=== PATIENT | female | born 1950 | race Caucasian/White ===

== ENCOUNTER 2018-10-30 14:43 | Inpatient (IN) | payer MEDICARE, MEDICAID ==
[2018-10-30 15:23] LABS: % BASOPHILS 0.9 % (0.0-2.0); % MONOCYTES 6.8 % (2.0-10.0); % NEUTROPHILS 54.3 % (40.0-80.0); BASOPHILE ABSOLUTE 0.1 Th/cumm (0-0.2); EOSINOPHILE ABSOLUTE 0.2 Th/cmm (0.1-0.4); HEMATOCRIT 37.5 % (41.0-60); HEMOGLOBIN 12.1 gm/dL (12-16); LYMPHOCYTE ABSOLUTE 2.3 Th/cmm (1.5-3.0); MEAN CELL VOLUME 92.6 fl (81-100); MEAN CORPUSCULAR HEMOGLOBIN 29.9 pg (27.0-31.0); MEAN CORPUSCULAR HGB CONC 32.3 pg (28.0-36.0); MEAN PLATELET VOLUME 8.3 fl; MONOCYTE ABSOLUTE 0.5 Th/cmm (0.3-1.0); NEUTROPHILE ABSOLUTE 3.6 Th/cmm (1.8-8.0); PLATELET COUNT 303 Th/cmm (150-400); RED BLOOD COUNT 4.05 Mil/cmm (3.80-5.20); WHITE BLOOD COUNT 6.7 Th/cmm (4.8-10.8)
[2018-10-30 15:41] LABS: ALB/GLOB RATIO 1.3 (1.0-1.8); ALBUMIN 3.9 gm/dL (3.7-5.3); ALKALINE PHOSPHATASE 68 U/L (34-104); ANION GAP 13.8 (7.0-16.0); BILIRUBIN,TOTAL 0.4 mg/dL (0.3-1.0); BUN - UREA NITROGEN 19 mg/dL (7-25); CALCIUM SERUM 9.7 mg/dL (8.6-10.3); CARBON DIOXIDE 22.4 mEq/L (21.0-31.0); CHLORIDE 105 mEq/L (98-107); CREATININE - SERUM 0.9 mg/dL (0.6-1.2); GFR AFRICAN-AMERICAN > 60.0 ml/min (>90); GFR NON AFRICAN-AMERICAN > 60.0 ml/min; GLUCOSE 90 mg/dL (70-105); MAGNESIUM 2.2 mg/dL (1.9-2.7); PHOSPHOROUS 2.9 mg/dL (2.5-5.0); POTASSIUM SERUM 4.2 mEq/L (3.5-5.1); SGOT 14 U/L (13-39); SGPT/ALT 3 U/L (7-52); SODIUM SERUM 137 mEq/L (136-145)
--- NOTE | 2018-10-30 16:02 | ED Physician Chart ---
ED Chief Complaint/HPI - Patient Information Date Seen:: 10/30/18 Time Seen:: 14:53 Chief Complaint:: delusions History of Present Illness:: increase in paranoia. She is locking herself in room and stating that she is missing meds and that someone stole her [place] pills. Allergies:: Allergies Allergy/AdvReac Type Severity Reaction Status Date / Time No Known Allergies Allergy Verified 10/30/18 14:58 Vitals:: Vital Signs - 8 hr 10/30/18 14:53 Temp 98.2 F HR 74 RR 16 BP 92/47 O2 Sat % 97 Historian:: Medical Records Review:: Nurse's Note Reviewed, Transfer documents Reviewed ED Review of Systems - Review of Systems General/Constitutional: No fever, No chills, No weight loss, No weakness, No diaphoresis, No edema, No loss of appetite Skin: No skin lesions, No rash, No bruising Head: No headache, No light-headedness Eyes: No loss of vision, No pain, No diplopia ENT: No earache, No nasal drainage, No sore throat, No tinnitus Neck: No neck pain, No swelling, No thyromegaly, No stiffness, No mass noted Cardio Vascular: No chest pain, No palpitations, No PND, No orthopnea, No edema Pulmonary: No SOB, No cough, No sputum, No wheezing GI: No nausea, No vomiting, No diarrhea, No pain, No melena, No hematochezia, No constipation, No hematemesis G/U: No dysuria, No frequency, No hematuria Musculoskeletal: No bone or joint pain, Back pain, No muscle pain, Other ( chronic back pain) Endocrine: No polyuria, No polydipsia Psychiatric: No prior psych history, No depression, No anxiety, No suicidal ideation Hematopoietic: No bruising, No lymphadenopathy Allergic/Immuno: No urticaria, No angioedema Neurological: No syncope, No focal symptoms, No weakness, No paresthesia, No headache, No seizure, No dizziness, No confusion, No vertigo ED Past Medical History - Past Medical History Obtainable: No Past Medical History: Other (chronic back pain; low thyroid; unknown psychiatric history since facility sent incomplete paper work) ED Physical Exam - Physical Examination General/Constitutional: Awake, Well-developed, well-nourished, Alert, No distress, GCS 15, Non-toxic appearing, Ambulatory Head: Atraumatic Eyes: Lids, conjuctiva normal, PERRL, EOMI Skin: Nl inspection, No rash, No skin lesions, No ecchymosis, Well hydrated, No lymphadenopathy ENMT: External ears, nose nl Neck: Nontender, No nuchal rigidity, No stridor Respiratory: Nl effort/Exclusion, Clear to Auscultation, No Wheeze/Rhonchi/Rales Cardio Vascular: RRR, No murmur, gallop, rubs, NL S1 S2 GI: No tenderness/rebounding/guarding, No organomegaly, No hernia, Normal BS's, Nondistended, No mass/bruits, No Mc[place] tenderness : No CVA tenderness Extremities: No tenderness or effusion, Full ROM, normal strength in all extremities, No edema, Normal digits & nails Neuro/Psych: Alert/oriented, Normal sensory exam, Normal motor strength, Normal gait, No focal deficits Other Neuro/Psych comments:: agitated and anxious Misc: Normal back, No paraspinal tenderness ED Labs/Radiology/EKG Results - Lab Results Results: Laboratory Tests 10/30/18 10/30/18 15:18 15:18 WBC 6.7 RBC 4.05 Hgb 12.1 Hct 37.5 L MCV 92.6 MCH 29.9 MCHC Differential 32.3 RDW 13.0 Plt Count 303 MPV 8.3 Neutrophils % 54.3 Lymphocytes % 35.0 Monocytes % 6.8 Eosinophils % 3.0 Basophils % 0.9 Sodium 137 Potassium 4.2 Chloride 105 Carbon Dioxide 22.4 Anion Gap 13.8 BUN 19 Creatinine 0.9 Est GFR ( Amer) > 60.0 Est GFR (Non-Af Amer) > 60.0 BUN/Creatinine Ratio 21.1 Glucose 90 Calcium 9.7 Phosphorus 2.9 Magnesium 2.2 Total Bilirubin 0.4 AST 14 ALT 3 L Alkaline Phosphatase 68 Total Protein 7.0 Albumin 3.9 Globulin 3.1 Albumin/Globulin Ratio 1.3 ED Assessment - Assessment General Assessment: PATIENT IS CLEARED FROM A MEDICAL STANDPOINT FOR THE [facility]. WE WERE NOT ABLE TO OBTAIN A URINE ON HER TO SEE IF SHE HAS A URINARY TRACT INFECTION. SHE DENIES ALL SYMPTOMS. called nurse Fifi, the charge nurse of [facility] (ext. [phone]) to tell her that the TSH level was a little bit elevated at 5.83 (normal is up to 5.6). Patient is already on levothyroxine. ED Septic Shock - . Is Septic Shock (SBP<90, OR Lactate>4 mmol\L) present?: No - <6hrs of presentation: Vital Signs: Vital Signs - 8 hr 10/30/18 14:53 Temp 98.2 F HR 74 RR 16 BP 92/47 O2 Sat % 97 ED Reassessment (Disposition) - Reassessment Reassessment Condition:: Unchanged - Diagnosis Diagnosis:: Increased agitation Paranoia Delusions Hypothyroidism: called nurse Fifi, the charge nurse of [facility] (ext. [phone]) to tell her that the TSH level was a little bit elevated at 5.83 (normal is up to 5.6). Patient is already on levothyroxine. - Patient Disposition Discharge/Transfer:: Acute Care w/in this hosp Admitted to:: [facility] Condition at Disposition:: Stable, Unchanged
[2018-10-30 16:40] VITALS: BP 0/0
[2018-10-30] MEDS ORDERED: Magnesium Hydroxide (MOM) 30 mL UDC PO PRN (16:40)
[2018-10-30] MEDS ORDERED: Maalox 30 mL Cup PO PRN (16:40)
[2018-10-30] MEDS ORDERED: [UNRECOGNIZED DRUG - OTHER] PO PRN (16:43)
[2018-10-30] MEDS ORDERED: CAFFEINE PO PRN (16:43)
[2018-10-30] MEDS ORDERED: ASPIRIN PO PRN (16:43)
[2018-10-30] MEDS ORDERED: ACETAMINOPHEN PO PRN (16:43)
[2018-10-30] MEDS ORDERED: Haloperidol Lactate 5 mg/mL 1mL Vial ONE (16:49)
[2018-10-30] MEDS ORDERED: Haloperidol Lactate 5 mg/mL 1mL Vial IM STA (16:55)
[2018-10-30 17:00] LABS: CHOLESTEROL 290 mg/dL (<200); HDL -HIGH DENSITY LIPOPROTEIN 73 mg/dL (23-92); TRIGLYCERIDES 83 mg/dL (<150)
[2018-10-31] MEDS ORDERED: CIMETIDINE 200 MG PO SCH (09:00)
[2018-10-31] MEDS ORDERED: Non-Formulary Item 1 EA (Levothyroxine Sodium [Levothyroxine Sodium] 150 MCG) PO SCH (09:00)
[2018-10-31] MEDS: Multivitamin Tab PO SCH (09:38)
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
--- NOTE | 2018-10-31 14:07 | History and Physical ---
History of Present Illness - HPI Chief Complaint: PARANOID HPI: This is a 68 year old female admitted from snf due to paranoia. Vital Signs: Last Vital Signs Temp 98.2 F 10/31/18 05:58 Pulse 61 10/31/18 09:39 Resp 18 10/31/18 10:36 BP 124/64 10/31/18 09:39 Pulse Ox 98 10/31/18 05:58 Past Medical History Other History: chronic back pain; hypothyroid psychosis Social History Smoke: No Alcohol: None Drugs: None Lives: [facility] - Medications Home Medications: Home Medication Medication Instructions Recorded Type Aspirin/Acetaminophen/Caffeine 1 each PO Q4H PRN 10/30/18 History [Excedrin Extra Strength Caplet] Cetirizine HCl [Zyrtec] 10 mg PO DAILY 10/30/18 History Cimetidine [Tagamet Hb] 200 mg PO DAILY 10/30/18 History Hydrocodone/Acetaminophen 1 each PO Q6H PRN 10/30/18 History [Hydrocodone-Acetamin 10-325 mg] Levothyroxine Sodium 150 mcg PO DAILY 10/30/18 History Lisinopril 10 mg PO DAILY 10/30/18 History Temazepam [Restoril] 30 mg PO HS 10/30/18 History Trazodone HCl 100 mg PO HS 10/30/18 History Venlafaxine HCl [Venlafaxine HCl 150 mg PO BID 10/30/18 History ER] buPROPion SR [Wellbutrin Sr] 200 mg PO DAILY 10/30/18 History - Allergies Allergies/Adverse Reactions: Allergies Allergy/AdvReac Type Severity Reaction Status Date / Time No Known Allergies Allergy Verified 10/30/18 14:58 Review of Systems - Review of Systems Constitutional: Report: No Significant Eyes: Report: No Significant ENT: Report: No Significant Respiratory: Report: No Significant Cardiovascular: Report: No Significant Neurological: Report: No Significant Physical Exam - Physical Exam HEENT: Report: Ears Nose Throat within normal limits Neck: Report: Within normal limits Cardiovascular Systems: Report: +s1/s2 noted, Regular, Rate and Rhythm Respiratory: Report: Breath Sounds are within normal limits Abdomen: Report: Non-tender to palpation Back: Report: Inspection of back is within normal limits. Extremities: Report: Non-tender to palpation. Skin: Report: Warm, Dry - Lab Results All Lab Results last 24 hours: Laboratory Results - last 24 hr 10/30/18 10/30/18 10/30/18 15:18 15:18 15:18 WBC 6.7 RBC 4.05 Hgb 12.1 Hct 37.5 L MCV 92.6 MCH 29.9 MCHC Differential 32.3 RDW 13.0 Plt Count 303 MPV 8.3 Neutrophils % 54.3 Lymphocytes % 35.0 Monocytes % 6.8 Eosinophils % 3.0 Basophils % 0.9 Sodium 137 Potassium 4.2 Chloride 105 Carbon Dioxide 22.4 Anion Gap 13.8 BUN 19 Creatinine 0.9 Est GFR ( Amer) > 60.0 Est GFR (Non-Af Amer) > 60.0 BUN/Creatinine Ratio 21.1 Glucose 90 Calcium 9.7 Phosphorus 2.9 Magnesium 2.2 Total Bilirubin 0.4 AST 14 ALT 3 L Alkaline Phosphatase 68 Total Protein 7.0 Albumin 3.9 Globulin 3.1 Albumin/Globulin Ratio 1.3 Triglycerides Cholesterol LDL Cholesterol Direct HDL Cholesterol TSH 5.83 H 10/30/18 15:18 WBC RBC Hgb Hct MCV MCH MCHC Differential RDW Plt Count MPV Neutrophils % Lymphocytes % Monocytes % Eosinophils % Basophils % Sodium Potassium Chloride Carbon Dioxide Anion Gap BUN Creatinine Est GFR ( Amer) Est GFR (Non-Af Amer) BUN/Creatinine Ratio Glucose Calcium Phosphorus Magnesium Total Bilirubin AST ALT Alkaline Phosphatase Total Protein Albumin Globulin Albumin/Globulin Ratio Triglycerides 83 Cholesterol 290 H LDL Cholesterol Direct 199 H HDL Cholesterol 73 TSH - Assessment Assessment: chronic back pain hypothyroidism psychosis - Plan Plan: fall precautions continue snf meds continue current tx
[2018-10-31 17:43] LABS: URINE SOURCE RANDOM
[2018-10-31 17:48] LABS: URINE BILIRUBIN NEGATIVE (NEGATIVE); URINE BLOOD LARGE (NEGATIVE); URINE CLARITY HAZY (CLEAR); URINE COLOR YELLOW; URINE GLUCOSE (UA) NEGATIVE (NEGATIVE); URINE KETONE NEGATIVE (NEGATIVE); URINE LEUKOCYTE ESTERASE NEGATIVE (NEGATIVE); URINE MICROSCOPIC INDICATED? YES; URINE NITRATE NEGATIVE (NEGATIVE); URINE PH 6.5 (4.6 - 8.0); URINE PROTEIN TRACE mg/dL (NEGATIVE); URINE UROBILINOGEN 0.2 E.U./dL (0.2 - 1.0)
[2018-10-31 17:51] LABS: URINE EPITHELIAL CELLS MODERATE /lpf (FEW); URINE RBC 25-50 /hpf (0-5)
[2018-10-31 17:52] LABS: URINE BACTERIA 4+ /hpf (NONE SEEN)
[2018-10-31 17:57] LABS: AMPHETAMINE URINE NEGATIVE (NEGATIVE); BARBITURATES URINE NEGATIVE (NEGATIVE); BENZODIAZEPINES QUAL URINE POSITIVE (NEGATIVE); CANNABINOID THC NEGATIVE (NEGATIVE); COCAINE METABOLITE QUAL URINE NEGATIVE (NEGATIVE); METHADONE URINE NEGATIVE (NEGATIVE); METHAMPHETAMINES QUAL URINE NEGATIVE (NEGATIVE); OPIATES (MORPHINE) QUAL. URINE NEGATIVE (NEGATIVE); PHENCYCLIDINE (PCP) URINE NEGATIVE (NEGATIVE); TRICYCLICS (TCA) QUAL. URINE NEGATIVE (NEGATIVE)
[2018-11-01] MEDS: Multivitamin Tab PO SCH (08:25)
[2018-11-01] MEDS: Hydrocodone/APAP 10 mg/325 mg Tab PO PRN (08:29)
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
--- NOTE | 2018-11-01 16:42 | Internal Medicine Prog Note ---
Internal Medicine Subjective - Subjective Patient seen and examined:: chart reviewed Patient is:: awake, other (paranoid ) Per staff patient has:: no adverse event Internal Medicine Objective - Results Result Diagrams: 10/30/18 15:18 10/30/18 15:18 Recent Labs: Laboratory Last Values WBC 6.7 Th/cmm (4.8-10.8) 10/30/18 15:18 RBC 4.05 Mil/cmm (3.80-5.20) 10/30/18 15:18 Hgb 12.1 gm/dL (12-16) 10/30/18 15:18 Hct 37.5 % (41.0-60) L 10/30/18 15:18 MCV 92.6 fl (81-100) 10/30/18 15:18 MCH 29.9 pg (27.0-31.0) 10/30/18 15:18 MCHC Differential 32.3 pg (28.0-36.0) 10/30/18 15:18 RDW 13.0 % (11.5-20.0) 10/30/18 15:18 Plt Count 303 Th/cmm (150-400) 10/30/18 15:18 MPV 8.3 fl 10/30/18 15:18 Neutrophils % 54.3 % (40.0-80.0) 10/30/18 15:18 Lymphocytes % 35.0 % (20.0-50.0) 10/30/18 15:18 Monocytes % 6.8 % (2.0-10.0) 10/30/18 15:18 Eosinophils % 3.0 % (0.0-5.0) 10/30/18 15:18 Basophils % 0.9 % (0.0-2.0) 10/30/18 15:18 Sodium 137 mEq/L (136-145) 10/30/18 15:18 Potassium 4.2 mEq/L (3.5-5.1) 10/30/18 15:18 Chloride 105 mEq/L (98-107) 10/30/18 15:18 Carbon Dioxide 22.4 mEq/L (21.0-31.0) 10/30/18 15:18 Anion Gap 13.8 (7.0-16.0) 10/30/18 15:18 BUN 19 mg/dL (7-25) 10/30/18 15:18 Creatinine 0.9 mg/dL (0.6-1.2) 10/30/18 15:18 Est GFR ( Amer) > 60.0 ml/min (>90) 10/30/18 15:18 Est GFR (Non-Af Amer) > 60.0 ml/min 10/30/18 15:18 BUN/Creatinine Ratio 21.1 10/30/18 15:18 Glucose 90 mg/dL (70-105) 10/30/18 15:18 Calcium 9.7 mg/dL (8.6-10.3) 10/30/18 15:18 Phosphorus 2.9 mg/dL (2.5-5.0) 10/30/18 15:18 Magnesium 2.2 mg/dL (1.9-2.7) 10/30/18 15:18 Total Bilirubin 0.4 mg/dL (0.3-1.0) 10/30/18 15:18 AST 14 U/L (13-39) 10/30/18 15:18 ALT 3 U/L (7-52) L 10/30/18 15:18 Alkaline Phosphatase 68 U/L (34-104) 10/30/18 15:18 Total Protein 7.0 gm/dL (6.0-8.3) 10/30/18 15:18 Albumin 3.9 gm/dL (3.7-5.3) 10/30/18 15:18 Globulin 3.1 gm/dL 10/30/18 15:18 Albumin/Globulin Ratio 1.3 (1.0-1.8) 10/30/18 15:18 Triglycerides 83 mg/dL (<150) 10/30/18 15:18 Cholesterol 290 mg/dL (<200) H 10/30/18 15:18 LDL Cholesterol Direct 199 mg/dL (75-193) H 10/30/18 15:18 HDL Cholesterol 73 mg/dL (23-92) 10/30/18 15:18 TSH 5.83 uIU/ml (0.34-5.60) H 10/30/18 15:18 Urine Source RANDOM 10/31/18 17:40 Urine Color YELLOW 10/31/18 17:40 Urine Clarity HAZY (CLEAR) 10/31/18 17:40 Urine pH 6.5 (4.6 - 8.0) 10/31/18 17:40 Ur Specific [place] 1.020 (1.005-1.030) 10/31/18 17:40 Urine Protein TRACE mg/dL (NEGATIVE) 10/31/18 17:40 Urine Glucose (UA) NEGATIVE mg/dL (NEGATIVE) 10/31/18 17:40 Urine Ketones NEGATIVE mg/dL (NEGATIVE) 10/31/18 17:40 Urine Blood LARGE (NEGATIVE) H 10/31/18 17:40 Urine Nitrate NEGATIVE (NEGATIVE) 10/31/18 17:40 Urine Bilirubin NEGATIVE (NEGATIVE) 10/31/18 17:40 Urine Urobilinogen 0.2 E.U./dL (0.2 - 1.0) 10/31/18 17:40 Ur Leukocyte Esterase NEGATIVE (NEGATIVE) 10/31/18 17:40 Urine RBC 25-50 /hpf (0-5) H 10/31/18 17:40 Urine WBC 2-5 /hpf (0-5) 10/31/18 17:40 Ur Epithelial Cells MODERATE /lpf (FEW) 10/31/18 17:40 Urine Bacteria 4+ /hpf (NONE SEEN) H 10/31/18 17:40 Urine Opiates Screen NEGATIVE (NEGATIVE) 10/31/18 17:40 Urine Methadone Screen NEGATIVE (NEGATIVE) 10/31/18 17:40 Ur Barbiturates Screen NEGATIVE (NEGATIVE) 10/31/18 17:40 Ur Tricyclics Screen NEGATIVE (NEGATIVE) 10/31/18 17:40 Ur Phencyclidine Scrn NEGATIVE (NEGATIVE) 10/31/18 17:40 Amphetamines Screen NEGATIVE (NEGATIVE) 10/31/18 17:40 U Methamphetamines Scrn NEGATIVE (NEGATIVE) 10/31/18 17:40 U Benzodiazepines Scrn POSITIVE (NEGATIVE) H 10/31/18 17:40 U Cocaine Metab Screen NEGATIVE (NEGATIVE) 10/31/18 17:40 U Cannabinoids Screen NEGATIVE (NEGATIVE) 10/31/18 17:40 - Physical Exam Vitals and I&O: Vital Signs Temp 98.1 F 11/01/18 14:00 Pulse 83 11/01/18 14:00 Resp 20 11/01/18 14:00 BP 134/85 11/01/18 14:00 Pulse Ox 97 11/01/18 14:00 Intake & Output 10/31/18 11/01/18 11/01/18 18:59 06:59 18:59 Intake Total 480 Balance 480 Intake: Oral 480 Other: # Voids 2 2 # Bowel Movements 1 Active Medications: Current Medications Acetaminophen (Tylenol) 650 mg PO Q4HR PRN PRN Reason: Mild Pain / Temp above 100 Stop: 12/29/18 16:39 Acetaminophen/Hydrocodone Bitart ([place] 10 Mg/325 Mg) 1 tab PO Q6H PRN PRN Reason: Moderate pain Stop: 12/29/18 16:42 Last Admin: 11/01/18 08:29 Dose: 1 tab Al Hydrox/Mg Hydrox/Simethicone (Maalox) 30 ml PO Q4HR PRN PRN Reason: GI DISTRESS Stop: 12/29/18 16:39 Bupropion HCl (Wellbutrin Sr) 200 mg PO DAILY [facility]; Protocol Stop: 12/30/18 08:59 Last Admin: 11/01/18 08:26 Dose: 200 mg Famotidine (Pepcid) 20 mg PO DAILY [facility] Stop: 12/30/18 08:59 Last Admin: 11/01/18 08:27 Dose: 20 mg Levothyroxine Sodium 0.1 mg/ (Levothyroxine Sodium 0.05 mg) 0.15 mg PO QDAC [facility] Stop: 12/30/18 07:29 Last Admin: 11/01/18 06:35 Dose: 0.15 mg Lisinopril (Zestril) 10 mg PO DAILY [facility] Stop: 12/30/18 08:59 Last Admin: 11/01/18 08:26 Dose: 10 mg Loratadine (Claritin) 10 mg PO DAILY [facility] Stop: 12/30/18 08:59 Last Admin: 11/01/18 08:26 Dose: 10 mg Lorazepam (Ativan) 0.5 mg PO Q4HR PRN; Protocol PRN Reason: Agitation Stop: 11/29/18 16:39 Last Admin: 11/01/18 12:20 Dose: 0.5 mg Magnesium Hydroxide (Milk Of Magnesia) 30 ml PO HS PRN PRN Reason: Constipation Multivitamins/Vitamin C (Theragran) 1 tab PO DAILY [facility] Stop: 12/30/18 08:59 Last Admin: 11/01/18 08:25 Dose: 1 tab Temazepam (Restoril) 30 mg PO HS [facility] Stop: 12/29/18 20:59 Last Admin: 10/31/18 20:15 Dose: 30 mg Trazodone HCl (Desyrel) 100 mg PO HS [facility] Stop: 12/29/18 20:59 Last Admin: 10/31/18 20:15 Dose: 100 mg Venlafaxine HCl (Effexor) 150 mg PO BID [facility] Stop: 12/29/18 20:59 Last Admin: 11/01/18 08:28 Dose: Not Given Zolpidem Tartrate (Ambien) 5 mg PO HS PRN PRN Reason: Insomnia Stop: 12/29/18 16:39 General: alert HEENT: NC/AT Neck: Supple Lungs: CTAB Cardiovascular: RRR, Normal S1, Normal S2 Abdomen: soft Extremities: clear Neurological: no change Internal Medicine Assmt/Plan - Assessment Assessment: psychosis hypothyrodism back pain - Plan Plan: as per psych
[2018-11-02] MEDS: Hydrocodone/APAP 10 mg/325 mg Tab PO PRN ×2 (11:04→17:05)
[2018-11-02] MEDS: Multivitamin Tab PO SCH (11:04)
--- NOTE | 2018-11-02 21:16 | Internal Medicine Prog Note ---
Internal Medicine Subjective - Subjective Service Date: 11/02/18 Patient seen and examined:: with staff Patient is:: awake, other (paranoid ) Per staff patient has:: no adverse event Internal Medicine Objective - Results Result Diagrams: 10/30/18 15:18 10/30/18 15:18 Recent Labs: Laboratory Last Values WBC 6.7 Th/cmm (4.8-10.8) 10/30/18 15:18 RBC 4.05 Mil/cmm (3.80-5.20) 10/30/18 15:18 Hgb 12.1 gm/dL (12-16) 10/30/18 15:18 Hct 37.5 % (41.0-60) L 10/30/18 15:18 MCV 92.6 fl (81-100) 10/30/18 15:18 MCH 29.9 pg (27.0-31.0) 10/30/18 15:18 MCHC Differential 32.3 pg (28.0-36.0) 10/30/18 15:18 RDW 13.0 % (11.5-20.0) 10/30/18 15:18 Plt Count 303 Th/cmm (150-400) 10/30/18 15:18 MPV 8.3 fl 10/30/18 15:18 Neutrophils % 54.3 % (40.0-80.0) 10/30/18 15:18 Lymphocytes % 35.0 % (20.0-50.0) 10/30/18 15:18 Monocytes % 6.8 % (2.0-10.0) 10/30/18 15:18 Eosinophils % 3.0 % (0.0-5.0) 10/30/18 15:18 Basophils % 0.9 % (0.0-2.0) 10/30/18 15:18 Sodium 137 mEq/L (136-145) 10/30/18 15:18 Potassium 4.2 mEq/L (3.5-5.1) 10/30/18 15:18 Chloride 105 mEq/L (98-107) 10/30/18 15:18 Carbon Dioxide 22.4 mEq/L (21.0-31.0) 10/30/18 15:18 Anion Gap 13.8 (7.0-16.0) 10/30/18 15:18 BUN 19 mg/dL (7-25) 10/30/18 15:18 Creatinine 0.9 mg/dL (0.6-1.2) 10/30/18 15:18 Est GFR ( Amer) > 60.0 ml/min (>90) 10/30/18 15:18 Est GFR (Non-Af Amer) > 60.0 ml/min 10/30/18 15:18 BUN/Creatinine Ratio 21.1 10/30/18 15:18 Glucose 90 mg/dL (70-105) 10/30/18 15:18 Calcium 9.7 mg/dL (8.6-10.3) 10/30/18 15:18 Phosphorus 2.9 mg/dL (2.5-5.0) 10/30/18 15:18 Magnesium 2.2 mg/dL (1.9-2.7) 10/30/18 15:18 Total Bilirubin 0.4 mg/dL (0.3-1.0) 10/30/18 15:18 AST 14 U/L (13-39) 10/30/18 15:18 ALT 3 U/L (7-52) L 10/30/18 15:18 Alkaline Phosphatase 68 U/L (34-104) 10/30/18 15:18 Total Protein 7.0 gm/dL (6.0-8.3) 10/30/18 15:18 Albumin 3.9 gm/dL (3.7-5.3) 10/30/18 15:18 Globulin 3.1 gm/dL 10/30/18 15:18 Albumin/Globulin Ratio 1.3 (1.0-1.8) 10/30/18 15:18 Triglycerides 83 mg/dL (<150) 10/30/18 15:18 Cholesterol 290 mg/dL (<200) H 10/30/18 15:18 LDL Cholesterol Direct 199 mg/dL (75-193) H 10/30/18 15:18 HDL Cholesterol 73 mg/dL (23-92) 10/30/18 15:18 TSH 5.83 uIU/ml (0.34-5.60) H 10/30/18 15:18 Urine Source RANDOM 10/31/18 17:40 Urine Color YELLOW 10/31/18 17:40 Urine Clarity HAZY (CLEAR) 10/31/18 17:40 Urine pH 6.5 (4.6 - 8.0) 10/31/18 17:40 Ur Specific [place] 1.020 (1.005-1.030) 10/31/18 17:40 Urine Protein TRACE mg/dL (NEGATIVE) 10/31/18 17:40 Urine Glucose (UA) NEGATIVE mg/dL (NEGATIVE) 10/31/18 17:40 Urine Ketones NEGATIVE mg/dL (NEGATIVE) 10/31/18 17:40 Urine Blood LARGE (NEGATIVE) H 10/31/18 17:40 Urine Nitrate NEGATIVE (NEGATIVE) 10/31/18 17:40 Urine Bilirubin NEGATIVE (NEGATIVE) 10/31/18 17:40 Urine Urobilinogen 0.2 E.U./dL (0.2 - 1.0) 10/31/18 17:40 Ur Leukocyte Esterase NEGATIVE (NEGATIVE) 10/31/18 17:40 Urine RBC 25-50 /hpf (0-5) H 10/31/18 17:40 Urine WBC 2-5 /hpf (0-5) 10/31/18 17:40 Ur Epithelial Cells MODERATE /lpf (FEW) 10/31/18 17:40 Urine Bacteria 4+ /hpf (NONE SEEN) H 10/31/18 17:40 Urine Opiates Screen NEGATIVE (NEGATIVE) 10/31/18 17:40 Urine Methadone Screen NEGATIVE (NEGATIVE) 10/31/18 17:40 Ur Barbiturates Screen NEGATIVE (NEGATIVE) 10/31/18 17:40 Ur Tricyclics Screen NEGATIVE (NEGATIVE) 10/31/18 17:40 Ur Phencyclidine Scrn NEGATIVE (NEGATIVE) 10/31/18 17:40 Amphetamines Screen NEGATIVE (NEGATIVE) 10/31/18 17:40 U Methamphetamines Scrn NEGATIVE (NEGATIVE) 10/31/18 17:40 U Benzodiazepines Scrn POSITIVE (NEGATIVE) H 10/31/18 17:40 U Cocaine Metab Screen NEGATIVE (NEGATIVE) 10/31/18 17:40 U Cannabinoids Screen NEGATIVE (NEGATIVE) 10/31/18 17:40 - Physical Exam Vitals and I&O: Vital Signs Temp 97.1 F 11/02/18 19:59 Pulse 92 11/02/18 19:59 Resp 20 11/02/18 19:59 BP 162/67 11/02/18 19:59 Pulse Ox 98 11/02/18 19:59 Intake & Output 11/02/18 11/02/18 11/03/18 06:59 18:59 06:59 Intake Total 120 1200 Balance 120 1200 Intake: Oral 120 1200 Other: # Voids 3 # Bowel Movements 0 1 Active Medications: Current Medications Acetaminophen (Tylenol) 650 mg PO Q4HR PRN PRN Reason: Mild Pain / Temp above 100 Stop: 12/29/18 16:39 Acetaminophen/Hydrocodone Bitart ([place] 10 Mg/325 Mg) 1 tab PO Q6H PRN PRN Reason: Moderate pain Stop: 12/29/18 16:42 Last Admin: 11/02/18 17:05 Dose: 1 tab Al Hydrox/Mg Hydrox/Simethicone (Maalox) 30 ml PO Q4HR PRN PRN Reason: GI DISTRESS Stop: 12/29/18 16:39 Bupropion HCl (Wellbutrin Sr) 200 mg PO DAILY [facility]; Protocol Stop: 12/30/18 08:59 Last Admin: 11/02/18 11:00 Dose: 200 mg Ciprofloxacin (Cipro) 500 mg PO BID [facility] Stop: 01/02/19 08:59 Famotidine (Pepcid) 20 mg PO DAILY [facility] Stop: 12/30/18 08:59 Last Admin: 11/02/18 11:00 Dose: 20 mg Levothyroxine Sodium 0.1 mg/ (Levothyroxine Sodium 0.05 mg) 0.15 mg PO QDAC [facility] Stop: 12/30/18 07:29 Last Admin: 11/02/18 06:55 Dose: 0.15 mg Lisinopril (Zestril) 10 mg PO DAILY [facility] Stop: 12/30/18 08:59 Last Admin: 11/02/18 11:01 Dose: 10 mg Loratadine (Claritin) 10 mg PO DAILY [facility] Stop: 12/30/18 08:59 Last Admin: 11/02/18 11:04 Dose: 10 mg Lorazepam (Ativan) 0.5 mg PO Q4HR PRN; Protocol PRN Reason: Agitation Stop: 11/29/18 16:39 Last Admin: 11/01/18 12:20 Dose: 0.5 mg Magnesium Hydroxide (Milk Of Magnesia) 30 ml PO HS PRN PRN Reason: Constipation Multivitamins/Vitamin C (Theragran) 1 tab PO DAILY CORKY Stop: 12/30/18 08:59 Last Admin: 11/02/18 11:04 Dose: Not Given Temazepam (Restoril) 30 mg PO HS CORKY Stop: 12/29/18 20:59 Last Admin: 11/02/18 20:31 Dose: 30 mg Trazodone HCl (Desyrel) 100 mg PO HS CORKY Stop: 12/29/18 20:59 Last Admin: 11/02/18 20:32 Dose: 100 mg Venlafaxine HCl (Effexor) 150 mg PO BID CORKY Stop: 12/29/18 20:59 Last Admin: 11/02/18 17:02 Dose: 150 mg Zolpidem Tartrate (Ambien) 5 mg PO HS PRN PRN Reason: Insomnia Stop: 12/29/18 16:39 General: alert HEENT: NC/AT Neck: Supple Lungs: CTAB Cardiovascular: RRR, Normal S1, Normal S2 Abdomen: soft Extremities: clear Neurological: no change Internal Medicine Assmt/Plan - Assessment Assessment: 1.UTI 2.HTN. 3.HYPOTHYROIDISM. 4.PSYCHOSIS. - Plan Plan: CIPRO 500 MG PO BID.
--- NOTE | 2018-11-02 23:07 | Progress Notes ---
DATE: 11/02/2018 SUBJECTIVE: Case was discussed with staff of the patient, reviewed records. The patient apparently was upset today as they have arranged ____ to go to [facility] and she had a boyfriend that come and visit her every day or every other day and if she goes there he won't be able to come see her except for maybe once a week and she is very upset because of that, so I discussed with staff the need for them to find a place closer to that where he worked and that is how she would prefer to be, so this way he would come and visit her, which is really understandable. She is sleeping better, eating better. No side effects of the medication, no sedation, and no nausea. We will continue to work with the patient in group therapy, milieu therapy, and adjust the medications as needed. JOB# [id number]
[2018-11-03] MEDS: Hydrocodone/APAP 10 mg/325 mg Tab PO PRN ×3 (06:35→19:40)
[2018-11-03] MEDS: Multivitamin Tab PO SCH (08:34)
--- NOTE | 2018-11-03 15:12 | Internal Medicine Prog Note ---
Internal Medicine Subjective - Subjective Patient seen and examined:: chart reviewed Patient is:: awake, other (paranoid , in no distress ) Per staff patient has:: no adverse event Internal Medicine Objective - Results Result Diagrams: 10/30/18 15:18 10/30/18 15:18 Recent Labs: Laboratory Last Values WBC 6.7 Th/cmm (4.8-10.8) 10/30/18 15:18 RBC 4.05 Mil/cmm (3.80-5.20) 10/30/18 15:18 Hgb 12.1 gm/dL (12-16) 10/30/18 15:18 Hct 37.5 % (41.0-60) L 10/30/18 15:18 MCV 92.6 fl (81-100) 10/30/18 15:18 MCH 29.9 pg (27.0-31.0) 10/30/18 15:18 MCHC Differential 32.3 pg (28.0-36.0) 10/30/18 15:18 RDW 13.0 % (11.5-20.0) 10/30/18 15:18 Plt Count 303 Th/cmm (150-400) 10/30/18 15:18 MPV 8.3 fl 10/30/18 15:18 Neutrophils % 54.3 % (40.0-80.0) 10/30/18 15:18 Lymphocytes % 35.0 % (20.0-50.0) 10/30/18 15:18 Monocytes % 6.8 % (2.0-10.0) 10/30/18 15:18 Eosinophils % 3.0 % (0.0-5.0) 10/30/18 15:18 Basophils % 0.9 % (0.0-2.0) 10/30/18 15:18 Sodium 137 mEq/L (136-145) 10/30/18 15:18 Potassium 4.2 mEq/L (3.5-5.1) 10/30/18 15:18 Chloride 105 mEq/L (98-107) 10/30/18 15:18 Carbon Dioxide 22.4 mEq/L (21.0-31.0) 10/30/18 15:18 Anion Gap 13.8 (7.0-16.0) 10/30/18 15:18 BUN 19 mg/dL (7-25) 10/30/18 15:18 Creatinine 0.9 mg/dL (0.6-1.2) 10/30/18 15:18 Est GFR ( Amer) > 60.0 ml/min (>90) 10/30/18 15:18 Est GFR (Non-Af Amer) > 60.0 ml/min 10/30/18 15:18 BUN/Creatinine Ratio 21.1 10/30/18 15:18 Glucose 90 mg/dL (70-105) 10/30/18 15:18 Calcium 9.7 mg/dL (8.6-10.3) 10/30/18 15:18 Phosphorus 2.9 mg/dL (2.5-5.0) 10/30/18 15:18 Magnesium 2.2 mg/dL (1.9-2.7) 10/30/18 15:18 Total Bilirubin 0.4 mg/dL (0.3-1.0) 10/30/18 15:18 AST 14 U/L (13-39) 10/30/18 15:18 ALT 3 U/L (7-52) L 10/30/18 15:18 Alkaline Phosphatase 68 U/L (34-104) 10/30/18 15:18 Total Protein 7.0 gm/dL (6.0-8.3) 10/30/18 15:18 Albumin 3.9 gm/dL (3.7-5.3) 10/30/18 15:18 Globulin 3.1 gm/dL 10/30/18 15:18 Albumin/Globulin Ratio 1.3 (1.0-1.8) 10/30/18 15:18 Triglycerides 83 mg/dL (<150) 10/30/18 15:18 Cholesterol 290 mg/dL (<200) H 10/30/18 15:18 LDL Cholesterol Direct 199 mg/dL (75-193) H 10/30/18 15:18 HDL Cholesterol 73 mg/dL (23-92) 10/30/18 15:18 TSH 5.83 uIU/ml (0.34-5.60) H 10/30/18 15:18 Urine Source RANDOM 10/31/18 17:40 Urine Color YELLOW 10/31/18 17:40 Urine Clarity HAZY (CLEAR) 10/31/18 17:40 Urine pH 6.5 (4.6 - 8.0) 10/31/18 17:40 Ur Specific [employer] [place] 1.020 (1.005-1.030) 10/31/18 17:40 Urine Protein TRACE mg/dL (NEGATIVE) 10/31/18 17:40 Urine Glucose (UA) NEGATIVE mg/dL (NEGATIVE) 10/31/18 17:40 Urine Ketones NEGATIVE mg/dL (NEGATIVE) 10/31/18 17:40 Urine Blood LARGE (NEGATIVE) H 10/31/18 17:40 Urine Nitrate NEGATIVE (NEGATIVE) 10/31/18 17:40 Urine Bilirubin NEGATIVE (NEGATIVE) 10/31/18 17:40 Urine Urobilinogen 0.2 E.U./dL (0.2 - 1.0) 10/31/18 17:40 Ur Leukocyte Esterase NEGATIVE (NEGATIVE) 10/31/18 17:40 Urine RBC 25-50 /hpf (0-5) H 10/31/18 17:40 Urine WBC 2-5 /hpf (0-5) 10/31/18 17:40 Ur Epithelial Cells MODERATE /lpf (FEW) 10/31/18 17:40 Urine Bacteria 4+ /hpf (NONE SEEN) H 10/31/18 17:40 Urine Opiates Screen NEGATIVE (NEGATIVE) 10/31/18 17:40 Urine Methadone Screen NEGATIVE (NEGATIVE) 10/31/18 17:40 Ur Barbiturates Screen NEGATIVE (NEGATIVE) 10/31/18 17:40 Ur Tricyclics Screen NEGATIVE (NEGATIVE) 10/31/18 17:40 Ur Phencyclidine Scrn NEGATIVE (NEGATIVE) 10/31/18 17:40 Amphetamines Screen NEGATIVE (NEGATIVE) 10/31/18 17:40 U Methamphetamines Scrn NEGATIVE (NEGATIVE) 10/31/18 17:40 U Benzodiazepines Scrn POSITIVE (NEGATIVE) H 10/31/18 17:40 U Cocaine Metab Screen NEGATIVE (NEGATIVE) 10/31/18 17:40 U Cannabinoids Screen NEGATIVE (NEGATIVE) 10/31/18 17:40 - Physical Exam Vitals and I&O: Vital Signs Temp 97.8 F 11/03/18 14:00 Pulse 78 11/03/18 14:00 Resp 18 11/03/18 14:00 BP 156/85 11/03/18 14:00 Pulse Ox 97 11/03/18 14:00 Intake & Output 11/02/18 11/03/18 11/03/18 18:59 06:59 18:59 Intake Total 1200 Balance 1200 Intake: Oral 1200 Other: # Bowel Movements 1 Active Medications: Current Medications Acetaminophen (Tylenol) 650 mg PO Q4HR PRN PRN Reason: Mild Pain / Temp above 100 Stop: 12/29/18 16:39 Acetaminophen/Hydrocodone Bitart ([place] 10 Mg/325 Mg) 1 tab PO Q6H PRN PRN Reason: Moderate pain Stop: 12/29/18 16:42 Last Admin: 11/03/18 13:05 Dose: 1 tab Al Hydrox/Mg Hydrox/Simethicone (Maalox) 30 ml PO Q4HR PRN PRN Reason: GI DISTRESS Stop: 12/29/18 16:39 Bupropion HCl (Wellbutrin Sr) 200 mg PO DAILY [facility]; Protocol Stop: 12/30/18 08:59 Last Admin: 11/03/18 08:37 Dose: 200 mg Ciprofloxacin (Cipro) 500 mg PO BID [facility] Stop: 01/02/19 08:59 Last Admin: 11/03/18 08:35 Dose: 500 mg Famotidine (Pepcid) 20 mg PO DAILY [facility] Stop: 12/30/18 08:59 Last Admin: 11/03/18 08:35 Dose: 20 mg Levothyroxine Sodium 0.1 mg/ (Levothyroxine Sodium 0.05 mg) 0.15 mg PO QDAC [facility] Stop: 12/30/18 07:29 Last Admin: 11/03/18 06:34 Dose: 0.15 mg Lisinopril (Zestril) 10 mg PO DAILY [facility] Stop: 12/30/18 08:59 Last Admin: 11/03/18 08:35 Dose: 10 mg Loratadine (Claritin) 10 mg PO DAILY [facility] Stop: 12/30/18 08:59 Last Admin: 11/03/18 08:35 Dose: 10 mg Lorazepam (Ativan) 0.5 mg PO Q4HR PRN; Protocol PRN Reason: Agitation Stop: 11/29/18 16:39 Last Admin: 11/01/18 12:20 Dose: 0.5 mg Magnesium Hydroxide (Milk Of Magnesia) 30 ml PO HS PRN PRN Reason: Constipation Multivitamins/Vitamin C (Theragran) 1 tab PO DAILY [facility] Stop: 12/30/18 08:59 Last Admin: 11/03/18 08:34 Dose: 1 tab Temazepam (Restoril) 30 mg PO HS [facility] Stop: 12/29/18 20:59 Last Admin: 11/02/18 20:31 Dose: 30 mg Trazodone HCl (Desyrel) 100 mg PO HS [facility] Stop: 12/29/18 20:59 Last Admin: 11/02/18 20:32 Dose: 100 mg Venlafaxine HCl (Effexor) 150 mg PO BID [facility] Stop: 12/29/18 20:59 Last Admin: 11/03/18 08:37 Dose: 150 mg Zolpidem Tartrate (Ambien) 5 mg PO HS PRN PRN Reason: Insomnia Stop: 12/29/18 16:39 Last Admin: 11/03/18 01:40 Dose: 5 mg General: alert HEENT: NC/AT Neck: Supple Lungs: CTAB Cardiovascular: RRR, Normal S1, Normal S2 Abdomen: soft Extremities: clear Neurological: no change Internal Medicine Assmt/Plan - Assessment Assessment: psychosis hypothyrodism back pain - Plan Plan: as per psych
--- NOTE | 2018-11-03 16:34 | Progress Notes ---
DATE: 11/03/2018 Case was discussed with staff of the patient, reviewed records. We are working on placement for this patient as family cannot go to the place where she was, as: 1. They do want a ____. 2. She was paranoid and felt they were stealing her belonging. The patient seems to be calmer. She wants to go to a place where her boyfriend can come and see her. She is sleeping well, eating well. Working on discharge plan. We will continue the patient in group therapy, milieu therapy, adjust medication as needed. JOB# [id number]
--- NOTE | 2018-11-03 20:49 | Internal Medicine Prog Note ---
Internal Medicine Subjective - Subjective Service Date: 11/03/18 Patient seen and examined:: without staff Patient is:: awake, other (paranoid , in no distress ) Per staff patient has:: no adverse event Internal Medicine Objective - Results Result Diagrams: 10/30/18 15:18 10/30/18 15:18 Recent Labs: Laboratory Last Values WBC 6.7 Th/cmm (4.8-10.8) 10/30/18 15:18 RBC 4.05 Mil/cmm (3.80-5.20) 10/30/18 15:18 Hgb 12.1 gm/dL (12-16) 10/30/18 15:18 Hct 37.5 % (41.0-60) L 10/30/18 15:18 MCV 92.6 fl (81-100) 10/30/18 15:18 MCH 29.9 pg (27.0-31.0) 10/30/18 15:18 MCHC Differential 32.3 pg (28.0-36.0) 10/30/18 15:18 RDW 13.0 % (11.5-20.0) 10/30/18 15:18 Plt Count 303 Th/cmm (150-400) 10/30/18 15:18 MPV 8.3 fl 10/30/18 15:18 Neutrophils % 54.3 % (40.0-80.0) 10/30/18 15:18 Lymphocytes % 35.0 % (20.0-50.0) 10/30/18 15:18 Monocytes % 6.8 % (2.0-10.0) 10/30/18 15:18 Eosinophils % 3.0 % (0.0-5.0) 10/30/18 15:18 Basophils % 0.9 % (0.0-2.0) 10/30/18 15:18 Sodium 137 mEq/L (136-145) 10/30/18 15:18 Potassium 4.2 mEq/L (3.5-5.1) 10/30/18 15:18 Chloride 105 mEq/L (98-107) 10/30/18 15:18 Carbon Dioxide 22.4 mEq/L (21.0-31.0) 10/30/18 15:18 Anion Gap 13.8 (7.0-16.0) 10/30/18 15:18 BUN 19 mg/dL (7-25) 10/30/18 15:18 Creatinine 0.9 mg/dL (0.6-1.2) 10/30/18 15:18 Est GFR ( Amer) > 60.0 ml/min (>90) 10/30/18 15:18 Est GFR (Non-Af Amer) > 60.0 ml/min 10/30/18 15:18 BUN/Creatinine Ratio 21.1 10/30/18 15:18 Glucose 90 mg/dL (70-105) 10/30/18 15:18 Calcium 9.7 mg/dL (8.6-10.3) 10/30/18 15:18 Phosphorus 2.9 mg/dL (2.5-5.0) 10/30/18 15:18 Magnesium 2.2 mg/dL (1.9-2.7) 10/30/18 15:18 Total Bilirubin 0.4 mg/dL (0.3-1.0) 10/30/18 15:18 AST 14 U/L (13-39) 10/30/18 15:18 ALT 3 U/L (7-52) L 10/30/18 15:18 Alkaline Phosphatase 68 U/L (34-104) 10/30/18 15:18 Total Protein 7.0 gm/dL (6.0-8.3) 10/30/18 15:18 Albumin 3.9 gm/dL (3.7-5.3) 10/30/18 15:18 Globulin 3.1 gm/dL 10/30/18 15:18 Albumin/Globulin Ratio 1.3 (1.0-1.8) 10/30/18 15:18 Triglycerides 83 mg/dL (<150) 10/30/18 15:18 Cholesterol 290 mg/dL (<200) H 10/30/18 15:18 LDL Cholesterol Direct 199 mg/dL (75-193) H 10/30/18 15:18 HDL Cholesterol 73 mg/dL (23-92) 10/30/18 15:18 TSH 5.83 uIU/ml (0.34-5.60) H 10/30/18 15:18 Urine Source RANDOM 10/31/18 17:40 Urine Color YELLOW 10/31/18 17:40 Urine Clarity HAZY (CLEAR) 10/31/18 17:40 Urine pH 6.5 (4.6 - 8.0) 10/31/18 17:40 Ur Specific [place] 1.020 (1.005-1.030) 10/31/18 17:40 Urine Protein TRACE mg/dL (NEGATIVE) 10/31/18 17:40 Urine Glucose (UA) NEGATIVE mg/dL (NEGATIVE) 10/31/18 17:40 Urine Ketones NEGATIVE mg/dL (NEGATIVE) 10/31/18 17:40 Urine Blood LARGE (NEGATIVE) H 10/31/18 17:40 Urine Nitrate NEGATIVE (NEGATIVE) 10/31/18 17:40 Urine Bilirubin NEGATIVE (NEGATIVE) 10/31/18 17:40 Urine Urobilinogen 0.2 E.U./dL (0.2 - 1.0) 10/31/18 17:40 Ur Leukocyte Esterase NEGATIVE (NEGATIVE) 10/31/18 17:40 Urine RBC 25-50 /hpf (0-5) H 10/31/18 17:40 Urine WBC 2-5 /hpf (0-5) 10/31/18 17:40 Ur Epithelial Cells MODERATE /lpf (FEW) 10/31/18 17:40 Urine Bacteria 4+ /hpf (NONE SEEN) H 10/31/18 17:40 Urine Opiates Screen NEGATIVE (NEGATIVE) 10/31/18 17:40 Urine Methadone Screen NEGATIVE (NEGATIVE) 10/31/18 17:40 Ur Barbiturates Screen NEGATIVE (NEGATIVE) 10/31/18 17:40 Ur Tricyclics Screen NEGATIVE (NEGATIVE) 10/31/18 17:40 Ur Phencyclidine Scrn NEGATIVE (NEGATIVE) 10/31/18 17:40 Amphetamines Screen NEGATIVE (NEGATIVE) 10/31/18 17:40 U Methamphetamines Scrn NEGATIVE (NEGATIVE) 10/31/18 17:40 U Benzodiazepines Scrn POSITIVE (NEGATIVE) H 10/31/18 17:40 U Cocaine Metab Screen NEGATIVE (NEGATIVE) 10/31/18 17:40 U Cannabinoids Screen NEGATIVE (NEGATIVE) 10/31/18 17:40 - Physical Exam Vitals and I&O: Vital Signs Temp 98.4 F 11/03/18 19:28 Pulse 16 11/03/18 19:28 Resp 16 11/03/18 19:55 BP 130/85 11/03/18 19:28 Pulse Ox 96 11/03/18 19:28 Intake & Output 11/03/18 11/03/18 11/04/18 06:59 18:59 06:59 Intake Total 1200 Balance 1200 Intake: Oral 1200 Other: # Voids 3 # Bowel Movements 1 Active Medications: Current Medications Acetaminophen (Tylenol) 650 mg PO Q4HR PRN PRN Reason: Mild Pain / Temp above 100 Stop: 12/29/18 16:39 Acetaminophen/Hydrocodone Bitart ([place] 10 Mg/325 Mg) 1 tab PO Q6H PRN PRN Reason: Moderate pain Stop: 12/29/18 16:42 Last Admin: 11/03/18 19:40 Dose: 1 tab Al Hydrox/Mg Hydrox/Simethicone (Maalox) 30 ml PO Q4HR PRN PRN Reason: GI DISTRESS Stop: 12/29/18 16:39 Bupropion HCl (Wellbutrin Sr) 200 mg PO DAILY [facility]; Protocol Stop: 12/30/18 08:59 Last Admin: 11/03/18 08:37 Dose: 200 mg Ciprofloxacin (Cipro) 500 mg PO BID [facility] Stop: 01/02/19 08:59 Last Admin: 11/03/18 16:32 Dose: 500 mg Famotidine (Pepcid) 20 mg PO DAILY [facility] Stop: 12/30/18 08:59 Last Admin: 11/03/18 08:35 Dose: 20 mg Levothyroxine Sodium 0.1 mg/ (Levothyroxine Sodium 0.05 mg) 0.15 mg PO QDAC [facility] Stop: 12/30/18 07:29 Last Admin: 11/03/18 06:34 Dose: 0.15 mg Lisinopril (Zestril) 10 mg PO DAILY [facility] Stop: 12/30/18 08:59 Last Admin: 11/03/18 08:35 Dose: 10 mg Loratadine (Claritin) 10 mg PO DAILY [facility] Stop: 12/30/18 08:59 Last Admin: 11/03/18 08:35 Dose: 10 mg Lorazepam (Ativan) 0.5 mg PO Q4HR PRN; Protocol PRN Reason: Agitation Stop: 11/29/18 16:39 Last Admin: 11/03/18 20:26 Dose: 0.5 mg Magnesium Hydroxide (Milk Of Magnesia) 30 ml PO HS PRN PRN Reason: Constipation Multivitamins/Vitamin C (Theragran) 1 tab PO DAILY [facility] Stop: 12/30/18 08:59 Last Admin: 11/03/18 08:34 Dose: 1 tab Temazepam (Restoril) 30 mg PO HS [facility] Stop: 12/29/18 20:59 Last Admin: 11/03/18 20:25 Dose: 30 mg Trazodone HCl (Desyrel) 100 mg PO HS [facility] Stop: 12/29/18 20:59 Last Admin: 11/03/18 20:25 Dose: 100 mg Venlafaxine HCl (Effexor) 150 mg PO BID [facility] Stop: 12/29/18 20:59 Last Admin: 11/03/18 16:32 Dose: 150 mg Zolpidem Tartrate (Ambien) 5 mg PO HS PRN PRN Reason: Insomnia Stop: 12/29/18 16:39 Last Admin: 11/03/18 01:40 Dose: 5 mg General: alert HEENT: NC/AT Neck: Supple Lungs: CTAB Cardiovascular: RRR, Normal S1, Normal S2 Abdomen: soft Extremities: clear Neurological: no change Internal Medicine Assmt/Plan - Assessment Assessment: 1.UTI 2.HTN. 3.HYPOTHYROIDISM. 4.PSYCHOSIS. - Plan Plan: CONTINUE ON CURRENT MEDICATION AND DIET.
[2018-11-04] MEDS: Hydrocodone/APAP 10 mg/325 mg Tab PO PRN ×3 (07:08→19:39)
[2018-11-04] MEDS: Multivitamin Tab PO SCH (08:47)
--- NOTE | 2018-11-04 13:32 | General Progress Note ---
Objective - Results Result Diagrams: 10/30/18 15:18 10/30/18 15:18 Recent Labs: Laboratory Last Values WBC 6.7 Th/cmm (4.8-10.8) 10/30/18 15:18 RBC 4.05 Mil/cmm (3.80-5.20) 10/30/18 15:18 Hgb 12.1 gm/dL (12-16) 10/30/18 15:18 Hct 37.5 % (41.0-60) L 10/30/18 15:18 MCV 92.6 fl (81-100) 10/30/18 15:18 MCH 29.9 pg (27.0-31.0) 10/30/18 15:18 MCHC Differential 32.3 pg (28.0-36.0) 10/30/18 15:18 RDW 13.0 % (11.5-20.0) 10/30/18 15:18 Plt Count 303 Th/cmm (150-400) 10/30/18 15:18 MPV 8.3 fl 10/30/18 15:18 Neutrophils % 54.3 % (40.0-80.0) 10/30/18 15:18 Lymphocytes % 35.0 % (20.0-50.0) 10/30/18 15:18 Monocytes % 6.8 % (2.0-10.0) 10/30/18 15:18 Eosinophils % 3.0 % (0.0-5.0) 10/30/18 15:18 Basophils % 0.9 % (0.0-2.0) 10/30/18 15:18 Sodium 137 mEq/L (136-145) 10/30/18 15:18 Potassium 4.2 mEq/L (3.5-5.1) 10/30/18 15:18 Chloride 105 mEq/L (98-107) 10/30/18 15:18 Carbon Dioxide 22.4 mEq/L (21.0-31.0) 10/30/18 15:18 Anion Gap 13.8 (7.0-16.0) 10/30/18 15:18 BUN 19 mg/dL (7-25) 10/30/18 15:18 Creatinine 0.9 mg/dL (0.6-1.2) 10/30/18 15:18 Est GFR ( Amer) > 60.0 ml/min (>90) 10/30/18 15:18 Est GFR (Non-Af Amer) > 60.0 ml/min 10/30/18 15:18 BUN/Creatinine Ratio 21.1 10/30/18 15:18 Glucose 90 mg/dL (70-105) 10/30/18 15:18 Calcium 9.7 mg/dL (8.6-10.3) 10/30/18 15:18 Phosphorus 2.9 mg/dL (2.5-5.0) 10/30/18 15:18 Magnesium 2.2 mg/dL (1.9-2.7) 10/30/18 15:18 Total Bilirubin 0.4 mg/dL (0.3-1.0) 10/30/18 15:18 AST 14 U/L (13-39) 10/30/18 15:18 ALT 3 U/L (7-52) L 10/30/18 15:18 Alkaline Phosphatase 68 U/L (34-104) 10/30/18 15:18 Total Protein 7.0 gm/dL (6.0-8.3) 10/30/18 15:18 Albumin 3.9 gm/dL (3.7-5.3) 10/30/18 15:18 Globulin 3.1 gm/dL 10/30/18 15:18 Albumin/Globulin Ratio 1.3 (1.0-1.8) 10/30/18 15:18 Triglycerides 83 mg/dL (<150) 10/30/18 15:18 Cholesterol 290 mg/dL (<200) H 10/30/18 15:18 LDL Cholesterol Direct 199 mg/dL (75-193) H 10/30/18 15:18 HDL Cholesterol 73 mg/dL (23-92) 10/30/18 15:18 TSH 5.83 uIU/ml (0.34-5.60) H 10/30/18 15:18 Urine Source RANDOM 10/31/18 17:40 Urine Color YELLOW 10/31/18 17:40 Urine Clarity HAZY (CLEAR) 10/31/18 17:40 Urine pH 6.5 (4.6 - 8.0) 10/31/18 17:40 Ur Specific [place] 1.020 (1.005-1.030) 10/31/18 17:40 Urine Protein TRACE mg/dL (NEGATIVE) 10/31/18 17:40 Urine Glucose (UA) NEGATIVE mg/dL (NEGATIVE) 10/31/18 17:40 Urine Ketones NEGATIVE mg/dL (NEGATIVE) 10/31/18 17:40 Urine Blood LARGE (NEGATIVE) H 10/31/18 17:40 Urine Nitrate NEGATIVE (NEGATIVE) 10/31/18 17:40 Urine Bilirubin NEGATIVE (NEGATIVE) 10/31/18 17:40 Urine Urobilinogen 0.2 E.U./dL (0.2 - 1.0) 10/31/18 17:40 Ur Leukocyte Esterase NEGATIVE (NEGATIVE) 10/31/18 17:40 Urine RBC 25-50 /hpf (0-5) H 10/31/18 17:40 Urine WBC 2-5 /hpf (0-5) 10/31/18 17:40 Ur Epithelial Cells MODERATE /lpf (FEW) 10/31/18 17:40 Urine Bacteria 4+ /hpf (NONE SEEN) H 10/31/18 17:40 Urine Opiates Screen NEGATIVE (NEGATIVE) 10/31/18 17:40 Urine Methadone Screen NEGATIVE (NEGATIVE) 10/31/18 17:40 Ur Barbiturates Screen NEGATIVE (NEGATIVE) 10/31/18 17:40 Ur Tricyclics Screen NEGATIVE (NEGATIVE) 10/31/18 17:40 Ur Phencyclidine Scrn NEGATIVE (NEGATIVE) 10/31/18 17:40 Amphetamines Screen NEGATIVE (NEGATIVE) 10/31/18 17:40 U Methamphetamines Scrn NEGATIVE (NEGATIVE) 10/31/18 17:40 U Benzodiazepines Scrn POSITIVE (NEGATIVE) H 10/31/18 17:40 U Cocaine Metab Screen NEGATIVE (NEGATIVE) 10/31/18 17:40 U Cannabinoids Screen NEGATIVE (NEGATIVE) 10/31/18 17:40 - Physical Exam Vitals and I&O: Vital Signs Temp 97.6 F 11/04/18 06:14 Pulse 76 11/04/18 08:48 Resp 20 11/04/18 06:14 BP 132/82 11/04/18 08:48 Pulse Ox 96 11/04/18 06:14 Intake & Output 11/03/18 11/04/18 11/04/18 18:59 06:59 18:59 Intake Total 1200 Balance 1200 Intake: Oral 1200 Other: # Voids 3 # Bowel Movements 1 Active Medications: Current Medications Acetaminophen (Tylenol) 650 mg PO Q4HR PRN PRN Reason: Mild Pain / Temp above 100 Stop: 12/29/18 16:39 Acetaminophen/Hydrocodone Bitart ([place] 10 Mg/325 Mg) 1 tab PO Q6H PRN PRN Reason: Moderate pain Stop: 12/29/18 16:42 Last Admin: 11/04/18 13:06 Dose: 1 tab Al Hydrox/Mg Hydrox/Simethicone (Maalox) 30 ml PO Q4HR PRN PRN Reason: GI DISTRESS Stop: 12/29/18 16:39 Bupropion HCl (Wellbutrin Sr) 200 mg PO DAILY [facility]; Protocol Stop: 12/30/18 08:59 Last Admin: 11/04/18 08:47 Dose: 200 mg Ciprofloxacin (Cipro) 500 mg PO BID [facility] Stop: 01/02/19 08:59 Last Admin: 11/04/18 08:47 Dose: 500 mg Famotidine (Pepcid) 20 mg PO DAILY [facility] Stop: 12/30/18 08:59 Last Admin: 11/04/18 08:47 Dose: 20 mg Levothyroxine Sodium 0.1 mg/ (Levothyroxine Sodium 0.05 mg) 0.15 mg PO QDAC [facility] Stop: 12/30/18 07:29 Last Admin: 11/04/18 07:02 Dose: 0.15 mg Lisinopril (Zestril) 10 mg PO DAILY [facility] Stop: 12/30/18 08:59 Last Admin: 11/04/18 08:48 Dose: 10 mg Loratadine (Claritin) 10 mg PO DAILY [facility] Stop: 12/30/18 08:59 Last Admin: 11/04/18 08:47 Dose: 10 mg Lorazepam (Ativan) 0.5 mg PO Q4HR PRN; Protocol PRN Reason: Agitation Stop: 11/29/18 16:39 Last Admin: 11/03/18 20:26 Dose: 0.5 mg Magnesium Hydroxide (Milk Of Magnesia) 30 ml PO HS PRN PRN Reason: Constipation Multivitamins/Vitamin C (Theragran) 1 tab PO DAILY [facility] Stop: 12/30/18 08:59 Last Admin: 11/04/18 08:47 Dose: 1 tab Temazepam (Restoril) 30 mg PO HS [facility] Stop: 12/29/18 20:59 Last Admin: 11/03/18 20:25 Dose: 30 mg Trazodone HCl (Desyrel) 100 mg PO HS [facility] Stop: 12/29/18 20:59 Last Admin: 11/03/18 20:25 Dose: 100 mg Venlafaxine HCl (Effexor) 150 mg PO BID [facility] Stop: 12/29/18 20:59 Last Admin: 11/04/18 08:47 Dose: 150 mg Zolpidem Tartrate (Ambien) 5 mg PO HS PRN PRN Reason: Insomnia Stop: 12/29/18 16:39 Last Admin: 11/04/18 01:50 Dose: 5 mg Assessment/Plan - Assessment Assessment: psychosis hypothyrodism back pain - Plan Plan: as per psych Nutritional Asmnt/Malnutr-PDOC - Dietary Evaluation Malnutrition Findings (Please click <Entered> for more info): Nutritional Asmnt/Malnutrition Start: 11/04/18 11: 41 Text: Status: Complete Freq: Protocol: Document 11/04/18 11:41 JEN (Rec: 11/04/18 11:46 [email or web address] KELSEY) Nutritional Asmnt/Malnutrition Patient General Information Nutritional Screening Moderate Risk Diagnosis Psychosis Pertinent Medical Hx/Surgical Hx Paranoia Subjective Information Pt asks for a lot of snakcs in between meals. Current Diet Order/ Nutrition Support [facility] [employer] Pertinent Medications Maalox, Pepcid, Levothyroxine, MOM, Multivitamin / Vit C, Pertinent Labs (10/30) ALT 3, Cholest 290, LDL 199, TSH 5.83 Nutritional Hx/Data Height 1.6 m Height (Calculated Centimeters) 160.0 Current Weight (lbs) 68.039 kg Weight (Calculated Kilograms) 68.0 Weight (Calculated Grams) 07303.9 [place] Body Weight 115 % [place] Body Weight 130 Body Mass Index (BMI) 26.5 Weight Status Overweight GI Symptoms GI Symptoms None Last BM 1x (11/04) Difficult in: None Food Allergies No Cultural/Ethnic/Hindu Belief None Noted Skin Integrity/Comment: Sam Score 22 Current %PO Fair (50-74%) Estimated Nutritional Goals BEE in Kcals: Adj wt of IBW Calories/Kcals/Kg 25-30 Kcals Calculated 7413-0747 Protein: Adj wt of IBW Protein g/k.8-1 Protein Calculated 46-57 Fluid: ml [id number] Nutritional Problem 2. Problem Problem Pt has inadequate oral intake Etiology due to confusion aeb Signs/Symptoms: Nurse informed me that she is not consistently finishing all her meals. 1. Problem Problem Pt has excessive fat intake Etiology due to current diet order Signs/Symptoms: Labs show Hypercholesterolemia (11/04) Cholest 290, LDL 199 Malnutrition Alert Food and Nutrition Intake (Moderate) <75% est energy req 7days Is there a minimum of two criteria No selected? Query Text:Check all the applicable criteria. A minimum of two criteria are recommended for diagnosis of either severe or non-severe malnutrition. Malnutrition Related to Morbid Obesity Malnutrition related to morbid obesity No Intervention/Recommendation Comments Recommend Changing diet order to Cardiac Diet. Provide snacks as needed Expected Outcomes/Goals Expected Outcomes/Goals - Increase PO intake to ~100% - Lipid Panel return to [facility] - F/U in 7 days as LR
--- NOTE | 2018-11-04 17:50 | Internal Medicine Prog Note ---
Internal Medicine Subjective - Subjective Service Date: 11/04/18 Patient seen and examined:: without staff Patient is:: awake, other (paranoid , in no distress ) Per staff patient has:: no adverse event Internal Medicine Objective - Results Result Diagrams: 10/30/18 15:18 10/30/18 15:18 Recent Labs: Laboratory Last Values WBC 6.7 Th/cmm (4.8-10.8) 10/30/18 15:18 RBC 4.05 Mil/cmm (3.80-5.20) 10/30/18 15:18 Hgb 12.1 gm/dL (12-16) 10/30/18 15:18 Hct 37.5 % (41.0-60) L 10/30/18 15:18 MCV 92.6 fl (81-100) 10/30/18 15:18 MCH 29.9 pg (27.0-31.0) 10/30/18 15:18 MCHC Differential 32.3 pg (28.0-36.0) 10/30/18 15:18 RDW 13.0 % (11.5-20.0) 10/30/18 15:18 Plt Count 303 Th/cmm (150-400) 10/30/18 15:18 MPV 8.3 fl 10/30/18 15:18 Neutrophils % 54.3 % (40.0-80.0) 10/30/18 15:18 Lymphocytes % 35.0 % (20.0-50.0) 10/30/18 15:18 Monocytes % 6.8 % (2.0-10.0) 10/30/18 15:18 Eosinophils % 3.0 % (0.0-5.0) 10/30/18 15:18 Basophils % 0.9 % (0.0-2.0) 10/30/18 15:18 Sodium 137 mEq/L (136-145) 10/30/18 15:18 Potassium 4.2 mEq/L (3.5-5.1) 10/30/18 15:18 Chloride 105 mEq/L (98-107) 10/30/18 15:18 Carbon Dioxide 22.4 mEq/L (21.0-31.0) 10/30/18 15:18 Anion Gap 13.8 (7.0-16.0) 10/30/18 15:18 BUN 19 mg/dL (7-25) 10/30/18 15:18 Creatinine 0.9 mg/dL (0.6-1.2) 10/30/18 15:18 Est GFR ( Amer) > 60.0 ml/min (>90) 10/30/18 15:18 Est GFR (Non-Af Amer) > 60.0 ml/min 10/30/18 15:18 BUN/Creatinine Ratio 21.1 10/30/18 15:18 Glucose 90 mg/dL (70-105) 10/30/18 15:18 Calcium 9.7 mg/dL (8.6-10.3) 10/30/18 15:18 Phosphorus 2.9 mg/dL (2.5-5.0) 10/30/18 15:18 Magnesium 2.2 mg/dL (1.9-2.7) 10/30/18 15:18 Total Bilirubin 0.4 mg/dL (0.3-1.0) 10/30/18 15:18 AST 14 U/L (13-39) 10/30/18 15:18 ALT 3 U/L (7-52) L 10/30/18 15:18 Alkaline Phosphatase 68 U/L (34-104) 10/30/18 15:18 Total Protein 7.0 gm/dL (6.0-8.3) 10/30/18 15:18 Albumin 3.9 gm/dL (3.7-5.3) 10/30/18 15:18 Globulin 3.1 gm/dL 10/30/18 15:18 Albumin/Globulin Ratio 1.3 (1.0-1.8) 10/30/18 15:18 Triglycerides 83 mg/dL (<150) 10/30/18 15:18 Cholesterol 290 mg/dL (<200) H 10/30/18 15:18 LDL Cholesterol Direct 199 mg/dL (75-193) H 10/30/18 15:18 HDL Cholesterol 73 mg/dL (23-92) 10/30/18 15:18 TSH 5.83 uIU/ml (0.34-5.60) H 10/30/18 15:18 Urine Source RANDOM 10/31/18 17:40 Urine Color YELLOW 10/31/18 17:40 Urine Clarity HAZY (CLEAR) 10/31/18 17:40 Urine pH 6.5 (4.6 - 8.0) 10/31/18 17:40 Ur Specific [place] 1.020 (1.005-1.030) 10/31/18 17:40 Urine Protein TRACE mg/dL (NEGATIVE) 10/31/18 17:40 Urine Glucose (UA) NEGATIVE mg/dL (NEGATIVE) 10/31/18 17:40 Urine Ketones NEGATIVE mg/dL (NEGATIVE) 10/31/18 17:40 Urine Blood LARGE (NEGATIVE) H 10/31/18 17:40 Urine Nitrate NEGATIVE (NEGATIVE) 10/31/18 17:40 Urine Bilirubin NEGATIVE (NEGATIVE) 10/31/18 17:40 Urine Urobilinogen 0.2 E.U./dL (0.2 - 1.0) 10/31/18 17:40 Ur Leukocyte Esterase NEGATIVE (NEGATIVE) 10/31/18 17:40 Urine RBC 25-50 /hpf (0-5) H 10/31/18 17:40 Urine WBC 2-5 /hpf (0-5) 10/31/18 17:40 Ur Epithelial Cells MODERATE /lpf (FEW) 10/31/18 17:40 Urine Bacteria 4+ /hpf (NONE SEEN) H 10/31/18 17:40 Urine Opiates Screen NEGATIVE (NEGATIVE) 10/31/18 17:40 Urine Methadone Screen NEGATIVE (NEGATIVE) 10/31/18 17:40 Ur Barbiturates Screen NEGATIVE (NEGATIVE) 10/31/18 17:40 Ur Tricyclics Screen NEGATIVE (NEGATIVE) 10/31/18 17:40 Ur Phencyclidine Scrn NEGATIVE (NEGATIVE) 10/31/18 17:40 Amphetamines Screen NEGATIVE (NEGATIVE) 10/31/18 17:40 U Methamphetamines Scrn NEGATIVE (NEGATIVE) 10/31/18 17:40 U Benzodiazepines Scrn POSITIVE (NEGATIVE) H 10/31/18 17:40 U Cocaine Metab Screen NEGATIVE (NEGATIVE) 10/31/18 17:40 U Cannabinoids Screen NEGATIVE (NEGATIVE) 10/31/18 17:40 - Physical Exam Vitals and I&O: Vital Signs Temp 97.8 F 11/04/18 14:00 Pulse 70 11/04/18 14:00 Resp 20 11/04/18 14:00 BP 141/78 11/04/18 14:00 Pulse Ox 98 11/04/18 14:00 Intake & Output 11/03/18 11/04/18 11/04/18 18:59 06:59 18:59 Intake Total 1200 Balance 1200 Intake: Oral 1200 Other: # Voids 3 # Bowel Movements 1 Active Medications: Current Medications Acetaminophen (Tylenol) 650 mg PO Q4HR PRN PRN Reason: Mild Pain / Temp above 100 Stop: 12/29/18 16:39 Acetaminophen/Hydrocodone Bitart ([place] 10 Mg/325 Mg) 1 tab PO Q6H PRN PRN Reason: Moderate pain Stop: 12/29/18 16:42 Last Admin: 11/04/18 13:06 Dose: 1 tab Al Hydrox/Mg Hydrox/Simethicone (Maalox) 30 ml PO Q4HR PRN PRN Reason: GI DISTRESS Stop: 12/29/18 16:39 Bupropion HCl (Wellbutrin Sr) 200 mg PO DAILY [facility]; Protocol Stop: 12/30/18 08:59 Last Admin: 11/04/18 08:47 Dose: 200 mg Ciprofloxacin (Cipro) 500 mg PO BID [facility] Stop: 01/02/19 08:59 Last Admin: 11/04/18 16:27 Dose: 500 mg Famotidine (Pepcid) 20 mg PO DAILY [facility] Stop: 12/30/18 08:59 Last Admin: 11/04/18 08:47 Dose: 20 mg Levothyroxine Sodium 0.1 mg/ (Levothyroxine Sodium 0.05 mg) 0.15 mg PO QDAC [facility] Stop: 12/30/18 07:29 Last Admin: 11/04/18 07:02 Dose: 0.15 mg Lisinopril (Zestril) 10 mg PO DAILY [facility] Stop: 12/30/18 08:59 Last Admin: 11/04/18 08:48 Dose: 10 mg Loratadine (Claritin) 10 mg PO DAILY [facility] Stop: 12/30/18 08:59 Last Admin: 11/04/18 08:47 Dose: 10 mg Lorazepam (Ativan) 0.5 mg PO Q4HR PRN; Protocol PRN Reason: Agitation Stop: 11/29/18 16:39 Last Admin: 11/03/18 20:26 Dose: 0.5 mg Magnesium Hydroxide (Milk Of Magnesia) 30 ml PO HS PRN PRN Reason: Constipation Multivitamins/Vitamin C (Theragran) 1 tab PO DAILY [facility] Stop: 12/30/18 08:59 Last Admin: 11/04/18 08:47 Dose: 1 tab Temazepam (Restoril) 30 mg PO HS [facility] Stop: 12/29/18 20:59 Last Admin: 11/03/18 20:25 Dose: 30 mg Trazodone HCl (Desyrel) 100 mg PO HS [facility] Stop: 12/29/18 20:59 Last Admin: 11/03/18 20:25 Dose: 100 mg Venlafaxine HCl (Effexor) 150 mg PO BID [facility] Stop: 12/29/18 20:59 Last Admin: 11/04/18 16:26 Dose: 150 mg Zolpidem Tartrate (Ambien) 5 mg PO HS PRN PRN Reason: Insomnia Stop: 12/29/18 16:39 Last Admin: 11/04/18 01:50 Dose: 5 mg General: alert HEENT: NC/AT Neck: Supple Lungs: CTAB Cardiovascular: RRR, Normal S1, Normal S2 Abdomen: soft Extremities: clear Neurological: no change Internal Medicine Assmt/Plan - Assessment Assessment: 1.UTI 2.HTN. 3.HYPOTHYROIDISM. 4.PSYCHOSIS. - Plan Plan: CONTINUE ON CURRENT MEDICATION AND DIET. Nutritional Asmnt/Malnutr-PDOC - Dietary Evaluation Malnutrition Findings (Please click <Entered> for more info): Nutritional Asmnt/Malnutrition Start: 11/04/18 11: 41 Text: Status: Complete Freq: Protocol: Document 11/04/18 11:41 JEN (Rec: 11/04/18 11:46 JEN KELSEY) Nutritional Asmnt/Malnutrition Patient General Information Nutritional Screening Moderate Risk Diagnosis Psychosis Pertinent Medical Hx/Surgical Hx Paranoia Subjective Information Pt asks for a lot of snakcs in between meals. Current Diet Order/ Nutrition Support [facility] [place] Pertinent Medications Maalox, Pepcid, Levothyroxine, MOM, Multivitamin / Vit C, Pertinent Labs (10/30) ALT 3, Cholest 290, LDL 199, TSH 5.83 Nutritional Hx/Data Height 1.6 m Height (Calculated Centimeters) 160.0 Current Weight (lbs) 68.039 kg Weight (Calculated Kilograms) 68.0 Weight (Calculated Grams) 28768.9 [place] Body Weight 115 % [place] Body Weight 130 Body Mass Index (BMI) 26.5 Weight Status Overweight GI Symptoms GI Symptoms None Last BM 1x (11/04) Difficult in: None Food Allergies No Cultural/Ethnic/Orthodoxy Belief None Noted Skin Integrity/Comment: Sam Score 22 Current %PO Fair (50-74%) Estimated Nutritional Goals BEE in Kcals: Adj wt of IBW Calories/Kcals/Kg 25-30 Kcals Calculated 0712-5444 Protein: Adj wt of IBW Protein g/k.8-1 Protein Calculated 46-57 Fluid: ml 7109-0762 Nutritional Problem 2. Problem Problem Pt has inadequate oral intake Etiology due to confusion aeb Signs/Symptoms: Nurse informed me that she is not consistently finishing all her meals. 1. Problem Problem Pt has excessive fat intake Etiology due to current diet order Signs/Symptoms: Labs show Hypercholesterolemia (11/04) Cholest 290, LDL 199 Malnutrition Alert Food and Nutrition Intake (Moderate) <75% est energy req 7days Is there a minimum of two criteria No selected? Query Text:Check all the applicable criteria. A minimum of two criteria are recommended for diagnosis of either severe or non-severe malnutrition. Malnutrition Related to Morbid Obesity Malnutrition related to morbid obesity No Intervention/Recommendation Comments Recommend Changing diet order to Cardiac Diet. Provide snacks as needed Expected Outcomes/Goals Expected Outcomes/Goals - Increase PO intake to ~100% - Lipid Panel return to WNL - F/U in 7 days as LR
--- NOTE | 2018-11-05 01:00 | Progress Notes ---
DATE: 11/04/2018 Case was discussed with staff of the patient, reviewed records. She is a bit more animated. The patient continues to have poor insight. The patient is sleeping better, eating better. She said she talked to Dr. Kelly and she would like to go to a place where he goes because she is his patient. However, she wants to be placed close to [place]. The patient continues, however, to be unpredictable, impulsive and no side effects with the medication, no sedation, no nausea, no extrapyramidal symptoms. We will continue to work with the patient in group therapy, milieu therapy and adjust the medication as needed. JOB# [id number]
[2018-11-05] MEDS: Hydrocodone/APAP 10 mg/325 mg Tab PO PRN ×3 (05:18→17:00)
[2018-11-05] MEDS: Multivitamin Tab PO SCH (08:50)
--- NOTE | 2018-11-05 19:54 | General Progress Note ---
Objective - Results Result Diagrams: 10/30/18 15:18 10/30/18 15:18 Recent Labs: Laboratory Last Values WBC 6.7 Th/cmm (4.8-10.8) 10/30/18 15:18 RBC 4.05 Mil/cmm (3.80-5.20) 10/30/18 15:18 Hgb 12.1 gm/dL (12-16) 10/30/18 15:18 Hct 37.5 % (41.0-60) L 10/30/18 15:18 MCV 92.6 fl (81-100) 10/30/18 15:18 MCH 29.9 pg (27.0-31.0) 10/30/18 15:18 MCHC Differential 32.3 pg (28.0-36.0) 10/30/18 15:18 RDW 13.0 % (11.5-20.0) 10/30/18 15:18 Plt Count 303 Th/cmm (150-400) 10/30/18 15:18 MPV 8.3 fl 10/30/18 15:18 Neutrophils % 54.3 % (40.0-80.0) 10/30/18 15:18 Lymphocytes % 35.0 % (20.0-50.0) 10/30/18 15:18 Monocytes % 6.8 % (2.0-10.0) 10/30/18 15:18 Eosinophils % 3.0 % (0.0-5.0) 10/30/18 15:18 Basophils % 0.9 % (0.0-2.0) 10/30/18 15:18 Sodium 137 mEq/L (136-145) 10/30/18 15:18 Potassium 4.2 mEq/L (3.5-5.1) 10/30/18 15:18 Chloride 105 mEq/L (98-107) 10/30/18 15:18 Carbon Dioxide 22.4 mEq/L (21.0-31.0) 10/30/18 15:18 Anion Gap 13.8 (7.0-16.0) 10/30/18 15:18 BUN 19 mg/dL (7-25) 10/30/18 15:18 Creatinine 0.9 mg/dL (0.6-1.2) 10/30/18 15:18 Est GFR ( Amer) > 60.0 ml/min (>90) 10/30/18 15:18 Est GFR (Non-Af Amer) > 60.0 ml/min 10/30/18 15:18 BUN/Creatinine Ratio 21.1 10/30/18 15:18 Glucose 90 mg/dL (70-105) 10/30/18 15:18 Calcium 9.7 mg/dL (8.6-10.3) 10/30/18 15:18 Phosphorus 2.9 mg/dL (2.5-5.0) 10/30/18 15:18 Magnesium 2.2 mg/dL (1.9-2.7) 10/30/18 15:18 Total Bilirubin 0.4 mg/dL (0.3-1.0) 10/30/18 15:18 AST 14 U/L (13-39) 10/30/18 15:18 ALT 3 U/L (7-52) L 10/30/18 15:18 Alkaline Phosphatase 68 U/L (34-104) 10/30/18 15:18 Total Protein 7.0 gm/dL (6.0-8.3) 10/30/18 15:18 Albumin 3.9 gm/dL (3.7-5.3) 10/30/18 15:18 Globulin 3.1 gm/dL 10/30/18 15:18 Albumin/Globulin Ratio 1.3 (1.0-1.8) 10/30/18 15:18 Triglycerides 83 mg/dL (<150) 10/30/18 15:18 Cholesterol 290 mg/dL (<200) H 10/30/18 15:18 LDL Cholesterol Direct 199 mg/dL (75-193) H 10/30/18 15:18 HDL Cholesterol 73 mg/dL (23-92) 10/30/18 15:18 TSH 5.83 uIU/ml (0.34-5.60) H 10/30/18 15:18 Urine Source RANDOM 10/31/18 17:40 Urine Color YELLOW 10/31/18 17:40 Urine Clarity HAZY (CLEAR) 10/31/18 17:40 Urine pH 6.5 (4.6 - 8.0) 10/31/18 17:40 Ur Specific [place] 1.020 (1.005-1.030) 10/31/18 17:40 Urine Protein TRACE mg/dL (NEGATIVE) 10/31/18 17:40 Urine Glucose (UA) NEGATIVE mg/dL (NEGATIVE) 10/31/18 17:40 Urine Ketones NEGATIVE mg/dL (NEGATIVE) 10/31/18 17:40 Urine Blood LARGE (NEGATIVE) H 10/31/18 17:40 Urine Nitrate NEGATIVE (NEGATIVE) 10/31/18 17:40 Urine Bilirubin NEGATIVE (NEGATIVE) 10/31/18 17:40 Urine Urobilinogen 0.2 E.U./dL (0.2 - 1.0) 10/31/18 17:40 Ur Leukocyte Esterase NEGATIVE (NEGATIVE) 10/31/18 17:40 Urine RBC 25-50 /hpf (0-5) H 10/31/18 17:40 Urine WBC 2-5 /hpf (0-5) 10/31/18 17:40 Ur Epithelial Cells MODERATE /lpf (FEW) 10/31/18 17:40 Urine Bacteria 4+ /hpf (NONE SEEN) H 10/31/18 17:40 Urine Opiates Screen NEGATIVE (NEGATIVE) 10/31/18 17:40 Urine Methadone Screen NEGATIVE (NEGATIVE) 10/31/18 17:40 Ur Barbiturates Screen NEGATIVE (NEGATIVE) 10/31/18 17:40 Ur Tricyclics Screen NEGATIVE (NEGATIVE) 10/31/18 17:40 Ur Phencyclidine Scrn NEGATIVE (NEGATIVE) 10/31/18 17:40 Amphetamines Screen NEGATIVE (NEGATIVE) 10/31/18 17:40 U Methamphetamines Scrn NEGATIVE (NEGATIVE) 10/31/18 17:40 U Benzodiazepines Scrn POSITIVE (NEGATIVE) H 10/31/18 17:40 U Cocaine Metab Screen NEGATIVE (NEGATIVE) 10/31/18 17:40 U Cannabinoids Screen NEGATIVE (NEGATIVE) 10/31/18 17:40 - Physical Exam Vitals and I&O: Vital Signs Temp 97.9 F 11/05/18 19:50 Pulse 73 11/05/18 19:50 Resp 19 11/05/18 19:50 BP 128/79 11/05/18 19:50 Pulse Ox 96 11/05/18 19:50 Active Medications: Current Medications Acetaminophen (Tylenol) 650 mg PO Q4HR PRN PRN Reason: Mild Pain / Temp above 100 Stop: 12/29/18 16:39 Acetaminophen/Hydrocodone Bitart ([place] 10 Mg/325 Mg) 1 tab PO Q6H PRN PRN Reason: Moderate pain Stop: 12/29/18 16:42 Last Admin: 11/05/18 17:00 Dose: 1 tab Al Hydrox/Mg Hydrox/Simethicone (Maalox) 30 ml PO Q4HR PRN PRN Reason: GI DISTRESS Stop: 12/29/18 16:39 Bupropion HCl (Wellbutrin Sr) 200 mg PO DAILY [facility]; Protocol Stop: 12/30/18 08:59 Last Admin: 11/05/18 08:50 Dose: 200 mg Ciprofloxacin (Cipro) 500 mg PO BID [facility] Stop: 01/02/19 08:59 Last Admin: 11/05/18 17:00 Dose: 500 mg Famotidine (Pepcid) 20 mg PO DAILY [facility] Stop: 12/30/18 08:59 Last Admin: 11/05/18 08:50 Dose: 20 mg Levothyroxine Sodium 0.1 mg/ (Levothyroxine Sodium 0.05 mg) 0.15 mg PO QDAC [facility] Stop: 12/30/18 07:29 Last Admin: 11/05/18 06:33 Dose: 0.15 mg Lisinopril (Zestril) 10 mg PO DAILY [facility] Stop: 12/30/18 08:59 Last Admin: 11/05/18 08:51 Dose: Not Given Loratadine (Claritin) 10 mg PO DAILY [facility] Stop: 12/30/18 08:59 Last Admin: 11/05/18 08:50 Dose: 10 mg Lorazepam (Ativan) 0.5 mg PO Q4HR PRN; Protocol PRN Reason: Agitation Stop: 11/29/18 16:39 Last Admin: 11/05/18 13:39 Dose: 0.5 mg Magnesium Hydroxide (Milk Of Magnesia) 30 ml PO HS PRN PRN Reason: Constipation Multivitamins/Vitamin C (Theragran) 1 tab PO DAILY [facility] Stop: 12/30/18 08:59 Last Admin: 11/05/18 08:50 Dose: 1 tab Temazepam (Restoril) 30 mg PO HS [facility] Stop: 12/29/18 20:59 Last Admin: 11/04/18 21:02 Dose: 30 mg Trazodone HCl (Desyrel) 100 mg PO HS [facility] Stop: 12/29/18 20:59 Last Admin: 11/04/18 21:02 Dose: 100 mg Venlafaxine HCl (Effexor) 150 mg PO BID [facility] Stop: 12/29/18 20:59 Last Admin: 11/05/18 17:00 Dose: 150 mg Zolpidem Tartrate (Ambien) 5 mg PO HS PRN PRN Reason: Insomnia Stop: 12/29/18 16:39 Last Admin: 11/04/18 01:50 Dose: 5 mg Assessment/Plan - Assessment Assessment: psychosis hypothyrodism back pain - Plan Plan: as per psych Nutritional Asmnt/Malnutr-PDOC - Dietary Evaluation Malnutrition Findings (Please click <Entered> for more info): Nutritional Asmnt/Malnutrition Start: 11/04/18 11: 41 Text: Status: Complete Freq: Protocol: Document 11/04/18 11:41 RHAQUE (Rec: 11/04/18 11:46 RHAQUE LOW) Nutritional Asmnt/Malnutrition Patient General Information Nutritional Screening Moderate Risk Diagnosis Psychosis Pertinent Medical Hx/Surgical Hx Paranoia Subjective Information Pt asks for a lot of snakcs in between meals. Current Diet Order/ Nutrition Support [facility] [place] Pertinent Medications Maalox, Pepcid, Levothyroxine, MOM, Multivitamin / Vit C, Pertinent Labs (10/30) ALT 3, Cholest 290, LDL 199, TSH 5.83 Nutritional Hx/Data Height 1.6 m Height (Calculated Centimeters) 160.0 Current Weight (lbs) 68.039 kg Weight (Calculated Kilograms) 68.0 Weight (Calculated Grams) 06931.9 [place] Body Weight 115 % [place] Body Weight 130 Body Mass Index (BMI) 26.5 Weight Status Overweight GI Symptoms GI Symptoms None Last BM 1x (11/04) Difficult in: None Food Allergies No Cultural/Ethnic/Gnosticism Belief None Noted Skin Integrity/Comment: Sam Score 22 Current %PO Fair (50-74%) Estimated Nutritional Goals BEE in Kcals: Adj wt of IBW Calories/Kcals/Kg 25-30 Kcals Calculated 2488-8641 Protein: Adj wt of IBW Protein g/k.8-1 Protein Calculated 46-57 Fluid: ml 8273-1166 Nutritional Problem 2. Problem Problem Pt has inadequate oral intake Etiology due to confusion aeb Signs/Symptoms: Nurse informed me that she is not consistently finishing all her meals. 1. Problem Problem Pt has excessive fat intake Etiology due to current diet order Signs/Symptoms: Labs show Hypercholesterolemia (11/04) Cholest 290, LDL 199 Malnutrition Alert Food and Nutrition Intake (Moderate) <75% est energy req 7days Is there a minimum of two criteria No selected? Query Text:Check all the applicable criteria. A minimum of two criteria are recommended for diagnosis of either severe or non-severe malnutrition. Malnutrition Related to Morbid Obesity Malnutrition related to morbid obesity No Intervention/Recommendation Comments Recommend Changing diet order to Cardiac Diet. Provide snacks as needed Expected Outcomes/Goals Expected Outcomes/Goals - Increase PO intake to ~100% - Lipid Panel return to WNL - F/U in 7 days as LR
--- NOTE | 2018-11-05 21:05 | Progress Notes ---
DATE: 11/05/2018 Case was discussed with staff of the patient, reviewed records. The patient seems to be doing better. She is still concerned about where she is going to go. She wants to be in a place where she is close to her boyfriend, so she can see him every day or every other day like she was doing and this is the only support she had though today she said her son is in town, she would like to see him. I told her that she can ask him to come visit. She said he went to [facility], so it seems like he has his own priorities. She is sleeping better, eating better. She is still paranoid towards the people at the place where she was living. Working on discharge plan. I will continue to work with the patient in group therapy, milieu therapy, and adjust medications as needed. JOB# [id number]
--- NOTE | 2018-11-05 22:48 | Internal Medicine Prog Note ---
Internal Medicine Subjective - Subjective Service Date: 11/05/18 Patient seen and examined:: without staff Patient is:: awake, other (paranoid , in no distress ) Per staff patient has:: no adverse event Internal Medicine Objective - Results Result Diagrams: 10/30/18 15:18 10/30/18 15:18 Recent Labs: Laboratory Last Values WBC 6.7 Th/cmm (4.8-10.8) 10/30/18 15:18 RBC 4.05 Mil/cmm (3.80-5.20) 10/30/18 15:18 Hgb 12.1 gm/dL (12-16) 10/30/18 15:18 Hct 37.5 % (41.0-60) L 10/30/18 15:18 MCV 92.6 fl (81-100) 10/30/18 15:18 MCH 29.9 pg (27.0-31.0) 10/30/18 15:18 MCHC Differential 32.3 pg (28.0-36.0) 10/30/18 15:18 RDW 13.0 % (11.5-20.0) 10/30/18 15:18 Plt Count 303 Th/cmm (150-400) 10/30/18 15:18 MPV 8.3 fl 10/30/18 15:18 Neutrophils % 54.3 % (40.0-80.0) 10/30/18 15:18 Lymphocytes % 35.0 % (20.0-50.0) 10/30/18 15:18 Monocytes % 6.8 % (2.0-10.0) 10/30/18 15:18 Eosinophils % 3.0 % (0.0-5.0) 10/30/18 15:18 Basophils % 0.9 % (0.0-2.0) 10/30/18 15:18 Sodium 137 mEq/L (136-145) 10/30/18 15:18 Potassium 4.2 mEq/L (3.5-5.1) 10/30/18 15:18 Chloride 105 mEq/L (98-107) 10/30/18 15:18 Carbon Dioxide 22.4 mEq/L (21.0-31.0) 10/30/18 15:18 Anion Gap 13.8 (7.0-16.0) 10/30/18 15:18 BUN 19 mg/dL (7-25) 10/30/18 15:18 Creatinine 0.9 mg/dL (0.6-1.2) 10/30/18 15:18 Est GFR ( Amer) > 60.0 ml/min (>90) 10/30/18 15:18 Est GFR (Non-Af Amer) > 60.0 ml/min 10/30/18 15:18 BUN/Creatinine Ratio 21.1 10/30/18 15:18 Glucose 90 mg/dL (70-105) 10/30/18 15:18 Calcium 9.7 mg/dL (8.6-10.3) 10/30/18 15:18 Phosphorus 2.9 mg/dL (2.5-5.0) 10/30/18 15:18 Magnesium 2.2 mg/dL (1.9-2.7) 10/30/18 15:18 Total Bilirubin 0.4 mg/dL (0.3-1.0) 10/30/18 15:18 AST 14 U/L (13-39) 10/30/18 15:18 ALT 3 U/L (7-52) L 10/30/18 15:18 Alkaline Phosphatase 68 U/L (34-104) 10/30/18 15:18 Total Protein 7.0 gm/dL (6.0-8.3) 10/30/18 15:18 Albumin 3.9 gm/dL (3.7-5.3) 10/30/18 15:18 Globulin 3.1 gm/dL 10/30/18 15:18 Albumin/Globulin Ratio 1.3 (1.0-1.8) 10/30/18 15:18 Triglycerides 83 mg/dL (<150) 10/30/18 15:18 Cholesterol 290 mg/dL (<200) H 10/30/18 15:18 LDL Cholesterol Direct 199 mg/dL (75-193) H 10/30/18 15:18 HDL Cholesterol 73 mg/dL (23-92) 10/30/18 15:18 TSH 5.83 uIU/ml (0.34-5.60) H 10/30/18 15:18 Urine Source RANDOM 10/31/18 17:40 Urine Color YELLOW 10/31/18 17:40 Urine Clarity HAZY (CLEAR) 10/31/18 17:40 Urine pH 6.5 (4.6 - 8.0) 10/31/18 17:40 Ur Specific [place] 1.020 (1.005-1.030) 10/31/18 17:40 Urine Protein TRACE mg/dL (NEGATIVE) 10/31/18 17:40 Urine Glucose (UA) NEGATIVE mg/dL (NEGATIVE) 10/31/18 17:40 Urine Ketones NEGATIVE mg/dL (NEGATIVE) 10/31/18 17:40 Urine Blood LARGE (NEGATIVE) H 10/31/18 17:40 Urine Nitrate NEGATIVE (NEGATIVE) 10/31/18 17:40 Urine Bilirubin NEGATIVE (NEGATIVE) 10/31/18 17:40 Urine Urobilinogen 0.2 E.U./dL (0.2 - 1.0) 10/31/18 17:40 Ur Leukocyte Esterase NEGATIVE (NEGATIVE) 10/31/18 17:40 Urine RBC 25-50 /hpf (0-5) H 10/31/18 17:40 Urine WBC 2-5 /hpf (0-5) 10/31/18 17:40 Ur Epithelial Cells MODERATE /lpf (FEW) 10/31/18 17:40 Urine Bacteria 4+ /hpf (NONE SEEN) H 10/31/18 17:40 Urine Opiates Screen NEGATIVE (NEGATIVE) 10/31/18 17:40 Urine Methadone Screen NEGATIVE (NEGATIVE) 10/31/18 17:40 Ur Barbiturates Screen NEGATIVE (NEGATIVE) 10/31/18 17:40 Ur Tricyclics Screen NEGATIVE (NEGATIVE) 10/31/18 17:40 Ur Phencyclidine Scrn NEGATIVE (NEGATIVE) 10/31/18 17:40 Amphetamines Screen NEGATIVE (NEGATIVE) 10/31/18 17:40 U Methamphetamines Scrn NEGATIVE (NEGATIVE) 10/31/18 17:40 U Benzodiazepines Scrn POSITIVE (NEGATIVE) H 10/31/18 17:40 U Cocaine Metab Screen NEGATIVE (NEGATIVE) 10/31/18 17:40 U Cannabinoids Screen NEGATIVE (NEGATIVE) 10/31/18 17:40 - Physical Exam Vitals and I&O: Vital Signs Temp 97.9 F 11/05/18 19:50 Pulse 73 11/05/18 19:50 Resp 19 11/05/18 19:50 BP 128/79 11/05/18 19:50 Pulse Ox 96 11/05/18 19:50 Active Medications: Current Medications Acetaminophen (Tylenol) 650 mg PO Q4HR PRN PRN Reason: Mild Pain / Temp above 100 Stop: 12/29/18 16:39 Acetaminophen/Hydrocodone Bitart ([place] 10 Mg/325 Mg) 1 tab PO Q6H PRN PRN Reason: Moderate pain Stop: 12/29/18 16:42 Last Admin: 11/05/18 17:00 Dose: 1 tab Al Hydrox/Mg Hydrox/Simethicone (Maalox) 30 ml PO Q4HR PRN PRN Reason: GI DISTRESS Stop: 12/29/18 16:39 Bupropion HCl (Wellbutrin Sr) 200 mg PO DAILY [facility]; Protocol Stop: 12/30/18 08:59 Last Admin: 11/05/18 08:50 Dose: 200 mg Ciprofloxacin (Cipro) 500 mg PO BID [facility] Stop: 01/02/19 08:59 Last Admin: 11/05/18 17:00 Dose: 500 mg Famotidine (Pepcid) 20 mg PO DAILY [facility] Stop: 12/30/18 08:59 Last Admin: 11/05/18 08:50 Dose: 20 mg Levothyroxine Sodium 0.1 mg/ (Levothyroxine Sodium 0.05 mg) 0.15 mg PO QDAC [facility] Stop: 12/30/18 07:29 Last Admin: 11/05/18 06:33 Dose: 0.15 mg Lisinopril (Zestril) 10 mg PO DAILY [facility] Stop: 12/30/18 08:59 Last Admin: 11/05/18 08:51 Dose: Not Given Loratadine (Claritin) 10 mg PO DAILY [facility] Stop: 12/30/18 08:59 Last Admin: 11/05/18 08:50 Dose: 10 mg Lorazepam (Ativan) 0.5 mg PO Q4HR PRN; Protocol PRN Reason: Agitation Stop: 11/29/18 16:39 Last Admin: 11/05/18 13:39 Dose: 0.5 mg Magnesium Hydroxide (Milk Of Magnesia) 30 ml PO HS PRN PRN Reason: Constipation Multivitamins/Vitamin C (Theragran) 1 tab PO DAILY [facility] Stop: 12/30/18 08:59 Last Admin: 11/05/18 08:50 Dose: 1 tab Temazepam (Restoril) 30 mg PO HS [facility] Stop: 12/29/18 20:59 Last Admin: 11/05/18 20:18 Dose: 30 mg Trazodone HCl (Desyrel) 100 mg PO HS [facility] Stop: 12/29/18 20:59 Last Admin: 11/05/18 20:19 Dose: 100 mg Venlafaxine HCl (Effexor) 150 mg PO BID [facility] Stop: 12/29/18 20:59 Last Admin: 11/05/18 17:00 Dose: 150 mg Zolpidem Tartrate (Ambien) 5 mg PO HS PRN PRN Reason: Insomnia Stop: 12/29/18 16:39 Last Admin: 11/04/18 01:50 Dose: 5 mg General: alert HEENT: NC/AT Neck: Supple Lungs: CTAB Cardiovascular: RRR, Normal S1, Normal S2 Abdomen: soft Extremities: clear Neurological: no change Internal Medicine Assmt/Plan - Assessment Assessment: 1.UTI 2.HTN. 3.HYPOTHYROIDISM. 4.PSYCHOSIS. - Plan Plan: CONTINUE ON CURRENT MEDICATION AND DIET. Nutritional Asmnt/Malnutr-PDOC - Dietary Evaluation Malnutrition Findings (Please click <Entered> for more info): Nutritional Asmnt/Malnutrition Start: 11/04/18 11: 41 Text: Status: Complete Freq: Protocol: Document 11/04/18 11:41 JEN (Rec: 11/04/18 11:46 JEN KELSEY) Nutritional Asmnt/Malnutrition Patient General Information Nutritional Screening Moderate Risk Diagnosis Psychosis Pertinent Medical Hx/Surgical Hx Paranoia Subjective Information Pt asks for a lot of snakcs in between meals. Current Diet Order/ Nutrition Support [facility] [place] Pertinent Medications Maalox, Pepcid, Levothyroxine, MOM, Multivitamin / Vit C, Pertinent Labs (10/30) ALT 3, Cholest 290, LDL 199, TSH 5.83 Nutritional Hx/Data Height 1.6 m Height (Calculated Centimeters) 160.0 Current Weight (lbs) 68.039 kg Weight (Calculated Kilograms) 68.0 Weight (Calculated Grams) 83370.9 [place] Body Weight 115 % [place] Body Weight 130 Body Mass Index (BMI) 26.5 Weight Status Overweight GI Symptoms GI Symptoms None Last BM 1x (11/04) Difficult in: None Food Allergies No Cultural/Ethnic/L[employer] Belief None Noted Skin Integrity/Comment: Sam Score 22 Current %PO Fair (50-74%) Estimated Nutritional Goals BEE in Kcals: Adj wt of IBW Calories/Kcals/Kg 25-30 Kcals Calculated 1751-4286 Protein: Adj wt of IBW Protein g/k.8-1 Protein Calculated 46-57 Fluid: ml 2929-6035 Nutritional Problem 2. Problem Problem Pt has inadequate oral intake Etiology due to confusion aeb Signs/Symptoms: Nurse informed me that she is not consistently finishing all her meals. 1. Problem Problem Pt has excessive fat intake Etiology due to current diet order Signs/Symptoms: Labs show Hypercholesterolemia (11/04) Cholest 290, LDL 199 Malnutrition Alert Food and Nutrition Intake (Moderate) <75% est energy req 7days Is there a minimum of two criteria No selected? Query Text:Check all the applicable criteria. A minimum of two criteria are recommended for diagnosis of either severe or non-severe malnutrition. Malnutrition Related to Morbid Obesity Malnutrition related to morbid obesity No Intervention/Recommendation Comments Recommend Changing diet order to Cardiac Diet. Provide snacks as needed Expected Outcomes/Goals Expected Outcomes/Goals - Increase PO intake to ~100% - Lipid Panel return to WNL - F/U in 7 days as LR
[2018-11-06] MEDS: Hydrocodone/APAP 10 mg/325 mg Tab PO PRN ×3 (05:54→18:23)
[2018-11-06] MEDS: Multivitamin Tab PO SCH (08:55)
--- NOTE | 2018-11-06 16:43 | Internal Medicine Prog Note ---
Internal Medicine Subjective - Subjective Patient seen and examined:: chart reviewed Patient is:: awake, other (awake alert, paranoid) Per staff patient has:: no adverse event Internal Medicine Objective - Results Result Diagrams: 10/30/18 15:18 10/30/18 15:18 Recent Labs: Laboratory Last Values WBC 6.7 Th/cmm (4.8-10.8) 10/30/18 15:18 RBC 4.05 Mil/cmm (3.80-5.20) 10/30/18 15:18 Hgb 12.1 gm/dL (12-16) 10/30/18 15:18 Hct 37.5 % (41.0-60) L 10/30/18 15:18 MCV 92.6 fl (81-100) 10/30/18 15:18 MCH 29.9 pg (27.0-31.0) 10/30/18 15:18 MCHC Differential 32.3 pg (28.0-36.0) 10/30/18 15:18 RDW 13.0 % (11.5-20.0) 10/30/18 15:18 Plt Count 303 Th/cmm (150-400) 10/30/18 15:18 MPV 8.3 fl 10/30/18 15:18 Neutrophils % 54.3 % (40.0-80.0) 10/30/18 15:18 Lymphocytes % 35.0 % (20.0-50.0) 10/30/18 15:18 Monocytes % 6.8 % (2.0-10.0) 10/30/18 15:18 Eosinophils % 3.0 % (0.0-5.0) 10/30/18 15:18 Basophils % 0.9 % (0.0-2.0) 10/30/18 15:18 Sodium 137 mEq/L (136-145) 10/30/18 15:18 Potassium 4.2 mEq/L (3.5-5.1) 10/30/18 15:18 Chloride 105 mEq/L (98-107) 10/30/18 15:18 Carbon Dioxide 22.4 mEq/L (21.0-31.0) 10/30/18 15:18 Anion Gap 13.8 (7.0-16.0) 10/30/18 15:18 BUN 19 mg/dL (7-25) 10/30/18 15:18 Creatinine 0.9 mg/dL (0.6-1.2) 10/30/18 15:18 Est GFR ( Amer) > 60.0 ml/min (>90) 10/30/18 15:18 Est GFR (Non-Af Amer) > 60.0 ml/min 10/30/18 15:18 BUN/Creatinine Ratio 21.1 10/30/18 15:18 Glucose 90 mg/dL (70-105) 10/30/18 15:18 Calcium 9.7 mg/dL (8.6-10.3) 10/30/18 15:18 Phosphorus 2.9 mg/dL (2.5-5.0) 10/30/18 15:18 Magnesium 2.2 mg/dL (1.9-2.7) 10/30/18 15:18 Total Bilirubin 0.4 mg/dL (0.3-1.0) 10/30/18 15:18 AST 14 U/L (13-39) 10/30/18 15:18 ALT 3 U/L (7-52) L 10/30/18 15:18 Alkaline Phosphatase 68 U/L (34-104) 10/30/18 15:18 Total Protein 7.0 gm/dL (6.0-8.3) 10/30/18 15:18 Albumin 3.9 gm/dL (3.7-5.3) 10/30/18 15:18 Globulin 3.1 gm/dL 10/30/18 15:18 Albumin/Globulin Ratio 1.3 (1.0-1.8) 10/30/18 15:18 Triglycerides 83 mg/dL (<150) 10/30/18 15:18 Cholesterol 290 mg/dL (<200) H 10/30/18 15:18 LDL Cholesterol Direct 199 mg/dL (75-193) H 10/30/18 15:18 HDL Cholesterol 73 mg/dL (23-92) 10/30/18 15:18 TSH 5.83 uIU/ml (0.34-5.60) H 10/30/18 15:18 Urine Source RANDOM 10/31/18 17:40 Urine Color YELLOW 10/31/18 17:40 Urine Clarity HAZY (CLEAR) 10/31/18 17:40 Urine pH 6.5 (4.6 - 8.0) 10/31/18 17:40 Ur Specific [place] 1.020 (1.005-1.030) 10/31/18 17:40 Urine Protein TRACE mg/dL (NEGATIVE) 10/31/18 17:40 Urine Glucose (UA) NEGATIVE mg/dL (NEGATIVE) 10/31/18 17:40 Urine Ketones NEGATIVE mg/dL (NEGATIVE) 10/31/18 17:40 Urine Blood LARGE (NEGATIVE) H 10/31/18 17:40 Urine Nitrate NEGATIVE (NEGATIVE) 10/31/18 17:40 Urine Bilirubin NEGATIVE (NEGATIVE) 10/31/18 17:40 Urine Urobilinogen 0.2 E.U./dL (0.2 - 1.0) 10/31/18 17:40 Ur Leukocyte Esterase NEGATIVE (NEGATIVE) 10/31/18 17:40 Urine RBC 25-50 /hpf (0-5) H 10/31/18 17:40 Urine WBC 2-5 /hpf (0-5) 10/31/18 17:40 Ur Epithelial Cells MODERATE /lpf (FEW) 10/31/18 17:40 Urine Bacteria 4+ /hpf (NONE SEEN) H 10/31/18 17:40 Urine Opiates Screen NEGATIVE (NEGATIVE) 10/31/18 17:40 Urine Methadone Screen NEGATIVE (NEGATIVE) 10/31/18 17:40 Ur Barbiturates Screen NEGATIVE (NEGATIVE) 10/31/18 17:40 Ur Tricyclics Screen NEGATIVE (NEGATIVE) 10/31/18 17:40 Ur Phencyclidine Scrn NEGATIVE (NEGATIVE) 10/31/18 17:40 Amphetamines Screen NEGATIVE (NEGATIVE) 10/31/18 17:40 U Methamphetamines Scrn NEGATIVE (NEGATIVE) 10/31/18 17:40 U Benzodiazepines Scrn POSITIVE (NEGATIVE) H 10/31/18 17:40 U Cocaine Metab Screen NEGATIVE (NEGATIVE) 10/31/18 17:40 U Cannabinoids Screen NEGATIVE (NEGATIVE) 10/31/18 17:40 - Physical Exam Vitals and I&O: Vital Signs Temp 98.7 F 11/06/18 14:00 Pulse 75 11/06/18 14:00 Resp 18 11/06/18 14:00 BP 126/72 11/06/18 14:00 Pulse Ox 95 11/06/18 14:00 Intake & Output 11/05/18 11/06/18 11/06/18 18:59 06:59 18:59 Intake Total 240 Balance 240 Intake: Oral 240 Other: # Voids 2 # Bowel Movements 1 Active Medications: Current Medications Acetaminophen (Tylenol) 650 mg PO Q4HR PRN PRN Reason: Mild Pain / Temp above 100 Stop: 12/29/18 16:39 Acetaminophen/Hydrocodone Bitart ([place] 10 Mg/325 Mg) 1 tab PO Q6H PRN PRN Reason: Moderate pain Stop: 12/29/18 16:42 Last Admin: 11/06/18 11:41 Dose: 1 tab Al Hydrox/Mg Hydrox/Simethicone (Maalox) 30 ml PO Q4HR PRN PRN Reason: GI DISTRESS Stop: 12/29/18 16:39 Alprazolam (Xanax) 0.5 mg PO Q4HR PRN; Protocol PRN Reason: anxiety Stop: 01/05/19 06:02 Last Admin: 11/06/18 08:55 Dose: 0.5 mg Bupropion HCl (Wellbutrin Sr) 200 mg PO DAILY [facility]; Protocol Stop: 12/30/18 08:59 Last Admin: 11/06/18 08:54 Dose: 200 mg Ciprofloxacin (Cipro) 500 mg PO BID [facility] Stop: 01/02/19 08:59 Last Admin: 11/06/18 16:29 Dose: 500 mg Famotidine (Pepcid) 20 mg PO DAILY [facility] Stop: 12/30/18 08:59 Last Admin: 11/06/18 08:54 Dose: 20 mg Levothyroxine Sodium 0.1 mg/ (Levothyroxine Sodium 0.05 mg) 0.15 mg PO QDAC [facility] Stop: 12/30/18 07:29 Last Admin: 11/06/18 06:36 Dose: 0.15 mg Lisinopril (Zestril) 10 mg PO DAILY [facility] Stop: 12/30/18 08:59 Last Admin: 11/06/18 08:54 Dose: 10 mg Loratadine (Claritin) 10 mg PO DAILY [facility] Stop: 12/30/18 08:59 Last Admin: 11/06/18 08:55 Dose: 10 mg Magnesium Hydroxide (Milk Of Magnesia) 30 ml PO HS PRN PRN Reason: Constipation Multivitamins/Vitamin C (Theragran) 1 tab PO DAILY [facility] Stop: 12/30/18 08:59 Last Admin: 11/06/18 08:55 Dose: 1 tab Temazepam (Restoril) 30 mg PO HS [facility] Stop: 12/29/18 20:59 Last Admin: 11/05/18 20:18 Dose: 30 mg Trazodone HCl (Desyrel) 100 mg PO HS [facility] Stop: 12/29/18 20:59 Last Admin: 11/05/18 20:19 Dose: 100 mg Venlafaxine HCl (Effexor) 150 mg PO BID [facility] Stop: 12/29/18 20:59 Last Admin: 11/06/18 16:29 Dose: 150 mg Zolpidem Tartrate (Ambien) 5 mg PO HS PRN PRN Reason: Insomnia Stop: 12/29/18 16:39 Last Admin: 11/06/18 00:42 Dose: 5 mg General: alert HEENT: NC/AT Neck: Supple Lungs: CTAB Cardiovascular: RRR, Normal S1, Normal S2 Abdomen: soft Extremities: clear Neurological: no change Internal Medicine Assmt/Plan - Assessment Assessment: psychosis hypothyrodism back pain - Plan Plan: as per psych Nutritional Asmnt/Malnutr-PDOC - Dietary Evaluation Malnutrition Findings (Please click <Entered> for more info): Nutritional Asmnt/Malnutrition Start: 11/04/18 11: 41 Text: Status: Complete Freq: Protocol: Document 11/04/18 11:41 RHAQUE (Rec: 11/04/18 11:46 RHAQUE LOW) Nutritional Asmnt/Malnutrition Patient General Information Nutritional Screening Moderate Risk Diagnosis Psychosis Pertinent Medical Hx/Surgical Hx Paranoia Subjective Information Pt asks for a lot of snakcs in between meals. Current Diet Order/ Nutrition Support [facility] [place] Pertinent Medications Maalox, Pepcid, Levothyroxine, MOM, Multivitamin / Vit C, Pertinent Labs (10/30) ALT 3, Cholest 290, LDL 199, TSH 5.83 Nutritional Hx/Data Height 1.6 m Height (Calculated Centimeters) 160.0 Current Weight (lbs) 68.039 kg Weight (Calculated Kilograms) 68.0 Weight (Calculated Grams) 59760.9 [place] Body Weight 115 % [place] Body Weight 130 Body Mass Index (BMI) 26.5 Weight Status Overweight GI Symptoms GI Symptoms None Last BM 1x (11/04) Difficult in: None Food Allergies No Cultural/Ethnic/Nondenominational Belief None Noted Skin Integrity/Comment: Sam Score 22 Current %PO Fair (50-74%) Estimated Nutritional Goals BEE in Kcals: Adj wt of IBW Calories/Kcals/Kg 25-30 Kcals Calculated 4853-6288 Protein: Adj wt of IBW Protein g/k.8-1 Protein Calculated 46-57 Fluid: ml [id number] Nutritional Problem 2. Problem Problem Pt has inadequate oral intake Etiology due to confusion aeb Signs/Symptoms: Nurse informed me that she is not consistently finishing all her meals. 1. Problem Problem Pt has excessive fat intake Etiology due to current diet order Signs/Symptoms: Labs show Hypercholesterolemia (11/04) Cholest 290, LDL 199 Malnutrition Alert Food and Nutrition Intake (Moderate) <75% est energy req 7days Is there a minimum of two criteria No selected? Query Text:Check all the applicable criteria. A minimum of two criteria are recommended for diagnosis of either severe or non-severe malnutrition. Malnutrition Related to Morbid Obesity Malnutrition related to morbid obesity No Intervention/Recommendation Comments Recommend Changing diet order to Cardiac Diet. Provide snacks as needed Expected Outcomes/Goals Expected Outcomes/Goals - Increase PO intake to ~100% - Lipid Panel return to WNL - F/U in 7 days as LR
--- NOTE | 2018-11-06 18:22 | Internal Medicine Prog Note ---
Internal Medicine Subjective - Subjective Service Date: 11/06/18 Patient seen and examined:: with staff Patient is:: awake, other (awake alert, paranoid) Per staff patient has:: no adverse event Internal Medicine Objective - Results Result Diagrams: 10/30/18 15:18 10/30/18 15:18 Recent Labs: Laboratory Last Values WBC 6.7 Th/cmm (4.8-10.8) 10/30/18 15:18 RBC 4.05 Mil/cmm (3.80-5.20) 10/30/18 15:18 Hgb 12.1 gm/dL (12-16) 10/30/18 15:18 Hct 37.5 % (41.0-60) L 10/30/18 15:18 MCV 92.6 fl (81-100) 10/30/18 15:18 MCH 29.9 pg (27.0-31.0) 10/30/18 15:18 MCHC Differential 32.3 pg (28.0-36.0) 10/30/18 15:18 RDW 13.0 % (11.5-20.0) 10/30/18 15:18 Plt Count 303 Th/cmm (150-400) 10/30/18 15:18 MPV 8.3 fl 10/30/18 15:18 Neutrophils % 54.3 % (40.0-80.0) 10/30/18 15:18 Lymphocytes % 35.0 % (20.0-50.0) 10/30/18 15:18 Monocytes % 6.8 % (2.0-10.0) 10/30/18 15:18 Eosinophils % 3.0 % (0.0-5.0) 10/30/18 15:18 Basophils % 0.9 % (0.0-2.0) 10/30/18 15:18 Sodium 137 mEq/L (136-145) 10/30/18 15:18 Potassium 4.2 mEq/L (3.5-5.1) 10/30/18 15:18 Chloride 105 mEq/L (98-107) 10/30/18 15:18 Carbon Dioxide 22.4 mEq/L (21.0-31.0) 10/30/18 15:18 Anion Gap 13.8 (7.0-16.0) 10/30/18 15:18 BUN 19 mg/dL (7-25) 10/30/18 15:18 Creatinine 0.9 mg/dL (0.6-1.2) 10/30/18 15:18 Est GFR ( Amer) > 60.0 ml/min (>90) 10/30/18 15:18 Est GFR (Non-Af Amer) > 60.0 ml/min 10/30/18 15:18 BUN/Creatinine Ratio 21.1 10/30/18 15:18 Glucose 90 mg/dL (70-105) 10/30/18 15:18 Calcium 9.7 mg/dL (8.6-10.3) 10/30/18 15:18 Phosphorus 2.9 mg/dL (2.5-5.0) 10/30/18 15:18 Magnesium 2.2 mg/dL (1.9-2.7) 10/30/18 15:18 Total Bilirubin 0.4 mg/dL (0.3-1.0) 10/30/18 15:18 AST 14 U/L (13-39) 10/30/18 15:18 ALT 3 U/L (7-52) L 10/30/18 15:18 Alkaline Phosphatase 68 U/L (34-104) 10/30/18 15:18 Total Protein 7.0 gm/dL (6.0-8.3) 10/30/18 15:18 Albumin 3.9 gm/dL (3.7-5.3) 10/30/18 15:18 Globulin 3.1 gm/dL 10/30/18 15:18 Albumin/Globulin Ratio 1.3 (1.0-1.8) 10/30/18 15:18 Triglycerides 83 mg/dL (<150) 10/30/18 15:18 Cholesterol 290 mg/dL (<200) H 10/30/18 15:18 LDL Cholesterol Direct 199 mg/dL (75-193) H 10/30/18 15:18 HDL Cholesterol 73 mg/dL (23-92) 10/30/18 15:18 TSH 5.83 uIU/ml (0.34-5.60) H 10/30/18 15:18 Urine Source RANDOM 10/31/18 17:40 Urine Color YELLOW 10/31/18 17:40 Urine Clarity HAZY (CLEAR) 10/31/18 17:40 Urine pH 6.5 (4.6 - 8.0) 10/31/18 17:40 Ur Specific [place] 1.020 (1.005-1.030) 10/31/18 17:40 Urine Protein TRACE mg/dL (NEGATIVE) 10/31/18 17:40 Urine Glucose (UA) NEGATIVE mg/dL (NEGATIVE) 10/31/18 17:40 Urine Ketones NEGATIVE mg/dL (NEGATIVE) 10/31/18 17:40 Urine Blood LARGE (NEGATIVE) H 10/31/18 17:40 Urine Nitrate NEGATIVE (NEGATIVE) 10/31/18 17:40 Urine Bilirubin NEGATIVE (NEGATIVE) 10/31/18 17:40 Urine Urobilinogen 0.2 E.U./dL (0.2 - 1.0) 10/31/18 17:40 Ur Leukocyte Esterase NEGATIVE (NEGATIVE) 10/31/18 17:40 Urine RBC 25-50 /hpf (0-5) H 10/31/18 17:40 Urine WBC 2-5 /hpf (0-5) 10/31/18 17:40 Ur Epithelial Cells MODERATE /lpf (FEW) 10/31/18 17:40 Urine Bacteria 4+ /hpf (NONE SEEN) H 10/31/18 17:40 Urine Opiates Screen NEGATIVE (NEGATIVE) 10/31/18 17:40 Urine Methadone Screen NEGATIVE (NEGATIVE) 10/31/18 17:40 Ur Barbiturates Screen NEGATIVE (NEGATIVE) 10/31/18 17:40 Ur Tricyclics Screen NEGATIVE (NEGATIVE) 10/31/18 17:40 Ur Phencyclidine Scrn NEGATIVE (NEGATIVE) 10/31/18 17:40 Amphetamines Screen NEGATIVE (NEGATIVE) 10/31/18 17:40 U Methamphetamines Scrn NEGATIVE (NEGATIVE) 10/31/18 17:40 U Benzodiazepines Scrn POSITIVE (NEGATIVE) H 10/31/18 17:40 U Cocaine Metab Screen NEGATIVE (NEGATIVE) 10/31/18 17:40 U Cannabinoids Screen NEGATIVE (NEGATIVE) 10/31/18 17:40 - Physical Exam Vitals and I&O: Vital Signs Temp 98.7 F 11/06/18 14:00 Pulse 75 11/06/18 14:00 Resp 18 11/06/18 14:00 BP 126/72 11/06/18 14:00 Pulse Ox 95 11/06/18 14:00 Intake & Output 11/05/18 11/06/18 11/06/18 18:59 06:59 18:59 Intake Total 240 Balance 240 Intake: Oral 240 Other: # Voids 2 # Bowel Movements 1 Active Medications: Current Medications Acetaminophen (Tylenol) 650 mg PO Q4HR PRN PRN Reason: Mild Pain / Temp above 100 Stop: 12/29/18 16:39 Acetaminophen/Hydrocodone Bitart ([place] 10 Mg/325 Mg) 1 tab PO Q6H PRN PRN Reason: Moderate pain Stop: 12/29/18 16:42 Last Admin: 11/06/18 11:41 Dose: 1 tab Al Hydrox/Mg Hydrox/Simethicone (Maalox) 30 ml PO Q4HR PRN PRN Reason: GI DISTRESS Stop: 12/29/18 16:39 Alprazolam (Xanax) 0.5 mg PO Q4HR PRN; Protocol PRN Reason: anxiety Stop: 01/05/19 06:02 Last Admin: 11/06/18 08:55 Dose: 0.5 mg Bupropion HCl (Wellbutrin Sr) 200 mg PO DAILY [facility]; Protocol Stop: 12/30/18 08:59 Last Admin: 11/06/18 08:54 Dose: 200 mg Ciprofloxacin (Cipro) 500 mg PO BID [facility] Stop: 01/02/19 08:59 Last Admin: 11/06/18 16:29 Dose: 500 mg Famotidine (Pepcid) 20 mg PO DAILY [facility] Stop: 12/30/18 08:59 Last Admin: 11/06/18 08:54 Dose: 20 mg Levothyroxine Sodium 0.1 mg/ (Levothyroxine Sodium 0.05 mg) 0.15 mg PO QDAC [facility] Stop: 12/30/18 07:29 Last Admin: 11/06/18 06:36 Dose: 0.15 mg Lisinopril (Zestril) 10 mg PO DAILY [facility] Stop: 12/30/18 08:59 Last Admin: 11/06/18 08:54 Dose: 10 mg Loratadine (Claritin) 10 mg PO DAILY [facility] Stop: 12/30/18 08:59 Last Admin: 11/06/18 08:55 Dose: 10 mg Magnesium Hydroxide (Milk Of Magnesia) 30 ml PO HS PRN PRN Reason: Constipation Multivitamins/Vitamin C (Theragran) 1 tab PO DAILY [facility] Stop: 12/30/18 08:59 Last Admin: 11/06/18 08:55 Dose: 1 tab Temazepam (Restoril) 30 mg PO HS [facility] Stop: 12/29/18 20:59 Last Admin: 11/05/18 20:18 Dose: 30 mg Trazodone HCl (Desyrel) 100 mg PO HS [facility] Stop: 12/29/18 20:59 Last Admin: 11/05/18 20:19 Dose: 100 mg Venlafaxine HCl (Effexor) 150 mg PO BID [facility] Stop: 12/29/18 20:59 Last Admin: 11/06/18 16:29 Dose: 150 mg Zolpidem Tartrate (Ambien) 5 mg PO HS PRN PRN Reason: Insomnia Stop: 12/29/18 16:39 Last Admin: 11/06/18 00:42 Dose: 5 mg General: alert HEENT: NC/AT Neck: Supple Lungs: CTAB Cardiovascular: RRR, Normal S1, Normal S2 Abdomen: soft Extremities: clear Neurological: no change Internal Medicine Assmt/Plan - Assessment Assessment: 1.UTI 2.HTN. 3.HYPOTHYROIDISM. 4.PSYCHOSIS. - Plan Plan: CONTINUE ON CURRENT MEDICATION AND DIET. Nutritional Asmnt/Malnutr-PDOC - Dietary Evaluation Malnutrition Findings (Please click <Entered> for more info): Nutritional Asmnt/Malnutrition Start: 11/04/18 11: 41 Text: Status: Complete Freq: Protocol: Document 11/04/18 11:41 JEN (Rec: 11/04/18 11:46 JEN KELSEY) Nutritional Asmnt/Malnutrition Patient General Information Nutritional Screening Moderate Risk Diagnosis Psychosis Pertinent Medical Hx/Surgical Hx Paranoia Subjective Information Pt asks for a lot of snakcs in between meals. Current Diet Order/ Nutrition Support [facility] [place] Pertinent Medications Maalox, Pepcid, Levothyroxine, MOM, Multivitamin / Vit C, Pertinent Labs (10/30) ALT 3, Cholest 290, LDL 199, TSH 5.83 Nutritional Hx/Data Height 1.6 m Height (Calculated Centimeters) 160.0 Current Weight (lbs) 68.039 kg Weight (Calculated Kilograms) 68.0 Weight (Calculated Grams) 21323.9 [place] Body Weight 115 % [place] Body Weight 130 Body Mass Index (BMI) 26.5 Weight Status Overweight GI Symptoms GI Symptoms None Last BM 1x (11/04) Difficult in: None Food Allergies No Cultural/Ethnic/Faith Belief None Noted Skin Integrity/Comment: Sma Score 22 Current %PO Fair (50-74%) Estimated Nutritional Goals BEE in Kcals: Adj wt of IBW Calories/Kcals/Kg 25-30 Kcals Calculated 7164-2829 Protein: Adj wt of IBW Protein g/k.8-1 Protein Calculated 46-57 Fluid: ml 8005-3168 Nutritional Problem 2. Problem Problem Pt has inadequate oral intake Etiology due to confusion aeb Signs/Symptoms: Nurse informed me that she is not consistently finishing all her meals. 1. Problem Problem Pt has excessive fat intake Etiology due to current diet order Signs/Symptoms: Labs show Hypercholesterolemia (11/04) Cholest 290, LDL 199 Malnutrition Alert Food and Nutrition Intake (Moderate) <75% est energy req 7days Is there a minimum of two criteria No selected? Query Text:Check all the applicable criteria. A minimum of two criteria are recommended for diagnosis of either severe or non-severe malnutrition. Malnutrition Related to Morbid Obesity Malnutrition related to morbid obesity No Intervention/Recommendation Comments Recommend Changing diet order to Cardiac Diet. Provide snacks as needed Expected Outcomes/Goals Expected Outcomes/Goals - Increase PO intake to ~100% - Lipid Panel return to WNL - F/U in 7 days as LR
[2018-11-07] MEDS: Hydrocodone/APAP 10 mg/325 mg Tab PO PRN ×2 (04:13→09:54)
[2018-11-07] MEDS: Multivitamin Tab PO SCH (08:19)
--- NOTE | 2018-11-07 12:53 | Internal Medicine Prog Note ---
Internal Medicine Subjective - Subjective Service Date: 11/07/18 Patient seen and examined:: with staff Patient is:: awake, other (awake alert, paranoid) Per staff patient has:: no adverse event Internal Medicine Objective - Results Result Diagrams: 10/30/18 15:18 10/30/18 15:18 Recent Labs: Laboratory Last Values WBC 6.7 Th/cmm (4.8-10.8) 10/30/18 15:18 RBC 4.05 Mil/cmm (3.80-5.20) 10/30/18 15:18 Hgb 12.1 gm/dL (12-16) 10/30/18 15:18 Hct 37.5 % (41.0-60) L 10/30/18 15:18 MCV 92.6 fl (81-100) 10/30/18 15:18 MCH 29.9 pg (27.0-31.0) 10/30/18 15:18 MCHC Differential 32.3 pg (28.0-36.0) 10/30/18 15:18 RDW 13.0 % (11.5-20.0) 10/30/18 15:18 Plt Count 303 Th/cmm (150-400) 10/30/18 15:18 MPV 8.3 fl 10/30/18 15:18 Neutrophils % 54.3 % (40.0-80.0) 10/30/18 15:18 Lymphocytes % 35.0 % (20.0-50.0) 10/30/18 15:18 Monocytes % 6.8 % (2.0-10.0) 10/30/18 15:18 Eosinophils % 3.0 % (0.0-5.0) 10/30/18 15:18 Basophils % 0.9 % (0.0-2.0) 10/30/18 15:18 Sodium 137 mEq/L (136-145) 10/30/18 15:18 Potassium 4.2 mEq/L (3.5-5.1) 10/30/18 15:18 Chloride 105 mEq/L (98-107) 10/30/18 15:18 Carbon Dioxide 22.4 mEq/L (21.0-31.0) 10/30/18 15:18 Anion Gap 13.8 (7.0-16.0) 10/30/18 15:18 BUN 19 mg/dL (7-25) 10/30/18 15:18 Creatinine 0.9 mg/dL (0.6-1.2) 10/30/18 15:18 Est GFR ( Amer) > 60.0 ml/min (>90) 10/30/18 15:18 Est GFR (Non-Af Amer) > 60.0 ml/min 10/30/18 15:18 BUN/Creatinine Ratio 21.1 10/30/18 15:18 Glucose 90 mg/dL (70-105) 10/30/18 15:18 Calcium 9.7 mg/dL (8.6-10.3) 10/30/18 15:18 Phosphorus 2.9 mg/dL (2.5-5.0) 10/30/18 15:18 Magnesium 2.2 mg/dL (1.9-2.7) 10/30/18 15:18 Total Bilirubin 0.4 mg/dL (0.3-1.0) 10/30/18 15:18 AST 14 U/L (13-39) 10/30/18 15:18 ALT 3 U/L (7-52) L 10/30/18 15:18 Alkaline Phosphatase 68 U/L (34-104) 10/30/18 15:18 Total Protein 7.0 gm/dL (6.0-8.3) 10/30/18 15:18 Albumin 3.9 gm/dL (3.7-5.3) 10/30/18 15:18 Globulin 3.1 gm/dL 10/30/18 15:18 Albumin/Globulin Ratio 1.3 (1.0-1.8) 10/30/18 15:18 Triglycerides 83 mg/dL (<150) 10/30/18 15:18 Cholesterol 290 mg/dL (<200) H 10/30/18 15:18 LDL Cholesterol Direct 199 mg/dL (75-193) H 10/30/18 15:18 HDL Cholesterol 73 mg/dL (23-92) 10/30/18 15:18 TSH 5.83 uIU/ml (0.34-5.60) H 10/30/18 15:18 Urine Source RANDOM 10/31/18 17:40 Urine Color YELLOW 10/31/18 17:40 Urine Clarity HAZY (CLEAR) 10/31/18 17:40 Urine pH 6.5 (4.6 - 8.0) 10/31/18 17:40 Ur Specific [place] 1.020 (1.005-1.030) 10/31/18 17:40 Urine Protein TRACE mg/dL (NEGATIVE) 10/31/18 17:40 Urine Glucose (UA) NEGATIVE mg/dL (NEGATIVE) 10/31/18 17:40 Urine Ketones NEGATIVE mg/dL (NEGATIVE) 10/31/18 17:40 Urine Blood LARGE (NEGATIVE) H 10/31/18 17:40 Urine Nitrate NEGATIVE (NEGATIVE) 10/31/18 17:40 Urine Bilirubin NEGATIVE (NEGATIVE) 10/31/18 17:40 Urine Urobilinogen 0.2 E.U./dL (0.2 - 1.0) 10/31/18 17:40 Ur Leukocyte Esterase NEGATIVE (NEGATIVE) 10/31/18 17:40 Urine RBC 25-50 /hpf (0-5) H 10/31/18 17:40 Urine WBC 2-5 /hpf (0-5) 10/31/18 17:40 Ur Epithelial Cells MODERATE /lpf (FEW) 10/31/18 17:40 Urine Bacteria 4+ /hpf (NONE SEEN) H 10/31/18 17:40 Urine Opiates Screen NEGATIVE (NEGATIVE) 10/31/18 17:40 Urine Methadone Screen NEGATIVE (NEGATIVE) 10/31/18 17:40 Ur Barbiturates Screen NEGATIVE (NEGATIVE) 10/31/18 17:40 Ur Tricyclics Screen NEGATIVE (NEGATIVE) 10/31/18 17:40 Ur Phencyclidine Scrn NEGATIVE (NEGATIVE) 10/31/18 17:40 Amphetamines Screen NEGATIVE (NEGATIVE) 10/31/18 17:40 U Methamphetamines Scrn NEGATIVE (NEGATIVE) 10/31/18 17:40 U Benzodiazepines Scrn POSITIVE (NEGATIVE) H 10/31/18 17:40 U Cocaine Metab Screen NEGATIVE (NEGATIVE) 10/31/18 17:40 U Cannabinoids Screen NEGATIVE (NEGATIVE) 10/31/18 17:40 - Physical Exam Vitals and I&O: Vital Signs Temp 97.2 F 11/07/18 05:44 Pulse 60 11/07/18 05:44 Resp 20 11/07/18 05:44 BP 124/62 11/07/18 05:44 Pulse Ox 99 11/07/18 05:44 Intake & Output 11/06/18 11/07/18 11/07/18 18:59 06:59 18:59 Intake Total 360 Balance 360 Intake: Oral 360 Other: # Voids 1 # Bowel Movements 1 0 Active Medications: Current Medications Acetaminophen (Tylenol) 650 mg PO Q4HR PRN PRN Reason: Mild Pain / Temp above 100 Stop: 12/29/18 16:39 Acetaminophen/Hydrocodone Bitart ([place] 10 Mg/325 Mg) 1 tab PO Q6H PRN PRN Reason: Moderate pain Stop: 12/29/18 16:42 Last Admin: 11/07/18 09:54 Dose: 1 tab Al Hydrox/Mg Hydrox/Simethicone (Maalox) 30 ml PO Q4HR PRN PRN Reason: GI DISTRESS Stop: 12/29/18 16:39 Alprazolam (Xanax) 0.5 mg PO Q4HR PRN; Protocol PRN Reason: anxiety Stop: 01/05/19 06:02 Last Admin: 11/06/18 08:55 Dose: 0.5 mg Bupropion HCl (Wellbutrin Sr) 200 mg PO DAILY [facility]; Protocol Stop: 12/30/18 08:59 Last Admin: 11/07/18 08:18 Dose: 200 mg Ciprofloxacin (Cipro) 500 mg PO BID [facility] Stop: 01/02/19 08:59 Last Admin: 11/07/18 08:19 Dose: 500 mg Famotidine (Pepcid) 20 mg PO DAILY [facility] Stop: 12/30/18 08:59 Last Admin: 11/07/18 08:18 Dose: 20 mg Levothyroxine Sodium 0.1 mg/ (Levothyroxine Sodium 0.05 mg) 0.15 mg PO QDAC [facility] Stop: 12/30/18 07:29 Last Admin: 11/07/18 06:33 Dose: 0.15 mg Lisinopril (Zestril) 10 mg PO DAILY [facility] Stop: 12/30/18 08:59 Last Admin: 11/07/18 08:20 Dose: Not Given Loratadine (Claritin) 10 mg PO DAILY [facility] Stop: 12/30/18 08:59 Last Admin: 11/07/18 08:20 Dose: 10 mg Magnesium Hydroxide (Milk Of Magnesia) 30 ml PO HS PRN PRN Reason: Constipation Multivitamins/Vitamin C (Theragran) 1 tab PO DAILY [facility] Stop: 12/30/18 08:59 Last Admin: 11/07/18 08:19 Dose: 1 tab Temazepam (Restoril) 30 mg PO HS [facility] Stop: 12/29/18 20:59 Last Admin: 11/06/18 21:15 Dose: 30 mg Trazodone HCl (Desyrel) 100 mg PO HS [facility] Stop: 12/29/18 20:59 Last Admin: 11/06/18 21:15 Dose: 100 mg Venlafaxine HCl (Effexor) 150 mg PO BID [facility] Stop: 12/29/18 20:59 Last Admin: 11/07/18 08:18 Dose: 150 mg Zolpidem Tartrate (Ambien) 5 mg PO HS PRN PRN Reason: Insomnia Stop: 12/29/18 16:39 Last Admin: 11/06/18 00:42 Dose: 5 mg General: alert HEENT: NC/AT Neck: Supple Lungs: CTAB Cardiovascular: RRR, Normal S1, Normal S2 Abdomen: soft Extremities: clear Neurological: no change Internal Medicine Assmt/Plan - Assessment Assessment: 1.UTI 2.HTN. 3.HYPOTHYROIDISM. 4.PSYCHOSIS. - Plan Plan: CONTINUE ON CURRENT MEDICATION AND DIET. Nutritional Asmnt/Malnutr-PDOC - Dietary Evaluation Malnutrition Findings (Please click <Entered> for more info): Nutritional Asmnt/Malnutrition Start: 11/04/18 11: 41 Text: Status: Complete Freq: Protocol: Document 11/04/18 11:41 JEN (Rec: 11/04/18 11:46 JEN KELSEY) Nutritional Asmnt/Malnutrition Patient General Information Nutritional Screening Moderate Risk Diagnosis Psychosis Pertinent Medical Hx/Surgical Hx Paranoia Subjective Information Pt asks for a lot of snakcs in between meals. Current Diet Order/ Nutrition Support [facility] [place] Pertinent Medications Maalox, Pepcid, Levothyroxine, MOM, Multivitamin / Vit C, Pertinent Labs (10/30) ALT 3, Cholest 290, LDL 199, TSH 5.83 Nutritional Hx/Data Height 1.6 m Height (Calculated Centimeters) 160.0 Current Weight (lbs) 68.039 kg Weight (Calculated Kilograms) 68.0 Weight (Calculated Grams) 75959.9 [place] Body Weight 115 % [place] Body Weight 130 Body Mass Index (BMI) 26.5 Weight Status Overweight GI Symptoms GI Symptoms None Last BM 1x (11/04) Difficult in: None Food Allergies No Cultural/Ethnic/Taoist Belief None Noted Skin Integrity/Comment: Sam Score 22 Current %PO Fair (50-74%) Estimated Nutritional Goals BEE in Kcals: Adj wt of IBW Calories/Kcals/Kg 25-30 Kcals Calculated 4234-0821 Protein: Adj wt of IBW Protein g/k.8-1 Protein Calculated 46-57 Fluid: ml 8902-7100 Nutritional Problem 2. Problem Problem Pt has inadequate oral intake Etiology due to confusion aeb Signs/Symptoms: Nurse informed me that she is not consistently finishing all her meals. 1. Problem Problem Pt has excessive fat intake Etiology due to current diet order Signs/Symptoms: Labs show Hypercholesterolemia (11/04) Cholest 290, LDL 199 Malnutrition Alert Food and Nutrition Intake (Moderate) <75% est energy req 7days Is there a minimum of two criteria No selected? Query Text:Check all the applicable criteria. A minimum of two criteria are recommended for diagnosis of either severe or non-severe malnutrition. Malnutrition Related to Morbid Obesity Malnutrition related to morbid obesity No Intervention/Recommendation Comments Recommend Changing diet order to Cardiac Diet. Provide snacks as needed Expected Outcomes/Goals Expected Outcomes/Goals - Increase PO intake to ~100% - Lipid Panel return to WNL - F/U in 7 days as LR
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
--- NOTE | 2018-11-07 18:19 | Progress Notes ---
DATE: SUBJECTIVE: Chart reviewed and the patient interviewed. Also discussed the patient's condition with the staff and reviewed the records and labs. The patient is still anxious, but she is having ____. The patient is still hyperverbal and gets episodes of irritability and agitation and delusional. On the other hand, the patient seems to be clear and today she is asking if she can take Xanax instead of Ativan. I explained to her about the difference between the two, but she states that she wants Xanax ____ because of her past experience was good with the Xanax. At the same time, there seems some confusion about discharge plans and ____ as well as also some confusion in regard to primary care physician. ASSESSMENT: The patient is still anxious ____. TREATMENT PLAN: Continue to monitor her ____ and her condition closely. Also, we will change Ativan to Xanax and we will monitor the dose. At the same time, I work with outpatient case manager in regard to discharge plans and placement issue. JOB# [id number]
== END 2018-11-07 13:00 | DRG 885 ==
LOC: ER 14:43 → GERO2 16:17 → UNDOADMIN 16:17 → GERO2 16:31
PROVIDERS: ADMIT Psychiatry & Neurology Psychiatry; ATTEND Psychiatry & Neurology Psychiatry
DX: F33.3 Major depressive disorder, recurrent, severe with psychotic symptoms (principal); N39.0 Urinary tract infection, site not specified; M54.9 Dorsalgia, unspecified; E03.9 Hypothyroidism, unspecified; G89.29 Other chronic pain; I10 Essential (primary) hypertension; F41.9 Anxiety disorder, unspecified; Z79.82 Long term (current) use of aspirin
CPT/HCPCS: 36415-UA; 80053-TC; 80061-TC; 80307; 81001-TC; 83036-90; 83735-TC; 84100-TC; 84443-TC; 85025-TC; 87086-90; J1200; J1630; J2060; Z7610

== ENCOUNTER 2019-01-16 00:08 | Inpatient (IN) | payer MEDICAID, MEDICARE ==
[2019-01-16] MEDS ORDERED: Magnesium Hydroxide (MOM) 30 mL UDC PO PRN (00:15)
[2019-01-16 00:58] VITALS: BP 141/70
[2019-01-16] MEDS: Multivitamin Tab PO SCH (08:49)
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
[2019-01-16] MEDS ORDERED: Haloperidol Lactate 5 mg/mL 1mL Vial IM PRN (15:27)
[2019-01-16] MEDS ORDERED: Haloperidol Lactate 5 mg/mL 1mL Vial ONE (15:30)
--- NOTE | 2019-01-16 22:07 | History & Physical ---
ADMIT DATE: 01/16/2019 HISTORY OF PRESENT ILLNESS: The patient is a 68-year-old female with long history of hypertension, hypothyroidism, and depression; [facility] under Dr. Monroy's service for evaluation and treatment. The patient denies any chest pain, shortness of breath, nausea, vomiting, fever, or chills. PAST MEDICAL HISTORY: Significant for hypertension, hypothyroidism, degenerative joint disease, and depression. PAST SURGICAL HISTORY: No recent surgery. ALLERGIES: None. SOCIAL HISTORY: Ex-smoker, no alcohol or drugs. FAMILY HISTORY: Noncontributory. REVIEW OF SYSTEMS: RENAL SYSTEM: No history of chronic renal disorder. CARDIOVASCULAR SYSTEM: She has history of hypertension. ENDOCRINE SYSTEM: She has history of hypothyroidism. GASTROINTESTINAL SYSTEM: No upper or lower gastrointestinal bleed. NEUROLOGICAL SYSTEM: Seizure disorder. MUSCULOSKELETAL SYSTEM: She has degenerative joint disease. RESPIRATORY SYSTEM: No asthma. GENITOURINARY: No dysuria or hematuria. PHYSICAL EXAMINATION: GENERAL: She is awake, alert, oriented. VITAL SIGNS: Temperature is 98.2, heart rate 90, and blood pressure 155/78. HEENT: Normocephalic. Pupils reactive to light and accommodation. Sclerae clear. NECK: Supple. Negative for lymphadenopathy, JVD, or bruit. CHEST: Entry of air bilaterally normal. No rhonchi or wheezing. HEART: S1, S2 normal. No murmur or gallop rhythm. ABDOMEN: Soft, bowel sounds positive. EXTREMITIES: No edema. NEUROLOGIC: She is awake, alert, oriented. No focal motor or sensory deficit. Cranial nerves II through XII are intact. ASSESSMENT: 1. Hypertension. 2. Hypothyroidism. 3. Degenerative joint disease. 4. Major depression. PLAN: The patient in the hospital under Dr. Monroy's service. Medical problems addressed during hospitalization, depression. Medical problem to be addressed at discharge; hypothyroidism, hypertension, and degenerative joint disease. The patient is cleared for activity. The patient is a full code. Thank you, Dr. Monroy, for asking me to see your patient. JOB# [id number]
--- NOTE | 2019-01-17 00:53 | Psychiatric Evaluation ---
DATE OF SERVICE: 01/16/2019 JUSTIFICATION FOR HOSPITALIZATION: "Too much stress, too much crying." The patient noted to be in the Emergency Room very hopeless, despairing, history of psych admissions. HISTORY OF PRESENT ILLNESS: A 68-year-old female with history of hospitalizations in the past, slept for about 5 hours. The patient apparently has been living in a hotel, very depressed, hopeless, despairing, "Dr. Kelly is my only friend." The patient was hysterically crying, shouting. The patient was making random statements such as "you are the devil, you are all liars," concerns about her ability to care for her basic needs. The patient notes that she was kicked out of her previous place of residence, became homeless, stayed in a hotel, ended up in a psych hospital, Dr. Kelly has transferred to a fdc facility. She was discharged from there, ended up in a hotel in [place]. The patient noted that she started to get more depressed, isolative, tearful on exam. PAST PSYCHIATRIC HISTORY: Hospitalizations in the past. FAMILY HISTORY: Noncontributory. SOCIAL HISTORY: Born in [place]. She states that she is not . Father and mother . Technically homeless now. The patient states that she has a son who lives in [place]. She is somewhat estranged from her sisters. No drugs, no alcohol. The patient attests to smoking history. MEDICATIONS: Noted. MENTAL STATUS EXAMINATION: Stated age, fair eye contact, crying on exam, fair orientation, mood "not good." Affect constricted. Thought processes were tangential but redirectable. No overt SI or HI. No overt psychotic symptoms, but it seems that she may have a history of paranoias. Insight and judgment diminished. PROVISIONAL DIAGNOSES: Mood, unspecified. Medical: Please see full H and P. ESTIMATED LENGTH OF STAY: 7-10 days. ASSESSMENT: The patient requiring hospitalization, noted to be despairing, hopeless, isolative, unable to be cared for at a lower level of care. PLAN: We will restart Effexor. The patient notes that historically this has worked well for her in the past. The patient may need an antipsychotic medication. TREATMENT PLAN: Includes group as well as milieu therapy. CONDITIONS FOR DISCHARGE: Improved mood, improved affect, better control of her mood symptoms. [facility]# [id number]
[2019-01-17] MEDS: Venlafaxine HCl ER 37.5 mg Tab PO SCH (08:39)
[2019-01-17] MEDS: Multivitamin Tab PO SCH (08:40)
--- NOTE | 2019-01-17 21:54 | Progress Notes ---
DATE: 01/17/2019 SUBJECTIVE: Case was discussed with staff of the patient, reviewed records. The patient continues to be depressed and anxious. She continues however to be unable to recall why she has not been compliant with her medication, unable to provide for safety. Apparently, she has been homeless, unable to make safe plan for self-care. She wants a placement and we are working to get her to a placement. She had to be medicated yesterday with Haldol, Benadryl, and Ativan. She was restarted on the venlafaxine 37.5 mg daily with no side effects, no sedation, no nausea, and no extrapyramidal symptoms. I will be decreasing her Restoril to 15 mg because it is addictive and I gave her an alternative for sleep. I also initiated trazodone to help her with sleep. We will continue to work with the patient in group therapy, milieu therapy, and adjust the medications as needed. JOB# [id number]
--- NOTE | 2019-01-17 23:13 | Internal Medicine Prog Note ---
Internal Medicine Subjective - Subjective Service Date: 01/17/19 Patient seen and examined:: with staff Patient is:: awake, verbal, in bed, confused Per staff patient has:: no adverse event Internal Medicine Objective - Physical Exam Vitals and I&O: Vital Signs Temp 99.2 F 01/17/19 20:32 Pulse 110 01/17/19 20:32 Resp 20 01/17/19 20:32 BP 137/96 01/17/19 20:32 Pulse Ox 96 01/17/19 20:32 Intake & Output 01/17/19 01/17/19 01/18/19 06:59 18:59 06:59 Intake Total 240 1200 240 Balance 240 1200 240 Intake: Oral 240 1200 240 Other: # Voids 2 # Bowel Movements 0 1 Active Medications: Current Medications Acetaminophen (Tylenol) 650 mg PO Q4HR PRN PRN Reason: Mild Pain 1-3/ Temp above 100 Stop: 03/17/19 00:14 Last Admin: 01/16/19 08:49 Dose: 650 mg Lorazepam (Ativan) 0.5 mg PO Q4HR PRN; Protocol PRN Reason: Anxiety Stop: 02/15/19 00:14 Last Admin: 01/17/19 17:36 Dose: 0.5 mg Multivitamins/Vitamin C (Theragran) 1 tab PO DAILY CORKY Stop: 03/17/19 08:59 Last Admin: 01/17/19 08:40 Dose: 1 tab Temazepam (Restoril) 15 mg PO HS PRN; Protocol PRN Reason: Insomnia Stop: 03/17/19 21:51 Last Admin: 01/17/19 20:39 Dose: 15 mg Trazodone HCl (Desyrel) 100 mg PO HS CORKY; Protocol Stop: 03/18/19 20:59 Last Admin: 01/17/19 20:39 Dose: 100 mg Venlafaxine HCl (Effexor Xr) 37.5 mg PO DAILY CORKY; Protocol Stop: 03/18/19 08:59 Last Admin: 01/17/19 08:39 Dose: 37.5 mg General: alert HEENT: NC/AT, PERRLA, EOMI, anicteric sclerae, throat clear Neck: Supple, No JVD, No thyromegaly, +2 carotid pulse wo bruit, No LAD Lungs: CTAB Cardiovascular: RRR, Normal S1, Normal S2, without murmur Abdomen: soft, non-tender, non-distended Neurological: no change Internal Medicine Assmt/Plan - Assessment Assessment: 1.HTN. 2.HYPOTHYROIDISM. 3.DJD. 4.COPD. 5.PSYCHOSIS. - Plan Plan: CONTINUE ON CURRENT MEDICATION AND DIET.
[2019-01-18] MEDS: Multivitamin Tab PO SCH (10:07)
[2019-01-18] MEDS: Venlafaxine HCl ER 37.5 mg Tab PO SCH (10:07)
--- NOTE | 2019-01-18 15:50 | Progress Notes ---
DATE: 01/18/2019 Case was discussed with staff of the patient, reviewed records. The patient is homeless. Continues to be irritable, continues to have poor insight with episodes of yelling and screaming. Continues to be depressed. She continues to be unable to state a safe plan for self-care. She has been compliant with the medication with no side effects. I did initiate her on the Effexor. I will be increasing the dose to 75 mg daily. No side effects of the medication, no sedation, no nausea. I will continue to work with the patient in group therapy, milieu therapy, and adjust the medication as needed. JOB# [id number]
--- NOTE | 2019-01-18 16:50 | Internal Medicine Prog Note ---
Internal Medicine Subjective - Subjective Service Date: 01/18/19 Patient seen and examined:: without staff (SHE FEELS WELL) Patient is:: awake, verbal, in bed, confused Per staff patient has:: no adverse event Internal Medicine Objective - Physical Exam Vitals and I&O: Vital Signs Temp 99.2 F 01/17/19 20:32 Pulse 110 01/17/19 20:32 Resp 18 01/18/19 08:00 BP 137/96 01/17/19 20:32 Pulse Ox 96 01/17/19 20:32 Intake & Output 01/17/19 01/18/19 01/18/19 18:59 06:59 18:59 Intake Total 1200 240 Balance 1200 240 Intake: Oral 1200 240 Other: # Bowel Movements 1 Active Medications: Current Medications Acetaminophen (Tylenol) 650 mg PO Q4HR PRN PRN Reason: Mild Pain 1-3/ Temp above 100 Stop: 03/17/19 00:14 Last Admin: 01/16/19 08:49 Dose: 650 mg Lorazepam (Ativan) 0.5 mg PO Q4HR PRN; Protocol PRN Reason: Anxiety Stop: 02/15/19 00:14 Last Admin: 01/18/19 03:46 Dose: 0.5 mg Multivitamins/Vitamin C (Theragran) 1 tab PO DAILY CORKY Stop: 03/17/19 08:59 Last Admin: 01/18/19 10:07 Dose: 1 tab Temazepam (Restoril) 15 mg PO HS PRN; Protocol PRN Reason: Insomnia Stop: 03/17/19 21:51 Last Admin: 01/17/19 20:39 Dose: 15 mg Trazodone HCl (Desyrel) 100 mg PO HS CORKY; Protocol Stop: 03/18/19 20:59 Last Admin: 01/17/19 20:39 Dose: 100 mg Venlafaxine HCl (Effexor Xr) 75 mg PO DAILY CORKY; Protocol Stop: 03/20/19 08:59 General: alert HEENT: NC/AT, PERRLA, EOMI, anicteric sclerae, throat clear Neck: Supple, No JVD, No thyromegaly, +2 carotid pulse wo bruit, No LAD Lungs: CTAB Cardiovascular: RRR, Normal S1, Normal S2, without murmur Abdomen: soft, non-tender, non-distended Neurological: no change Internal Medicine Assmt/Plan - Assessment Assessment: 1.HTN. 2.HYPOTHYROIDISM. 3.DJD. 4.COPD. 5.PSYCHOSIS. - Plan Plan: CONTINUE ON CURRENT MEDICATION AND DIET.
[2019-01-19] MEDS: Multivitamin Tab PO SCH (08:26)
[2019-01-19] MEDS ORDERED: Venlafaxine HCl ER 37.5 mg Tab PO SCH (09:00)
[2019-01-19] MEDS: Levothyroxine 0.1 Mg Tab PO SCH (16:55)
--- NOTE | 2019-01-19 20:07 | Internal Medicine Prog Note ---
Internal Medicine Subjective - Subjective Service Date: 01/19/19 Patient seen and examined:: with staff Patient is:: awake, verbal, in bed, confused Per staff patient has:: no adverse event Internal Medicine Objective - Physical Exam Vitals and I&O: Vital Signs Temp 97.5 F 01/19/19 14:00 Pulse 75 01/19/19 16:55 Resp 20 01/19/19 14:00 BP 101/80 01/19/19 16:55 Pulse Ox 95 01/19/19 14:00 Intake & Output 01/19/19 01/19/19 01/20/19 06:59 18:59 06:59 Intake Total 480 960 Balance 480 960 Intake: Oral 480 960 Other: # Voids 2 4 # Bowel Movements 1 Active Medications: Current Medications Acetaminophen (Tylenol) 650 mg PO Q4HR PRN PRN Reason: Mild Pain 1-3/ Temp above 100 Stop: 03/17/19 00:14 Last Admin: 01/18/19 18:25 Dose: 650 mg Amlodipine Besylate (Norvasc) 10 mg PO DAILY CORKY Stop: 03/20/19 12:29 Last Admin: 01/19/19 16:55 Dose: 10 mg Levothyroxine Sodium (Synthroid) 0.1 mg PO QDAC CORKY Stop: 03/20/19 16:29 Last Admin: 01/19/19 16:55 Dose: 0.1 mg Lorazepam (Ativan) 0.5 mg PO Q4HR PRN; Protocol PRN Reason: Anxiety Stop: 02/15/19 00:14 Last Admin: 01/19/19 00:55 Dose: 0.5 mg Multivitamins/Vitamin C (Theragran) 1 tab PO DAILY CORKY Stop: 03/17/19 08:59 Last Admin: 01/19/19 08:26 Dose: 1 tab Temazepam (Restoril) 15 mg PO HS PRN; Protocol PRN Reason: Insomnia Stop: 03/17/19 21:51 Last Admin: 01/18/19 20:38 Dose: 15 mg Trazodone HCl (Desyrel) 100 mg PO HS CORKY; Protocol Stop: 03/18/19 20:59 Last Admin: 01/18/19 20:38 Dose: 100 mg Venlafaxine HCl (Effexor Xr) 150 mg PO DAILY CORKY; Protocol Stop: 03/21/19 08:59 General: alert HEENT: NC/AT, PERRLA, EOMI, anicteric sclerae, throat clear Neck: Supple, No JVD, No thyromegaly, +2 carotid pulse wo bruit, No LAD Lungs: CTAB Cardiovascular: RRR, Normal S1, Normal S2, without murmur Abdomen: soft, non-tender, non-distended Neurological: no change Internal Medicine Assmt/Plan - Assessment Assessment: 1.HTN. 2.HYPOTHYROIDISM. 3.DJD. 4.COPD. 5.PSYCHOSIS. - Plan Plan: CONTINUE ON CURRENT MEDICATION AND DIET. Nutritional Asmnt/Malnutr-PDOC - Dietary Evaluation Malnutrition Findings (Please click <Entered> for more info): Nutritional Asmnt/Malnutrition Start: 01/19/19 14: 30 Text: Status: Complete Freq: Protocol: Document 01/19/19 14:30 LCHENG (Rec: 01/19/19 14:36 LCHENG [email or web address]) Nutritional Asmnt/Malnutrition Patient General Information Nutritional Screening Moderate Risk Diagnosis psychosis Pertinent Medical Hx/Surgical Hx HTN, hypothyroidism, DJD, depression Subjective Information Pt seen eating in dining room, alert and pleasant. Pt showed understanding she is 2g Na diet. Food preference provided . PO intake 100% of meals. Current Diet Order/ Nutrition Support 2g Na Pertinent Medications synthroid, theragran Pertinent Labs no labs Nutritional Hx/Data Height 1.6 m Height (Calculated Centimeters) 160.0 Current Weight (lbs) 68.039 kg Weight (Calculated Kilograms) 68.0 Weight (Calculated Grams) 49025.9 [place] Body Weight 115 Body Mass Index (BMI) 26.5 Weight Status Overweight GI Symptoms GI Symptoms None Last BM 01/18 Difficult in: None Skin Integrity/Comment: intact Estimated Nutritional Goals BEE in Kcals: Using Current wt Calories/Kcals/Kg 23-27 Kcals Calculated 4194-7274 Protein: Using Current wt Protein g/k.8-1 Protein Calculated 54-68 Fluid: ml 1564-1836ml (1ml/kcal) Nutritional Problem No current Nutrition Prob Problem N/A Malnutrition Alert Is there a minimum of two criteria No selected? Query Text:Check all the applicable criteria. A minimum of two criteria are recommended for diagnosis of either severe or non-severe malnutrition. Malnutrition Related to Morbid Obesity Malnutrition related to morbid obesity No Intervention/Recommendation Comments 1. Continue with 2g Na diet as ordered. 2. Monitor PO intake, wt, labs and skin integrity 3. F/U as low risk in 7 days Expected Outcomes/Goals Expected Outcomes/Goals 1. PO intake to meet at least 75% of nutritional needs. 2. Wt stability, skin to remain intact, labs to approach WNL.
--- NOTE | 2019-01-20 00:39 | Progress Notes ---
DATE: 01/19/2019 Case was discussed with staff of the patient and reviewed records. The patient continues to be overwhelmed with multiple complaints. She reports she wants to be on her blood pressure ____ medication. I asked the staff to make sure that the medical doctor put her on those medications. Before, she used to be on Effexor 300 mg, I will be increasing her dose to 150 mg, as when she came, she was only started on 37.5, I have been increasing the dose daily. No current lab is available. She is still looking disheveled, disorganized, internally preoccupied. She does not have any place to go yet. She is homeless. We are working on placement for her. No side effects with the medication, no sedation, no nausea. We will continue to work with the patient in group therapy, milieu therapy, and adjust medications as needed. JOB# [id number]
[2019-01-20] MEDS: Levothyroxine 0.1 Mg Tab PO SCH (06:38)
[2019-01-20] MEDS: Multivitamin Tab PO SCH (08:46)
--- NOTE | 2019-01-20 19:54 | General Progress Note ---
Subjective - Review of Systems Service Date: 01/20/19 Subjective: resting comfortably no distress Objective - Physical Exam Vitals and I&O: Vital Signs Temp 97.6 F 01/20/19 14:00 Pulse 111 01/20/19 14:00 Resp 20 01/20/19 14:00 BP 109/65 01/20/19 14:00 Pulse Ox 99 01/20/19 14:00 Intake & Output 01/20/19 01/20/19 01/21/19 06:59 18:59 06:59 Intake Total 240 840 Balance 240 840 Intake: Oral 240 720 Other 120 Other: # Voids 2 4 # Bowel Movements 0 1 Active Medications: Current Medications Acetaminophen (Tylenol) 650 mg PO Q4HR PRN PRN Reason: Mild Pain 1-3/ Temp above 100 Stop: 03/17/19 00:14 Last Admin: 01/18/19 18:25 Dose: 650 mg Albuterol/Ipratropium (Duoneb Neb) 3 ml HHN Q4HRT PRN; Protocol PRN Reason: Shortness of Breath Stop: 03/21/19 18:38 Amlodipine Besylate (Norvasc) 10 mg PO DAILY CORKY Stop: 03/20/19 12:29 Last Admin: 01/20/19 08:46 Dose: 10 mg Levothyroxine Sodium (Synthroid) 0.1 mg PO QDAC CORKY Stop: 03/20/19 16:29 Last Admin: 01/20/19 06:38 Dose: 0.1 mg Lorazepam (Ativan) 0.5 mg PO Q4HR PRN; Protocol PRN Reason: Anxiety Stop: 02/15/19 00:14 Last Admin: 01/20/19 13:15 Dose: 0.5 mg Multivitamins/Vitamin C (Theragran) 1 tab PO DAILY CORKY Stop: 03/17/19 08:59 Last Admin: 01/20/19 08:46 Dose: 1 tab Temazepam (Restoril) 15 mg PO HS PRN; Protocol PRN Reason: Insomnia Stop: 03/17/19 21:51 Last Admin: 01/19/19 23:21 Dose: 15 mg Trazodone HCl (Desyrel) 100 mg PO HS CORKY; Protocol Stop: 03/18/19 20:59 Last Admin: 01/19/19 21:41 Dose: 100 mg Venlafaxine HCl (Effexor Xr) 150 mg PO DAILY CORKY; Protocol Stop: 03/21/19 08:59 Last Admin: 01/20/19 08:45 Dose: 150 mg General: No acute distress HEENT: Atraumatic Neck: Supple, JVD Cardiovascular: Regular rate, Normal S1, Normal S2 Lungs: Clear to auscultation Abdomen: Bowel sounds, Soft Assessment/Plan - Assessment Assessment: 1.HTN. 2.HYPOTHYROIDISM. 3.DJD. 4.COPD. 5.PSYCHOSIS. - Plan Plan: continue current treatment Nutritional Asmnt/Malnutr-PDOC - Dietary Evaluation Malnutrition Findings (Please click <Entered> for more info): Nutritional Asmnt/Malnutrition Start: 01/19/19 14: 30 Text: Status: Complete Freq: Protocol: Document 01/19/19 14:30 LCHENG (Rec: 01/19/19 14:36 LCHENG [email or web address]) Nutritional Asmnt/Malnutrition Patient General Information Nutritional Screening Moderate Risk Diagnosis psychosis Pertinent Medical Hx/Surgical Hx HTN, hypothyroidism, DJD, depression Subjective Information Pt seen eating in dining room, alert and pleasant. Pt showed understanding she is 2g Na diet. Food preference provided . PO intake 100% of meals. Current Diet Order/ Nutrition Support 2g Na Pertinent Medications synthroid, theragran Pertinent Labs no labs Nutritional Hx/Data Height 1.6 m Height (Calculated Centimeters) 160.0 Current Weight (lbs) 68.039 kg Weight (Calculated Kilograms) 68.0 Weight (Calculated Grams) 51850.9 [place] Body Weight 115 Body Mass Index (BMI) 26.5 Weight Status Overweight GI Symptoms GI Symptoms None Last BM 01/18 Difficult in: None Skin Integrity/Comment: intact Estimated Nutritional Goals BEE in Kcals: Using Current wt Calories/Kcals/Kg 23-27 Kcals Calculated 2756-0549 Protein: Using Current wt Protein g/k.8-1 Protein Calculated 54-68 Fluid: ml 1564-1836ml (1ml/kcal) Nutritional Problem No current Nutrition Prob Problem N/A Malnutrition Alert Is there a minimum of two criteria No selected? Query Text:Check all the applicable criteria. A minimum of two criteria are recommended for diagnosis of either severe or non-severe malnutrition. Malnutrition Related to Morbid Obesity Malnutrition related to morbid obesity No Intervention/Recommendation Comments 1. Continue with 2g Na diet as ordered. 2. Monitor PO intake, wt, labs and skin integrity 3. F/U as low risk in 7 days Expected Outcomes/Goals Expected Outcomes/Goals 1. PO intake to meet at least 75% of nutritional needs. 2. Wt stability, skin to remain intact, labs to approach WNL.
--- NOTE | 2019-01-21 00:19 | Progress Notes ---
DATE: SUBJECTIVE: The patient was seen and evaluated. The patient's chart reviewed. Covering for Dr. Monroy. IDENTIFYING DATA: This is a 68-year-old female brought in here after the patient was found to be crying, shouting, anxious, depressed, and unable to recall why not taking her medications and noncompliant with medications. CURRENT MEDICATIONS: She is taking amlodipine, levothyroxine, multivitamins, Restoril, Effexor 150 mg, and trazodone. Today on [id number] evaluation, the patient denies side effect of medications. She does admit that she was noncompliant with medications and feeling depressed and overwhelmed, and disengaged. MENTAL STATUS EXAMINATION: Continues to be hopeless, depressed, anxious, overwhelmed. ASSESSMENT AND PLAN: Due to the patient's severe depression, anxiety, overwhelming, had been noncompliant with medications; she continues to be unpredictable, unable to formulate safe plan outside the structured environment. We will continue with primary psychiatrist's treatment plan and goals. JOB# [id number]
[2019-01-21] MEDS: Levothyroxine 0.1 Mg Tab PO SCH (06:45)
[2019-01-21] MEDS: Multivitamin Tab PO SCH (09:02)
--- NOTE | 2019-01-21 17:08 | General Progress Note ---
Subjective - Review of Systems Service Date: 01/21/19 Subjective: resting comfortably no distress Objective - Physical Exam Vitals and I&O: Vital Signs Temp 98.2 F 01/21/19 14:55 Pulse 97 01/21/19 14:55 Resp 20 01/21/19 14:55 BP 150/72 01/21/19 14:55 Pulse Ox 96 01/21/19 14:55 Intake & Output 01/20/19 01/21/19 01/21/19 18:59 06:59 18:59 Intake Total 840 480 Balance 840 480 Intake: Oral 720 480 Other 120 Other: # Voids 4 1 # Bowel Movements 1 Active Medications: Current Medications Acetaminophen (Tylenol) 650 mg PO Q4HR PRN PRN Reason: Mild Pain 1-3/ Temp above 100 Stop: 03/17/19 00:14 Last Admin: 01/18/19 18:25 Dose: 650 mg Albuterol/Ipratropium (Duoneb Neb) 3 ml HHN Q4HRT PRN; Protocol PRN Reason: Shortness of Breath Stop: 03/21/19 18:38 Amlodipine Besylate (Norvasc) 10 mg PO DAILY CORKY Stop: 03/20/19 12:29 Last Admin: 01/21/19 09:00 Dose: 10 mg Levothyroxine Sodium (Synthroid) 0.1 mg PO QDAC CORKY Stop: 03/20/19 16:29 Last Admin: 01/21/19 06:45 Dose: 0.1 mg Lorazepam (Ativan) 0.5 mg PO Q4HR PRN; Protocol PRN Reason: Anxiety Stop: 02/15/19 00:14 Last Admin: 01/20/19 13:15 Dose: 0.5 mg Multivitamins/Vitamin C (Theragran) 1 tab PO DAILY CORKY Stop: 03/17/19 08:59 Last Admin: 01/21/19 09:02 Dose: 1 tab Temazepam (Restoril) 15 mg PO HS PRN; Protocol PRN Reason: Insomnia Stop: 03/17/19 21:51 Last Admin: 01/20/19 23:49 Dose: 15 mg Trazodone HCl (Desyrel) 100 mg PO HS CORKY; Protocol Stop: 03/18/19 20:59 Last Admin: 01/20/19 20:48 Dose: 100 mg Venlafaxine HCl (Effexor Xr) 150 mg PO DAILY CORKY; Protocol Stop: 03/21/19 08:59 Last Admin: 01/21/19 09:00 Dose: 150 mg General: No acute distress HEENT: Atraumatic Neck: Supple, JVD Cardiovascular: Regular rate, Normal S1, Normal S2 Lungs: Clear to auscultation Abdomen: Bowel sounds, Soft Assessment/Plan - Assessment Assessment: 1.HTN. 2.HYPOTHYROIDISM. 3.DJD. 4.COPD. 5.PSYCHOSIS. - Plan Plan: continue current treatment Nutritional Asmnt/Malnutr-PDOC - Dietary Evaluation Malnutrition Findings (Please click <Entered> for more info): Nutritional Asmnt/Malnutrition Start: 01/19/19 14: 30 Text: Status: Complete Freq: Protocol: Document 01/19/19 14:30 JESSICAG (Rec: 01/19/19 14:36 [email or web address]) Nutritional Asmnt/Malnutrition Patient General Information Nutritional Screening Moderate Risk Diagnosis psychosis Pertinent Medical Hx/Surgical Hx HTN, hypothyroidism, DJD, depression Subjective Information Pt seen eating in dining room, alert and pleasant. Pt showed understanding she is 2g Na diet. Food preference provided . PO intake 100% of meals. Current Diet Order/ Nutrition Support 2g Na Pertinent Medications synthroid, theragran Pertinent Labs no labs Nutritional Hx/Data Height 1.6 m Height (Calculated Centimeters) 160.0 Current Weight (lbs) 68.039 kg Weight (Calculated Kilograms) 68.0 Weight (Calculated Grams) 82056.9 [place] Body Weight 115 Body Mass Index (BMI) 26.5 Weight Status Overweight GI Symptoms GI Symptoms None Last BM 01/18 Difficult in: None Skin Integrity/Comment: intact Estimated Nutritional Goals BEE in Kcals: Using Current wt Calories/Kcals/Kg 23-27 Kcals Calculated 8690-9763 Protein: Using Current wt Protein g/k.8-1 Protein Calculated 54-68 Fluid: ml 1564-1836ml (1ml/kcal) Nutritional Problem No current Nutrition Prob Problem N/A Malnutrition Alert Is there a minimum of two criteria No selected? Query Text:Check all the applicable criteria. A minimum of two criteria are recommended for diagnosis of either severe or non-severe malnutrition. Malnutrition Related to Morbid Obesity Malnutrition related to morbid obesity No Intervention/Recommendation Comments 1. Continue with 2g Na diet as ordered. 2. Monitor PO intake, wt, labs and skin integrity 3. F/U as low risk in 7 days Expected Outcomes/Goals Expected Outcomes/Goals 1. PO intake to meet at least 75% of nutritional needs. 2. Wt stability, skin to remain intact, labs to approach WNL.
[2019-01-21] MEDS: Albuterol/Ipratropium Neb 3 ML AERS HHN PRN (21:33)
--- NOTE | 2019-01-22 03:55 | Progress Notes ---
DATE: 01/21/2019 PSYCHIATRIC FOLLOWUP NOTE SUBJECTIVE: The patient was seen and evaluated. The patient's chart reviewed. Covering for Dr. Monroy. Today on [id number] evaluation, the patient continues to be very depressed, severe depression, anxiety, . MENTAL STATUS EXAMINATION: Helpless, depressed, anxiety, ambivalence about her safety. ASSESSMENT AND PLAN: History of severe depression with symptoms of melancholic and helpless feelings continue to impair the patient. We will continue with primary psychiatrist's treatment plan and goals to target the patient's ongoing severe depression. Effexor was recently increased to 150 mg a day. [facility]# [id number]
[2019-01-22] MEDS: Albuterol/Ipratropium Neb 3 ML AERS HHN PRN ×2 (05:32→12:56)
[2019-01-22] MEDS: Levothyroxine 0.1 Mg Tab PO SCH (06:37)
[2019-01-22] MEDS: Multivitamin Tab PO SCH (08:52)
--- NOTE | 2019-01-22 20:52 | Internal Medicine Prog Note ---
Internal Medicine Subjective - Subjective Service Date: 01/22/19 Patient seen and examined:: with staff (SHE FEELS WELL) Patient is:: awake, verbal, in bed, confused Per staff patient has:: no adverse event Internal Medicine Objective - Physical Exam Vitals and I&O: Vital Signs Temp 97.4 F 01/22/19 20:11 Pulse 99 01/22/19 20:19 Resp 18 01/22/19 20:19 BP 158/78 01/22/19 20:11 Pulse Ox 95 01/22/19 20:19 Intake & Output 01/22/19 01/22/19 01/23/19 06:59 18:59 06:59 Intake Total 720 1800 240 Balance 720 1800 240 Intake: Oral 720 1800 240 Other: # Voids 2 5 2 # Bowel Movements 0 0 Active Medications: Current Medications Acetaminophen (Tylenol) 650 mg PO Q4HR PRN PRN Reason: Mild Pain 1-3/ Temp above 100 Stop: 03/17/19 00:14 Last Admin: 01/18/19 18:25 Dose: 650 mg Albuterol/Ipratropium (Duoneb Neb) 3 ml HHN Q4HRT PRN; Protocol PRN Reason: Shortness of Breath Stop: 03/21/19 18:38 Last Admin: 01/22/19 12:56 Dose: 3 ml Amlodipine Besylate (Norvasc) 10 mg PO DAILY CORKY Stop: 03/20/19 12:29 Last Admin: 01/22/19 08:52 Dose: 10 mg Levothyroxine Sodium (Synthroid) 0.1 mg PO QDAC CORKY Stop: 03/20/19 16:29 Last Admin: 01/22/19 06:37 Dose: 0.1 mg Lorazepam (Ativan) 0.5 mg PO Q4HR PRN; Protocol PRN Reason: Anxiety Stop: 02/15/19 00:14 Last Admin: 01/22/19 14:36 Dose: 0.5 mg Multivitamins/Vitamin C (Theragran) 1 tab PO DAILY CORKY Stop: 03/17/19 08:59 Last Admin: 01/22/19 08:52 Dose: 1 tab Temazepam (Restoril) 15 mg PO HS PRN; Protocol PRN Reason: Insomnia Stop: 03/23/19 20:39 Trazodone HCl (Desyrel) 100 mg PO HS CORKY; Protocol Stop: 03/18/19 20:59 Last Admin: 01/22/19 20:29 Dose: 100 mg Venlafaxine HCl (Effexor Xr) 225 mg PO DAILY CORKY; Protocol Stop: 03/24/19 08:59 General: alert HEENT: NC/AT, PERRLA, EOMI, anicteric sclerae, throat clear Neck: Supple, No JVD, No thyromegaly, +2 carotid pulse wo bruit, No LAD Lungs: CTAB Cardiovascular: RRR, Normal S1, Normal S2, without murmur Abdomen: soft, non-tender, non-distended Neurological: no change Internal Medicine Assmt/Plan - Assessment Assessment: 1.HTN. 2.HYPOTHYROIDISM. 3.DJD. 4.COPD. 5.PSYCHOSIS. - Plan Plan: CONTINUE ON CURRENT MEDICATION AND DIET. Nutritional Asmnt/Malnutr-PDOC - Dietary Evaluation Malnutrition Findings (Please click <Entered> for more info): Nutritional Asmnt/Malnutrition Start: 01/19/19 14: 30 Text: Status: Complete Freq: Protocol: Document 01/19/19 14:30 LCHENG (Rec: 01/19/19 14:36 LCHENG [email or web address]) Nutritional Asmnt/Malnutrition Patient General Information Nutritional Screening Moderate Risk Diagnosis psychosis Pertinent Medical Hx/Surgical Hx HTN, hypothyroidism, DJD, depression Subjective Information Pt seen eating in dining room, alert and pleasant. Pt showed understanding she is 2g Na diet. Food preference provided . PO intake 100% of meals. Current Diet Order/ Nutrition Support 2g Na Pertinent Medications synthroid, theragran Pertinent Labs no labs Nutritional Hx/Data Height 1.6 m Height (Calculated Centimeters) 160.0 Current Weight (lbs) 68.039 kg Weight (Calculated Kilograms) 68.0 Weight (Calculated Grams) 93958.9 [place] Body Weight 115 Body Mass Index (BMI) 26.5 Weight Status Overweight GI Symptoms GI Symptoms None Last BM 01/18 Difficult in: None Skin Integrity/Comment: intact Estimated Nutritional Goals BEE in Kcals: Using Current wt Calories/Kcals/Kg 23-27 Kcals Calculated 5195-5528 Protein: Using Current wt Protein g/k.8-1 Protein Calculated 54-68 Fluid: ml 1564-1836ml (1ml/kcal) Nutritional Problem No current Nutrition Prob Problem N/A Malnutrition Alert Is there a minimum of two criteria No selected? Query Text:Check all the applicable criteria. A minimum of two criteria are recommended for diagnosis of either severe or non-severe malnutrition. Malnutrition Related to Morbid Obesity Malnutrition related to morbid obesity No Intervention/Recommendation Comments 1. Continue with 2g Na diet as ordered. 2. Monitor PO intake, wt, labs and skin integrity 3. F/U as low risk in 7 days Expected Outcomes/Goals Expected Outcomes/Goals 1. PO intake to meet at least 75% of nutritional needs. 2. Wt stability, skin to remain intact, labs to approach WNL.
--- NOTE | 2019-01-23 00:47 | Progress Notes ---
DATE: 01/22/2019 Case is discussed with staff of the patient and reviewed records. The patient continues to have poor insight. She continues to look disheveled. She continues to be depressed and anxious. We are trying to find her a placement. She wants to be in an open unit. She continues to be hopeless and helpless. I will be increasing her Effexor further to 225 mg daily as she was taking 300 mg in the past. No side effects with the medication, no sedation, no nausea, no extrapyramidal symptoms. Also, I will be decreasing her Restoril to half a tablet, we will be taking her off the Restoril, and so far, no side effects with the medication, no sedation, no nausea. We will continue to work with the patient in group therapy, milieu therapy, and adjust the medication as needed. JOB# [id number]
[2019-01-23] MEDS: Levothyroxine 0.1 Mg Tab PO SCH (06:31)
[2019-01-23] MEDS: Multivitamin Tab PO SCH (08:38)
--- NOTE | 2019-01-23 17:17 | Progress Notes ---
DATE: 01/23/2019 Case was discussed with staff of the patient, reviewed records. The patient continues to be demanding at times. Continues to have poor insight, unpredictable, impulsive, needing redirection. She tolerates increase in Zyprexa with no side effects, no sedation or nausea. Working on discharge plan. We will continue to work with the patient in group therapy, milieu therapy, adjust medication as needed. JOB# [id number]
[2019-01-23] MEDS: Albuterol/Ipratropium Neb 3 ML AERS HHN PRN (18:48)
--- NOTE | 2019-01-23 20:55 | Internal Medicine Prog Note ---
Internal Medicine Subjective - Subjective Service Date: 01/23/19 Patient seen and examined:: with staff (SHE FEELS WELL) Patient is:: awake, verbal, in bed, confused Per staff patient has:: no adverse event Internal Medicine Objective - Physical Exam Vitals and I&O: Vital Signs Temp 98.8 F 01/23/19 20:21 Pulse 94 01/23/19 20:21 Resp 20 01/23/19 20:21 BP 141/69 01/23/19 20:21 Pulse Ox 98 01/23/19 20:21 Intake & Output 01/23/19 01/23/19 01/24/19 06:59 18:59 06:59 Intake Total 420 1600 240 Balance 420 1600 240 Intake: Oral 420 1600 240 Other: # Voids 2 4 2 # Bowel Movements 0 1 1 Active Medications: Current Medications Acetaminophen (Tylenol) 650 mg PO Q4HR PRN PRN Reason: Mild Pain 1-3/ Temp above 100 Stop: 03/17/19 00:14 Last Admin: 01/18/19 18:25 Dose: 650 mg Albuterol/Ipratropium (Duoneb Neb) 3 ml HHN Q4HRT PRN; Protocol PRN Reason: Shortness of Breath Stop: 03/21/19 18:38 Last Admin: 01/23/19 18:48 Dose: 3 ml Amlodipine Besylate (Norvasc) 10 mg PO DAILY CORKY Stop: 03/20/19 12:29 Last Admin: 01/23/19 08:38 Dose: 10 mg Levothyroxine Sodium (Synthroid) 0.1 mg PO QDAC CORKY Stop: 03/20/19 16:29 Last Admin: 01/23/19 06:31 Dose: 0.1 mg Lorazepam (Ativan) 0.5 mg PO Q4HR PRN; Protocol PRN Reason: Anxiety Stop: 02/15/19 00:14 Last Admin: 01/23/19 18:38 Dose: 0.5 mg Multivitamins/Vitamin C (Theragran) 1 tab PO DAILY CORKY Stop: 03/17/19 08:59 Last Admin: 01/23/19 08:38 Dose: 1 tab Trazodone HCl (Desyrel) 100 mg PO HS CORKY; Protocol Stop: 03/18/19 20:59 Last Admin: 01/23/19 20:54 Dose: 100 mg Venlafaxine HCl (Effexor Xr) 225 mg PO DAILY CORKY; Protocol Stop: 03/24/19 08:59 Last Admin: 01/23/19 08:37 Dose: 225 mg General: alert HEENT: NC/AT, PERRLA, EOMI, anicteric sclerae, throat clear Neck: Supple, No JVD, No thyromegaly, +2 carotid pulse wo bruit, No LAD Lungs: CTAB Cardiovascular: RRR, Normal S1, Normal S2, without murmur Abdomen: soft, non-tender, non-distended Neurological: no change Internal Medicine Assmt/Plan - Assessment Assessment: 1.HTN. 2.HYPOTHYROIDISM. 3.DJD. 4.COPD. 5.PSYCHOSIS. - Plan Plan: CONTINUE ON CURRENT MEDICATION AND DIET. Nutritional Asmnt/Malnutr-PDOC - Dietary Evaluation Malnutrition Findings (Please click <Entered> for more info): Nutritional Asmnt/Malnutrition Start: 01/19/19 14: 30 Text: Status: Complete Freq: Protocol: Document 01/19/19 14:30 LCDAVONG (Rec: 01/19/19 14:36 LCHENG [email or web address]) Nutritional Asmnt/Malnutrition Patient General Information Nutritional Screening Moderate Risk Diagnosis psychosis Pertinent Medical Hx/Surgical Hx HTN, hypothyroidism, DJD, depression Subjective Information Pt seen eating in dining room, alert and pleasant. Pt showed understanding she is 2g Na diet. Food preference provided . PO intake 100% of meals. Current Diet Order/ Nutrition Support 2g Na Pertinent Medications synthroid, theragran Pertinent Labs no labs Nutritional Hx/Data Height 1.6 m Height (Calculated Centimeters) 160.0 Current Weight (lbs) 68.039 kg Weight (Calculated Kilograms) 68.0 Weight (Calculated Grams) 52964.9 [place] Body Weight 115 Body Mass Index (BMI) 26.5 Weight Status Overweight GI Symptoms GI Symptoms None Last BM 01/18 Difficult in: None Skin Integrity/Comment: intact Estimated Nutritional Goals BEE in Kcals: Using Current wt Calories/Kcals/Kg 23-27 Kcals Calculated 2067-2585 Protein: Using Current wt Protein g/k.8-1 Protein Calculated 54-68 Fluid: ml 1564-1836ml (1ml/kcal) Nutritional Problem No current Nutrition Prob Problem N/A Malnutrition Alert Is there a minimum of two criteria No selected? Query Text:Check all the applicable criteria. A minimum of two criteria are recommended for diagnosis of either severe or non-severe malnutrition. Malnutrition Related to Morbid Obesity Malnutrition related to morbid obesity No Intervention/Recommendation Comments 1. Continue with 2g Na diet as ordered. 2. Monitor PO intake, wt, labs and skin integrity 3. F/U as low risk in 7 days Expected Outcomes/Goals Expected Outcomes/Goals 1. PO intake to meet at least 75% of nutritional needs. 2. Wt stability, skin to remain intact, labs to approach WNL.
[2019-01-24] MEDS: Levothyroxine 0.1 Mg Tab PO SCH (06:29)
[2019-01-24] MEDS: Multivitamin Tab PO SCH (08:43)
[2019-01-24] MEDS: Albuterol/Ipratropium Neb 3 ML AERS HHN PRN (14:54)
--- NOTE | 2019-01-25 00:08 | Internal Medicine Prog Note ---
Internal Medicine Subjective - Subjective Service Date: 01/24/19 Patient seen and examined:: without staff Patient is:: awake, verbal, in bed, confused Per staff patient has:: no adverse event Internal Medicine Objective - Physical Exam Vitals and I&O: Vital Signs Temp 97.4 F 01/24/19 20:00 Pulse 93 01/24/19 20:00 Resp 20 01/24/19 20:00 BP 150/78 01/24/19 20:00 Pulse Ox 96 01/24/19 20:00 Intake & Output 01/24/19 01/24/19 01/25/19 06:59 18:59 06:59 Intake Total 240 1550 Balance 240 1550 Intake: Oral 240 1550 Other: # Voids 1 3 # Bowel Movements 1 0 Stool Characteristics Formed Active Medications: Current Medications Acetaminophen (Tylenol) 650 mg PO Q4HR PRN PRN Reason: Mild Pain 1-3/ Temp above 100 Stop: 03/17/19 00:14 Last Admin: 01/18/19 18:25 Dose: 650 mg Albuterol/Ipratropium (Duoneb Neb) 3 ml HHN Q4HRT PRN; Protocol PRN Reason: Shortness of Breath Stop: 03/21/19 18:38 Last Admin: 01/24/19 14:54 Dose: 3 ml Amlodipine Besylate (Norvasc) 10 mg PO DAILY CORKY Stop: 03/20/19 12:29 Last Admin: 01/24/19 08:43 Dose: 10 mg Levothyroxine Sodium (Synthroid) 0.1 mg PO QDAC CORKY Stop: 03/20/19 16:29 Last Admin: 01/24/19 06:29 Dose: 0.1 mg Lorazepam (Ativan) 0.5 mg PO Q4HR PRN; Protocol PRN Reason: Anxiety Stop: 02/15/19 00:14 Last Admin: 01/24/19 18:51 Dose: 0.5 mg Multivitamins/Vitamin C (Theragran) 1 tab PO DAILY CORKY Stop: 03/17/19 08:59 Last Admin: 01/24/19 08:43 Dose: 1 tab Trazodone HCl (Desyrel) 100 mg PO HS CORKY; Protocol Stop: 03/18/19 20:59 Last Admin: 01/24/19 21:23 Dose: 100 mg Venlafaxine HCl (Effexor Xr) 150 mg PO BID CORKY; Protocol Stop: 03/25/19 16:59 Last Admin: 01/24/19 17:31 Dose: 150 mg Zolpidem Tartrate (Ambien) 5 mg PO HS PRN PRN Reason: Insomnia Stop: 03/25/19 18:20 General: alert HEENT: NC/AT, PERRLA, EOMI, anicteric sclerae, throat clear Neck: Supple, No JVD, No thyromegaly, +2 carotid pulse wo bruit, No LAD Lungs: CTAB Cardiovascular: RRR, Normal S1, Normal S2, without murmur Abdomen: soft, non-tender, non-distended Neurological: no change Internal Medicine Assmt/Plan - Assessment Assessment: 1.HTN. 2.HYPOTHYROIDISM. 3.DJD. 4.COPD. 5.PSYCHOSIS. - Plan Plan: CONTINUE ON CURRENT MEDICATION AND DIET. Nutritional Asmnt/Malnutr-PDOC - Dietary Evaluation Malnutrition Findings (Please click <Entered> for more info): Nutritional Asmnt/Malnutrition Start: 01/19/19 14: 30 Text: Status: Complete Freq: Protocol: Document 01/19/19 14:30 LCHENG (Rec: 01/19/19 14:36 LCHENG [email or web address]) Nutritional Asmnt/Malnutrition Patient General Information Nutritional Screening Moderate Risk Diagnosis psychosis Pertinent Medical Hx/Surgical Hx HTN, hypothyroidism, DJD, depression Subjective Information Pt seen eating in dining room, alert and pleasant. Pt showed understanding she is 2g Na diet. Food preference provided . PO intake 100% of meals. Current Diet Order/ Nutrition Support 2g Na Pertinent Medications synthroid, theragran Pertinent Labs no labs Nutritional Hx/Data Height 1.6 m Height (Calculated Centimeters) 160.0 Current Weight (lbs) 68.039 kg Weight (Calculated Kilograms) 68.0 Weight (Calculated Grams) 98428.9 [place] Body Weight 115 Body Mass Index (BMI) 26.5 Weight Status Overweight GI Symptoms GI Symptoms None Last BM 01/18 Difficult in: None Skin Integrity/Comment: intact Estimated Nutritional Goals BEE in Kcals: Using Current wt Calories/Kcals/Kg 23-27 Kcals Calculated 6020-9473 Protein: Using Current wt Protein g/k.8-1 Protein Calculated 54-68 Fluid: ml 1564-1836ml (1ml/kcal) Nutritional Problem No current Nutrition Prob Problem N/A Malnutrition Alert Is there a minimum of two criteria No selected? Query Text:Check all the applicable criteria. A minimum of two criteria are recommended for diagnosis of either severe or non-severe malnutrition. Malnutrition Related to Morbid Obesity Malnutrition related to morbid obesity No Intervention/Recommendation Comments 1. Continue with 2g Na diet as ordered. 2. Monitor PO intake, wt, labs and skin integrity 3. F/U as low risk in 7 days Expected Outcomes/Goals Expected Outcomes/Goals 1. PO intake to meet at least 75% of nutritional needs. 2. Wt stability, skin to remain intact, labs to approach WNL.
--- NOTE | 2019-01-25 01:38 | Progress Notes ---
DATE: SUBJECTIVE: Case was discussed with staff of the patient, reviewed records. The patient continues to be intrusive, continues to have multiple complaints, demanding. She is sleeping well, eating well. She is to be on Effexor 300 mg daily with no side effects, no sedation, no nausea. I will be increasing the dose to 150 mg twice a day with the Effexor to put her back where she was. Aslo, she was interviewed by nursing facility. Waiting to hear from them. Working on discharge plan and will continue outpatient group therapy, milieu therapy, adjust medication as needed. JOB# [id number]
[2019-01-25] MEDS: Levothyroxine 0.1 Mg Tab PO SCH (06:39)
[2019-01-25] MEDS: Albuterol/Ipratropium Neb 3 ML AERS HHN PRN ×2 (06:43→14:00)
[2019-01-25] MEDS: Multivitamin Tab PO SCH (09:11)
--- NOTE | 2019-01-25 13:21 | Progress Notes ---
DATE: 01/25/2019 Case was discussed with staff of the patient and reviewed records. The patient continues to be somewhat labile, continues to be unpredictable. Continues to have poor insight, demanding at times. She likes to take the Effexor at 6 in the morning just because of Gordon the nurse in charge, states that it happened. I did increase her Effexor to 150 mg twice a day with no side effects, no sedation, no nausea and I did take her off the Restoril because of addictive potential no side effects with the medication, no sedation, no nausea. We will keep working on placement. We will continue the patient group therapy, milieu therapy, and adjust medications as needed. JOB# [id number] [email or web address]
--- NOTE | 2019-01-25 18:44 | Internal Medicine Prog Note ---
Internal Medicine Subjective - Subjective Service Date: 01/25/19 Patient seen and examined:: without staff (SHE FEELS WELL) Patient is:: awake, verbal, in bed, confused Per staff patient has:: no adverse event Internal Medicine Objective - Physical Exam Vitals and I&O: Vital Signs Temp 98.3 F 01/25/19 14:00 Pulse 88 01/25/19 14:00 Resp 18 01/25/19 14:00 BP 145/83 01/25/19 14:00 Pulse Ox 98 01/25/19 14:00 Intake & Output 01/24/19 01/25/19 01/25/19 18:59 06:59 18:59 Intake Total 5209 066 5478 Balance 4563 696 2983 Intake: Oral 2934 220 5387 Other: # Voids 3 3 4 # Bowel Movements 0 1 Active Medications: Current Medications Acetaminophen (Tylenol) 650 mg PO Q4HR PRN PRN Reason: Mild Pain 1-3/ Temp above 100 Stop: 03/17/19 00:14 Last Admin: 01/25/19 18:27 Dose: 650 mg Albuterol/Ipratropium (Duoneb Neb) 3 ml HHN Q4HRT PRN; Protocol PRN Reason: Shortness of Breath Stop: 03/21/19 18:38 Last Admin: 01/25/19 14:00 Dose: 3 ml Amlodipine Besylate (Norvasc) 10 mg PO DAILY CORKY Stop: 03/20/19 12:29 Last Admin: 01/25/19 09:11 Dose: 10 mg Levothyroxine Sodium (Synthroid) 0.1 mg PO QDAC CORKY Stop: 03/20/19 16:29 Last Admin: 01/25/19 06:39 Dose: 0.1 mg Lorazepam (Ativan) 0.5 mg PO Q4HR PRN; Protocol PRN Reason: Anxiety Stop: 02/15/19 00:14 Last Admin: 01/25/19 18:33 Dose: 0.5 mg Multivitamins/Vitamin C (Theragran) 1 tab PO DAILY CORKY Stop: 03/17/19 08:59 Last Admin: 01/25/19 09:11 Dose: 1 tab Trazodone HCl (Desyrel) 100 mg PO HS CORKY; Protocol Stop: 03/18/19 20:59 Last Admin: 01/24/19 21:23 Dose: 100 mg Venlafaxine HCl (Effexor Xr) 150 mg PO BID CORKY; Protocol Stop: 03/25/19 16:59 Last Admin: 01/25/19 16:52 Dose: Not Given Zolpidem Tartrate (Ambien) 5 mg PO HS PRN PRN Reason: Insomnia Stop: 03/25/19 18:20 General: alert HEENT: NC/AT, PERRLA, EOMI, anicteric sclerae, throat clear Neck: Supple, No JVD, No thyromegaly, +2 carotid pulse wo bruit, No LAD Lungs: CTAB Cardiovascular: RRR, Normal S1, Normal S2, without murmur Abdomen: soft, non-tender, non-distended Neurological: no change Internal Medicine Assmt/Plan - Assessment Assessment: 1.HTN. 2.HYPOTHYROIDISM. 3.DJD. 4.COPD. 5.PSYCHOSIS. - Plan Plan: CONTINUE ON CURRENT MEDICATION AND DIET. Nutritional Asmnt/Malnutr-PDOC - Dietary Evaluation Malnutrition Findings (Please click <Entered> for more info): Nutritional Asmnt/Malnutrition Start: 01/19/19 14: 30 Text: Status: Complete Freq: Protocol: Document 01/19/19 14:30 LCHENG (Rec: 01/19/19 14:36 LCHENG [email or web address]) Nutritional Asmnt/Malnutrition Patient General Information Nutritional Screening Moderate Risk Diagnosis psychosis Pertinent Medical Hx/Surgical Hx HTN, hypothyroidism, DJD, depression Subjective Information Pt seen eating in dining room, alert and pleasant. Pt showed understanding she is 2g Na diet. Food preference provided . PO intake 100% of meals. Current Diet Order/ Nutrition Support 2g Na Pertinent Medications synthroid, theragran Pertinent Labs no labs Nutritional Hx/Data Height 1.6 m Height (Calculated Centimeters) 160.0 Current Weight (lbs) 68.039 kg Weight (Calculated Kilograms) 68.0 Weight (Calculated Grams) 93363.9 [place] Body Weight 115 Body Mass Index (BMI) 26.5 Weight Status Overweight GI Symptoms GI Symptoms None Last BM 01/18 Difficult in: None Skin Integrity/Comment: intact Estimated Nutritional Goals BEE in Kcals: Using Current wt Calories/Kcals/Kg 23-27 Kcals Calculated 5789-2348 Protein: Using Current wt Protein g/k.8-1 Protein Calculated 54-68 Fluid: ml 1564-1836ml (1ml/kcal) Nutritional Problem No current Nutrition Prob Problem N/A Malnutrition Alert Is there a minimum of two criteria No selected? Query Text:Check all the applicable criteria. A minimum of two criteria are recommended for diagnosis of either severe or non-severe malnutrition. Malnutrition Related to Morbid Obesity Malnutrition related to morbid obesity No Intervention/Recommendation Comments 1. Continue with 2g Na diet as ordered. 2. Monitor PO intake, wt, labs and skin integrity 3. F/U as low risk in 7 days Expected Outcomes/Goals Expected Outcomes/Goals 1. PO intake to meet at least 75% of nutritional needs. 2. Wt stability, skin to remain intact, labs to approach WNL.
[2019-01-26] MEDS: Levothyroxine 0.1 Mg Tab PO SCH (06:35)
[2019-01-26] MEDS: Multivitamin Tab PO SCH (09:16)
--- NOTE | 2019-01-26 15:35 | Progress Notes ---
DATE: 01/26/2019 Case was discussed with staff of the patient, reviewed records. The patient was acting hysterical. Today, she continues to be unpredictable, impulsive, needing redirection. Continues to have poor insight. She wants to take the Effexor in the morning; however, she is reluctant. She gives different information. She says she has been taking it for 20 years, but she is not sure what the best way to take it, but she mentioned that when she took it at bedtime, she would not sleep well, so I will be changing it to all in the morning. No side effects with the medication, no sedation or nausea. Working on discharge plan. Apparently, Dr. Kelly advised her to go to [facility]; however, it is a closed unit and she wants to go to the open unit. We will keep the patient in group therapy, milieu therapy, adjust medication as needed. JOB# [id number]
--- NOTE | 2019-01-26 20:43 | Internal Medicine Prog Note ---
Internal Medicine Subjective - Subjective Service Date: 01/26/19 Patient seen and examined:: with staff (SHE IS STILL AGITATED) Patient is:: awake, verbal, in bed, confused Per staff patient has:: no adverse event Internal Medicine Objective - Physical Exam Vitals and I&O: Vital Signs Temp 98.2 F 01/26/19 20:32 Pulse 98 01/26/19 20:32 Resp 18 01/26/19 20:32 BP 118/83 01/26/19 20:32 Pulse Ox 96 01/26/19 20:32 Intake & Output 01/26/19 01/26/19 01/27/19 06:59 18:59 06:59 Intake Total 240 1200 240 Balance 240 1200 240 Intake: Oral 240 1200 240 Other: # Voids 1 4 2 # Bowel Movements 1 Active Medications: Current Medications Acetaminophen (Tylenol) 650 mg PO Q4HR PRN PRN Reason: Mild Pain 1-3/ Temp above 100 Stop: 03/17/19 00:14 Last Admin: 01/25/19 18:27 Dose: 650 mg Albuterol/Ipratropium (Duoneb Neb) 3 ml HHN Q4HRT PRN; Protocol PRN Reason: Shortness of Breath Stop: 03/21/19 18:38 Last Admin: 01/25/19 14:00 Dose: 3 ml Amlodipine Besylate (Norvasc) 10 mg PO DAILY [facility] Stop: 03/20/19 12:29 Last Admin: 01/26/19 09:16 Dose: 10 mg Levothyroxine Sodium (Synthroid) 0.1 mg PO QDAC [facility] Stop: 03/20/19 16:29 Last Admin: 01/26/19 06:35 Dose: 0.1 mg Lorazepam (Ativan) 0.5 mg PO Q4HR PRN; Protocol PRN Reason: Anxiety Stop: 02/15/19 00:14 Last Admin: 01/26/19 11:10 Dose: 0.5 mg Multivitamins/Vitamin C (Theragran) 1 tab PO DAILY [facility] Stop: 03/17/19 08:59 Last Admin: 01/26/19 09:16 Dose: 1 tab Trazodone HCl (Desyrel) 100 mg PO HS [facility]; Protocol Stop: 03/18/19 20:59 Last Admin: 01/26/19 20:35 Dose: 100 mg Venlafaxine HCl (Effexor Xr) 300 mg PO QAM [facility]; Protocol Stop: 03/28/19 05:59 Zolpidem Tartrate (Ambien) 5 mg PO HS PRN PRN Reason: Insomnia Stop: 03/25/19 18:20 Last Admin: 01/25/19 21:05 Dose: 5 mg General: alert HEENT: NC/AT, PERRLA, EOMI, anicteric sclerae, throat clear Neck: Supple, No JVD, No thyromegaly, +2 carotid pulse wo bruit, No LAD Lungs: CTAB Cardiovascular: RRR, Normal S1, Normal S2, without murmur Abdomen: soft, non-tender, non-distended Neurological: no change Internal Medicine Assmt/Plan - Assessment Assessment: 1.HTN. 2.HYPOTHYROIDISM. 3.DJD. 4.COPD. 5.PSYCHOSIS. - Plan Plan: CONTINUE ON CURRENT MEDICATION AND DIET. Nutritional Asmnt/Malnutr-PDOC - Dietary Evaluation Malnutrition Findings (Please click <Entered> for more info): Nutritional Asmnt/Malnutrition Start: 01/19/19 14: 30 Text: Status: Complete Freq: Protocol: Document 01/19/19 14:30 LCHENG (Rec: 01/19/19 14:36 LCHENG [email or web address]) Nutritional Asmnt/Malnutrition Patient General Information Nutritional Screening Moderate Risk Diagnosis psychosis Pertinent Medical Hx/Surgical Hx HTN, hypothyroidism, DJD, depression Subjective Information Pt seen eating in dining room, alert and pleasant. Pt showed understanding she is 2g Na diet. Food preference provided . PO intake 100% of meals. Current Diet Order/ Nutrition Support 2g Na Pertinent Medications synthroid, theragran Pertinent Labs no labs Nutritional Hx/Data Height 1.6 m Height (Calculated Centimeters) 160.0 Current Weight (lbs) 68.039 kg Weight (Calculated Kilograms) 68.0 Weight (Calculated Grams) 41298.9 [place] Body Weight 115 Body Mass Index (BMI) 26.5 Weight Status Overweight GI Symptoms GI Symptoms None Last BM 01/18 Difficult in: None Skin Integrity/Comment: intact Estimated Nutritional Goals BEE in Kcals: Using Current wt Calories/Kcals/Kg 23-27 Kcals Calculated 7718-5785 Protein: Using Current wt Protein g/k.8-1 Protein Calculated 54-68 Fluid: ml 1564-1836ml (1ml/kcal) Nutritional Problem No current Nutrition Prob Problem N/A Malnutrition Alert Is there a minimum of two criteria No selected? Query Text:Check all the applicable criteria. A minimum of two criteria are recommended for diagnosis of either severe or non-severe malnutrition. Malnutrition Related to Morbid Obesity Malnutrition related to morbid obesity No Intervention/Recommendation Comments 1. Continue with 2g Na diet as ordered. 2. Monitor PO intake, wt, labs and skin integrity 3. F/U as low risk in 7 days Expected Outcomes/Goals Expected Outcomes/Goals 1. PO intake to meet at least 75% of nutritional needs. 2. Wt stability, skin to remain intact, labs to approach WNL.
[2019-01-27] MEDS: Levothyroxine 0.1 Mg Tab PO SCH (06:33)
[2019-01-27] MEDS: Multivitamin Tab PO SCH (09:03)
--- NOTE | 2019-01-27 16:58 | Internal Medicine Prog Note ---
Internal Medicine Subjective - Subjective Service Date: 02/03/19 Patient seen and examined:: without staff (SHE HAS JOINTS PAIN) Patient is:: awake, verbal, in bed, confused Per staff patient has:: no adverse event Internal Medicine Objective - Physical Exam Vitals and I&O: Vital Signs Temp 97.9 F 01/27/19 14:00 Pulse 88 01/27/19 14:00 Resp 18 01/27/19 14:00 BP 127/64 01/27/19 14:00 Pulse Ox 96 01/27/19 14:00 Intake & Output 01/26/19 01/27/19 01/27/19 18:59 06:59 18:59 Intake Total 1200 240 Balance 1200 240 Intake: Oral 1200 240 Other: # Voids 4 2 # Bowel Movements 1 Active Medications: Current Medications Acetaminophen (Tylenol) 650 mg PO Q4HR PRN PRN Reason: Mild Pain 1-3/ Temp above 100 Stop: 03/17/19 00:14 Last Admin: 01/27/19 09:03 Dose: 650 mg Albuterol/Ipratropium (Duoneb Neb) 3 ml HHN Q4HRT PRN; Protocol PRN Reason: Shortness of Breath Stop: 03/21/19 18:38 Last Admin: 01/25/19 14:00 Dose: 3 ml Amlodipine Besylate (Norvasc) 10 mg PO DAILY [facility] Stop: 03/20/19 12:29 Last Admin: 01/27/19 09:03 Dose: 10 mg Ibuprofen (Motrin) 800 mg PO Q8HR PRN PRN Reason: Pain (Severe) Stop: 03/28/19 14:27 Levothyroxine Sodium (Synthroid) 0.1 mg PO QDAC [facility] Stop: 03/20/19 16:29 Last Admin: 01/27/19 06:33 Dose: 0.1 mg Lorazepam (Ativan) 0.5 mg PO Q4HR PRN; Protocol PRN Reason: Anxiety Stop: 02/15/19 00:14 Last Admin: 01/27/19 14:07 Dose: 0.5 mg Multivitamins/Vitamin C (Theragran) 1 tab PO DAILY [facility] Stop: 03/17/19 08:59 Last Admin: 01/27/19 09:03 Dose: 1 tab Trazodone HCl (Desyrel) 100 mg PO HS CORKY; Protocol Stop: 03/18/19 20:59 Last Admin: 01/26/19 20:35 Dose: 100 mg Venlafaxine HCl (Effexor Xr) 300 mg PO DAILY@0600 [facility]; Protocol Stop: 03/28/19 05:59 Zolpidem Tartrate (Ambien) 5 mg PO HS PRN PRN Reason: Insomnia Stop: 03/25/19 18:20 Last Admin: 01/26/19 22:32 Dose: 5 mg General: alert HEENT: NC/AT, PERRLA, EOMI, anicteric sclerae, throat clear Neck: Supple, No JVD, No thyromegaly, +2 carotid pulse wo bruit, No LAD Lungs: CTAB Cardiovascular: RRR, Normal S1, Normal S2, without murmur Abdomen: soft, non-tender, non-distended Neurological: no change Internal Medicine Assmt/Plan - Assessment Assessment: 1.HTN. 2.HYPOTHYROIDISM. 3.DJD. 4.COPD. 5.PSYCHOSIS. - Plan Plan: CONTINUE ON CURRENT MEDICATION AND DIET. Nutritional Asmnt/Malnutr-PDOC - Dietary Evaluation Malnutrition Findings (Please click <Entered> for more info): Nutritional Asmnt/Malnutrition Start: 01/19/19 14: 30 Text: Status: Complete Freq: Protocol: Document 01/19/19 14:30 LCHENG (Rec: 01/19/19 14:36 LCHENG [email or web address]) Nutritional Asmnt/Malnutrition Patient General Information Nutritional Screening Moderate Risk Diagnosis psychosis Pertinent Medical Hx/Surgical Hx HTN, hypothyroidism, DJD, depression Subjective Information Pt seen eating in dining room, alert and pleasant. Pt showed understanding she is 2g Na diet. Food preference provided . PO intake 100% of meals. Current Diet Order/ Nutrition Support 2g Na Pertinent Medications synthroid, theragran Pertinent Labs no labs Nutritional Hx/Data Height 1.6 m Height (Calculated Centimeters) 160.0 Current Weight (lbs) 68.039 kg Weight (Calculated Kilograms) 68.0 Weight (Calculated Grams) 60824.9 [place] Body Weight 115 Body Mass Index (BMI) 26.5 Weight Status Overweight GI Symptoms GI Symptoms None Last BM 01/18 Difficult in: None Skin Integrity/Comment: intact Estimated Nutritional Goals BEE in Kcals: Using Current wt Calories/Kcals/Kg 23-27 Kcals Calculated 8711-3546 Protein: Using Current wt Protein g/k.8-1 Protein Calculated 54-68 Fluid: ml 1564-1836ml (1ml/kcal) Nutritional Problem No current Nutrition Prob Problem N/A Malnutrition Alert Is there a minimum of two criteria No selected? Query Text:Check all the applicable criteria. A minimum of two criteria are recommended for diagnosis of either severe or non-severe malnutrition. Malnutrition Related to Morbid Obesity Malnutrition related to morbid obesity No Intervention/Recommendation Comments 1. Continue with 2g Na diet as ordered. 2. Monitor PO intake, wt, labs and skin integrity 3. F/U as low risk in 7 days Expected Outcomes/Goals Expected Outcomes/Goals 1. PO intake to meet at least 75% of nutritional needs. 2. Wt stability, skin to remain intact, labs to approach WNL.
--- NOTE | 2019-01-28 05:03 | Progress Notes ---
DATE: 01/27/2019 SUBJECTIVE: Case was discussed with staff of the patient. The patient has multiple somatic complaints. She said Dr. Kelly gave her [place], they have been trying to reach him. The patient is very demanding, easily agitated, has multiple somatic complaints and multiple demands. Continues to be unable to make safe plan for self-care. Unpredictable and impulsive. We are working on placement for this patient and she is very hard sometimes to handle because of her mood swings, irritability, demands, and I advised the staff to call Dr. Kelly to see if he really give her [place] and then how much he wants to give her if any. We will continue the patient in group therapy, milieu therapy and adjust the medications as needed. JOB# [id number]
[2019-01-28] MEDS: Levothyroxine 0.1 Mg Tab PO SCH (06:31)
[2019-01-28] MEDS: Multivitamin Tab PO SCH (08:43)
--- NOTE | 2019-01-28 18:53 | Internal Medicine Prog Note ---
Internal Medicine Subjective - Subjective Service Date: 01/28/19 Patient seen and examined:: without staff (SHE HAS PAIN BOTH KNEES) Patient is:: awake, verbal, in bed, confused Per staff patient has:: no adverse event Internal Medicine Objective - Physical Exam Vitals and I&O: Vital Signs Temp 98.6 F 01/28/19 16:24 Pulse 86 01/28/19 16:24 Resp 20 01/28/19 16:24 BP 148/82 01/28/19 16:24 Pulse Ox 98 01/28/19 16:24 Intake & Output 01/27/19 01/28/19 01/28/19 18:59 06:59 18:59 Intake Total 7992 400 1049 Balance 1258 258 6696 Intake: Oral 1298 836 5183 Other: # Voids 3 3 3 # Bowel Movements 0 1 Active Medications: Current Medications Acetaminophen (Tylenol) 650 mg PO Q4HR PRN PRN Reason: Mild Pain 1-3/ Temp above 100 Stop: 03/17/19 00:14 Last Admin: 01/27/19 18:28 Dose: 650 mg Albuterol/Ipratropium (Duoneb Neb) 3 ml HHN Q4HRT PRN; Protocol PRN Reason: Shortness of Breath Stop: 03/21/19 18:38 Last Admin: 01/25/19 14:00 Dose: 3 ml Amlodipine Besylate (Norvasc) 10 mg PO DAILY [facility] Stop: 03/20/19 12:29 Last Admin: 01/28/19 08:42 Dose: 10 mg Bupropion HCl (Wellbutrin Xl) 150 mg PO DAILY [facility]; Protocol Stop: 03/30/19 08:59 Ibuprofen (Motrin) 800 mg PO Q8HR PRN PRN Reason: Pain (Severe) Stop: 03/28/19 14:27 Last Admin: 01/28/19 16:45 Dose: 800 mg Levothyroxine Sodium (Synthroid) 0.1 mg PO QDAC [facility] Stop: 03/20/19 16:29 Last Admin: 01/28/19 06:31 Dose: 0.1 mg Lorazepam (Ativan) 0.5 mg PO Q4HR PRN; Protocol PRN Reason: Anxiety Stop: 02/15/19 00:14 Last Admin: 01/27/19 14:07 Dose: 0.5 mg Multivitamins/Vitamin C (Theragran) 1 tab PO DAILY [facility] Stop: 03/17/19 08:59 Last Admin: 01/28/19 08:43 Dose: 1 tab Trazodone HCl (Desyrel) 100 mg PO HS [facility]; Protocol Stop: 03/18/19 20:59 Last Admin: 01/27/19 21:14 Dose: 100 mg Venlafaxine HCl (Effexor Xr) 300 mg PO DAILY@0600 [facility]; Protocol Stop: 03/28/19 05:59 Last Admin: 01/28/19 05:54 Dose: 300 mg Zolpidem Tartrate (Ambien) 5 mg PO HS PRN PRN Reason: Insomnia Stop: 03/25/19 18:20 Last Admin: 01/27/19 21:59 Dose: 5 mg General: alert HEENT: NC/AT, PERRLA, EOMI, anicteric sclerae, throat clear Neck: Supple, No JVD, No thyromegaly, +2 carotid pulse wo bruit, No LAD Lungs: CTAB Cardiovascular: RRR, Normal S1, Normal S2, without murmur Abdomen: soft, non-tender, non-distended Neurological: no change Internal Medicine Assmt/Plan - Assessment Assessment: 1.HTN. 2.HYPOTHYROIDISM. 3.DJD. 4.COPD. 5.PSYCHOSIS. - Plan Plan: CONTINUE ON CURRENT MEDICATION AND DIET.TRAMADOL 50 MG PO EVERY 6 H PRN. Nutritional Asmnt/Malnutr-PDOC - Dietary Evaluation Malnutrition Findings (Please click <Entered> for more info): Nutritional Asmnt/Malnutrition Start: 01/19/19 14: 30 Text: Status: Complete Freq: Protocol: Document 01/19/19 14:30 LCHENG (Rec: 01/19/19 14:36 LCHENG [email or web address]) Nutritional Asmnt/Malnutrition Patient General Information Nutritional Screening Moderate Risk Diagnosis psychosis Pertinent Medical Hx/Surgical Hx HTN, hypothyroidism, DJD, depression Subjective Information Pt seen eating in dining room, alert and pleasant. Pt showed understanding she is 2g Na diet. Food preference provided . PO intake 100% of meals. Current Diet Order/ Nutrition Support 2g Na Pertinent Medications synthroid, theragran Pertinent Labs no labs Nutritional Hx/Data Height 1.6 m Height (Calculated Centimeters) 160.0 Current Weight (lbs) 68.039 kg Weight (Calculated Kilograms) 68.0 Weight (Calculated Grams) 18352.9 [place] Body Weight 115 Body Mass Index (BMI) 26.5 Weight Status Overweight GI Symptoms GI Symptoms None Last BM 01/18 Difficult in: None Skin Integrity/Comment: intact Estimated Nutritional Goals BEE in Kcals: Using Current wt Calories/Kcals/Kg 23-27 Kcals Calculated 5026-4311 Protein: Using Current wt Protein g/k.8-1 Protein Calculated 54-68 Fluid: ml 1564-1836ml (1ml/kcal) Nutritional Problem No current Nutrition Prob Problem N/A Malnutrition Alert Is there a minimum of two criteria No selected? Query Text:Check all the applicable criteria. A minimum of two criteria are recommended for diagnosis of either severe or non-severe malnutrition. Malnutrition Related to Morbid Obesity Malnutrition related to morbid obesity No Intervention/Recommendation Comments 1. Continue with 2g Na diet as ordered. 2. Monitor PO intake, wt, labs and skin integrity 3. F/U as low risk in 7 days Expected Outcomes/Goals Expected Outcomes/Goals 1. PO intake to meet at least 75% of nutritional needs. 2. Wt stability, skin to remain intact, labs to approach WNL.
--- NOTE | 2019-01-29 02:53 | Progress Notes ---
DATE: 01/28/2019 SUBJECTIVE: Case was discussed with staff of the patient and reviewed records. The patient continues to be demanding. Today, she wants to be on the Wellbutrin. She denies any history of seizure disorder. She also reports she has to have the Ambien and trazodone to sleep. She continues to have poor insight, continues to be unpredictable and impulsive, needing redirection. PLAN: Working on placement for this patient. I will be adding Wellbutrin to her medication and discussed side effects, she already has been on it before, so I will initiate 150 mg daily and we will continue to work with the patient in group therapy, milieu therapy, adjust medication as needed. JOB# [id number]
[2019-01-29] MEDS: Levothyroxine 0.1 Mg Tab PO SCH (06:33)
[2019-01-29] MEDS: Multivitamin Tab PO SCH (08:48)
[2019-01-29] MEDS ORDERED: buPROPion XL 150 mg T 24 H PO SCH (09:00)
--- NOTE | 2019-01-29 23:45 | Internal Medicine Prog Note ---
Internal Medicine Subjective - Subjective Service Date: 01/29/19 Patient seen and examined:: without staff Patient is:: awake, verbal, in bed, confused Per staff patient has:: no adverse event Internal Medicine Objective - Physical Exam Vitals and I&O: Vital Signs Temp 97.2 F 01/29/19 19:56 Pulse 84 01/29/19 19:56 Resp 20 01/29/19 19:56 BP 145/79 01/29/19 19:56 Pulse Ox 94 01/29/19 19:56 Intake & Output 01/29/19 01/29/19 01/30/19 06:59 18:59 06:59 Intake Total 240 1000 240 Balance 240 1000 240 Intake: Oral 240 1000 240 Other: # Voids 1 4 # Bowel Movements 1 Active Medications: Current Medications Acetaminophen (Tylenol) 650 mg PO Q4HR PRN PRN Reason: Mild Pain 1-3/ Temp above 100 Stop: 03/17/19 00:14 Last Admin: 01/27/19 18:28 Dose: 650 mg Albuterol/Ipratropium (Duoneb Neb) 3 ml HHN Q4HRT PRN; Protocol PRN Reason: Shortness of Breath Stop: 03/21/19 18:38 Last Admin: 01/25/19 14:00 Dose: 3 ml Amlodipine Besylate (Norvasc) 10 mg PO DAILY [facility] Stop: 03/20/19 12:29 Last Admin: 01/29/19 08:47 Dose: 10 mg Bupropion HCl (Wellbutrin Xl) 150 mg PO DAILY [facility]; Protocol Stop: 03/30/19 08:59 Last Admin: 01/29/19 08:46 Dose: 150 mg Ibuprofen (Motrin) 800 mg PO Q8HR PRN PRN Reason: Pain (Severe) Stop: 03/28/19 14:27 Last Admin: 01/28/19 16:45 Dose: 800 mg Levothyroxine Sodium (Synthroid) 0.1 mg PO QDAC [facility] Stop: 03/20/19 16:29 Last Admin: 01/29/19 06:33 Dose: 0.1 mg Lorazepam (Ativan) 0.5 mg PO Q4HR PRN; Protocol PRN Reason: Anxiety Stop: 02/15/19 00:14 Last Admin: 01/29/19 13:40 Dose: 0.5 mg Multivitamins/Vitamin C (Theragran) 1 tab PO DAILY [facility] Stop: 03/17/19 08:59 Last Admin: 01/29/19 08:48 Dose: 1 tab Tramadol HCl (Ultram) 50 mg PO Q6HR PRN PRN Reason: Pain (Moderate) Stop: 03/29/19 18:52 Last Admin: 01/29/19 21:10 Dose: 50 mg Trazodone HCl (Desyrel) 100 mg PO HS [facility]; Protocol Stop: 03/18/19 20:59 Last Admin: 01/29/19 21:30 Dose: 100 mg Venlafaxine HCl (Effexor Xr) 300 mg PO DAILY@0600 [facility]; Protocol Stop: 03/28/19 05:59 Last Admin: 01/29/19 05:46 Dose: 300 mg Zolpidem Tartrate (Ambien) 5 mg PO HS PRN PRN Reason: Insomnia Stop: 03/25/19 18:20 Last Admin: 01/29/19 20:47 Dose: 5 mg General: alert HEENT: NC/AT, PERRLA, EOMI, anicteric sclerae, throat clear Neck: Supple, No JVD, No thyromegaly, +2 carotid pulse wo bruit, No LAD Lungs: CTAB Cardiovascular: RRR, Normal S1, Normal S2, without murmur Abdomen: soft, non-tender, non-distended Neurological: no change Internal Medicine Assmt/Plan - Assessment Assessment: 1.HTN. 2.HYPOTHYROIDISM. 3.DJD. 4.COPD. 5.PSYCHOSIS. - Plan Plan: CONTINUE ON CURRENT MEDICATION AND DIET Nutritional Asmnt/Malnutr-PDOC - Dietary Evaluation Malnutrition Findings (Please click <Entered> for more info): Nutritional Asmnt/Malnutrition Start: 01/19/19 14: 30 Text: Status: Complete Freq: Protocol: Document 01/19/19 14:30 MAURICIO (Rec: 01/19/19 14:36 MAURICIO [email or web address]) Nutritional Asmnt/Malnutrition Patient General Information Nutritional Screening Moderate Risk Diagnosis psychosis Pertinent Medical Hx/Surgical Hx HTN, hypothyroidism, DJD, depression Subjective Information Pt seen eating in dining room, alert and pleasant. Pt showed understanding she is 2g Na diet. Food preference provided . PO intake 100% of meals. Current Diet Order/ Nutrition Support 2g Na Pertinent Medications synthroid, theragran Pertinent Labs no labs Nutritional Hx/Data Height 1.6 m Height (Calculated Centimeters) 160.0 Current Weight (lbs) 68.039 kg Weight (Calculated Kilograms) 68.0 Weight (Calculated Grams) 08493.9 [place] Body Weight 115 Body Mass Index (BMI) 26.5 Weight Status Overweight GI Symptoms GI Symptoms None Last BM 01/18 Difficult in: None Skin Integrity/Comment: intact Estimated Nutritional Goals BEE in Kcals: Using Current wt Calories/Kcals/Kg 23-27 Kcals Calculated 4504-1348 Protein: Using Current wt Protein g/k.8-1 Protein Calculated 54-68 Fluid: ml 1564-1836ml (1ml/kcal) Nutritional Problem No current Nutrition Prob Problem N/A Malnutrition Alert Is there a minimum of two criteria No selected? Query Text:Check all the applicable criteria. A minimum of two criteria are recommended for diagnosis of either severe or non-severe malnutrition. Malnutrition Related to Morbid Obesity Malnutrition related to morbid obesity No Intervention/Recommendation Comments 1. Continue with 2g Na diet as ordered. 2. Monitor PO intake, wt, labs and skin integrity 3. F/U as low risk in 7 days Expected Outcomes/Goals Expected Outcomes/Goals 1. PO intake to meet at least 75% of nutritional needs. 2. Wt stability, skin to remain intact, labs to approach WNL.
--- NOTE | 2019-01-30 00:11 | Progress Notes ---
DATE: 01/29/2019 SUBJECTIVE: Case was discussed with staff of the patient, reviewed records. The patient apparently is doing better. She wants to go to [facility] as Dr. Kelly wants her to go there as is close to him, does not want her to go to [facility], who accepted her.as it is closed unit The patient is sleeping better, eating better. She tolerated the Wellbutrin with no side effects, no sedation, and no nausea. She is calmer today. We will continue to work with the patient in group therapy, milieu therapy, and adjust the medications as needed. JOB# [id number] CAMILA
[2019-01-30] MEDS: Levothyroxine 0.1 Mg Tab PO SCH (06:36)
== END 2019-01-30 17:45 | DRG 885 ==
LOC: GERO 00:08
PROVIDERS: ADMIT Psychiatry & Neurology Psychiatry; ATTEND Psychiatry & Neurology Psychiatry
DX: F33.3 Major depressive disorder, recurrent, severe with psychotic symptoms (principal); F39 Unspecified mood [affective] disorder; I10 Essential (primary) hypertension; E03.9 Hypothyroidism, unspecified; M19.90 Unspecified osteoarthritis, unspecified site; Z87.891 Personal history of nicotine dependence; J44.9 Chronic obstructive pulmonary disease, unspecified; Z59.0 Homelessness
CPT/HCPCS: 83036-90; 94640; 94760; G0410; J1200; J1630; Z7610

== ENCOUNTER 2020-04-21 16:36 | Inpatient (IN) | payer MEDICARE, MEDICAID ==
[2020-04-23 02:16] VITALS: BP 136/76
[2020-04-23] MEDS ORDERED: Maalox 30 mL Cup PO PRN (02:17)
[2020-04-23] MEDS ORDERED: Magnesium Hydroxide (MOM) 30 mL UDC PO PRN (02:17)
[2020-04-23] MEDS: Multivitamin Tab PO SCH (10:01)
[2020-04-23] MEDS: Levothyroxine 0.1 Mg Tab PO SCH (10:01)
--- NOTE | 2020-04-23 15:03 | Psychiatric Evaluation ---
DATE OF SERVICE: 04/23/2020 HISTORY OF PRESENT ILLNESS: A 69-year-old female with diagnosis of depression and also anxiety, coming in from a retirement, placed on a 5150 hold. She was aggressive, throwing water at staff, posturing at staff, yelling at staff, very suspicious of staff. Staff were actually afraid of her, fearful that she would strike out at them given how aggressive she was becoming. On exam, the patient is well oriented to name, place, situation, month and year. She has a general idea why she is here, but is not recollecting all the events that led to her admission and unclear as to why they were somewhat concerned from the staff's perspective. Fair sleep and appetite. The patient does admit to anxiety, stating that she takes Effexor and Remeron and Wellbutrin, also Ativan. PAST PSYCHIATRIC HISTORY: One to two previous psych admissions in the past. No suicide attempts, noting that she has been diagnosed with depression and anxiety in the past. FAMILY HISTORY: Unclear. SOCIAL HISTORY: Born in [place]. Not currently . She states she has 1 adult son who lives in [place]. The patient is stating that she had previously been residing at a rental room in [place]. Currently, now at a retirement facility. MEDICATIONS: Noted. MEDICAL HISTORY: Noted. MENTAL STATUS EXAMINATION: Stated age, fair eye contact. Speech within normal limits. Somewhat unkempt. Mood "okay." Orientation as noted. No overt SI or HI. No overt psychotic symptoms, but mood unstable, very poor impulse control. Poor judgment and concerns that she may strike out at staff. DIAGNOSES: Mood, unspecified; anxiety, unspecified; major depression versus bipolar, also anxiety, unspecified. ESTIMATED LENGTH OF STAY: 7-10 days. ASSESSMENT: The patient requiring hospitalization. She was unruly at the retirement facility, aggressive, throwing water at staff, posturing at staff. Treatment plan includes group as well as milieu therapy. Plan will be to adjust and titrate medications. Restart Effexor. Start a small dose of Seroquel. CONDITIONS FOR DISCHARGE: Improved mood, improved affect, better control of any mood symptoms, aggressive behaviors. JOB# [id number]
[2020-04-23] MEDS: Enoxaparin 40 mg/0.4 mL 0.4mL Syr SUBQ SCH (20:57)
--- NOTE | 2020-04-23 21:13 | History & Physical ---
ADMIT DATE: HISTORY OF PRESENT ILLNESS: The patient is a 69-year-old female with long history of hypothyroidism, hypertension, depression, admitted to [facility] under Dr. Olivarez's service for her treatment. Apparently, the patient has been agitated for the last few days. No fever, no chills, no nausea, no vomiting. PAST MEDICAL HISTORY: Significant for hypertension, hypothyroidism and depression. PAST SURGICAL HISTORY: No recent surgery. ALLERGIES: PORK. SOCIAL HISTORY: She is an ex-smoker, no alcohol or drug. FAMILY HISTORY: Noncontributory. REVIEW OF SYSTEMS: IMMUNOLOGIC SYSTEM: No history of chronic renal disorder. CARDIOVASCULAR SYSTEM: No coronary artery disease. ENDOCRINE SYSTEM: She has history of hypothyroidism. GASTROINTESTINAL SYSTEM: No upper or lower gastrointestinal bleed. NEUROLOGICAL SYSTEM: No seizure disorder. SKELETOMUSCULAR SYSTEM: She has degenerative joint disease. HEMATOLOGICAL SYSTEM: No bleeding tendencies. RESPIRATORY SYSTEM: No asthma. GENITOURINARY: No dysuria or hematuria. PHYSICAL EXAMINATION: GENERAL: She is awake, alert. VITAL SIGNS: Temperature 97.6, heart rate 72, blood pressure 162/95. HEENT: Normocephalic. Pupils reactive to light and accommodation. Sclerae clear. NECK: Supple. Negative for lymphadenopathy, JVD or bruit. CHEST: Bilaterally normal. No rhonchi or wheezing. HEART: S1, S2 normal. No murmurs, rubs or gallop rhythm. ABDOMEN: Soft, bowel sounds positive. EXTREMITIES: No edema. BACK: Normal vertebra. BREASTS, PELVIC AND RECTAL: No complaint done by primary physician. SKIN: Intact. NEUROLOGIC: She is awake, alert, oriented. Cranial nerve #1: The patient is able to smell alcohol ____. Cranial nerve #2: The patient is able to read printed page. Cranial nerve #3: The patient able to move eyeball upward and outward. Cranial nerve #4: The patient able to move eyeball inward and downward. Cranial nerve #5: The patient able to clench teeth, has normal sensation to forehead. Cranial nerve #6: The patient able to move eyeball lateral on both sides. Cranial nerve #7: The patient is able to move eyebrow upwards on both sides. Cranial nerve #8: The patient able to hear finger rubs on both sides. Cranial nerve #9: The patient has a normal gag reflex. Cranial nerve #10: The patient able to move soft palate upward on each side. Cranial nerve #11: The patient able to shrink shoulder on both sides. Cranial nerve #12: The patient able to stick tongue straight. Motor and sensory: Gait normal. Romberg test is normal. Muscle tone normal. Deep tendon reflexes normal. Plantar normal. Ciprky-[id number] normal. Susv-ta-[id number] normal. Sensory normal. ASSESSMENT: 1. Hypertension. 2. Hypothyroidism. 3. Degenerative joint disease. 4. Depression. 5. Psychosis. PLAN: The patient in the hospital under Dr. Olivarez's service. Medical problems addressed during hospitalization of depression, psychosis. Medical problem addressed at discharge are hypothyroidism and hypertension. The patient is medically stable for activity. The patient was started on Norvasc 10 mg daily and lisinopril 10 mg twice a day. The patient is a full code. Thank you, Dr. Olivarez for asking me to see your patient. JOB# [id number]
[2020-04-24] MEDS: Levothyroxine 0.1 Mg Tab PO SCH (06:39)
[2020-04-24] MEDS: Multivitamin Tab PO SCH (08:17)
[2020-04-24] MEDS ORDERED: Venlafaxine HCl ER 37.5 mg Tab PO SCH (09:00)
--- NOTE | 2020-04-24 11:18 | Progress Notes ---
DATE: 04/24/2020 SUBJECTIVE: A 69-year-old female with history of depression and anxiety, aggressive behaviors at the [facility] facility, possible diagnosis of bipolar. The patient remains unstable, loud, stating that she is not on the right doses of medications; however, on venlafaxine. She states that she is actually on a much higher dose. She also wants to be on Wellbutrin. I am concerned about 2 antidepressants. I will be increasing her Seroquel to 50 mg. The patient noted to be on edge, restless, upset, did not sleep well last night, not happy with her room. She was aggressive at the [facility], throwing water at staff, posturing at staff, fully oriented, able to verbalize her needs, remains impulsive, unpredictable, anxious. Medications were reviewed. Labs were reviewed. Vitals were reviewed. Extensive time spent with the patient and also chart was reviewed at length. Discussion with staff. Blood pressure 142/81, pulse of 86. The patient is under the care of Dr. Kelly. She has been generally calmer, while in the hospital, but concerns that she may lash out at staff, easily triggered. ASSESSMENT: A 69-year-old female with ongoing symptoms, safety concerns, concerns she may strike out at others. Multiple medical illness, complicated treatment, urinary tract infection, chronic obstructive pulmonary disease, osteoarthritis, muscle wasting and atrophy, hypothyroidism, dehydration. PLAN: I will be increasing her Effexor to 150, increase Seroquel to 50 mg. We will continue to monitor closely, ongoing symptoms, safety concern. JOB# [id number]
[2020-04-24] MEDS: Enoxaparin 40 mg/0.4 mL 0.4mL Syr SUBQ SCH (20:35)
--- NOTE | 2020-04-24 20:50 | Internal Medicine Prog Note ---
Internal Medicine Subjective - Subjective Service Date: 04/24/20 Patient seen and examined:: without staff (SHE FEELS WELL) Patient is:: awake, verbal, in bed, talking Per staff patient has:: no adverse event Internal Medicine Objective - Physical Exam Vitals and I&O: Vital Signs Temp 97.6 F 04/24/20 14:00 Pulse 97 04/24/20 16:57 Resp 20 04/24/20 14:00 BP 133/76 04/24/20 16:57 Pulse Ox 97 04/24/20 14:00 Intake & Output 04/24/20 04/24/20 04/25/20 06:59 18:59 06:59 Intake Total 120 1000 Balance 120 1000 Intake: Oral 120 1000 Other: # Voids 1 4 # Bowel Movements 0 1 Active Medications: Current Medications Acetaminophen (Tylenol) 650 mg PO Q4H PRN PRN Reason: Pain (Mild 1-3) Stop: 06/22/20 02:16 Last Admin: 04/24/20 15:45 Dose: 650 mg Al Hydrox/Mg Hydrox/Simethicone (Maalox) 30 ml PO Q4HR PRN PRN Reason: GI DISTRESS Stop: 06/22/20 02:16 Amlodipine Besylate (Norvasc) 10 mg PO DAILY [facility] Stop: 06/23/20 08:59 Last Admin: 04/24/20 08:16 Dose: 10 mg Calcium Carbonate (Tums) 1,000 mg PO Q6HR PRN PRN Reason: indigestion Stop: 06/22/20 07:27 Last Admin: 04/24/20 08:15 Dose: 1,000 mg Docusate Sodium (Colace) 100 mg PO BID [facility] Stop: 06/22/20 08:59 Last Admin: 04/24/20 16:57 Dose: 100 mg Enoxaparin Sodium (Lovenox) 40 mg SUBQ HS [facility] Stop: 06/22/20 20:59 Last Admin: 04/24/20 20:35 Dose: 40 mg Levothyroxine Sodium (Synthroid) 0.1 mg PO QDAC [facility] Stop: 06/22/20 07:29 Last Admin: 04/24/20 06:39 Dose: 0.1 mg Lisinopril (Zestril) 10 mg PO BID [facility] Stop: 06/23/20 08:59 Last Admin: 04/24/20 16:57 Dose: 10 mg Lorazepam (Ativan) 1 mg PO Q4HR PRN; Protocol PRN Reason: Anxiety/Agitaion Stop: 05/23/20 02:16 Last Admin: 04/24/20 12:56 Dose: 1 mg Magnesium Hydroxide (Milk Of Magnesia) 30 ml PO HS PRN PRN Reason: Constipation Multivitamins/Vitamin C (Theragran) 1 tab PO DAILY [facility] Stop: 06/22/20 08:59 Last Admin: 04/24/20 08:17 Dose: 1 tab Mupirocin (Bactroban Oint) 1 appl NS BID [facility] Stop: 04/28/20 17:01 Last Admin: 04/24/20 16:57 Dose: 1 appl Nitrofurantoin Macrocrystals (Macrobid) 100 mg PO BID [facility]; Protocol Stop: 05/03/20 08:59 Last Admin: 04/24/20 16:57 Dose: 100 mg Quetiapine Fumarate (Seroquel) 50 mg PO HS [facility]; Protocol Stop: 06/23/20 20:59 Last Admin: 04/24/20 20:36 Dose: 50 mg Venlafaxine HCl (Effexor Xr) 150 mg PO DAILY [facility]; Protocol Stop: 06/24/20 08:59 Zolpidem Tartrate (Ambien) 10 mg PO HS PRN PRN Reason: Insomnia Stop: 06/22/20 07:22 General: alert HEENT: NC/AT, PERRLA, EOMI, anicteric sclerae, throat clear Neck: Supple, No JVD, No thyromegaly, +2 carotid pulse wo bruit, No LAD Lungs: CTAB Cardiovascular: RRR, Normal S1, Normal S2, without murmur Abdomen: soft, non-tender, non-distended Extremities: clear Neurological: no change, alert Internal Medicine Assmt/Plan - Assessment Assessment: 1.HTN. 2.HYPOTHYROIDISM. 3.DJD. 4.DEPRESSION - Plan Plan: CONTINUE ON CURRENT MEDICATION AND DIET Nutritional Asmnt/Malnutr-PDOC - Dietary Evaluation Malnutrition Findings (Please click <Entered> for more info): Nutritional Asmnt/Malnutrition Start: 04/24/20 14: 11 Text: Status: Complete Freq: Protocol: Document 04/24/20 14:11 KELSEY (Rec: 04/24/20 14:15 KELSEY [id number]) Nutritional Asmnt/Malnutrition Patient General Information Nutritional Screening Low Risk Diagnosis Psychosis Pertinent Medical Hx/Surgical Hx HTN, Hypothyroidism, Depression Subjective Information Pt is a 56-year-old female admitted on 04/22 d/t agitation . Pt is eating an estimated 100% of meals Per Meal/ Nutrition Activity Record. Dietary is currently providing an estimated 1965 kcals and 108 gm Pro, to meet 100+% kcal and 100+% Pro needs. Spoke with pt. in room today and gathered food preferences; she requested coffee with meals and stated she cannot eat salads due to not having dentures. Anthropometrics HT: 53 WT: 150 LB (68.18 kg) BMI: 26.57 (Overweight) GI/ Skin Integrity GI: WNL, Soft, Round BM: 04/23 x1 I/O: 1440/Not Noted Skin: WNL, Dryness Sam: 19 Diet Order: Cardiac Estimated Energy Needs: ( Geriatric, CBW) 1505-6316 kcals (25-30 kcals/ kg) 70-80g Pro (1.0-1.2 g/kg) 4184-0135 ml (25-30 ml/kg) Current Diet Order/ Nutrition Support Cardiac Patient / S.O Can Pertinent Medications Maalox (PRN), Norvasc, Tums, Colace, Lovenox, Synthroid, MOM (PRN), Theragran Pertinent Labs No pertinent labs at this time . Nutritional Hx/Data Height 1.6 m Height (Calculated Centimeters) 160.0 Current Weight (lbs) 68.039 kg Weight (Calculated Kilograms) 68.0 Weight (Calculated Grams) 98531.9 [place] Body Weight 115 LB (52.27 kg) % [place] Body Weight 130 Body Mass Index (BMI) 26.5 Weight Status Overweight GI Symptoms GI Symptoms None Last BM 04/23 x1 Difficult in: Chewing Cultural/Ethnic/Bahai Belief No pork Skin Integrity/Comment: WNL, Dryness Sam: 19 Current %PO Good (75-100%) Estimated Nutritional Goals BEE in Kcals: Using Current wt Calories/Kcals/Kg 25-30 Kcals Calculated 5983-2931 Protein: Using Current wt Protein g/k.0-1.2 Protein Calculated 70-80 Fluid: ml 0719-1178 ml (25-30 ml/kg) Nutritional Problem 1. Problem Problem No nutrition diagnosis at this time. Etiology N/A Signs/Symptoms: N/A Malnutrition Related to Morbid Obesity Malnutrition related to morbid obesity No Intervention/Recommendation Comments Continue Cardiac diet as tolerated. Expected Outcomes/Goals Expected Outcomes/Goals 1. PO intake to continue to meet >75% of estimated nutritional needs. 2. Monitor PO intake, wt, nutrition related labs, and skin integrity. 3. F/U as low risk in 7-10 days, 05/01-05/04.
[2020-04-25] MEDS: Levothyroxine 0.1 Mg Tab PO SCH (06:32)
[2020-04-25] MEDS: Multivitamin Tab PO SCH (09:03)
[2020-04-25 14:39] LABS: CHOLESTEROL 457 mg/dL (<200); LDL CHOLESTEROL 297 mg/dL (0-129); TRIGLYCERIDES 192 mg/dL (30-150)
--- NOTE | 2020-04-25 17:01 | Internal Medicine Prog Note ---
Internal Medicine Subjective - Subjective Service Date: 04/25/20 Patient seen and examined:: without staff (SHE HAS DIARRHEA,NO ABDOMINAL PAIN) Patient is:: awake, verbal, in bed, talking Per staff patient has:: no adverse event Internal Medicine Objective - Results Recent Labs: Laboratory Last Values Triglycerides 192 mg/dL (30-150) H 04/25/20 11:20 Cholesterol 457 mg/dL (<200) H 04/25/20 11:20 LDL Cholesterol 297 mg/dL (0-129) H 04/25/20 11:20 HDL Cholesterol 67 mg/dL (>55) 04/25/20 11:20 - Physical Exam Vitals and I&O: Vital Signs Temp 98.1 F 04/25/20 15:16 Pulse 80 04/25/20 16:54 Resp 20 04/25/20 15:16 BP 141/78 04/25/20 16:54 Pulse Ox 94 04/25/20 15:16 Intake & Output 04/24/20 04/25/20 04/25/20 18:59 06:59 18:59 Intake Total 1000 120 Balance 1000 120 Intake: Oral 1000 120 Other: # Voids 4 2 # Bowel Movements 1 0 Active Medications: Current Medications Acetaminophen (Tylenol) 650 mg PO Q4H PRN PRN Reason: Pain (Mild 1-3) Stop: 06/22/20 02:16 Last Admin: 04/25/20 09:16 Dose: 650 mg Al Hydrox/Mg Hydrox/Simethicone (Maalox) 30 ml PO Q4HR PRN PRN Reason: GI DISTRESS Stop: 06/22/20 02:16 Amlodipine Besylate (Norvasc) 10 mg PO DAILY [facility] Stop: 06/23/20 08:59 Last Admin: 04/25/20 09:02 Dose: 10 mg Calcium Carbonate (Tums) 1,000 mg PO Q6HR PRN PRN Reason: indigestion Stop: 06/22/20 07:27 Last Admin: 04/25/20 15:00 Dose: 1,000 mg Docusate Sodium (Colace) 100 mg PO BID [facility] Stop: 06/22/20 08:59 Last Admin: 04/25/20 16:54 Dose: 100 mg Enoxaparin Sodium (Lovenox) 40 mg SUBQ HS [facility] Stop: 06/22/20 20:59 Last Admin: 04/24/20 20:35 Dose: 40 mg Levothyroxine Sodium (Synthroid) 0.1 mg PO QDAC [facility] Stop: 06/22/20 07:29 Last Admin: 04/25/20 06:32 Dose: 0.1 mg Lisinopril (Zestril) 10 mg PO BID [facility] Stop: 06/23/20 08:59 Last Admin: 04/25/20 16:54 Dose: 10 mg Loperamide HCl (Imodium) 4 mg PO Q6HR PRN PRN Reason: Diarrhea Stop: 06/24/20 11:46 Lorazepam (Ativan) 1 mg PO Q4HR PRN; Protocol PRN Reason: Anxiety/Agitaion Stop: 05/23/20 02:16 Last Admin: 04/25/20 12:41 Dose: 1 mg Magnesium Hydroxide (Milk Of Magnesia) 30 ml PO HS PRN PRN Reason: Constipation Multivitamins/Vitamin C (Theragran) 1 tab PO DAILY [facility] Stop: 06/22/20 08:59 Last Admin: 04/25/20 09:03 Dose: 1 tab Mupirocin (Bactroban Oint) 1 appl NS BID [facility] Stop: 04/28/20 17:01 Last Admin: 04/25/20 16:53 Dose: 1 appl Nitrofurantoin Macrocrystals (Macrobid) 100 mg PO BID [facility]; Protocol Stop: 05/03/20 08:59 Last Admin: 04/25/20 16:53 Dose: 100 mg Quetiapine Fumarate (Seroquel) 100 mg PO HS [facility]; Protocol Stop: 06/24/20 20:59 Venlafaxine HCl (Effexor Xr) 150 mg PO DAILY [facility]; Protocol Stop: 06/24/20 08:59 Last Admin: 04/25/20 09:03 Dose: 150 mg Zolpidem Tartrate (Ambien) 10 mg PO HS PRN PRN Reason: Insomnia Stop: 06/22/20 07:22 Last Admin: 04/24/20 21:15 Dose: 10 mg General: alert HEENT: NC/AT, PERRLA, EOMI, anicteric sclerae, throat clear Neck: Supple, No JVD, No thyromegaly, +2 carotid pulse wo bruit, No LAD Lungs: CTAB Cardiovascular: RRR, Normal S1, Normal S2, without murmur Abdomen: soft, non-tender, non-distended Extremities: clear Neurological: no change, alert Internal Medicine Assmt/Plan - Assessment Assessment: 1.HTN. 2.HYPOTHYROIDISM. 3.DJD. 4.DEPRESSION 5.DIARRHEA - Plan Plan: CONTINUE ON CURRENT MEDICATION AND DIET.LOMOTIL ONE TAB PO EVERY 6 H PRN Nutritional Asmnt/Malnutr-PDOC - Dietary Evaluation Malnutrition Findings (Please click <Entered> for more info): Nutritional Asmnt/Malnutrition Start: 04/24/20 14: 11 Text: Status: Complete Freq: Protocol: Document 04/24/20 14:11 KELSEY (Rec: 04/24/20 14:15 KELSEY [id number]) Nutritional Asmnt/Malnutrition Patient General Information Nutritional Screening Low Risk Diagnosis Psychosis Pertinent Medical Hx/Surgical Hx HTN, Hypothyroidism, Depression Subjective Information Pt is a 56-year-old female admitted on 04/22 d/t agitation . Pt is eating an estimated 100% of meals Per Meal/ Nutrition Activity Record. Dietary is currently providing an estimated 1965 kcals and 108 gm Pro, to meet 100+% kcal and 100+% Pro needs. Spoke with pt. in room today and gathered food preferences; she requested coffee with meals and stated she cannot eat salads due to not having dentures. Anthropometrics HT: 53 WT: 150 LB (68.18 kg) BMI: 26.57 (Overweight) GI/ Skin Integrity GI: WNL, Soft, Round BM: 7/ x1 I/O: 1440/Not Noted Skin: WNL, Dryness Sam: 19 Diet Order: Cardiac Estimated Energy Needs: ( Geriatric, CBW) 8872-5929 kcals (25-30 kcals/ kg) 70-80g Pro (1.0-1.2 g/kg) 0123-6291 ml (25-30 ml/kg) Current Diet Order/ Nutrition Support Cardiac Patient / S.O Can Pertinent Medications Maalox (PRN), Norvasc, Tums, Colace, Lovenox, Synthroid, MOM (PRN), Theragran Pertinent Labs No pertinent labs at this time . Nutritional Hx/Data Height 1.6 m Height (Calculated Centimeters) 160.0 Current Weight (lbs) 68.039 kg Weight (Calculated Kilograms) 68.0 Weight (Calculated Grams) 55962.9 [place] Body Weight 115 LB (52.27 kg) % [place] Body Weight 130 Body Mass Index (BMI) 26.5 Weight Status Overweight GI Symptoms GI Symptoms None Last BM 04/23 x1 Difficult in: Chewing Cultural/Ethnic/Mandaeism Belief No pork Skin Integrity/Comment: WNL, Dryness Sam: 19 Current %PO Good (75-100%) Estimated Nutritional Goals BEE in Kcals: Using Current wt Calories/Kcals/Kg 25-30 Kcals Calculated 4564-1112 Protein: Using Current wt Protein g/k.0-1.2 Protein Calculated 70-80 Fluid: ml 6406-2684 ml (25-30 ml/kg) Nutritional Problem 1. Problem Problem No nutrition diagnosis at this time. Etiology N/A Signs/Symptoms: N/A Malnutrition Related to Morbid Obesity Malnutrition related to morbid obesity No Intervention/Recommendation Comments Continue Cardiac diet as tolerated. Expected Outcomes/Goals Expected Outcomes/Goals 1. PO intake to continue to meet >75% of estimated nutritional needs. 2. Monitor PO intake, wt, nutrition related labs, and skin integrity. 3. F/U as low risk in 7-10 days, 05/01-05/04.
[2020-04-25] MEDS: Enoxaparin 40 mg/0.4 mL 0.4mL Syr SUBQ SCH (20:32)
--- NOTE | 2020-04-25 23:24 | Progress Notes ---
DATE: 04/25/[address] Olivarez. SUBJECTIVE: This is a 69-year-old female who was readmitted on 04/22/2020 because of depression and anxiety, came from [facility]. The patient was aggressive, throwing water at staff, pushing staff, yelling at staff, suspicious and fearful that staff will afraid of her. Feeling that she was strike out at them given her aggressive behaviors. She was sent to be hospitalized. The patient has no recollection of the events that led to admission. The patient has multiple prior admissions to this facility twice. No prior suicide attempt. DIAGNOSES: Depression and anxiety in the past. ASSESSMENT AND PLAN: The patient continues to be concerned about the safety of her behavior because of striking out. She just came 2 days ago. The patient continues to be restless, edgy, irritable, not sleeping well, not happy with being here and aggressive at the residential facility, pushing staff. The patient was started back on medication and she is currently on Seroquel 50 mg at bedtime, venlafaxine 150 mg daily. I will be increasing her Seroquel to 100 mg at bedtime. No side effects with the medication, no sedation, no nausea, no extrapyramidal symptoms. The patient is unable to contract for safety, so I will be extending the hold and will continue outpatient group therapy, milieu therapy, adjust medication as needed. JOB# [id number]
[2020-04-26] MEDS: Levothyroxine 0.1 Mg Tab PO SCH (06:49)
[2020-04-26] MEDS: Multivitamin Tab PO SCH (08:39)
--- NOTE | 2020-04-26 16:06 | Progress Notes ---
DATE: 04/26/[address] Lb Olivarez. SUBJECTIVE: The patient was interviewed. Case was discussed with staff. Chart and records were reviewed. Per the staff, the patient has had less behavioral outbursts. The patient appears to be restless and anxious on interview today. She reports "I need Xanax." The patient currently appears to be irritable, anxious, uncooperative, asking for significant changes to her medications, although she does not appear to be having severe anxiety as she is resting comfortably in bed. She appears to be irritable, demanding, restless and anxious, not willing to engage in discussion about her behaviors from her previous facility that led to hospitalization. No side effects noted to the medication. MENTAL STATUS EXAMINATION: The patient is an elderly female in bed, uncooperative with the interview restless and anxious. Speech is loud. Mood and affect appear to be labile. Thought process appears to be loose at this time. Unable to assess for suicidal or homicidal thoughts due to her poor cooperation. Unable to assess for hallucinations; however, the patient does appear to be suspicious of this provider and the environment. Alert and oriented to person and place. Insight, judgment and impulse control appear to be very poor at this time. ASSESSMENT AND PLAN: The patient requires ongoing acute psychiatric hospitalization given the severity of her mood swings. Will also continue medications as prescribed. No side effects have been noted. We will also encourage the patient to verbalize her needs and participate in groups and also to attend to her hygiene. [facility]# [id number]
--- NOTE | 2020-04-26 16:23 | General Progress Note ---
Subjective - Review of Systems Service Date: 04/26/20 Subjective: resting comfortably no distress Objective - Results Recent Labs: Laboratory Last Values Triglycerides 192 mg/dL (30-150) H 04/25/20 11:20 Cholesterol 457 mg/dL (<200) H 04/25/20 11:20 LDL Cholesterol 297 mg/dL (0-129) H 04/25/20 11:20 HDL Cholesterol 67 mg/dL (>55) 04/25/20 11:20 - Physical Exam Vitals and I&O: Vital Signs Temp 97.5 F 04/26/20 16:11 Pulse 80 04/26/20 16:11 Resp 20 04/26/20 16:11 BP 131/78 04/26/20 16:11 Pulse Ox 96 04/26/20 16:11 Intake & Output 04/25/20 04/26/20 04/26/20 18:59 06:59 18:59 Intake Total 240 Balance 240 Intake: Oral 240 Other: # Voids 2 Active Medications: Current Medications Acetaminophen (Tylenol) 650 mg PO Q4H PRN PRN Reason: Pain (Mild 1-3) Stop: 06/22/20 02:16 Last Admin: 04/26/20 10:15 Dose: 650 mg Al Hydrox/Mg Hydrox/Simethicone (Maalox) 30 ml PO Q4HR PRN PRN Reason: GI DISTRESS Stop: 06/22/20 02:16 Amlodipine Besylate (Norvasc) 10 mg PO DAILY [facility] Stop: 06/23/20 08:59 Last Admin: 04/26/20 08:40 Dose: 10 mg Calcium Carbonate (Tums) 1,000 mg PO Q6HR PRN PRN Reason: indigestion Stop: 06/22/20 07:27 Last Admin: 04/26/20 08:38 Dose: 1,000 mg Docusate Sodium (Colace) 100 mg PO BID [facility] Stop: 06/22/20 08:59 Last Admin: 04/26/20 08:39 Dose: 100 mg Enoxaparin Sodium (Lovenox) 40 mg SUBQ HS [facility] Stop: 06/22/20 20:59 Last Admin: 04/25/20 20:32 Dose: 40 mg Levothyroxine Sodium (Synthroid) 0.1 mg PO QDAC [facility] Stop: 06/22/20 07:29 Last Admin: 04/26/20 06:49 Dose: 0.1 mg Lisinopril (Zestril) 10 mg PO BID [facility] Stop: 06/23/20 08:59 Last Admin: 04/26/20 08:39 Dose: 10 mg Loperamide HCl (Imodium) 4 mg PO Q6HR PRN PRN Reason: Diarrhea Stop: 06/24/20 11:46 Lorazepam (Ativan) 1 mg PO Q4HR PRN; Protocol PRN Reason: Anxiety/Agitaion Stop: 05/23/20 02:16 Last Admin: 04/26/20 12:52 Dose: 1 mg Magnesium Hydroxide (Milk Of Magnesia) 30 ml PO HS PRN PRN Reason: Constipation Multivitamins/Vitamin C (Theragran) 1 tab PO DAILY [facility] Stop: 06/22/20 08:59 Last Admin: 04/26/20 08:39 Dose: 1 tab Mupirocin (Bactroban Oint) 1 appl NS BID [facility] Stop: 04/28/20 17:01 Last Admin: 04/26/20 09:35 Dose: 1 appl Nitrofurantoin Macrocrystals (Macrobid) 100 mg PO BID [facility]; Protocol Stop: 05/03/20 08:59 Last Admin: 04/26/20 08:39 Dose: 100 mg Quetiapine Fumarate (Seroquel) 100 mg PO HS [facility]; Protocol Stop: 06/24/20 20:59 Last Admin: 04/25/20 20:32 Dose: 100 mg Venlafaxine HCl (Effexor Xr) 150 mg PO DAILY [facility]; Protocol Stop: 06/24/20 08:59 Last Admin: 04/26/20 08:38 Dose: 150 mg Zolpidem Tartrate (Ambien) 10 mg PO HS PRN PRN Reason: Insomnia Stop: 06/22/20 07:22 Last Admin: 04/25/20 21:09 Dose: 10 mg General: No acute distress HEENT: PERRLA Neck: Supple, JVD Cardiovascular: Regular rate, Normal S1, Normal S2 Lungs: Clear to auscultation Abdomen: Bowel sounds, Soft Assessment/Plan - Assessment Assessment: 1.HTN. 2.HYPOTHYROIDISM. 3.DJD. 4.DEPRESSION 5.DIARRHEA - Plan Plan: continue current treatment Nutritional Asmnt/Malnutr-PDOC - Dietary Evaluation Malnutrition Findings (Please click <Entered> for more info): Nutritional Asmnt/Malnutrition Start: 04/24/20 14: 11 Text: Status: Complete Freq: Protocol: Document 04/24/20 14:11 KELSEY (Rec: 04/24/20 14:15 KELSEY [id number]) Nutritional Asmnt/Malnutrition Patient General Information Nutritional Screening Low Risk Diagnosis Psychosis Pertinent Medical Hx/Surgical Hx HTN, Hypothyroidism, Depression Subjective Information Pt is a 56-year-old female admitted on 04/22 d/t agitation . Pt is eating an estimated 100% of meals Per Meal/ Nutrition Activity Record. Dietary is currently providing an estimated 1965 kcals and 108 gm Pro, to meet 100+% kcal and 100+% Pro needs. Spoke with pt. in room today and gathered food preferences; she requested coffee with meals and stated she cannot eat salads due to not having dentures. Anthropometrics HT: 53 WT: 150 LB (68.18 kg) BMI: 26.57 (Overweight) GI/ Skin Integrity GI: WNL, Soft, Round BM: 04/23 x1 I/O: 1440/Not Noted Skin: WNL, Dryness Sam: 19 Diet Order: Cardiac Estimated Energy Needs: ( Geriatric, CBW) 5036-8348 kcals (25-30 kcals/ kg) 70-80g Pro (1.0-1.2 g/kg) 0231-8616 ml (25-30 ml/kg) Current Diet Order/ Nutrition Support Cardiac Patient / S.O Can Pertinent Medications Maalox (PRN), Norvasc, Tums, Colace, Lovenox, Synthroid, MOM (PRN), Theragran Pertinent Labs No pertinent labs at this time . Nutritional Hx/Data Height 1.6 m Height (Calculated Centimeters) 160.0 Current Weight (lbs) 68.039 kg Weight (Calculated Kilograms) 68.0 Weight (Calculated Grams) 32685.9 [place] Body Weight 115 LB (52.27 kg) % [place] Body Weight 130 Body Mass Index (BMI) 26.5 Weight Status Overweight GI Symptoms GI Symptoms None Last BM 04/23 x1 Difficult in: Chewing Cultural/Ethnic/Roman Catholic Belief No pork Skin Integrity/Comment: WNL, Dryness Sam: 19 Current %PO Good (75-100%) Estimated Nutritional Goals BEE in Kcals: Using Current wt Calories/Kcals/Kg 25-30 Kcals Calculated 3669-8273 Protein: Using Current wt Protein g/k.0-1.2 Protein Calculated 70-80 Fluid: ml 4728-1586 ml (25-30 ml/kg) Nutritional Problem 1. Problem Problem No nutrition diagnosis at this time. Etiology N/A Signs/Symptoms: N/A Malnutrition Related to Morbid Obesity Malnutrition related to morbid obesity No Intervention/Recommendation Comments Continue Cardiac diet as tolerated. Expected Outcomes/Goals Expected Outcomes/Goals 1. PO intake to continue to meet >75% of estimated nutritional needs. 2. Monitor PO intake, wt, nutrition related labs, and skin integrity. 3. F/U as low risk in 7-10 days, 05/01-05/04.
[2020-04-26] MEDS: Enoxaparin 40 mg/0.4 mL 0.4mL Syr SUBQ SCH (20:34)
[2020-04-27] MEDS: Levothyroxine 0.1 Mg Tab PO SCH (07:22)
[2020-04-27] MEDS: Multivitamin Tab PO SCH (09:03)
--- NOTE | 2020-04-27 12:26 | Progress Notes ---
DATE: 04/27/[address] Lb Olivarez. SUBJECTIVE: The patient was interviewed. Case was discussed with staff. Chart and records were reviewed. Per the staff, the patient continues to have severe mood swings. She gets anxious, she gets agitated. She has been calling the staff "you are stupid." The patient has been asking for Xanax repeatedly. She also gets very irritable and agitated and only calms down after she gets significant amount of medications including Ativan. She otherwise continues to have mood swings and she is poorly cooperative with the interview. MENTAL STATUS EXAMINATION: The patient is an elderly female in bed, uncooperative, restless, anxious, irritable, labile affect, unable to assess for any suicidal or homicidal thoughts due to poor cooperation, but she does have verbal aggression towards the staff, the patient is denying any hallucinations, but she does appear to be suspicious of her environment. She is alert and oriented to person and place. Insight, judgment and impulse control appear to be quite poor at this time. ASSESSMENT AND PLAN: The patient at this time continues to require acute psychiatric hospitalization given the severity of her mood swings. We will continue medications as prescribed; however, we will increase the patient's Seroquel. She is tolerating it well with no side effects. We will also encourage the patient to verbalize her needs and participate in group and milieu therapy and attend to her hygiene. JOB# [id number]
--- NOTE | 2020-04-27 16:46 | General Progress Note ---
Subjective - Review of Systems Service Date: 04/27/20 Subjective: resting comfortably no distress Objective - Results Recent Labs: Laboratory Last Values Triglycerides 192 mg/dL (30-150) H 04/25/20 11:20 Cholesterol 457 mg/dL (<200) H 04/25/20 11:20 LDL Cholesterol 297 mg/dL (0-129) H 04/25/20 11:20 HDL Cholesterol 67 mg/dL (>55) 04/25/20 11:20 - Physical Exam Vitals and I&O: Vital Signs Temp 97.7 F 04/27/20 14:00 Pulse 77 04/27/20 16:44 Resp 20 04/27/20 14:00 BP 135/76 04/27/20 16:44 Pulse Ox 96 04/27/20 14:00 Intake & Output 04/26/20 04/27/20 04/27/20 18:59 06:59 18:59 Intake Total 1200 420 Balance 1200 420 Intake: Oral 1200 420 Other: # Voids 4 1 # Bowel Movements 1 0 Active Medications: Current Medications Acetaminophen (Tylenol) 650 mg PO Q4H PRN PRN Reason: Pain (Mild 1-3) Stop: 06/22/20 02:16 Last Admin: 04/26/20 22:27 Dose: 650 mg Al Hydrox/Mg Hydrox/Simethicone (Maalox) 30 ml PO Q4HR PRN PRN Reason: GI DISTRESS Stop: 06/22/20 02:16 Amlodipine Besylate (Norvasc) 10 mg PO DAILY [facility] Stop: 06/23/20 08:59 Last Admin: 04/27/20 09:04 Dose: 10 mg Calcium Carbonate (Tums) 1,000 mg PO Q6HR PRN PRN Reason: indigestion Stop: 06/22/20 07:27 Last Admin: 04/27/20 09:03 Dose: 1,000 mg Docusate Sodium (Colace) 100 mg PO BID [facility] Stop: 06/22/20 08:59 Last Admin: 04/27/20 16:43 Dose: 100 mg Enoxaparin Sodium (Lovenox) 40 mg SUBQ HS [facility] Stop: 06/22/20 20:59 Last Admin: 04/26/20 20:34 Dose: 40 mg Levothyroxine Sodium (Synthroid) 0.1 mg PO QDAC [facility] Stop: 06/22/20 07:29 Last Admin: 04/27/20 07:22 Dose: 0.1 mg Lisinopril (Zestril) 10 mg PO BID [facility] Stop: 06/23/20 08:59 Last Admin: 04/27/20 16:44 Dose: 10 mg Loperamide HCl (Imodium) 4 mg PO Q6HR PRN PRN Reason: Diarrhea Stop: 06/24/20 11:46 Lorazepam (Ativan) 1 mg PO Q4HR PRN; Protocol PRN Reason: Anxiety/Agitaion Stop: 05/23/20 02:16 Last Admin: 04/27/20 15:02 Dose: 1 mg Magnesium Hydroxide (Milk Of Magnesia) 30 ml PO HS PRN PRN Reason: Constipation Multivitamins/Vitamin C (Theragran) 1 tab PO DAILY [facility] Stop: 06/22/20 08:59 Last Admin: 04/27/20 09:03 Dose: 1 tab Mupirocin (Bactroban Oint) 1 appl NS BID [facility] Stop: 04/28/20 17:01 Last Admin: 04/27/20 16:45 Dose: 1 appl Nitrofurantoin Macrocrystals (Macrobid) 100 mg PO BID [facility]; Protocol Stop: 05/03/20 08:59 Last Admin: 04/27/20 16:43 Dose: 100 mg Quetiapine Fumarate 100 mg/ (Quetiapine Fumarate 25 mg) 125 mg PO HS [facility] Stop: 06/26/20 20:59 Venlafaxine HCl (Effexor Xr) 150 mg PO DAILY [facility]; Protocol Stop: 06/24/20 08:59 Last Admin: 04/27/20 09:03 Dose: 150 mg Zolpidem Tartrate (Ambien) 10 mg PO HS PRN PRN Reason: Insomnia Stop: 06/22/20 07:22 Last Admin: 04/26/20 20:35 Dose: 10 mg General: No acute distress HEENT: PERRLA Neck: Supple, JVD Cardiovascular: Regular rate, Normal S1, Normal S2 Lungs: Clear to auscultation Abdomen: Bowel sounds, Soft Assessment/Plan - Assessment Assessment: 1.HTN. 2.HYPOTHYROIDISM. 3.DJD. 4.DEPRESSION 5.DIARRHEA - Plan Plan: continue current treatment Nutritional Asmnt/Malnutr-PDOC - Dietary Evaluation Malnutrition Findings (Please click <Entered> for more info): Nutritional Asmnt/Malnutrition Start: 04/24/20 14: 11 Text: Status: Complete Freq: Protocol: Document 04/24/20 14:11 KELSEY (Rec: 04/24/20 14:15 KELSEY [email or web address] [id number]) Nutritional Asmnt/Malnutrition Patient General Information Nutritional Screening Low Risk Diagnosis Psychosis Pertinent Medical Hx/Surgical Hx HTN, Hypothyroidism, Depression Subjective Information Pt is a 56-year-old female admitted on 04/22 d/t agitation . Pt is eating an estimated 100% of meals Per Meal/ Nutrition Activity Record. Dietary is currently providing an estimated 1965 kcals and 108 gm Pro, to meet 100+% kcal and 100+% Pro needs. Spoke with pt. in room today and gathered food preferences; she requested coffee with meals and stated she cannot eat salads due to not having dentures. Anthropometrics HT: 53 WT: 150 LB (68.18 kg) BMI: 26.57 (Overweight) GI/ Skin Integrity GI: WNL, Soft, Round BM: 04/23 x1 I/O: 1440/Not Noted Skin: WNL, Dryness Sam: 19 Diet Order: Cardiac Estimated Energy Needs: ( Geriatric, CBW) 9852-1341 kcals (25-30 kcals/ kg) 70-80g Pro (1.0-1.2 g/kg) 0135-6936 ml (25-30 ml/kg) Current Diet Order/ Nutrition Support Cardiac Patient / S.O Can Pertinent Medications Maalox (PRN), Norvasc, Tums, Colace, Lovenox, Synthroid, MOM (PRN), Theragran Pertinent Labs No pertinent labs at this time . Nutritional Hx/Data Height 1.6 m Height (Calculated Centimeters) 160.0 Current Weight (lbs) 68.039 kg Weight (Calculated Kilograms) 68.0 Weight (Calculated Grams) 62999.9 [place] Body Weight 115 LB (52.27 kg) % [place] Body Weight 130 Body Mass Index (BMI) 26.5 Weight Status Overweight GI Symptoms GI Symptoms None Last BM 04/23 x1 Difficult in: Chewing Cultural/Ethnic/Sabianist Belief No pork Skin Integrity/Comment: WNL, Dryness Sam: 19 Current %PO Good (75-100%) Estimated Nutritional Goals BEE in Kcals: Using Current wt Calories/Kcals/Kg 25-30 Kcals Calculated 9187-7217 Protein: Using Current wt Protein g/k.0-1.2 Protein Calculated 70-80 Fluid: ml 9477-0198 ml (25-30 ml/kg) Nutritional Problem 1. Problem Problem No nutrition diagnosis at this time. Etiology N/A Signs/Symptoms: N/A Malnutrition Related to Morbid Obesity Malnutrition related to morbid obesity No Intervention/Recommendation Comments Continue Cardiac diet as tolerated. Expected Outcomes/Goals Expected Outcomes/Goals 1. PO intake to continue to meet >75% of estimated nutritional needs. 2. Monitor PO intake, wt, nutrition related labs, and skin integrity. 3. F/U as low risk in 7-10 days, 05/01-05/04.
[2020-04-27] MEDS: Enoxaparin 40 mg/0.4 mL 0.4mL Syr SUBQ SCH (20:28)
[2020-04-28] MEDS: Levothyroxine 0.1 Mg Tab PO SCH (06:30)
[2020-04-28] MEDS: Multivitamin Tab PO SCH (08:39)
--- NOTE | 2020-04-28 17:58 | Internal Medicine Prog Note ---
Internal Medicine Subjective - Subjective Service Date: 04/28/20 Patient seen and examined:: without staff (SHE FEELS BETTER) Patient is:: awake, verbal, in bed, talking Per staff patient has:: no adverse event Internal Medicine Objective - Results Recent Labs: Laboratory Last Values Triglycerides 192 mg/dL (30-150) H 04/25/20 11:20 Cholesterol 457 mg/dL (<200) H 04/25/20 11:20 LDL Cholesterol 297 mg/dL (0-129) H 04/25/20 11:20 HDL Cholesterol 67 mg/dL (>55) 04/25/20 11:20 - Physical Exam Vitals and I&O: Vital Signs Temp 97.8 F 04/28/20 05:24 Pulse 76 04/28/20 16:33 Resp 18 04/28/20 08:00 BP 120/69 04/28/20 16:33 Pulse Ox 97 04/28/20 05:24 Intake & Output 04/27/20 04/28/20 04/28/20 18:59 06:59 18:59 Intake Total 1200 480 Balance 1200 480 Intake: Oral 1200 480 Other: # Voids 4 2 # Bowel Movements 1 0 Active Medications: Current Medications Acetaminophen (Tylenol) 650 mg PO Q4H PRN PRN Reason: Pain (Mild 1-3) Stop: 06/22/20 02:16 Last Admin: 04/26/20 22:27 Dose: 650 mg Al Hydrox/Mg Hydrox/Simethicone (Maalox) 30 ml PO Q4HR PRN PRN Reason: GI DISTRESS Stop: 06/22/20 02:16 Amlodipine Besylate (Norvasc) 10 mg PO DAILY [facility] Stop: 06/23/20 08:59 Last Admin: 04/28/20 08:39 Dose: 10 mg Bupropion HCl (Wellbutrin Xl) 150 mg PO DAILY [facility]; Protocol Stop: 06/28/20 08:59 Calcium Carbonate (Tums) 1,000 mg PO Q6HR PRN PRN Reason: indigestion Stop: 06/22/20 07:27 Last Admin: 04/28/20 08:38 Dose: 1,000 mg Docusate Sodium (Colace) 100 mg PO BID [facility] Stop: 06/22/20 08:59 Last Admin: 04/28/20 16:33 Dose: 100 mg Enoxaparin Sodium (Lovenox) 40 mg SUBQ HS [facility] Stop: 06/22/20 20:59 Last Admin: 04/27/20 20:28 Dose: 40 mg Levothyroxine Sodium (Synthroid) 0.1 mg PO QDAC [facility] Stop: 06/22/20 07:29 Last Admin: 04/28/20 06:30 Dose: 0.1 mg Lisinopril (Zestril) 10 mg PO BID [facility] Stop: 06/23/20 08:59 Last Admin: 04/28/20 16:33 Dose: 10 mg Loperamide HCl (Imodium) 4 mg PO Q6HR PRN PRN Reason: Diarrhea Stop: 06/24/20 11:46 Lorazepam (Ativan) 1 mg PO Q4HR PRN; Protocol PRN Reason: Anxiety/Agitaion Stop: 05/23/20 02:16 Last Admin: 04/28/20 08:39 Dose: 1 mg Magnesium Hydroxide (Milk Of Magnesia) 30 ml PO HS PRN PRN Reason: Constipation Multivitamins/Vitamin C (Theragran) 1 tab PO DAILY [facility] Stop: 06/22/20 08:59 Last Admin: 04/28/20 08:39 Dose: 1 tab Nitrofurantoin Macrocrystals (Macrobid) 100 mg PO BID [facility]; Protocol Stop: 05/03/20 08:59 Last Admin: 04/28/20 16:33 Dose: 100 mg Quetiapine Fumarate 100 mg/ (Quetiapine Fumarate 25 mg) 125 mg PO HS [facility] Stop: 06/26/20 20:59 Last Admin: 04/27/20 20:28 Dose: 125 mg Venlafaxine HCl (Effexor Xr) 150 mg PO DAILY [facility]; Protocol Stop: 06/24/20 08:59 Last Admin: 04/28/20 08:39 Dose: 150 mg Zolpidem Tartrate (Ambien) 10 mg PO HS PRN PRN Reason: Insomnia Stop: 06/22/20 07:22 Last Admin: 04/27/20 21:17 Dose: 10 mg General: alert HEENT: NC/AT, PERRLA, EOMI, anicteric sclerae, throat clear Neck: Supple, No JVD, No thyromegaly, +2 carotid pulse wo bruit, No LAD Lungs: CTAB Cardiovascular: RRR, Normal S1, Normal S2, without murmur Abdomen: soft, non-tender, non-distended Extremities: clear Neurological: no change, alert Internal Medicine Assmt/Plan - Assessment Assessment: 1.HTN. 2.HYPOTHYROIDISM. 3.DJD. 4.DEPRESSION 5.DIARRHEA - Plan Plan: CONTINUE ON CURRENT MEDICATION AND DIET.LOMOTIL ONE TAB PO EVERY 6 H PRN Nutritional Asmnt/Malnutr-PDOC - Dietary Evaluation Malnutrition Findings (Please click <Entered> for more info): Nutritional Asmnt/Malnutrition Start: 04/24/20 14: 11 Text: Status: Complete Freq: Protocol: Document 04/24/20 14:11 KELSEY (Rec: 04/24/20 14:15 KELSEY [email or web address] [id number]) Nutritional Asmnt/Malnutrition Patient General Information Nutritional Screening Low Risk Diagnosis Psychosis Pertinent Medical Hx/Surgical Hx HTN, Hypothyroidism, Depression Subjective Information Pt is a 56-year-old female admitted on 04/22 d/t agitation . Pt is eating an estimated 100% of meals Per Meal/ Nutrition Activity Record. Dietary is currently providing an estimated 1965 kcals and 108 gm Pro, to meet 100+% kcal and 100+% Pro needs. Spoke with pt. in room today and gathered food preferences; she requested coffee with meals and stated she cannot eat salads due to not having dentures. Anthropometrics HT: 53 WT: 150 LB (68.18 kg) BMI: 26.57 (Overweight) GI/ Skin Integrity GI: WNL, Soft, Round BM: 7/1 x1 I/O: 1440/Not Noted Skin: WNL, Dryness Sam: 19 Diet Order: Cardiac Estimated Energy Needs: ( Geriatric, CBW) 2600-9936 kcals (25-30 kcals/ kg) 70-80g Pro (1.0-1.2 g/kg) 6163-8109 ml (25-30 ml/kg) Current Diet Order/ Nutrition Support Cardiac Patient / S.O Can Pertinent Medications Maalox (PRN), Norvasc, Tums, Colace, Lovenox, Synthroid, MOM (PRN), Theragran Pertinent Labs No pertinent labs at this time . Nutritional Hx/Data Height 1.6 m Height (Calculated Centimeters) 160.0 Current Weight (lbs) 68.039 kg Weight (Calculated Kilograms) 68.0 Weight (Calculated Grams) 89112.9 [place] Body Weight 115 LB (52.27 kg) % [place] Body Weight 130 Body Mass Index (BMI) 26.5 Weight Status Overweight GI Symptoms GI Symptoms None Last BM 04/23 x1 Difficult in: Chewing Cultural/Ethnic/Catholic Belief No pork Skin Integrity/Comment: WNL, Dryness Sam: 19 Current %PO Good (75-100%) Estimated Nutritional Goals BEE in Kcals: Using Current wt Calories/Kcals/Kg 25-30 Kcals Calculated 3370-1450 Protein: Using Current wt Protein g/k.0-1.2 Protein Calculated 70-80 Fluid: ml 2014-4501 ml (25-30 ml/kg) Nutritional Problem 1. Problem Problem No nutrition diagnosis at this time. Etiology N/A Signs/Symptoms: N/A Malnutrition Related to Morbid Obesity Malnutrition related to morbid obesity No Intervention/Recommendation Comments Continue Cardiac diet as tolerated. Expected Outcomes/Goals Expected Outcomes/Goals 1. PO intake to continue to meet >75% of estimated nutritional needs. 2. Monitor PO intake, wt, nutrition related labs, and skin integrity. 3. F/U as low risk in 7-10 days, 05/01-05/04.
[2020-04-28] MEDS: Enoxaparin 40 mg/0.4 mL 0.4mL Syr SUBQ SCH (20:54)
--- NOTE | 2020-04-29 03:24 | Progress Notes ---
DATE: 04/28/2020 Case was discussed with staff of the patient, reviewed records. The patient continues to be leyva, irritable, anxious, agitated, calling names to the staff. Continues states she wanted Xanax, continues to be internally preoccupied, unpredictable, impulsive, needing redirection, preoccupied with Xanax versus Ativan. She also reported that she like to be on Wellbutrin. She was supposed to be on it. No side effects with the medication, no sedation, no nausea, no extrapyramidal symptoms. Dr. Alberto increased Seroquel yesterday to 125 mg at bedtime. I will be adding Wellbutrin to her medication 150 mg daily because of her depression. We will continue outpatient. Discussed side effects. She has taken it before. No history of eating disorder or seizure disorder and discussed side effects. We will continue outpatient group therapy, milieu therapy, and adjust the medication as needed. JOB# [id number]
[2020-04-29] MEDS: Levothyroxine 0.1 Mg Tab PO SCH (06:37)
[2020-04-29] MEDS: buPROPion XL 150 mg T 24 H PO SCH (08:09)
[2020-04-29] MEDS: Multivitamin Tab PO SCH (08:09)
--- NOTE | 2020-04-29 13:42 | Internal Medicine Prog Note ---
Internal Medicine Subjective - Subjective Service Date: 04/29/20 Patient seen and examined:: without staff (SHE FEELS WELL) Patient is:: awake, verbal, in bed, talking Per staff patient has:: no adverse event Internal Medicine Objective - Results Recent Labs: Laboratory Last Values Triglycerides 192 mg/dL (30-150) H 04/25/20 11:20 Cholesterol 457 mg/dL (<200) H 04/25/20 11:20 LDL Cholesterol 297 mg/dL (0-129) H 04/25/20 11:20 HDL Cholesterol 67 mg/dL (>55) 04/25/20 11:20 - Physical Exam Vitals and I&O: Vital Signs Temp 97.7 F 04/29/20 06:43 Pulse 82 04/29/20 08:09 Resp 18 04/29/20 07:33 BP 133/82 04/29/20 08:09 Pulse Ox 97 04/29/20 06:43 Intake & Output 04/28/20 04/29/20 04/29/20 18:59 06:59 18:59 Intake Total 1250 120 850 Balance 1250 120 850 Intake: Oral 1250 120 850 Other: # Voids 4 3 1 # Bowel Movements 1 0 Active Medications: Current Medications Acetaminophen (Tylenol) 650 mg PO Q4H PRN PRN Reason: Pain (Mild 1-3) Stop: 06/22/20 02:16 Last Admin: 04/29/20 09:06 Dose: 650 mg Al Hydrox/Mg Hydrox/Simethicone (Maalox) 30 ml PO Q4HR PRN PRN Reason: GI DISTRESS Stop: 06/22/20 02:16 Amlodipine Besylate (Norvasc) 10 mg PO DAILY [facility] Stop: 06/23/20 08:59 Last Admin: 04/29/20 08:09 Dose: 10 mg Bupropion HCl (Wellbutrin Xl) 150 mg PO DAILY [facility]; Protocol Stop: 06/28/20 08:59 Last Admin: 04/29/20 08:09 Dose: 150 mg Calcium Carbonate (Tums) 1,000 mg PO Q6HR PRN PRN Reason: indigestion Stop: 06/22/20 07:27 Last Admin: 04/29/20 09:06 Dose: 1,000 mg Docusate Sodium (Colace) 100 mg PO BID [facility] Stop: 06/22/20 08:59 Last Admin: 04/29/20 08:09 Dose: 100 mg Enoxaparin Sodium (Lovenox) 40 mg SUBQ HS [facility] Stop: 06/22/20 20:59 Last Admin: 04/28/20 20:54 Dose: 40 mg Levothyroxine Sodium (Synthroid) 0.1 mg PO QDAC [facility] Stop: 06/22/20 07:29 Last Admin: 04/29/20 06:37 Dose: 0.1 mg Lisinopril (Zestril) 10 mg PO BID [facility] Stop: 06/23/20 08:59 Last Admin: 04/29/20 08:09 Dose: 10 mg Loperamide HCl (Imodium) 4 mg PO Q6HR PRN PRN Reason: Diarrhea Stop: 06/24/20 11:46 Lorazepam (Ativan) 1 mg PO Q4HR PRN; Protocol PRN Reason: Anxiety/Agitaion Stop: 05/23/20 02:16 Last Admin: 04/29/20 08:09 Dose: 1 mg Magnesium Hydroxide (Milk Of Magnesia) 30 ml PO HS PRN PRN Reason: Constipation Multivitamins/Vitamin C (Theragran) 1 tab PO DAILY [facility] Stop: 06/22/20 08:59 Last Admin: 04/29/20 08:09 Dose: 1 tab Nitrofurantoin Macrocrystals (Macrobid) 100 mg PO BID [facility]; Protocol Stop: 05/03/20 08:59 Last Admin: 04/29/20 08:09 Dose: 100 mg Quetiapine Fumarate 100 mg/ (Quetiapine Fumarate 25 mg) 125 mg PO HS [facility] Stop: 06/26/20 20:59 Last Admin: 04/28/20 20:54 Dose: 125 mg Venlafaxine HCl (Effexor Xr) 150 mg PO DAILY [facility]; Protocol Stop: 06/24/20 08:59 Last Admin: 04/29/20 08:09 Dose: 150 mg Zolpidem Tartrate (Ambien) 10 mg PO HS PRN PRN Reason: Insomnia Stop: 06/22/20 07:22 Last Admin: 04/28/20 21:55 Dose: 10 mg General: alert HEENT: NC/AT, PERRLA, EOMI, anicteric sclerae, throat clear Neck: Supple, No JVD, No thyromegaly, +2 carotid pulse wo bruit, No LAD Lungs: CTAB Cardiovascular: RRR, Normal S1, Normal S2, without murmur Abdomen: soft, non-tender, non-distended Extremities: clear Neurological: no change, alert Internal Medicine Assmt/Plan - Assessment Assessment: 1.HTN. 2.HYPOTHYROIDISM. 3.DJD. 4.DEPRESSION 5.DIARRHEA - Plan Plan: CONTINUE ON CURRENT MEDICATION AND DIET. Nutritional Asmnt/Malnutr-PDOC - Dietary Evaluation Malnutrition Findings (Please click <Entered> for more info): Nutritional Asmnt/Malnutrition Start: 04/24/20 14: 11 Text: Status: Complete Freq: Protocol: Document 04/24/20 14:11 KELSEY (Rec: 04/24/20 14:15 KELSEY [id number]) Nutritional Asmnt/Malnutrition Patient General Information Nutritional Screening Low Risk Diagnosis Psychosis Pertinent Medical Hx/Surgical Hx HTN, Hypothyroidism, Depression Subjective Information Pt is a 56-year-old female admitted on 04/22 d/t agitation . Pt is eating an estimated 100% of meals Per Meal/ Nutrition Activity Record. Dietary is currently providing an estimated 1965 kcals and 108 gm Pro, to meet 100+% kcal and 100+% Pro needs. Spoke with pt. in room today and gathered food preferences; she requested coffee with meals and stated she cannot eat salads due to not having dentures. Anthropometrics HT: 53 WT: 150 LB (68.18 kg) BMI: 26.57 (Overweight) GI/ Skin Integrity GI: WNL, Soft, Round BM: 7/1 x1 I/O: 1440/Not Noted Skin: WNL, Dryness Sam: 19 Diet Order: Cardiac Estimated Energy Needs: ( Geriatric, CBW) 1447-1005 kcals (25-30 kcals/ kg) 70-80g Pro (1.0-1.2 g/kg) 3683-1620 ml (25-30 ml/kg) Current Diet Order/ Nutrition Support Cardiac Patient / S.O Can Pertinent Medications Maalox (PRN), Norvasc, Tums, Colace, Lovenox, Synthroid, MOM (PRN), Theragran Pertinent Labs No pertinent labs at this time . Nutritional Hx/Data Height 1.6 m Height (Calculated Centimeters) 160.0 Current Weight (lbs) 68.039 kg Weight (Calculated Kilograms) 68.0 Weight (Calculated Grams) 65933.9 [place] Body Weight 115 LB (52.27 kg) % [place] Body Weight 130 Body Mass Index (BMI) 26.5 Weight Status Overweight GI Symptoms GI Symptoms None Last BM 04/23 x1 Difficult in: Chewing Cultural/Ethnic/Zoroastrianism Belief No pork Skin Integrity/Comment: WNL, Dryness Sam: 19 Current %PO Good (75-100%) Estimated Nutritional Goals BEE in Kcals: Using Current wt Calories/Kcals/Kg 25-30 Kcals Calculated 2477-4928 Protein: Using Current wt Protein g/k.0-1.2 Protein Calculated 70-80 Fluid: ml 5606-6489 ml (25-30 ml/kg) Nutritional Problem 1. Problem Problem No nutrition diagnosis at this time. Etiology N/A Signs/Symptoms: N/A Malnutrition Related to Morbid Obesity Malnutrition related to morbid obesity No Intervention/Recommendation Comments Continue Cardiac diet as tolerated. Expected Outcomes/Goals Expected Outcomes/Goals 1. PO intake to continue to meet >75% of estimated nutritional needs. 2. Monitor PO intake, wt, nutrition related labs, and skin integrity. 3. F/U as low risk in 7-10 days, 05/01-05/04.
--- NOTE | 2020-04-29 15:48 | Progress Notes ---
DATE: 04/29/2020 SUBJECTIVE: This is a 69-year-old female, currently in the hospital. Still noted to be anxious, upset, name calling the staff, noted to be fairly impulsive, unpredictable, withdrawn and isolative. She is pretty calm when I see her, but staff noting she has a tendency to be unruly at times. Feels the medications are helping and would like Xanax or Ativan noting this has helped better in the past, taking her Seroquel, this seems to be helping to calm her down. Medications reviewed. Labs were reviewed. Vitals were reviewed. ASSESSMENT: A 69-year-old female who remains unruly, impulsive, somewhat irritable at times. PLAN: We will switch the Ativan to Xanax. Continue to increase dosing of Seroquel. JOB# [id number]
[2020-04-29] MEDS: Enoxaparin 40 mg/0.4 mL 0.4mL Syr SUBQ SCH (20:36)
[2020-04-30] MEDS: Levothyroxine 0.1 Mg Tab PO SCH (06:53)
[2020-04-30] MEDS: Multivitamin Tab PO SCH (08:36)
[2020-04-30] MEDS: buPROPion XL 150 mg T 24 H PO SCH (08:36)
[2020-04-30 09:56] LABS: A1C 5.7
--- NOTE | 2020-04-30 12:04 | Progress Notes ---
DATE: 04/30/2020 SUBJECTIVE: A 69-year-old female, currently in the hospital, noted to be still anxious, somewhat on edge, calm right now. No overt agitation or escalation of behaviors, slept about 8 hours, is well oriented, quiet, withdrawn, still depressed, sometimes demanding, labile, noted to be impulsive and unpredictable, happy with her medications. I have been making dose adjustments while she has been here. She is on Wellbutrin and Effexor and a higher dose of Seroquel 150 mg. We also transitioned her over to Xanax. Will continue inpatient monitoring. The patient remains still impulsive, unpredictable, ongoing safety concerns. Medications were reviewed. Labs reviewed. Vitals were reviewed. ASSESSMENT: A 69-year-old female with ongoing anxiety. Concerns for mostly the safety of others. Will continue dosing of Xanax p.r.n. Given recent increase of Seroquel, will continue at current dosing. JOB# [id number]
--- NOTE | 2020-04-30 13:00 | Internal Medicine Prog Note ---
Internal Medicine Subjective - Subjective Service Date: 04/30/20 Patient seen and examined:: with staff (SHE FEELS WELL) Patient is:: awake, verbal, in bed, talking Per staff patient has:: no adverse event Internal Medicine Objective - Results Recent Labs: Laboratory Last Values Triglycerides 192 mg/dL (30-150) H 04/25/20 11:20 Cholesterol 457 mg/dL (<200) H 04/25/20 11:20 LDL Cholesterol 297 mg/dL (0-129) H 04/25/20 11:20 HDL Cholesterol 67 mg/dL (>55) 04/25/20 11:20 - Physical Exam Vitals and I&O: Vital Signs Temp 97.8 F 04/29/20 20:00 Pulse 95 04/30/20 08:44 Resp 20 04/30/20 08:00 BP 125/80 04/30/20 08:44 Pulse Ox 97 04/29/20 20:00 Intake & Output 04/29/20 04/30/20 04/30/20 18:59 06:59 18:59 Intake Total 1350 120 Output Total 4 Balance 1346 120 Intake: Oral 1350 120 Output: Urine 4 Other: # Voids 1 3 # Bowel Movements 1 Active Medications: Current Medications Acetaminophen (Tylenol) 650 mg PO Q4H PRN PRN Reason: Pain (Mild 1-3) Stop: 06/22/20 02:16 Last Admin: 04/30/20 08:35 Dose: 650 mg Al Hydrox/Mg Hydrox/Simethicone (Maalox) 30 ml PO Q4HR PRN PRN Reason: GI DISTRESS Stop: 06/22/20 02:16 Alprazolam (Xanax) 0.5 mg PO Q6HR PRN; Protocol PRN Reason: Anxiety Stop: 06/28/20 15:03 Last Admin: 04/30/20 08:34 Dose: 0.5 mg Amlodipine Besylate (Norvasc) 10 mg PO DAILY [facility] Stop: 06/23/20 08:59 Last Admin: 04/30/20 08:44 Dose: 10 mg Bupropion HCl (Wellbutrin Xl) 150 mg PO DAILY [facility]; Protocol Stop: 06/28/20 08:59 Last Admin: 04/30/20 08:36 Dose: 150 mg Calcium Carbonate (Tums) 1,000 mg PO Q6HR PRN PRN Reason: indigestion Stop: 06/22/20 07:27 Last Admin: 04/30/20 08:35 Dose: 1,000 mg Docusate Sodium (Colace) 100 mg PO BID [facility] Stop: 06/22/20 08:59 Last Admin: 04/30/20 08:37 Dose: 100 mg Enoxaparin Sodium (Lovenox) 40 mg SUBQ HS [facility] Stop: 06/22/20 20:59 Last Admin: 04/29/20 20:36 Dose: 40 mg Levothyroxine Sodium (Synthroid) 0.1 mg PO QDAC [facility] Stop: 06/22/20 07:29 Last Admin: 04/30/20 06:53 Dose: 0.1 mg Lisinopril (Zestril) 10 mg PO BID [facility] Stop: 06/23/20 08:59 Last Admin: 04/30/20 08:43 Dose: 10 mg Loperamide HCl (Imodium) 4 mg PO Q6HR PRN PRN Reason: Diarrhea Stop: 06/24/20 11:46 Magnesium Hydroxide (Milk Of Magnesia) 30 ml PO HS PRN PRN Reason: Constipation Multivitamins/Vitamin C (Theragran) 1 tab PO DAILY [facility] Stop: 06/22/20 08:59 Last Admin: 04/30/20 08:36 Dose: 1 tab Nitrofurantoin Macrocrystals (Macrobid) 100 mg PO BID [facility]; Protocol Stop: 05/03/20 08:59 Last Admin: 04/30/20 08:36 Dose: 100 mg Quetiapine Fumarate 100 mg/ (Quetiapine Fumarate 50 mg) 150 mg PO HS [facility] Stop: 06/28/20 20:59 Last Admin: 04/29/20 20:36 Dose: 150 mg Venlafaxine HCl (Effexor Xr) 150 mg PO DAILY [facility]; Protocol Stop: 06/24/20 08:59 Last Admin: 04/30/20 08:37 Dose: 150 mg Zolpidem Tartrate (Ambien) 10 mg PO HS PRN PRN Reason: Insomnia Stop: 06/22/20 07:22 Last Admin: 04/29/20 20:50 Dose: 10 mg General: alert HEENT: NC/AT, PERRLA, EOMI, anicteric sclerae, throat clear Neck: Supple, No JVD, No thyromegaly, +2 carotid pulse wo bruit, No LAD Lungs: CTAB Cardiovascular: RRR, Normal S1, Normal S2, without murmur Abdomen: soft, non-tender, non-distended Extremities: clear Neurological: no change, alert Internal Medicine Assmt/Plan - Assessment Assessment: 1.HTN. 2.HYPOTHYROIDISM. 3.DJD. 4.DEPRESSION 5.DIARRHEA - Plan Plan: CONTINUE ON CURRENT MEDICATION AND DIET. Nutritional Asmnt/Malnutr-PDOC - Dietary Evaluation Malnutrition Findings (Please click <Entered> for more info): Nutritional Asmnt/Malnutrition Start: 04/24/20 14: 11 Text: Status: Complete Freq: Protocol: Document 04/24/20 14:11 KELSEY (Rec: 04/24/20 14:15 KELSEY [email or web address] [id number]) Nutritional Asmnt/Malnutrition Patient General Information Nutritional Screening Low Risk Diagnosis Psychosis Pertinent Medical Hx/Surgical Hx HTN, Hypothyroidism, Depression Subjective Information Pt is a 56-year-old female admitted on 04/22 d/t agitation . Pt is eating an estimated 100% of meals Per Meal/ Nutrition Activity Record. Dietary is currently providing an estimated 1965 kcals and 108 gm Pro, to meet 100+% kcal and 100+% Pro needs. Spoke with pt. in room today and gathered food preferences; she requested coffee with meals and stated she cannot eat salads due to not having dentures. Anthropometrics HT: 53 WT: 150 LB (68.18 kg) BMI: 26.57 (Overweight) GI/ Skin Integrity GI: WNL, Soft, Round BM: 7/1 x1 I/O: 1440/Not Noted Skin: WNL, Dryness Sam: 19 Diet Order: Cardiac Estimated Energy Needs: ( Geriatric, CBW) 6108-1055 kcals (25-30 kcals/ kg) 70-80g Pro (1.0-1.2 g/kg) 6079-3639 ml (25-30 ml/kg) Current Diet Order/ Nutrition Support Cardiac Patient / S.O Can Pertinent Medications Maalox (PRN), Norvasc, Tums, Colace, Lovenox, Synthroid, MOM (PRN), Theragran Pertinent Labs No pertinent labs at this time . Nutritional Hx/Data Height 1.6 m Height (Calculated Centimeters) 160.0 Current Weight (lbs) 68.039 kg Weight (Calculated Kilograms) 68.0 Weight (Calculated Grams) 94737.9 [place] Body Weight 115 LB (52.27 kg) % [place] Body Weight 130 Body Mass Index (BMI) 26.5 Weight Status Overweight GI Symptoms GI Symptoms None Last BM 04/23 x1 Difficult in: Chewing Cultural/Ethnic/Uatsdin Belief No pork Skin Integrity/Comment: WNL, Dryness Sam: 19 Current %PO Good (75-100%) Estimated Nutritional Goals BEE in Kcals: Using Current wt Calories/Kcals/Kg 25-30 Kcals Calculated 4074-8625 Protein: Using Current wt Protein g/k.0-1.2 Protein Calculated 70-80 Fluid: ml 9776-7671 ml (25-30 ml/kg) Nutritional Problem 1. Problem Problem No nutrition diagnosis at this time. Etiology N/A Signs/Symptoms: N/A Malnutrition Related to Morbid Obesity Malnutrition related to morbid obesity No Intervention/Recommendation Comments Continue Cardiac diet as tolerated. Expected Outcomes/Goals Expected Outcomes/Goals 1. PO intake to continue to meet >75% of estimated nutritional needs. 2. Monitor PO intake, wt, nutrition related labs, and skin integrity. 3. F/U as low risk in 7-10 days, 05/01-05/04.
[2020-04-30] MEDS: Enoxaparin 40 mg/0.4 mL 0.4mL Syr SUBQ SCH (20:21)
[2020-05-01] MEDS: Levothyroxine 0.1 Mg Tab PO SCH (06:41)
[2020-05-01] MEDS: buPROPion XL 150 mg T 24 H PO SCH (08:07)
[2020-05-01] MEDS: Multivitamin Tab PO SCH (08:07)
--- NOTE | 2020-05-01 16:29 | Progress Notes ---
DATE: 05/01/2020 SUBJECTIVE: A 69-year-old female, seems to be calmer, more cooperative, more engaged, still wanting me to increase her dosing of Effexor noting ongoing depression and anxiety. She would like to go to [facility]. No overt aggressive behaviors. She has been generally calmer per staff, sleeping well, eating well, mostly withdrawn, isolative, demanding, but staff noting that she has been more redirectable. ASSESSMENT: A 69-year-old female, calm, more cooperative. PLAN: We will increase dosing of Effexor. The patient amenable to COVID testing. We will place an order. We will continue to monitor closely. Medications were reviewed. Labs reviewed. Vitals were noted. JOB# [id number]
--- NOTE | 2020-05-01 19:28 | Internal Medicine Prog Note ---
Internal Medicine Subjective - Subjective Service Date: 05/01/20 Patient seen and examined:: without staff (SHE FEELS BETTER) Patient is:: awake, verbal, in bed, talking Per staff patient has:: no adverse event Internal Medicine Objective - Results Recent Labs: Laboratory Last Values Triglycerides 192 mg/dL (30-150) H 04/25/20 11:20 Cholesterol 457 mg/dL (<200) H 04/25/20 11:20 LDL Cholesterol 297 mg/dL (0-129) H 04/25/20 11:20 HDL Cholesterol 67 mg/dL (>55) 04/25/20 11:20 - Physical Exam Vitals and I&O: Vital Signs Temp 97.9 F 05/01/20 14:00 Pulse 73 05/01/20 16:20 Resp 20 05/01/20 14:00 BP 140/78 05/01/20 16:20 Pulse Ox 94 05/01/20 14:00 Intake & Output 05/01/20 05/01/20 05/02/20 06:59 18:59 06:59 Intake Total 240 1200 Balance 240 1200 Intake: Oral 240 1200 Other: # Voids 2 4 # Bowel Movements 0 1 Active Medications: Current Medications Acetaminophen (Tylenol) 650 mg PO Q4H PRN PRN Reason: Pain (Mild 1-3) Stop: 06/22/20 02:16 Last Admin: 04/30/20 12:40 Dose: 650 mg Al Hydrox/Mg Hydrox/Simethicone (Maalox) 30 ml PO Q4HR PRN PRN Reason: GI DISTRESS Stop: 06/22/20 02:16 Alprazolam (Xanax) 0.5 mg PO Q6HR PRN; Protocol PRN Reason: Anxiety Stop: 06/28/20 15:03 Last Admin: 05/01/20 18:37 Dose: 0.5 mg Amlodipine Besylate (Norvasc) 10 mg PO DAILY [facility] Stop: 06/23/20 08:59 Last Admin: 05/01/20 08:07 Dose: 10 mg Bupropion HCl (Wellbutrin Xl) 150 mg PO DAILY [facility]; Protocol Stop: 06/28/20 08:59 Last Admin: 05/01/20 08:07 Dose: 150 mg Calcium Carbonate (Tums) 1,000 mg PO Q6HR PRN PRN Reason: indigestion Stop: 06/22/20 07:27 Last Admin: 05/01/20 16:58 Dose: 1,000 mg Docusate Sodium (Colace) 100 mg PO BID [facility] Stop: 06/22/20 08:59 Last Admin: 05/01/20 16:20 Dose: 100 mg Enoxaparin Sodium (Lovenox) 40 mg SUBQ HS [facility] Stop: 06/22/20 20:59 Last Admin: 04/30/20 20:21 Dose: 40 mg Levothyroxine Sodium (Synthroid) 0.1 mg PO QDAC [facility] Stop: 06/22/20 07:29 Last Admin: 05/01/20 06:41 Dose: 0.1 mg Lisinopril (Zestril) 10 mg PO BID [facility] Stop: 06/23/20 08:59 Last Admin: 05/01/20 16:20 Dose: 10 mg Loperamide HCl (Imodium) 4 mg PO Q6HR PRN PRN Reason: Diarrhea Stop: 06/24/20 11:46 Magnesium Hydroxide (Milk Of Magnesia) 30 ml PO HS PRN PRN Reason: Constipation Multivitamins/Vitamin C (Theragran) 1 tab PO DAILY [facility] Stop: 06/22/20 08:59 Last Admin: 05/01/20 08:07 Dose: 1 tab Quetiapine Fumarate 100 mg/ (Quetiapine Fumarate 50 mg) 150 mg PO HS [facility] Stop: 06/28/20 20:59 Last Admin: 04/30/20 20:21 Dose: 150 mg Venlafaxine HCl (Effexor Xr) 225 mg PO DAILY [facility]; Protocol Stop: 07/01/20 08:59 Zolpidem Tartrate (Ambien) 10 mg PO HS PRN PRN Reason: Insomnia Stop: 06/22/20 07:22 Last Admin: 04/30/20 21:12 Dose: 10 mg General: alert HEENT: NC/AT, PERRLA, EOMI, anicteric sclerae, throat clear Neck: Supple, No JVD, No thyromegaly, +2 carotid pulse wo bruit, No LAD Lungs: CTAB Cardiovascular: RRR, Normal S1, Normal S2, without murmur Abdomen: soft, non-tender, non-distended Extremities: clear Neurological: no change, alert Internal Medicine Assmt/Plan - Assessment Assessment: 1.HTN. 2.HYPOTHYROIDISM. 3.DJD. 4.DEPRESSION 5.DIARRHEA - Plan Plan: CONTINUE ON CURRENT MEDICATION AND DIET. Nutritional Asmnt/Malnutr-PDOC - Dietary Evaluation Malnutrition Findings (Please click <Entered> for more info): Nutritional Asmnt/Malnutrition Start: 04/24/20 14: 11 Text: Status: Complete Freq: Protocol: Document 04/24/20 14:11 KELSEY (Rec: 04/24/20 14:15 KELSEY [id number]) Nutritional Asmnt/Malnutrition Patient General Information Nutritional Screening Low Risk Diagnosis Psychosis Pertinent Medical Hx/Surgical Hx HTN, Hypothyroidism, Depression Subjective Information Pt is a 56-year-old female admitted on 04/22 d/t agitation . Pt is eating an estimated 100% of meals Per Meal/ Nutrition Activity Record. Dietary is currently providing an estimated 1965 kcals and 108 gm Pro, to meet 100+% kcal and 100+% Pro needs. Spoke with pt. in room today and gathered food preferences; she requested coffee with meals and stated she cannot eat salads due to not having dentures. Anthropometrics HT: 53 WT: 150 LB (68.18 kg) BMI: 26.57 (Overweight) GI/ Skin Integrity GI: WNL, Soft, Round BM: 04/23 x1 I/O: 1440/Not Noted Skin: WNL, Dryness Sam: 19 Diet Order: Cardiac Estimated Energy Needs: ( Geriatric, CBW) 3972-9835 kcals (25-30 kcals/ kg) 70-80g Pro (1.0-1.2 g/kg) 9853-6446 ml (25-30 ml/kg) Current Diet Order/ Nutrition Support Cardiac Patient / S.O Can Pertinent Medications Maalox (PRN), Norvasc, Tums, Colace, Lovenox, Synthroid, MOM (PRN), Theragran Pertinent Labs No pertinent labs at this time . Nutritional Hx/Data Height 1.6 m Height (Calculated Centimeters) 160.0 Current Weight (lbs) 68.039 kg Weight (Calculated Kilograms) 68.0 Weight (Calculated Grams) 29346.9 [place] Body Weight 115 LB (52.27 kg) % [place] Body Weight 130 Body Mass Index (BMI) 26.5 Weight Status Overweight GI Symptoms GI Symptoms None Last BM 04/23 x1 Difficult in: Chewing Cultural/Ethnic/Jainism Belief No pork Skin Integrity/Comment: WNL, Dryness Sam: 19 Current %PO Good (75-100%) Estimated Nutritional Goals BEE in Kcals: Using Current wt Calories/Kcals/Kg 25-30 Kcals Calculated 6325-5776 Protein: Using Current wt Protein g/k.0-1.2 Protein Calculated 70-80 Fluid: ml 8000-8782 ml (25-30 ml/kg) Nutritional Problem 1. Problem Problem No nutrition diagnosis at this time. Etiology N/A Signs/Symptoms: N/A Malnutrition Related to Morbid Obesity Malnutrition related to morbid obesity No Intervention/Recommendation Comments Continue Cardiac diet as tolerated. Expected Outcomes/Goals Expected Outcomes/Goals 1. PO intake to continue to meet >75% of estimated nutritional needs. 2. Monitor PO intake, wt, nutrition related labs, and skin integrity. 3. F/U as low risk in 7-10 days, 05/01-05/04.
[2020-05-01] MEDS: Enoxaparin 40 mg/0.4 mL 0.4mL Syr SUBQ SCH (20:04)
[2020-05-02] MEDS: Levothyroxine 0.1 Mg Tab PO SCH (06:37)
[2020-05-02] MEDS: buPROPion XL 150 mg T 24 H PO SCH (08:17)
[2020-05-02] MEDS: Multivitamin Tab PO SCH (08:17)
--- NOTE | 2020-05-02 20:25 | Internal Medicine Prog Note ---
Internal Medicine Subjective - Subjective Service Date: 05/02/20 Patient seen and examined:: without staff (SHE IS DOING WELL) Patient is:: awake, verbal, in bed, talking Per staff patient has:: no adverse event Internal Medicine Objective - Results Recent Labs: Laboratory Last Values Triglycerides 192 mg/dL (30-150) H 04/25/20 11:20 Cholesterol 457 mg/dL (<200) H 04/25/20 11:20 LDL Cholesterol 297 mg/dL (0-129) H 04/25/20 11:20 HDL Cholesterol 67 mg/dL (>55) 04/25/20 11:20 - Physical Exam Vitals and I&O: Vital Signs Temp 97.9 F 05/02/20 14:00 Pulse 68 05/02/20 16:45 Resp 19 05/02/20 14:00 BP 124/67 05/02/20 16:45 Pulse Ox 95 05/02/20 14:00 Intake & Output 05/02/20 05/02/20 05/03/20 06:59 18:59 06:59 Intake Total 240 1000 Balance 240 1000 Intake: Oral 240 1000 Other: # Voids 2 4 # Bowel Movements 0 1 Active Medications: Current Medications Acetaminophen (Tylenol) 650 mg PO Q4H PRN PRN Reason: Pain (Mild 1-3) Stop: 06/22/20 02:16 Last Admin: 05/02/20 18:11 Dose: 650 mg Al Hydrox/Mg Hydrox/Simethicone (Maalox) 30 ml PO Q4HR PRN PRN Reason: GI DISTRESS Stop: 06/22/20 02:16 Alprazolam (Xanax) 0.5 mg PO Q6HR PRN; Protocol PRN Reason: Anxiety Stop: 06/28/20 15:03 Last Admin: 05/02/20 08:18 Dose: 0.5 mg Amlodipine Besylate (Norvasc) 10 mg PO DAILY [facility] Stop: 06/23/20 08:59 Last Admin: 05/02/20 08:17 Dose: 10 mg Bupropion HCl (Wellbutrin Xl) 150 mg PO DAILY [facility]; Protocol Stop: 06/28/20 08:59 Last Admin: 05/02/20 08:17 Dose: 150 mg Calcium Carbonate (Tums) 1,000 mg PO Q6HR PRN PRN Reason: indigestion Stop: 06/22/20 07:27 Last Admin: 05/02/20 10:53 Dose: 1,000 mg Docusate Sodium (Colace) 100 mg PO BID [facility] Stop: 06/22/20 08:59 Last Admin: 05/02/20 16:45 Dose: Not Given Enoxaparin Sodium (Lovenox) 40 mg SUBQ HS [facility] Stop: 06/22/20 20:59 Last Admin: 05/01/20 20:04 Dose: 40 mg Levothyroxine Sodium (Synthroid) 0.1 mg PO QDAC [facility] Stop: 06/22/20 07:29 Last Admin: 05/02/20 06:37 Dose: 0.1 mg Lisinopril (Zestril) 10 mg PO BID [facility] Stop: 06/23/20 08:59 Last Admin: 05/02/20 16:45 Dose: 10 mg Loperamide HCl (Imodium) 4 mg PO Q6HR PRN PRN Reason: Diarrhea Stop: 06/24/20 11:46 Magnesium Hydroxide (Milk Of Magnesia) 30 ml PO HS PRN PRN Reason: Constipation Multivitamins/Vitamin C (Theragran) 1 tab PO DAILY [facility] Stop: 06/22/20 08:59 Last Admin: 05/02/20 08:17 Dose: 1 tab Quetiapine Fumarate 100 mg/ (Quetiapine Fumarate 50 mg) 150 mg PO HS [facility] Stop: 06/28/20 20:59 Last Admin: 05/01/20 20:05 Dose: 150 mg Venlafaxine HCl (Effexor Xr) 225 mg PO DAILY [facility]; Protocol Stop: 07/01/20 08:59 Last Admin: 05/02/20 08:17 Dose: 225 mg Zolpidem Tartrate (Ambien) 10 mg PO HS PRN PRN Reason: Insomnia Stop: 06/22/20 07:22 Last Admin: 05/01/20 21:05 Dose: 10 mg General: alert HEENT: NC/AT, PERRLA, EOMI, anicteric sclerae, throat clear Neck: Supple, No JVD, No thyromegaly, +2 carotid pulse wo bruit, No LAD Lungs: CTAB Cardiovascular: RRR, Normal S1, Normal S2, without murmur Abdomen: soft, non-tender, non-distended Extremities: clear Neurological: no change, alert Internal Medicine Assmt/Plan - Assessment Assessment: 1.HTN. 2.HYPOTHYROIDISM. 3.DJD. 4.DEPRESSION 5.DIARRHEA - Plan Plan: CONTINUE ON CURRENT MEDICATION AND DIET. Nutritional Asmnt/Malnutr-PDOC - Dietary Evaluation Malnutrition Findings (Please click <Entered> for more info): Nutritional Asmnt/Malnutrition Start: 04/24/20 14: 11 Text: Status: Complete Freq: Protocol: Document 04/24/20 14:11 SEBASTIANMILLIE (Rec: 04/24/20 14:15 XAVIERSUSAN [id number]) Nutritional Asmnt/Malnutrition Patient General Information Nutritional Screening Low Risk Diagnosis Psychosis Pertinent Medical Hx/Surgical Hx HTN, Hypothyroidism, Depression Subjective Information Pt is a 56-year-old female admitted on 04/22 d/t agitation . Pt is eating an estimated 100% of meals Per Meal/ Nutrition Activity Record. Dietary is currently providing an estimated 1965 kcals and 108 gm Pro, to meet 100+% kcal and 100+% Pro needs. Spoke with pt. in room today and gathered food preferences; she requested coffee with meals and stated she cannot eat salads due to not having dentures. Anthropometrics HT: 53 WT: 150 LB (68.18 kg) BMI: 26.57 (Overweight) GI/ Skin Integrity GI: WNL, Soft, Round BM: 7/ x1 I/O: 1440/Not Noted Skin: WNL, Dryness Sam: 19 Diet Order: Cardiac Estimated Energy Needs: ( Geriatric, CBW) 1193-3151 kcals (25-30 kcals/ kg) 70-80g Pro (1.0-1.2 g/kg) 2462-4667 ml (25-30 ml/kg) Current Diet Order/ Nutrition Support Cardiac Patient / S.O Can Pertinent Medications Maalox (PRN), Norvasc, Tums, Colace, Lovenox, Synthroid, MOM (PRN), Theragran Pertinent Labs No pertinent labs at this time . Nutritional Hx/Data Height 1.6 m Height (Calculated Centimeters) 160.0 Current Weight (lbs) 68.039 kg Weight (Calculated Kilograms) 68.0 Weight (Calculated Grams) 59811.9 [place] Body Weight 115 LB (52.27 kg) % [place] Body Weight 130 Body Mass Index (BMI) 26.5 Weight Status Overweight GI Symptoms GI Symptoms None Last BM 04/23 x1 Difficult in: Chewing Cultural/Ethnic/Sabianist Belief No pork Skin Integrity/Comment: WNL, Dryness Sam: 19 Current %PO Good (75-100%) Estimated Nutritional Goals BEE in Kcals: Using Current wt Calories/Kcals/Kg 25-30 Kcals Calculated 8824-5711 Protein: Using Current wt Protein g/k.0-1.2 Protein Calculated 70-80 Fluid: ml 7373-8491 ml (25-30 ml/kg) Nutritional Problem 1. Problem Problem No nutrition diagnosis at this time. Etiology N/A Signs/Symptoms: N/A Malnutrition Related to Morbid Obesity Malnutrition related to morbid obesity No Intervention/Recommendation Comments Continue Cardiac diet as tolerated. Expected Outcomes/Goals Expected Outcomes/Goals 1. PO intake to continue to meet >75% of estimated nutritional needs. 2. Monitor PO intake, wt, nutrition related labs, and skin integrity. 3. F/U as low risk in 7-10 days, 05/01-05/04.
[2020-05-02] MEDS: Enoxaparin 40 mg/0.4 mL 0.4mL Syr SUBQ SCH (21:21)
--- NOTE | 2020-05-03 05:55 | Progress Notes ---
DATE: 05/02/2020 SUBJECTIVE: This is a 69-year-old female who remains irritable, upset, still noted to be impulsive but ____ at times. She is pleasant, calm, cooperative, somewhat labile, sometimes more demanding, other times calm. No overt behavioral disturbances. Staff noting some periods where she gets upset. Currently on a higher dose of Effexor, she is happy about that. Also on Wellbutrin and Xanax, also Seroquel which seems to be calming her down. Medications were reviewed. Labs reviewed. Vitals were reviewed. ASSESSMENT: The patient remains symptomatic, still remains impulsive, but generally calm. PLAN: We will continue to monitor. It is unclear where the patient is going to go when she leaves the hospital. We will attempt to coordinate with legal services manager regarding a safe discharge plan. She is coming from [facility]. JOB# [id number]
[2020-05-03] MEDS: Levothyroxine 0.1 Mg Tab PO SCH (06:31)
[2020-05-03] MEDS: buPROPion XL 150 mg T 24 H PO SCH (08:47)
[2020-05-03] MEDS: Multivitamin Tab PO SCH (08:48)
--- NOTE | 2020-05-03 16:25 | Progress Notes ---
DATE: SUBJECTIVE: The patient was seen, chart reviewed, and discussed with staff. The patient continues to be demanding and intrusive, but generally cooperative and redirectable. She has been compliant with her medications, denying any other side effects. PLAN: The patient continues to be unpredictable and psychotic, so that she will require continued inpatient care center treatment. We will monitor on a daily basis for response to medications and titrate the medications as needed. [facility]# [id number]
--- NOTE | 2020-05-03 20:22 | Internal Medicine Prog Note ---
Internal Medicine Subjective - Subjective Service Date: 05/03/20 Patient seen and examined:: without staff (SHE FEELS WELL) Patient is:: awake, verbal, in bed, talking Per staff patient has:: no adverse event Internal Medicine Objective - Results Recent Labs: Laboratory Last Values Triglycerides 192 mg/dL (30-150) H 04/25/20 11:20 Cholesterol 457 mg/dL (<200) H 04/25/20 11:20 LDL Cholesterol 297 mg/dL (0-129) H 04/25/20 11:20 HDL Cholesterol 67 mg/dL (>55) 04/25/20 11:20 - Physical Exam Vitals and I&O: Vital Signs Temp 97.4 F 05/03/20 14:00 Pulse 80 05/03/20 17:07 Resp 18 05/03/20 14:00 BP 122/70 05/03/20 17:07 Pulse Ox 98 05/03/20 14:00 Intake & Output 05/03/20 05/03/20 05/04/20 06:59 18:59 06:59 Intake Total 240 1200 Balance 240 1200 Intake: Oral 240 1200 Other: # Voids 2 3 # Bowel Movements 0 Stool Characteristics Soft Brown Active Medications: Current Medications Acetaminophen (Tylenol) 650 mg PO Q4H PRN PRN Reason: Pain (Mild 1-3) Stop: 06/22/20 02:16 Last Admin: 05/02/20 18:11 Dose: 650 mg Al Hydrox/Mg Hydrox/Simethicone (Maalox) 30 ml PO Q4HR PRN PRN Reason: GI DISTRESS Stop: 06/22/20 02:16 Alprazolam (Xanax) 0.5 mg PO Q6HR PRN; Protocol PRN Reason: Anxiety Stop: 06/28/20 15:03 Last Admin: 05/02/20 21:20 Dose: 0.5 mg Amlodipine Besylate (Norvasc) 10 mg PO DAILY [facility] Stop: 06/23/20 08:59 Last Admin: 05/03/20 08:43 Dose: 10 mg Bupropion HCl (Wellbutrin Xl) 150 mg PO DAILY [facility]; Protocol Stop: 06/28/20 08:59 Last Admin: 05/03/20 08:47 Dose: 150 mg Calcium Carbonate (Tums) 1,000 mg PO Q6HR PRN PRN Reason: indigestion Stop: 06/22/20 07:27 Last Admin: 05/02/20 10:53 Dose: 1,000 mg Docusate Sodium (Colace) 100 mg PO BID [facility] Stop: 06/22/20 08:59 Last Admin: 05/03/20 17:07 Dose: 100 mg Enoxaparin Sodium (Lovenox) 40 mg SUBQ HS [facility] Stop: 06/22/20 20:59 Last Admin: 05/02/20 21:21 Dose: 40 mg Levothyroxine Sodium (Synthroid) 0.1 mg PO QDAC [facility] Stop: 06/22/20 07:29 Last Admin: 05/03/20 06:31 Dose: 0.1 mg Lisinopril (Zestril) 10 mg PO BID [facility] Stop: 06/23/20 08:59 Last Admin: 05/03/20 17:07 Dose: 10 mg Loperamide HCl (Imodium) 4 mg PO Q6HR PRN PRN Reason: Diarrhea Stop: 06/24/20 11:46 Magnesium Hydroxide (Milk Of Magnesia) 30 ml PO HS PRN PRN Reason: Constipation Multivitamins/Vitamin C (Theragran) 1 tab PO DAILY [facility] Stop: 06/22/20 08:59 Last Admin: 05/03/20 08:48 Dose: 1 tab Quetiapine Fumarate 100 mg/ (Quetiapine Fumarate 50 mg) 150 mg PO HS [facility] Stop: 06/28/20 20:59 Last Admin: 05/02/20 21:14 Dose: 150 mg Venlafaxine HCl (Effexor Xr) 225 mg PO DAILY [facility]; Protocol Stop: 07/01/20 08:59 Last Admin: 05/03/20 08:45 Dose: 225 mg Zolpidem Tartrate (Ambien) 10 mg PO HS PRN PRN Reason: Insomnia Stop: 06/22/20 07:22 Last Admin: 05/02/20 21:14 Dose: 10 mg General: alert HEENT: NC/AT, PERRLA, EOMI, anicteric sclerae, throat clear Neck: Supple, No JVD, No thyromegaly, +2 carotid pulse wo bruit, No LAD Lungs: CTAB Cardiovascular: RRR, Normal S1, Normal S2, without murmur Abdomen: soft, non-tender, non-distended Extremities: clear Neurological: no change, alert Internal Medicine Assmt/Plan - Assessment Assessment: 1.HTN. 2.HYPOTHYROIDISM. 3.DJD. 4.DEPRESSION - Plan Plan: CONTINUE ON CURRENT MEDICATION AND DIET. Nutritional Asmnt/Malnutr-PDOC - Dietary Evaluation Malnutrition Findings (Please click <Entered> for more info): Nutritional Asmnt/Malnutrition Start: 04/24/20 14: 11 Text: Status: Complete Freq: Protocol: Document 04/24/20 14:11 KELSEY (Rec: 04/24/20 14:15 XAVIERSUSAN [id number]) Nutritional Asmnt/Malnutrition Patient General Information Nutritional Screening Low Risk Diagnosis Psychosis Pertinent Medical Hx/Surgical Hx HTN, Hypothyroidism, Depression Subjective Information Pt is a 56-year-old female admitted on 04/22 d/t agitation . Pt is eating an estimated 100% of meals Per Meal/ Nutrition Activity Record. Dietary is currently providing an estimated 1965 kcals and 108 gm Pro, to meet 100+% kcal and 100+% Pro needs. Spoke with pt. in room today and gathered food preferences; she requested coffee with meals and stated she cannot eat salads due to not having dentures. Anthropometrics HT: 53 WT: 150 LB (68.18 kg) BMI: 26.57 (Overweight) GI/ Skin Integrity GI: WNL, Soft, Round BM: 7/ x1 I/O: 1440/Not Noted Skin: WNL, Dryness Sam: 19 Diet Order: Cardiac Estimated Energy Needs: ( Geriatric, CBW) 6203-6663 kcals (25-30 kcals/ kg) 70-80g Pro (1.0-1.2 g/kg) 8725-8980 ml (25-30 ml/kg) Current Diet Order/ Nutrition Support Cardiac Patient / S.O Can Pertinent Medications Maalox (PRN), Norvasc, Tums, Colace, Lovenox, Synthroid, MOM (PRN), Theragran Pertinent Labs No pertinent labs at this time . Nutritional Hx/Data Height 1.6 m Height (Calculated Centimeters) 160.0 Current Weight (lbs) 68.039 kg Weight (Calculated Kilograms) 68.0 Weight (Calculated Grams) 34762.9 [place] Body Weight 115 LB (52.27 kg) % [place] Body Weight 130 Body Mass Index (BMI) 26.5 Weight Status Overweight GI Symptoms GI Symptoms None Last BM 04/23 x1 Difficult in: Chewing Cultural/Ethnic/Sikhism Belief No pork Skin Integrity/Comment: WNL, Dryness Sam: 19 Current %PO Good (75-100%) Estimated Nutritional Goals BEE in Kcals: Using Current wt Calories/Kcals/Kg 25-30 Kcals Calculated 4792-6734 Protein: Using Current wt Protein g/k.0-1.2 Protein Calculated 70-80 Fluid: ml 0952-3957 ml (25-30 ml/kg) Nutritional Problem 1. Problem Problem No nutrition diagnosis at this time. Etiology N/A Signs/Symptoms: N/A Malnutrition Related to Morbid Obesity Malnutrition related to morbid obesity No Intervention/Recommendation Comments Continue Cardiac diet as tolerated. Expected Outcomes/Goals Expected Outcomes/Goals 1. PO intake to continue to meet >75% of estimated nutritional needs. 2. Monitor PO intake, wt, nutrition related labs, and skin integrity. 3. F/U as low risk in 7-10 days, 05/01-05/04.
[2020-05-03] MEDS: Enoxaparin 40 mg/0.4 mL 0.4mL Syr SUBQ SCH (21:31)
[2020-05-04] MEDS: Levothyroxine 0.1 Mg Tab PO SCH (06:39)
[2020-05-04] MEDS: buPROPion XL 150 mg T 24 H PO SCH (08:45)
[2020-05-04] MEDS: Multivitamin Tab PO SCH (08:45)
--- NOTE | 2020-05-04 15:45 | Internal Medicine Prog Note ---
Internal Medicine Subjective - Subjective Service Date: 05/04/20 Patient seen and examined:: without staff (SHE FEELAS WELL) Patient is:: awake, verbal, in bed, talking Per staff patient has:: no adverse event Internal Medicine Objective - Results Recent Labs: Laboratory Last Values Triglycerides 192 mg/dL (30-150) H 04/25/20 11:20 Cholesterol 457 mg/dL (<200) H 04/25/20 11:20 LDL Cholesterol 297 mg/dL (0-129) H 04/25/20 11:20 HDL Cholesterol 67 mg/dL (>55) 04/25/20 11:20 Coronavirus (PCR) Negative (Negative) 05/01/20 15:20 - Physical Exam Vitals and I&O: Vital Signs Temp 97.6 F 05/04/20 14:00 Pulse 79 05/04/20 14:00 Resp 18 05/04/20 14:00 BP 126/74 05/04/20 14:00 Pulse Ox 96 05/04/20 14:00 Intake & Output 05/03/20 05/04/20 05/04/20 18:59 06:59 18:59 Intake Total 1200 240 550 Output Total 2 Balance 1200 240 548 Intake: Oral 1200 240 550 Output: Urine 2 Other: # Voids 3 2 # Bowel Movements 0 1 Stool Characteristics Soft Formed Brown Active Medications: Current Medications Acetaminophen (Tylenol) 650 mg PO Q4H PRN PRN Reason: Pain (Mild 1-3) Stop: 06/22/20 02:16 Last Admin: 05/04/20 05:27 Dose: 650 mg Al Hydrox/Mg Hydrox/Simethicone (Maalox) 30 ml PO Q4HR PRN PRN Reason: GI DISTRESS Stop: 06/22/20 02:16 Alprazolam (Xanax) 0.5 mg PO Q6HR PRN; Protocol PRN Reason: Anxiety Stop: 06/28/20 15:03 Last Admin: 05/04/20 10:25 Dose: 0.5 mg Amlodipine Besylate (Norvasc) 10 mg PO DAILY [facility] Stop: 06/23/20 08:59 Last Admin: 05/04/20 08:46 Dose: 10 mg Bupropion HCl (Wellbutrin Xl) 150 mg PO DAILY [facility]; Protocol Stop: 06/28/20 08:59 Last Admin: 05/04/20 08:45 Dose: 150 mg Calcium Carbonate (Tums) 1,000 mg PO Q6HR PRN PRN Reason: indigestion Stop: 06/22/20 07:27 Last Admin: 05/04/20 11:49 Dose: 1,000 mg Docusate Sodium (Colace) 100 mg PO BID [facility] Stop: 06/22/20 08:59 Last Admin: 05/04/20 08:45 Dose: 100 mg Enoxaparin Sodium (Lovenox) 40 mg SUBQ HS [facility] Stop: 06/22/20 20:59 Last Admin: 05/03/20 21:31 Dose: 40 mg Levothyroxine Sodium (Synthroid) 0.1 mg PO QDAC [facility] Stop: 06/22/20 07:29 Last Admin: 05/04/20 06:39 Dose: 0.1 mg Lisinopril (Zestril) 10 mg PO BID [facility] Stop: 06/23/20 08:59 Last Admin: 05/04/20 08:47 Dose: 10 mg Loperamide HCl (Imodium) 4 mg PO Q6HR PRN PRN Reason: Diarrhea Stop: 06/24/20 11:46 Magnesium Hydroxide (Milk Of Magnesia) 30 ml PO HS PRN PRN Reason: Constipation Multivitamins/Vitamin C (Theragran) 1 tab PO DAILY [facility] Stop: 06/22/20 08:59 Last Admin: 05/04/20 08:45 Dose: 1 tab Quetiapine Fumarate 100 mg/ (Quetiapine Fumarate 50 mg) 150 mg PO HS [facility] Stop: 06/28/20 20:59 Last Admin: 05/03/20 21:31 Dose: 150 mg Venlafaxine HCl (Effexor Xr) 225 mg PO DAILY [facility]; Protocol Stop: 07/01/20 08:59 Last Admin: 05/04/20 08:44 Dose: 225 mg Zolpidem Tartrate (Ambien) 10 mg PO HS PRN PRN Reason: Insomnia Stop: 06/22/20 07:22 Last Admin: 05/03/20 21:30 Dose: 10 mg General: alert HEENT: NC/AT, PERRLA, EOMI, anicteric sclerae, throat clear Neck: Supple, No JVD, No thyromegaly, +2 carotid pulse wo bruit, No LAD Lungs: CTAB Cardiovascular: RRR, Normal S1, Normal S2, without murmur Abdomen: soft, non-tender, non-distended Extremities: clear Neurological: no change, alert Internal Medicine Assmt/Plan - Assessment Assessment: 1.HTN. 2.HYPOTHYROIDISM. 3.DJD. 4.DEPRESSION - Plan Plan: CONTINUE ON CURRENT MEDICATION AND DIET. Nutritional Asmnt/Malnutr-PDOC - Dietary Evaluation Malnutrition Findings (Please click <Entered> for more info): Nutritional Asmnt/Malnutrition Start: 04/24/20 14: 11 Text: Status: Complete Freq: Protocol: Document 04/24/20 14:11 XAVIERSUSAN (Rec: 04/24/20 14:15 XAVIERSUSAN [id number] [id number]) Nutritional Asmnt/Malnutrition Patient General Information Nutritional Screening Low Risk Diagnosis Psychosis Pertinent Medical Hx/Surgical Hx HTN, Hypothyroidism, Depression Subjective Information Pt is a 56-year-old female admitted on 04/22 d/t agitation . Pt is eating an estimated 100% of meals Per Meal/ Nutrition Activity Record. Dietary is currently providing an estimated 1965 kcals and 108 gm Pro, to meet 100+% kcal and 100+% Pro needs. Spoke with pt. in room today and gathered food preferences; she requested coffee with meals and stated she cannot eat salads due to not having dentures. Anthropometrics HT: 53 WT: 150 LB (68.18 kg) BMI: 26.57 (Overweight) GI/ Skin Integrity GI: WNL, Soft, Round BM: 7/ x1 I/O: 1440/Not Noted Skin: WNL, Dryness Sam: 19 Diet Order: Cardiac Estimated Energy Needs: ( Geriatric, CBW) 1520-9024 kcals (25-30 kcals/ kg) 70-80g Pro (1.0-1.2 g/kg) 6638-5467 ml (25-30 ml/kg) Current Diet Order/ Nutrition Support Cardiac Patient / S.O Can Pertinent Medications Maalox (PRN), Norvasc, Tums, Colace, Lovenox, Synthroid, MOM (PRN), Theragran Pertinent Labs No pertinent labs at this time . Nutritional Hx/Data Height 1.6 m Height (Calculated Centimeters) 160.0 Current Weight (lbs) 68.039 kg Weight (Calculated Kilograms) 68.0 Weight (Calculated Grams) 84403.9 [place] Body Weight 115 LB (52.27 kg) % [place] Body Weight 130 Body Mass Index (BMI) 26.5 Weight Status Overweight GI Symptoms GI Symptoms None Last BM 04/23 x1 Difficult in: Chewing Cultural/Ethnic/Zoroastrianism Belief No pork Skin Integrity/Comment: WNL, Dryness Sam: 19 Current %PO Good (75-100%) Estimated Nutritional Goals BEE in Kcals: Using Current wt Calories/Kcals/Kg 25-30 Kcals Calculated 8880-9322 Protein: Using Current wt Protein g/k.0-1.2 Protein Calculated 70-80 Fluid: ml 9333-4542 ml (25-30 ml/kg) Nutritional Problem 1. Problem Problem No nutrition diagnosis at this time. Etiology N/A Signs/Symptoms: N/A Malnutrition Related to Morbid Obesity Malnutrition related to morbid obesity No Intervention/Recommendation Comments Continue Cardiac diet as tolerated. Expected Outcomes/Goals Expected Outcomes/Goals 1. PO intake to continue to meet >75% of estimated nutritional needs. 2. Monitor PO intake, wt, nutrition related labs, and skin integrity. 3. F/U as low risk in 7-10 days, 05/01-05/04.
--- NOTE | 2020-05-04 16:50 | Progress Notes ---
DATE: 05/04/2020 SUBJECTIVE: The patient was seen, chart reviewed, and discussed with staff. The patient continues to be quite irritable and loud, but generally has been redirectable, not required any p.r.n. medications. She has been compliant with medications, denying any undue side effects. PLAN: The patient continues to be irritable and unpredictable, so that she will require inpatient care physician treatment. We will monitor on a daily basis for response to medications and titrate medications as needed. JOB# [id number]
[2020-05-04] MEDS: Enoxaparin 40 mg/0.4 mL 0.4mL Syr SUBQ SCH (20:27)
[2020-05-05] MEDS: Levothyroxine 0.1 Mg Tab PO SCH (06:54)
[2020-05-05] MEDS: buPROPion XL 150 mg T 24 H PO SCH (08:23)
[2020-05-05] MEDS: Multivitamin Tab PO SCH (08:23)
--- NOTE | 2020-05-05 16:18 | Internal Medicine Prog Note ---
Internal Medicine Subjective - Subjective Service Date: 05/05/20 Patient seen and examined:: without staff (SHE FEELS WELL) Patient is:: awake, verbal, in bed, talking Per staff patient has:: no adverse event Internal Medicine Objective - Results Recent Labs: Laboratory Last Values Triglycerides 192 mg/dL (30-150) H 04/25/20 11:20 Cholesterol 457 mg/dL (<200) H 04/25/20 11:20 LDL Cholesterol 297 mg/dL (0-129) H 04/25/20 11:20 HDL Cholesterol 67 mg/dL (>55) 04/25/20 11:20 Coronavirus (PCR) Negative (Negative) 05/01/20 15:20 - Physical Exam Vitals and I&O: Vital Signs Temp 92.6 F 05/05/20 14:00 Pulse 84 05/05/20 14:00 Resp 20 05/05/20 14:00 BP 118/76 05/05/20 14:00 Pulse Ox 96 05/05/20 14:00 Intake & Output 05/04/20 05/05/20 05/05/20 18:59 06:59 18:59 Intake Total 1000 120 Output Total 2 Balance 998 120 Intake: Oral 1000 120 Output: Urine 2 Other: # Voids 3 # Bowel Movements 1 1 Stool Characteristics Formed Active Medications: Current Medications Acetaminophen (Tylenol) 650 mg PO Q4H PRN PRN Reason: Pain (Mild 1-3) Stop: 06/22/20 02:16 Last Admin: 05/05/20 14:10 Dose: 650 mg Al Hydrox/Mg Hydrox/Simethicone (Maalox) 30 ml PO Q4HR PRN PRN Reason: GI DISTRESS Stop: 06/22/20 02:16 Last Admin: 05/05/20 09:33 Dose: 30 ml Alprazolam (Xanax) 0.5 mg PO Q6HR PRN; Protocol PRN Reason: Anxiety Stop: 06/28/20 15:03 Last Admin: 05/05/20 09:25 Dose: 0.5 mg Amlodipine Besylate (Norvasc) 10 mg PO DAILY [facility] Stop: 06/23/20 08:59 Last Admin: 05/05/20 08:23 Dose: 10 mg Bupropion HCl (Wellbutrin Xl) 150 mg PO DAILY [facility]; Protocol Stop: 06/28/20 08:59 Last Admin: 05/05/20 08:23 Dose: 150 mg Calcium Carbonate (Tums) 1,000 mg PO Q6HR PRN PRN Reason: indigestion Stop: 06/22/20 07:27 Last Admin: 05/05/20 09:33 Dose: 1,000 mg Docusate Sodium (Colace) 100 mg PO BID [facility] Stop: 06/22/20 08:59 Last Admin: 05/05/20 08:23 Dose: 100 mg Enoxaparin Sodium (Lovenox) 40 mg SUBQ HS [facility] Stop: 06/22/20 20:59 Last Admin: 05/04/20 20:27 Dose: 40 mg Levothyroxine Sodium (Synthroid) 0.1 mg PO QDAC [facility] Stop: 06/22/20 07:29 Last Admin: 05/05/20 06:54 Dose: 0.1 mg Lisinopril (Zestril) 10 mg PO BID [facility] Stop: 06/23/20 08:59 Last Admin: 05/05/20 08:23 Dose: 10 mg Loperamide HCl (Imodium) 4 mg PO Q6HR PRN PRN Reason: Diarrhea Stop: 06/24/20 11:46 Magnesium Hydroxide (Milk Of Magnesia) 30 ml PO HS PRN PRN Reason: Constipation Multivitamins/Vitamin C (Theragran) 1 tab PO DAILY [facility] Stop: 06/22/20 08:59 Last Admin: 05/05/20 08:23 Dose: 1 tab Quetiapine Fumarate (Seroquel) 200 mg PO HS [facility] Stop: 07/04/20 20:59 Venlafaxine HCl (Effexor Xr) 225 mg PO DAILY [facility]; Protocol Stop: 07/01/20 08:59 Last Admin: 05/05/20 08:22 Dose: 225 mg Zolpidem Tartrate (Ambien) 10 mg PO HS PRN PRN Reason: Insomnia Stop: 06/22/20 07:22 Last Admin: 05/04/20 20:35 Dose: 10 mg General: alert HEENT: NC/AT, PERRLA, EOMI, anicteric sclerae, throat clear Neck: Supple, No JVD, No thyromegaly, +2 carotid pulse wo bruit, No LAD Lungs: CTAB Cardiovascular: RRR, Normal S1, Normal S2, without murmur Abdomen: soft, non-tender, non-distended Extremities: clear Neurological: no change, alert Internal Medicine Assmt/Plan - Assessment Assessment: 1.HTN. 2.HYPOTHYROIDISM. 3.DJD. 4.DEPRESSION - Plan Plan: CONTINUE ON CURRENT MEDICATION AND DIET. Nutritional Asmnt/Malnutr-PDOC - Dietary Evaluation Malnutrition Findings (Please click <Entered> for more info): Nutritional Asmnt/Malnutrition Start: 04/24/20 14: 11 Text: Status: Complete Freq: Protocol: Document 04/24/20 14:11 KELSEY (Rec: 04/24/20 14:15 [email or web address] [id number]) Nutritional Asmnt/Malnutrition Patient General Information Nutritional Screening Low Risk Diagnosis Psychosis Pertinent Medical Hx/Surgical Hx HTN, Hypothyroidism, Depression Subjective Information Pt is a 56-year-old female admitted on 04/22 d/t agitation . Pt is eating an estimated 100% of meals Per Meal/ Nutrition Activity Record. Dietary is currently providing an estimated 1965 kcals and 108 gm Pro, to meet 100+% kcal and 100+% Pro needs. Spoke with pt. in room today and gathered food preferences; she requested coffee with meals and stated she cannot eat salads due to not having dentures. Anthropometrics HT: 53 WT: 150 LB (68.18 kg) BMI: 26.57 (Overweight) GI/ Skin Integrity GI: WNL, Soft, Round BM: 7/1 x1 I/O: 1440/Not Noted Skin: WNL, Dryness Sam: 19 Diet Order: Cardiac Estimated Energy Needs: ( Geriatric, CBW) 1424-6958 kcals (25-30 kcals/ kg) 70-80g Pro (1.0-1.2 g/kg) 6761-4422 ml (25-30 ml/kg) Current Diet Order/ Nutrition Support Cardiac Patient / S.O Can Pertinent Medications Maalox (PRN), Norvasc, Tums, Colace, Lovenox, Synthroid, MOM (PRN), Theragran Pertinent Labs No pertinent labs at this time . Nutritional Hx/Data Height 1.6 m Height (Calculated Centimeters) 160.0 Current Weight (lbs) 68.039 kg Weight (Calculated Kilograms) 68.0 Weight (Calculated Grams) 48556.9 [place] Body Weight 115 LB (52.27 kg) % [place] Body Weight 130 Body Mass Index (BMI) 26.5 Weight Status Overweight GI Symptoms GI Symptoms None Last BM 04/23 x1 Difficult in: Chewing Cultural/Ethnic/Episcopalian Belief No pork Skin Integrity/Comment: WNL, Dryness Sam: 19 Current %PO Good (75-100%) Estimated Nutritional Goals BEE in Kcals: Using Current wt Calories/Kcals/Kg 25-30 Kcals Calculated 1400-0232 Protein: Using Current wt Protein g/k.0-1.2 Protein Calculated 70-80 Fluid: ml 9172-1494 ml (25-30 ml/kg) Nutritional Problem 1. Problem Problem No nutrition diagnosis at this time. Etiology N/A Signs/Symptoms: N/A Malnutrition Related to Morbid Obesity Malnutrition related to morbid obesity No Intervention/Recommendation Comments Continue Cardiac diet as tolerated. Expected Outcomes/Goals Expected Outcomes/Goals 1. PO intake to continue to meet >75% of estimated nutritional needs. 2. Monitor PO intake, wt, nutrition related labs, and skin integrity. 3. F/U as low risk in 7-10 days, 05/01-05/04.
[2020-05-05] MEDS: Enoxaparin 40 mg/0.4 mL 0.4mL Syr SUBQ SCH (20:54)
--- NOTE | 2020-05-05 23:22 | Progress Notes ---
DATE: 05/05/2020 SUBJECTIVE: A 69-year-old female who remains somewhat irritable, intrusive, loud, but more redirectable. We are trying to confirm placement. She can go back to [facility], but she actually is wanting to go to a facility in [place]. It is unclear whether we will be able to make that happen here. Well oriented, engaged, sometimes hard to redirect. No overt SI or HI. Seems to be generally calm, cooperative. No longer with any marked outbursts. Seems to have history of bipolar. ASSESSMENT: The patient remains unruly, still labile at times, but improvement noted. We will plan to monitor for further 1-2 days. We are trying to get some confirmation that she can go back to [facility]. I will be increasing dosing of Seroquel. JOB# [id number]
[2020-05-06] MEDS: Levothyroxine 0.1 Mg Tab PO SCH (06:48)
[2020-05-06] MEDS: buPROPion XL 150 mg T 24 H PO SCH (08:05)
[2020-05-06] MEDS: Multivitamin Tab PO SCH (08:07)
--- NOTE | 2020-05-06 14:10 | Progress Notes ---
DATE: 05/06/2020 SUBJECTIVE: A 69-year-old female in the hospital, remains somewhat irritable, intrusive, but much calmer, more cooperative, resting comfortably, still demanding at times, irritated, wants to get on [place] [facility]. This is not going to be a possibility, which I explained to her. Some anxiety. Seems to be doing well with current dosing of medications. Likely approaching her baseline. Medications were reviewed. Labs were reviewed. Vitals were reviewed. ASSESSMENT: A 69-year-old female, seems to be approaching her baseline, generally calm, more cooperative, calm on exam. Currently on dosing of Seroquel, which seems to be tolerating. PLAN: We will make one more adjustment to her medications. We will monitor for further 24 hours as to err on the side of caution, improvement noted. JOB# [id number]
[2020-05-06] MEDS: Enoxaparin 40 mg/0.4 mL 0.4mL Syr SUBQ SCH (20:26)
--- NOTE | 2020-05-06 20:29 | Internal Medicine Prog Note ---
Internal Medicine Subjective - Subjective Service Date: 05/06/20 Patient seen and examined:: without staff (SHE FEELS WELL) Patient is:: awake, verbal, in bed, talking Per staff patient has:: no adverse event Internal Medicine Objective - Results Recent Labs: Laboratory Last Values Triglycerides 192 mg/dL (30-150) H 04/25/20 11:20 Cholesterol 457 mg/dL (<200) H 04/25/20 11:20 LDL Cholesterol 297 mg/dL (0-129) H 04/25/20 11:20 HDL Cholesterol 67 mg/dL (>55) 04/25/20 11:20 Coronavirus (PCR) Negative (Negative) 05/01/20 15:20 - Physical Exam Vitals and I&O: Vital Signs Temp 98.2 F 05/06/20 15:16 Pulse 78 05/06/20 16:48 Resp 20 05/06/20 15:16 BP 132/68 05/06/20 16:48 Pulse Ox 97 05/06/20 15:16 Intake & Output 05/06/20 05/06/20 05/07/20 06:59 18:59 06:59 Intake Total 1350 1200 Balance 1350 1200 Intake: Oral 1350 1200 Other: # Voids 1 3 # Bowel Movements 0 1 Active Medications: Current Medications Acetaminophen (Tylenol) 650 mg PO Q4H PRN PRN Reason: Pain (Mild 1-3) Stop: 06/22/20 02:16 Last Admin: 05/06/20 15:20 Dose: 650 mg Al Hydrox/Mg Hydrox/Simethicone (Maalox) 30 ml PO Q4HR PRN PRN Reason: GI DISTRESS Stop: 06/22/20 02:16 Last Admin: 05/05/20 09:33 Dose: 30 ml Alprazolam (Xanax) 0.5 mg PO Q6HR PRN; Protocol PRN Reason: Anxiety Stop: 06/28/20 15:03 Last Admin: 05/06/20 15:04 Dose: 0.5 mg Amlodipine Besylate (Norvasc) 10 mg PO DAILY [facility] Stop: 06/23/20 08:59 Last Admin: 05/06/20 08:06 Dose: 10 mg Bupropion HCl (Wellbutrin Xl) 150 mg PO DAILY [facility]; Protocol Stop: 06/28/20 08:59 Last Admin: 05/06/20 08:05 Dose: 150 mg Calcium Carbonate (Tums) 1,000 mg PO Q6HR PRN PRN Reason: indigestion Stop: 06/22/20 07:27 Last Admin: 05/05/20 17:09 Dose: 1,000 mg Docusate Sodium (Colace) 100 mg PO BID [facility] Stop: 06/22/20 08:59 Last Admin: 05/06/20 16:48 Dose: 100 mg Enoxaparin Sodium (Lovenox) 40 mg SUBQ HS [facility] Stop: 06/22/20 20:59 Last Admin: 05/06/20 20:26 Dose: 40 mg Levothyroxine Sodium (Synthroid) 0.1 mg PO QDAC [facility] Stop: 06/22/20 07:29 Last Admin: 05/06/20 06:48 Dose: 0.1 mg Lisinopril (Zestril) 10 mg PO BID [facility] Stop: 06/23/20 08:59 Last Admin: 05/06/20 16:48 Dose: 10 mg Loperamide HCl (Imodium) 4 mg PO Q6HR PRN PRN Reason: Diarrhea Stop: 06/24/20 11:46 Multivitamins/Vitamin C (Theragran) 1 tab PO DAILY [facility] Stop: 06/22/20 08:59 Last Admin: 05/06/20 08:07 Dose: 1 tab Quetiapine Fumarate 200 mg/ (Quetiapine Fumarate 50 mg) 250 mg PO HS [facility] Stop: 07/05/20 20:59 Last Admin: 05/06/20 20:25 Dose: 250 mg Venlafaxine HCl (Effexor Xr) 225 mg PO DAILY [facility]; Protocol Stop: 07/01/20 08:59 Last Admin: 05/06/20 08:04 Dose: 225 mg Zolpidem Tartrate (Ambien) 10 mg PO HS PRN PRN Reason: Insomnia Stop: 06/22/20 07:22 Last Admin: 05/06/20 20:26 Dose: 10 mg General: alert HEENT: NC/AT, PERRLA, EOMI, anicteric sclerae, throat clear Neck: Supple, No JVD, No thyromegaly, +2 carotid pulse wo bruit, No LAD Lungs: CTAB Cardiovascular: RRR, Normal S1, Normal S2, without murmur Abdomen: soft, non-tender, non-distended Extremities: clear Neurological: no change, alert Internal Medicine Assmt/Plan - Assessment Assessment: 1.HTN. 2.HYPOTHYROIDISM. 3.DJD. 4.DEPRESSION - Plan Plan: CONTINUE ON CURRENT MEDICATION AND DIET. Nutritional Asmnt/Malnutr-PDOC - Dietary Evaluation Malnutrition Findings (Please click <Entered> for more info): Nutritional Asmnt/Malnutrition Start: 04/24/20 14: 11 Text: Status: Complete Freq: Protocol: Document 04/24/20 14:11 XAVIERSUSAN (Rec: 04/24/20 14:15 XAVIERSUSAN [id number]) Nutritional Asmnt/Malnutrition Patient General Information Nutritional Screening Low Risk Diagnosis Psychosis Pertinent Medical Hx/Surgical Hx HTN, Hypothyroidism, Depression Subjective Information Pt is a 56-year-old female admitted on 04/22 d/t agitation . Pt is eating an estimated 100% of meals Per Meal/ Nutrition Activity Record. Dietary is currently providing an estimated 1965 kcals and 108 gm Pro, to meet 100+% kcal and 100+% Pro needs. Spoke with pt. in room today and gathered food preferences; she requested coffee with meals and stated she cannot eat salads due to not having dentures. Anthropometrics HT: 53 WT: 150 LB (68.18 kg) BMI: 26.57 (Overweight) GI/ Skin Integrity GI: WNL, Soft, Round BM: 7/ x1 I/O: 1440/Not Noted Skin: WNL, Dryness Sam: 19 Diet Order: Cardiac Estimated Energy Needs: ( Geriatric, CBW) 1623-7593 kcals (25-30 kcals/ kg) 70-80g Pro (1.0-1.2 g/kg) 7011-3505 ml (25-30 ml/kg) Current Diet Order/ Nutrition Support Cardiac Patient / S.O Can Pertinent Medications Maalox (PRN), Norvasc, Tums, Colace, Lovenox, Synthroid, MOM (PRN), Theragran Pertinent Labs No pertinent labs at this time . Nutritional Hx/Data Height 1.6 m Height (Calculated Centimeters) 160.0 Current Weight (lbs) 68.039 kg Weight (Calculated Kilograms) 68.0 Weight (Calculated Grams) 44532.9 [place] Body Weight 115 LB (52.27 kg) % [place] Body Weight 130 Body Mass Index (BMI) 26.5 Weight Status Overweight GI Symptoms GI Symptoms None Last BM 04/23 x1 Difficult in: Chewing Cultural/Ethnic/Orthodoxy Belief No pork Skin Integrity/Comment: WNL, Dryness Sam: 19 Current %PO Good (75-100%) Estimated Nutritional Goals BEE in Kcals: Using Current wt Calories/Kcals/Kg 25-30 Kcals Calculated 9192-7864 Protein: Using Current wt Protein g/k.0-1.2 Protein Calculated 70-80 Fluid: ml 3269-5077 ml (25-30 ml/kg) Nutritional Problem 1. Problem Problem No nutrition diagnosis at this time. Etiology N/A Signs/Symptoms: N/A Malnutrition Related to Morbid Obesity Malnutrition related to morbid obesity No Intervention/Recommendation Comments Continue Cardiac diet as tolerated. Expected Outcomes/Goals Expected Outcomes/Goals 1. PO intake to continue to meet >75% of estimated nutritional needs. 2. Monitor PO intake, wt, nutrition related labs, and skin integrity. 3. F/U as low risk in 7-10 days, 05/01-05/04.
[2020-05-07] MEDS: Levothyroxine 0.1 Mg Tab PO SCH (06:53)
[2020-05-07] MEDS: buPROPion XL 150 mg T 24 H PO SCH (08:31)
[2020-05-07] MEDS: Multivitamin Tab PO SCH (08:31)
--- NOTE | 2020-05-07 20:26 | Internal Medicine Prog Note ---
Internal Medicine Subjective - Subjective Service Date: 05/07/20 Patient seen and examined:: without staff (SHE FEELS WELL) Patient is:: awake, verbal, in bed, talking Per staff patient has:: no adverse event Internal Medicine Objective - Results Recent Labs: Laboratory Last Values Triglycerides 192 mg/dL (30-150) H 04/25/20 11:20 Cholesterol 457 mg/dL (<200) H 04/25/20 11:20 LDL Cholesterol 297 mg/dL (0-129) H 04/25/20 11:20 HDL Cholesterol 67 mg/dL (>55) 04/25/20 11:20 Coronavirus (PCR) Negative (Negative) 05/01/20 15:20 - Physical Exam Vitals and I&O: Vital Signs Temp 97.8 F 05/07/20 14:00 Pulse 85 05/07/20 16:24 Resp 18 05/07/20 14:00 BP 121/84 05/07/20 16:24 Pulse Ox 95 05/07/20 14:00 Intake & Output 05/07/20 05/07/20 05/08/20 06:59 18:59 06:59 Intake Total 720 1150 Balance 720 1150 Intake: Oral 720 1150 Other: # Voids 1 1 Active Medications: Current Medications Acetaminophen (Tylenol) 650 mg PO Q4H PRN PRN Reason: Pain (Mild 1-3) Stop: 06/22/20 02:16 Last Admin: 05/06/20 15:20 Dose: 650 mg Al Hydrox/Mg Hydrox/Simethicone (Maalox) 30 ml PO Q4HR PRN PRN Reason: GI DISTRESS Stop: 06/22/20 02:16 Last Admin: 05/05/20 09:33 Dose: 30 ml Alprazolam (Xanax) 0.5 mg PO Q6HR PRN; Protocol PRN Reason: Anxiety Stop: 06/28/20 15:03 Last Admin: 05/06/20 21:48 Dose: 0.5 mg Amlodipine Besylate (Norvasc) 10 mg PO DAILY [facility] Stop: 06/23/20 08:59 Last Admin: 05/07/20 08:30 Dose: 10 mg Bupropion HCl (Wellbutrin Xl) 150 mg PO DAILY [facility]; Protocol Stop: 06/28/20 08:59 Last Admin: 05/07/20 08:31 Dose: 150 mg Calcium Carbonate (Tums) 1,000 mg PO Q6HR PRN PRN Reason: indigestion Stop: 06/22/20 07:27 Last Admin: 05/05/20 17:09 Dose: 1,000 mg Docusate Sodium (Colace) 100 mg PO BID [facility] Stop: 06/22/20 08:59 Last Admin: 05/07/20 16:24 Dose: 100 mg Enoxaparin Sodium (Lovenox) 40 mg SUBQ HS [facility] Stop: 06/22/20 20:59 Last Admin: 05/06/20 20:26 Dose: 40 mg Levothyroxine Sodium (Synthroid) 0.1 mg PO QDAC [facility] Stop: 06/22/20 07:29 Last Admin: 05/07/20 06:53 Dose: 0.1 mg Lisinopril (Zestril) 10 mg PO BID [facility] Stop: 06/23/20 08:59 Last Admin: 05/07/20 16:24 Dose: 10 mg Loperamide HCl (Imodium) 4 mg PO Q6HR PRN PRN Reason: Diarrhea Stop: 06/24/20 11:46 Multivitamins/Vitamin C (Theragran) 1 tab PO DAILY [facility] Stop: 06/22/20 08:59 Last Admin: 05/07/20 08:31 Dose: 1 tab Quetiapine Fumarate 200 mg/ (Quetiapine Fumarate 50 mg) 250 mg PO HS [facility] Stop: 07/05/20 20:59 Last Admin: 05/06/20 20:25 Dose: 250 mg Venlafaxine HCl (Effexor Xr) 225 mg PO DAILY [facility]; Protocol Stop: 07/01/20 08:59 Last Admin: 05/07/20 08:31 Dose: 225 mg Zolpidem Tartrate (Ambien) 10 mg PO HS PRN PRN Reason: Insomnia Stop: 06/22/20 07:22 Last Admin: 05/06/20 20:26 Dose: 10 mg General: alert HEENT: NC/AT, PERRLA, EOMI, anicteric sclerae, throat clear Neck: Supple, No JVD, No thyromegaly, +2 carotid pulse wo bruit, No LAD Lungs: CTAB Cardiovascular: RRR, Normal S1, Normal S2, without murmur Abdomen: soft, non-tender, non-distended Extremities: clear Neurological: no change, alert Internal Medicine Assmt/Plan - Assessment Assessment: 1.HTN. 2.HYPOTHYROIDISM. 3.DJD. 4.DEPRESSION - Plan Plan: CONTINUE ON CURRENT MEDICATION AND DIET. Nutritional Asmnt/Malnutr-PDOC - Dietary Evaluation Malnutrition Findings (Please click <Entered> for more info): Nutritional Asmnt/Malnutrition Start: 04/24/20 14: 11 Text: Status: Complete Freq: Protocol: Document 04/24/20 14:11 XAVIERSUSAN (Rec: 04/24/20 14:15 XAVIERSUSAN [id number]) Nutritional Asmnt/Malnutrition Patient General Information Nutritional Screening Low Risk Diagnosis Psychosis Pertinent Medical Hx/Surgical Hx HTN, Hypothyroidism, Depression Subjective Information Pt is a 56-year-old female admitted on 04/22 d/t agitation . Pt is eating an estimated 100% of meals Per Meal/ Nutrition Activity Record. Dietary is currently providing an estimated 1965 kcals and 108 gm Pro, to meet 100+% kcal and 100+% Pro needs. Spoke with pt. in room today and gathered food preferences; she requested coffee with meals and stated she cannot eat salads due to not having dentures. Anthropometrics HT: 53 WT: 150 LB (68.18 kg) BMI: 26.57 (Overweight) GI/ Skin Integrity GI: WNL, Soft, Round BM: 7/ x1 I/O: 1440/Not Noted Skin: WNL, Dryness Sam: 19 Diet Order: Cardiac Estimated Energy Needs: ( Geriatric, CBW) 2249-5763 kcals (25-30 kcals/ kg) 70-80g Pro (1.0-1.2 g/kg) 8155-8253 ml (25-30 ml/kg) Current Diet Order/ Nutrition Support Cardiac Patient / S.O Can Pertinent Medications Maalox (PRN), Norvasc, Tums, Colace, Lovenox, Synthroid, MOM (PRN), Theragran Pertinent Labs No pertinent labs at this time . Nutritional Hx/Data Height 1.6 m Height (Calculated Centimeters) 160.0 Current Weight (lbs) 68.039 kg Weight (Calculated Kilograms) 68.0 Weight (Calculated Grams) 44969.9 [place] Body Weight 115 LB (52.27 kg) % [place] Body Weight 130 Body Mass Index (BMI) 26.5 Weight Status Overweight GI Symptoms GI Symptoms None Last BM 04/23 x1 Difficult in: Chewing Cultural/Ethnic/Gnosticist Belief No pork Skin Integrity/Comment: WNL, Dryness Sam: 19 Current %PO Good (75-100%) Estimated Nutritional Goals BEE in Kcals: Using Current wt Calories/Kcals/Kg 25-30 Kcals Calculated 8347-2304 Protein: Using Current wt Protein g/k.0-1.2 Protein Calculated 70-80 Fluid: ml 7245-8819 ml (25-30 ml/kg) Nutritional Problem 1. Problem Problem No nutrition diagnosis at this time. Etiology N/A Signs/Symptoms: N/A Malnutrition Related to Morbid Obesity Malnutrition related to morbid obesity No Intervention/Recommendation Comments Continue Cardiac diet as tolerated. Expected Outcomes/Goals Expected Outcomes/Goals 1. PO intake to continue to meet >75% of estimated nutritional needs. 2. Monitor PO intake, wt, nutrition related labs, and skin integrity. 3. F/U as low risk in 7-10 days, 05/01-05/04.
[2020-05-07] MEDS: Enoxaparin 40 mg/0.4 mL 0.4mL Syr SUBQ SCH (20:46)
--- NOTE | 2020-05-07 22:33 | Progress Notes ---
DATE: 05/07/2020 SUBJECTIVE: This is a 69-year-old female likely approaching her baseline, still intrusive, loud, demanding at times. The patient is struggling to get placed, delays due to COVID-19. We are continuing to make efforts and she does not really have any alternative plans. She is thinking about having her sister pick her up, but "living with her as hell". Fair sleep and appetite, recent dose increase of the Seroquel, seems to be tolerating this fairly well, eating well, sleeping well, needing some redirection and prompting. Staff noting that she tends to get loud at times. PLAN: We will continue inpatient monitoring. We are stabilizing her further optimizing her treatment while we attempt to place her, again some delays due to COVID-19. JOB# [id number]
[2020-05-08] MEDS: Levothyroxine 0.1 Mg Tab PO SCH (06:52)
[2020-05-08] MEDS: buPROPion XL 150 mg T 24 H PO SCH (08:27)
[2020-05-08] MEDS: Multivitamin Tab PO SCH (08:27)
--- NOTE | 2020-05-08 13:34 | Progress Notes ---
DATE: 05/08/2020 SUBJECTIVE: This is a 69-year-old female, currently in the hospital, generally calm. Unfortunately placement is delayed because of COVID-19. She is pretty upset, irritable, sometimes intrusive. We are continuing to make efforts to be in touch with the residential in regards to her placement, but as of right now, the residential is waiting for the Health Department to get them clearance, so they can accept the patient back. The patient is ambulating fairly well, generally calm, cooperative, redirectable, still noted to be upset at times. Recent dose increase of the Seroquel, monitoring for any side effects. Medications were reviewed. Labs reviewed. Vitals were reviewed. ASSESSMENT: A 69-year-old female, generally calmer, more cooperative. PLAN: We will continue inpatient monitoring and I will continue to adjust and titrate her medications and we will monitor for any overt side effects, none noted. No EPS. No akathisia. JOB# [id number]
--- NOTE | 2020-05-08 18:42 | Internal Medicine Prog Note ---
Internal Medicine Subjective - Subjective Service Date: 05/08/20 Patient seen and examined:: without staff (SHE HAS BACK PAIN) Patient is:: awake, verbal, in bed, talking Per staff patient has:: no adverse event Internal Medicine Objective - Results Recent Labs: Laboratory Last Values Triglycerides 192 mg/dL (30-150) H 04/25/20 11:20 Cholesterol 457 mg/dL (<200) H 04/25/20 11:20 LDL Cholesterol 297 mg/dL (0-129) H 04/25/20 11:20 HDL Cholesterol 67 mg/dL (>55) 04/25/20 11:20 Coronavirus (PCR) Negative (Negative) 05/01/20 15:20 - Physical Exam Vitals and I&O: Vital Signs Temp 97.6 F 05/08/20 14:00 Pulse 86 05/08/20 14:00 Resp 18 05/08/20 14:00 BP 128/74 05/08/20 14:00 Pulse Ox 97 05/08/20 14:00 Intake & Output 05/07/20 05/08/20 05/08/20 18:59 06:59 18:59 Intake Total 7709 902 1748 Balance 3481 156 0179 Intake: Oral 9617 711 2271 Other: # Voids 1 3 4 # Bowel Movements 1 Active Medications: Current Medications Acetaminophen (Tylenol) 650 mg PO Q4H PRN PRN Reason: Pain (Mild 1-3) Stop: 06/22/20 02:16 Last Admin: 05/08/20 08:58 Dose: 650 mg Al Hydrox/Mg Hydrox/Simethicone (Maalox) 30 ml PO Q4HR PRN PRN Reason: GI DISTRESS Stop: 06/22/20 02:16 Last Admin: 05/05/20 09:33 Dose: 30 ml Alprazolam (Xanax) 0.5 mg PO Q6HR PRN; Protocol PRN Reason: Anxiety Stop: 06/28/20 15:03 Last Admin: 05/08/20 16:32 Dose: 0.5 mg Amlodipine Besylate (Norvasc) 10 mg PO DAILY [facility] Stop: 06/23/20 08:59 Last Admin: 05/08/20 08:28 Dose: Not Given Bupropion HCl (Wellbutrin Xl) 150 mg PO DAILY [facility]; Protocol Stop: 06/28/20 08:59 Last Admin: 05/08/20 08:27 Dose: 150 mg Calcium Carbonate (Tums) 1,000 mg PO Q6HR PRN PRN Reason: indigestion Stop: 06/22/20 07:27 Last Admin: 05/08/20 09:11 Dose: 1,000 mg Docusate Sodium (Colace) 100 mg PO BID [facility] Stop: 06/22/20 08:59 Last Admin: 05/08/20 16:32 Dose: 100 mg Enoxaparin Sodium (Lovenox) 40 mg SUBQ HS [facility] Stop: 06/22/20 20:59 Last Admin: 05/07/20 20:46 Dose: 40 mg Levothyroxine Sodium (Synthroid) 0.1 mg PO QDAC [facility] Stop: 06/22/20 07:29 Last Admin: 05/08/20 06:52 Dose: 0.1 mg Lisinopril (Zestril) 10 mg PO BID [facility] Stop: 06/23/20 08:59 Last Admin: 05/08/20 16:32 Dose: Not Given Loperamide HCl (Imodium) 4 mg PO Q6HR PRN PRN Reason: Diarrhea Stop: 06/24/20 11:46 Multivitamins/Vitamin C (Theragran) 1 tab PO DAILY [facility] Stop: 06/22/20 08:59 Last Admin: 05/08/20 08:27 Dose: 1 tab Quetiapine Fumarate 200 mg/ (Quetiapine Fumarate 50 mg) 250 mg PO HS [facility] Stop: 07/05/20 20:59 Last Admin: 05/07/20 20:46 Dose: 250 mg Venlafaxine HCl (Effexor Xr) 225 mg PO DAILY [facility]; Protocol Stop: 07/01/20 08:59 Last Admin: 05/08/20 08:28 Dose: 225 mg Zolpidem Tartrate (Ambien) 10 mg PO HS PRN PRN Reason: Insomnia Stop: 06/22/20 07:22 Last Admin: 05/07/20 21:31 Dose: 10 mg General: alert HEENT: NC/AT, PERRLA, EOMI, anicteric sclerae, throat clear Neck: Supple, No JVD, No thyromegaly, +2 carotid pulse wo bruit, No LAD Lungs: CTAB Cardiovascular: RRR, Normal S1, Normal S2, without murmur Abdomen: soft, non-tender, non-distended Extremities: clear Neurological: no change, alert Internal Medicine Assmt/Plan - Assessment Assessment: 1.HTN. 2.HYPOTHYROIDISM. 3.DJD. 4.DEPRESSION 5.BACK PAIN - Plan Plan: CONTINUE ON CURRENT MEDICATION AND DIET.NORCO 5/325 MG PO EVERY 6 H PRN Nutritional Asmnt/Malnutr-PDOC - Dietary Evaluation Malnutrition Findings (Please click <Entered> for more info): Nutritional Asmnt/Malnutrition Start: 04/24/20 14: 11 Text: Status: Complete Freq: Protocol: Document 04/24/20 14:11 KELSEY (Rec: 04/24/20 14:15 KELSEY [id number]) Nutritional Asmnt/Malnutrition Patient General Information Nutritional Screening Low Risk Diagnosis Psychosis Pertinent Medical Hx/Surgical Hx HTN, Hypothyroidism, Depression Subjective Information Pt is a 56-year-old female admitted on 04/22 d/t agitation . Pt is eating an estimated 100% of meals Per Meal/ Nutrition Activity Record. Dietary is currently providing an estimated 1965 kcals and 108 gm Pro, to meet 100+% kcal and 100+% Pro needs. Spoke with pt. in room today and gathered food preferences; she requested coffee with meals and stated she cannot eat salads due to not having dentures. Anthropometrics HT: 53 WT: 150 LB (68.18 kg) BMI: 26.57 (Overweight) GI/ Skin Integrity GI: WNL, Soft, Round BM: 7/ x1 I/O: 1440/Not Noted Skin: WNL, Dryness Sam: 19 Diet Order: Cardiac Estimated Energy Needs: ( Geriatric, CBW) 7324-4431 kcals (25-30 kcals/ kg) 70-80g Pro (1.0-1.2 g/kg) 0571-0160 ml (25-30 ml/kg) Current Diet Order/ Nutrition Support Cardiac Patient / S.O Can Pertinent Medications Maalox (PRN), Norvasc, Tums, Colace, Lovenox, Synthroid, MOM (PRN), Theragran Pertinent Labs No pertinent labs at this time . Nutritional Hx/Data Height 1.6 m Height (Calculated Centimeters) 160.0 Current Weight (lbs) 68.039 kg Weight (Calculated Kilograms) 68.0 Weight (Calculated Grams) 62681.9 [place] Body Weight 115 LB (52.27 kg) % [place] Body Weight 130 Body Mass Index (BMI) 26.5 Weight Status Overweight GI Symptoms GI Symptoms None Last BM 04/23 x1 Difficult in: Chewing Cultural/Ethnic/Cheondoism Belief No pork Skin Integrity/Comment: WNL, Dryness Sam: 19 Current %PO Good (75-100%) Estimated Nutritional Goals BEE in Kcals: Using Current wt Calories/Kcals/Kg 25-30 Kcals Calculated 2763-8105 Protein: Using Current wt Protein g/k.0-1.2 Protein Calculated 70-80 Fluid: ml 2380-3471 ml (25-30 ml/kg) Nutritional Problem 1. Problem Problem No nutrition diagnosis at this time. Etiology N/A Signs/Symptoms: N/A Malnutrition Related to Morbid Obesity Malnutrition related to morbid obesity No Intervention/Recommendation Comments Continue Cardiac diet as tolerated. Expected Outcomes/Goals Expected Outcomes/Goals 1. PO intake to continue to meet >75% of estimated nutritional needs. 2. Monitor PO intake, wt, nutrition related labs, and skin integrity. 3. F/U as low risk in 7-10 days, 05/01-05/04.
[2020-05-08] MEDS: Hydrocodone/APAP 5mg/325mg Tab PO PRN (19:00)
[2020-05-08] MEDS: Enoxaparin 40 mg/0.4 mL 0.4mL Syr SUBQ SCH (20:23)
[2020-05-09] MEDS: Hydrocodone/APAP 5mg/325mg Tab PO PRN ×3 (05:22→16:06)
[2020-05-09] MEDS: Levothyroxine 0.1 Mg Tab PO SCH (06:38)
[2020-05-09] MEDS: Multivitamin Tab PO SCH (08:31)
[2020-05-09] MEDS: buPROPion XL 150 mg T 24 H PO SCH (08:31)
--- NOTE | 2020-05-09 12:39 | Progress Notes ---
DATE: 05/09/2020 SUBJECTIVE: A 69-year-old female in the hospital, ongoing delays with placement due to COVID-19. The patient is still upset, looking for some alternative placement. "I am going to her sister's," but that would be held. Fair sleep and appetite, ambulating okay. Nursing notes that she is having some insomnia, utilizing Ambien, also Xanax for anxiety. Well oriented. Can be demanding, labile. Medications were reviewed. Labs reviewed. Vitals were reviewed. ASSESSMENT: A 69-year-old female, calm, sometimes labile, intrusive, irritable, anxious. PLAN: I will continue to monitor pending a safe disposition plan. Time was spent with the patient and discussion with staff, chart review. JOB# [id number]
--- NOTE | 2020-05-09 18:17 | Internal Medicine Prog Note ---
Internal Medicine Subjective - Subjective Service Date: 05/09/20 Patient seen and examined:: without staff (SHE FEELS WELL) Patient is:: awake, verbal, in bed, talking Per staff patient has:: no adverse event Internal Medicine Objective - Results Recent Labs: Laboratory Last Values Triglycerides 192 mg/dL (30-150) H 04/25/20 11:20 Cholesterol 457 mg/dL (<200) H 04/25/20 11:20 LDL Cholesterol 297 mg/dL (0-129) H 04/25/20 11:20 HDL Cholesterol 67 mg/dL (>55) 04/25/20 11:20 Coronavirus (PCR) Negative (Negative) 05/01/20 15:20 - Physical Exam Vitals and I&O: Vital Signs Temp 97.0 F 05/09/20 14:00 Pulse 88 05/09/20 16:06 Resp 20 05/09/20 14:00 BP 130/77 05/09/20 16:06 Pulse Ox 96 05/09/20 14:00 Intake & Output 05/08/20 05/09/20 05/09/20 18:59 06:59 18:59 Intake Total 2691 058 2061 Balance 1343 284 9284 Intake: Oral 3915 064 4587 Other 460 Other: # Voids 4 2 4 # Bowel Movements 1 0 Active Medications: Current Medications Acetaminophen (Tylenol) 650 mg PO Q4H PRN PRN Reason: Pain (Mild 1-3) Stop: 06/22/20 02:16 Last Admin: 05/08/20 08:58 Dose: 650 mg Hydrocodone Bitart/Acetaminophen ([place] 5mg/325mg) 1 tab PO Q6H PRN PRN Reason: Pain (Severe 7-10) Stop: 07/07/20 18:38 Last Admin: 05/09/20 16:06 Dose: 1 tab Al Hydrox/Mg Hydrox/Simethicone (Maalox) 30 ml PO Q4HR PRN PRN Reason: GI DISTRESS Stop: 06/22/20 02:16 Last Admin: 05/05/20 09:33 Dose: 30 ml Alprazolam (Xanax) 0.5 mg PO Q6HR PRN; Protocol PRN Reason: Anxiety Stop: 06/28/20 15:03 Last Admin: 05/09/20 08:31 Dose: 0.5 mg Amlodipine Besylate (Norvasc) 10 mg PO DAILY [facility] Stop: 06/23/20 08:59 Last Admin: 05/09/20 08:32 Dose: 10 mg Bupropion HCl (Wellbutrin Xl) 150 mg PO DAILY [facility]; Protocol Stop: 06/28/20 08:59 Last Admin: 05/09/20 08:31 Dose: 150 mg Calcium Carbonate (Tums) 1,000 mg PO Q6HR PRN PRN Reason: indigestion Stop: 06/22/20 07:27 Last Admin: 05/09/20 11:03 Dose: 1,000 mg Docusate Sodium (Colace) 100 mg PO BID [facility] Stop: 06/22/20 08:59 Last Admin: 05/09/20 16:06 Dose: 100 mg Enoxaparin Sodium (Lovenox) 40 mg SUBQ HS [facility] Stop: 06/22/20 20:59 Last Admin: 05/08/20 20:23 Dose: 40 mg Levothyroxine Sodium (Synthroid) 0.1 mg PO QDAC [facility] Stop: 06/22/20 07:29 Last Admin: 05/09/20 06:38 Dose: 0.1 mg Lisinopril (Zestril) 10 mg PO BID [facility] Stop: 06/23/20 08:59 Last Admin: 05/09/20 16:06 Dose: 10 mg Loperamide HCl (Imodium) 4 mg PO Q6HR PRN PRN Reason: Diarrhea Stop: 06/24/20 11:46 Multivitamins/Vitamin C (Theragran) 1 tab PO DAILY [facility] Stop: 06/22/20 08:59 Last Admin: 05/09/20 08:31 Dose: 1 tab Quetiapine Fumarate 200 mg/ (Quetiapine Fumarate 50 mg) 250 mg PO HS [facility] Stop: 07/05/20 20:59 Last Admin: 05/08/20 20:23 Dose: 250 mg Venlafaxine HCl (Effexor Xr) 225 mg PO DAILY [facility]; Protocol Stop: 07/01/20 08:59 Last Admin: 05/09/20 08:31 Dose: 225 mg Zolpidem Tartrate (Ambien) 10 mg PO HS PRN PRN Reason: Insomnia Stop: 06/22/20 07:22 Last Admin: 05/08/20 20:43 Dose: 10 mg General: alert HEENT: NC/AT, PERRLA, EOMI, anicteric sclerae, throat clear Neck: Supple, No JVD, No thyromegaly, +2 carotid pulse wo bruit, No LAD Lungs: CTAB Cardiovascular: RRR, Normal S1, Normal S2, without murmur Abdomen: soft, non-tender, non-distended Extremities: clear Neurological: no change, alert Internal Medicine Assmt/Plan - Assessment Assessment: 1.HTN. 2.HYPOTHYROIDISM. 3.DJD. 4.DEPRESSION 5.BACK PAIN - Plan Plan: CONTINUE ON CURRENT MEDICATION AND DIET. Nutritional Asmnt/Malnutr-PDOC - Dietary Evaluation Malnutrition Findings (Please click <Entered> for more info): Nutritional Asmnt/Malnutrition Start: 04/24/20 14: 11 Text: Status: Complete Freq: Protocol: Document 04/24/20 14:11 KELSEY (Rec: 04/24/20 14:15 KELSEY [id number]) Nutritional Asmnt/Malnutrition Patient General Information Nutritional Screening Low Risk Diagnosis Psychosis Pertinent Medical Hx/Surgical Hx HTN, Hypothyroidism, Depression Subjective Information Pt is a 56-year-old female admitted on 04/22 d/t agitation . Pt is eating an estimated 100% of meals Per Meal/ Nutrition Activity Record. Dietary is currently providing an estimated 1965 kcals and 108 gm Pro, to meet 100+% kcal and 100+% Pro needs. Spoke with pt. in room today and gathered food preferences; she requested coffee with meals and stated she cannot eat salads due to not having dentures. Anthropometrics HT: 53 WT: 150 LB (68.18 kg) BMI: 26.57 (Overweight) GI/ Skin Integrity GI: WNL, Soft, Round BM: 7/ x1 I/O: 1440/Not Noted Skin: WNL, Dryness Sam: 19 Diet Order: Cardiac Estimated Energy Needs: ( Geriatric, CBW) 7489-8311 kcals (25-30 kcals/ kg) 70-80g Pro (1.0-1.2 g/kg) 0697-9436 ml (25-30 ml/kg) Current Diet Order/ Nutrition Support Cardiac Patient / S.O Can Pertinent Medications Maalox (PRN), Norvasc, Tums, Colace, Lovenox, Synthroid, MOM (PRN), Theragran Pertinent Labs No pertinent labs at this time . Nutritional Hx/Data Height 1.6 m Height (Calculated Centimeters) 160.0 Current Weight (lbs) 68.039 kg Weight (Calculated Kilograms) 68.0 Weight (Calculated Grams) 73848.9 [place] Body Weight 115 LB (52.27 kg) % [place] Body Weight 130 Body Mass Index (BMI) 26.5 Weight Status Overweight GI Symptoms GI Symptoms None Last BM 04/23 x1 Difficult in: Chewing Cultural/Ethnic/Yazidi Belief No pork Skin Integrity/Comment: WNL, Dryness Sam: 19 Current %PO Good (75-100%) Estimated Nutritional Goals BEE in Kcals: Using Current wt Calories/Kcals/Kg 25-30 Kcals Calculated 8659-3887 Protein: Using Current wt Protein g/k.0-1.2 Protein Calculated 70-80 Fluid: ml 4686-8008 ml (25-30 ml/kg) Nutritional Problem 1. Problem Problem No nutrition diagnosis at this time. Etiology N/A Signs/Symptoms: N/A Malnutrition Related to Morbid Obesity Malnutrition related to morbid obesity No Intervention/Recommendation Comments Continue Cardiac diet as tolerated. Expected Outcomes/Goals Expected Outcomes/Goals 1. PO intake to continue to meet >75% of estimated nutritional needs. 2. Monitor PO intake, wt, nutrition related labs, and skin integrity. 3. F/U as low risk in 7-10 days, 05/01-05/04.
[2020-05-09] MEDS: Enoxaparin 40 mg/0.4 mL 0.4mL Syr SUBQ SCH (20:27)
[2020-05-10] MEDS: Levothyroxine 0.1 Mg Tab PO SCH (06:36)
[2020-05-10] MEDS: Hydrocodone/APAP 5mg/325mg Tab PO PRN ×3 (07:10→18:39)
--- NOTE | 2020-05-10 07:21 | Progress Notes ---
DATE: 05/10/2020 SUBJECTIVE: The patient slept comfortably in bed. We are trying to get her to a lower level of care. COVID-19 is creating significant delays and obstacles. The [place] seems to [place] involved in the shelter she was supposed to go to. They cannot accept her right now, fairly oriented, can be demanding, labile, sometimes upset, yells but otherwise redirectable. Medications were reviewed. Labs were reviewed. Vitals were reviewed. The patient generally calm on exam. PLAN: We will continue to monitor. The patient is somewhat impatient and she wants to leave, frustrated about long length of stay. Tolerant of medications, treatment and tolerant of recent dose increase of Seroquel. Resting more comfortably. JOB# [id number]
[2020-05-10] MEDS: Multivitamin Tab PO SCH (08:41)
[2020-05-10] MEDS: buPROPion XL 150 mg T 24 H PO SCH (08:41)
--- NOTE | 2020-05-10 18:11 | General Progress Note ---
Subjective - Review of Systems Service Date: 05/10/20 Subjective: resting comfortably no distress Objective - Results Recent Labs: Laboratory Last Values Triglycerides 192 mg/dL (30-150) H 04/25/20 11:20 Cholesterol 457 mg/dL (<200) H 04/25/20 11:20 LDL Cholesterol 297 mg/dL (0-129) H 04/25/20 11:20 HDL Cholesterol 67 mg/dL (>55) 04/25/20 11:20 Coronavirus (PCR) Negative (Negative) 05/01/20 15:20 - Physical Exam Vitals and I&O: Vital Signs Temp 97.9 F 05/10/20 14:00 Pulse 78 05/10/20 17:48 Resp 20 05/10/20 14:00 BP 127/61 05/10/20 17:48 Pulse Ox 98 05/10/20 14:00 Intake & Output 05/09/20 05/10/20 05/10/20 18:59 06:59 18:59 Intake Total 1540 480 Balance 1540 480 Intake: Oral 1080 480 Other 460 Other: # Voids 4 1 # Bowel Movements 0 Active Medications: Current Medications Acetaminophen (Tylenol) 650 mg PO Q4H PRN PRN Reason: Pain (Mild 1-3) Stop: 06/22/20 02:16 Last Admin: 05/08/20 08:58 Dose: 650 mg Hydrocodone Bitart/Acetaminophen ([place] 5mg/325mg) 1 tab PO Q6H PRN PRN Reason: Pain (Severe 7-10) Stop: 07/07/20 18:38 Last Admin: 05/10/20 13:08 Dose: 1 tab Al Hydrox/Mg Hydrox/Simethicone (Maalox) 30 ml PO Q4HR PRN PRN Reason: GI DISTRESS Stop: 06/22/20 02:16 Last Admin: 05/05/20 09:33 Dose: 30 ml Alprazolam (Xanax) 0.5 mg PO Q6HR PRN; Protocol PRN Reason: Anxiety Stop: 06/28/20 15:03 Last Admin: 05/10/20 08:50 Dose: 0.5 mg Amlodipine Besylate (Norvasc) 10 mg PO DAILY [facility] Stop: 06/23/20 08:59 Last Admin: 05/10/20 08:46 Dose: 10 mg Bupropion HCl (Wellbutrin Xl) 150 mg PO DAILY [facility]; Protocol Stop: 06/28/20 08:59 Last Admin: 05/10/20 08:41 Dose: 150 mg Calcium Carbonate (Tums) 1,000 mg PO Q6HR PRN PRN Reason: indigestion Stop: 06/22/20 07:27 Last Admin: 05/09/20 11:03 Dose: 1,000 mg Docusate Sodium (Colace) 100 mg PO BID [facility] Stop: 06/22/20 08:59 Last Admin: 05/10/20 17:53 Dose: 100 mg Enoxaparin Sodium (Lovenox) 40 mg SUBQ HS [facility] Stop: 06/22/20 20:59 Last Admin: 05/09/20 20:27 Dose: 40 mg Levothyroxine Sodium (Synthroid) 0.1 mg PO QDAC [facility] Stop: 06/22/20 07:29 Last Admin: 05/10/20 06:36 Dose: 0.1 mg Lisinopril (Zestril) 10 mg PO BID [facility] Stop: 06/23/20 08:59 Last Admin: 05/10/20 17:48 Dose: 10 mg Loperamide HCl (Imodium) 4 mg PO Q6HR PRN PRN Reason: Diarrhea Stop: 06/24/20 11:46 Multivitamins/Vitamin C (Theragran) 1 tab PO DAILY [facility] Stop: 06/22/20 08:59 Last Admin: 05/10/20 08:41 Dose: 1 tab Quetiapine Fumarate 200 mg/ (Quetiapine Fumarate 50 mg) 250 mg PO HS [facility] Stop: 07/05/20 20:59 Last Admin: 05/09/20 20:27 Dose: 250 mg Venlafaxine HCl (Effexor Xr) 225 mg PO DAILY [facility]; Protocol Stop: 07/01/20 08:59 Last Admin: 05/10/20 08:40 Dose: 225 mg Zolpidem Tartrate (Ambien) 10 mg PO HS PRN PRN Reason: Insomnia Stop: 06/22/20 07:22 Last Admin: 05/09/20 21:27 Dose: 10 mg General: No acute distress HEENT: PERRLA Neck: Supple, JVD Cardiovascular: Regular rate, Normal S1, Normal S2 Lungs: Clear to auscultation Abdomen: Bowel sounds, Soft Assessment/Plan - Assessment Assessment: 1.HTN. 2.HYPOTHYROIDISM. 3.DJD. 4.DEPRESSION 5.DIARRHEA - Plan Plan: continue current treatment Nutritional Asmnt/Malnutr-PDOC - Dietary Evaluation Malnutrition Findings (Please click <Entered> for more info): Nutritional Asmnt/Malnutrition Start: 04/24/20 14: 11 Text: Status: Complete Freq: Protocol: Document 04/24/20 14:11 KELSEY (Rec: 04/24/20 14:15 KELSEY [id number]) Nutritional Asmnt/Malnutrition Patient General Information Nutritional Screening Low Risk Diagnosis Psychosis Pertinent Medical Hx/Surgical Hx HTN, Hypothyroidism, Depression Subjective Information Pt is a 56-year-old female admitted on 04/22 d/t agitation . Pt is eating an estimated 100% of meals Per Meal/ Nutrition Activity Record. Dietary is currently providing an estimated 1965 kcals and 108 gm Pro, to meet 100+% kcal and 100+% Pro needs. Spoke with pt. in room today and gathered food preferences; she requested coffee with meals and stated she cannot eat salads due to not having dentures. Anthropometrics HT: 53 WT: 150 LB (68.18 kg) BMI: 26.57 (Overweight) GI/ Skin Integrity GI: WNL, Soft, Round BM: 04/23 x1 I/O: 1440/Not Noted Skin: WNL, Dryness Sam: 19 Diet Order: Cardiac Estimated Energy Needs: ( Geriatric, CBW) 4270-8362 kcals (25-30 kcals/ kg) 70-80g Pro (1.0-1.2 g/kg) 3808-1962 ml (25-30 ml/kg) Current Diet Order/ Nutrition Support Cardiac Patient / S.O Can Pertinent Medications Maalox (PRN), Norvasc, Tums, Colace, Lovenox, Synthroid, MOM (PRN), Theragran Pertinent Labs No pertinent labs at this time . Nutritional Hx/Data Height 1.6 m Height (Calculated Centimeters) 160.0 Current Weight (lbs) 68.039 kg Weight (Calculated Kilograms) 68.0 Weight (Calculated Grams) 00067.9 [place] Body Weight 115 LB (52.27 kg) % [place] Body Weight 130 Body Mass Index (BMI) 26.5 Weight Status Overweight GI Symptoms GI Symptoms None Last BM 04/23 x1 Difficult in: Chewing Cultural/Ethnic/Pentecostal Belief No pork Skin Integrity/Comment: WNL, Dryness Sam: 19 Current %PO Good (75-100%) Estimated Nutritional Goals BEE in Kcals: Using Current wt Calories/Kcals/Kg 25-30 Kcals Calculated 3273-7885 Protein: Using Current wt Protein g/k.0-1.2 Protein Calculated 70-80 Fluid: ml 2014-8963 ml (25-30 ml/kg) Nutritional Problem 1. Problem Problem No nutrition diagnosis at this time. Etiology N/A Signs/Symptoms: N/A Malnutrition Related to Morbid Obesity Malnutrition related to morbid obesity No Intervention/Recommendation Comments Continue Cardiac diet as tolerated. Expected Outcomes/Goals Expected Outcomes/Goals 1. PO intake to continue to meet >75% of estimated nutritional needs. 2. Monitor PO intake, wt, nutrition related labs, and skin integrity. 3. F/U as low risk in 7-10 days, 05/01-05/04.
[2020-05-10] MEDS: Enoxaparin 40 mg/0.4 mL 0.4mL Syr SUBQ SCH (21:28)
[2020-05-11] MEDS: Hydrocodone/APAP 5mg/325mg Tab PO PRN ×4 (01:53→21:33)
[2020-05-11] MEDS: Levothyroxine 0.1 Mg Tab PO SCH (06:33)
--- NOTE | 2020-05-11 07:25 | Progress Notes ---
DATE: 05/11/2020 SUBJECTIVE: A 69-year-old female, currently in the hospital, seems to be calm, generally more cooperative, sometimes irritable, upset, demanding, but not really causing any problems. We are pending a safe discharge plan. She signed voluntarily, well oriented, directable, restless at times, withdrawn, preoccupied, labile. I go to talk to her today, she asks me to come back later, easily agitated and irritated; otherwise, redirectable. We are trying to get her back to the long term, but due to COVID, we are having some difficulty. Medications were reviewed. Labs were reviewed. Vitals were reviewed. ASSESSMENT: A 69-year-old female likely approaching her baseline, calm, doing well with current dosing of Seroquel. Sleeping better. Generally calmer, no outburst. PLAN: We will continue to monitor alongside of primary medical team. JOB# [id number]
[2020-05-11] MEDS: buPROPion XL 150 mg T 24 H PO SCH (09:02)
[2020-05-11] MEDS: Multivitamin Tab PO SCH (09:03)
--- NOTE | 2020-05-11 17:17 | General Progress Note ---
Subjective - Review of Systems Service Date: 05/11/20 Subjective: resting comfortably no distress Objective - Results Recent Labs: Laboratory Last Values Triglycerides 192 mg/dL (30-150) H 04/25/20 11:20 Cholesterol 457 mg/dL (<200) H 04/25/20 11:20 LDL Cholesterol 297 mg/dL (0-129) H 04/25/20 11:20 HDL Cholesterol 67 mg/dL (>55) 04/25/20 11:20 Coronavirus (PCR) Negative (Negative) 05/01/20 15:20 - Physical Exam Vitals and I&O: Vital Signs Temp 98.6 F 05/11/20 14:29 Pulse 76 05/11/20 16:11 Resp 20 05/11/20 14:29 BP 138/82 05/11/20 16:11 Pulse Ox 97 05/11/20 14:29 Intake & Output 05/10/20 05/11/20 05/11/20 18:59 06:59 18:59 Intake Total 1000 660 Balance 1000 660 Intake: Oral 1000 660 Other: # Voids 4 2 # Bowel Movements 1 0 Active Medications: Current Medications Acetaminophen (Tylenol) 650 mg PO Q4H PRN PRN Reason: Pain (Mild 1-3) Stop: 06/22/20 02:16 Last Admin: 05/08/20 08:58 Dose: 650 mg Hydrocodone Bitart/Acetaminophen ([place] 5mg/325mg) 1 tab PO Q6H PRN PRN Reason: Pain (Severe 7-10) Stop: 07/07/20 18:38 Last Admin: 05/11/20 15:09 Dose: 1 tab Al Hydrox/Mg Hydrox/Simethicone (Maalox) 30 ml PO Q4HR PRN PRN Reason: GI DISTRESS Stop: 06/22/20 02:16 Last Admin: 05/05/20 09:33 Dose: 30 ml Alprazolam (Xanax) 0.5 mg PO Q6HR PRN; Protocol PRN Reason: Anxiety Stop: 06/28/20 15:03 Last Admin: 05/10/20 22:09 Dose: 0.5 mg Amlodipine Besylate (Norvasc) 10 mg PO DAILY [facility] Stop: 06/23/20 08:59 Last Admin: 05/11/20 09:05 Dose: 10 mg Bupropion HCl (Wellbutrin Xl) 150 mg PO DAILY [facility]; Protocol Stop: 06/28/20 08:59 Last Admin: 05/11/20 09:02 Dose: 150 mg Calcium Carbonate (Tums) 1,000 mg PO Q6HR PRN PRN Reason: indigestion Stop: 06/22/20 07:27 Last Admin: 05/09/20 11:03 Dose: 1,000 mg Docusate Sodium (Colace) 100 mg PO BID [facility] Stop: 06/22/20 08:59 Last Admin: 05/11/20 16:10 Dose: 100 mg Enoxaparin Sodium (Lovenox) 40 mg SUBQ HS [facility] Stop: 06/22/20 20:59 Last Admin: 05/10/20 21:28 Dose: 40 mg Levothyroxine Sodium (Synthroid) 0.1 mg PO QDAC [facility] Stop: 06/22/20 07:29 Last Admin: 05/11/20 06:33 Dose: 0.1 mg Lisinopril (Zestril) 10 mg PO BID [facility] Stop: 06/23/20 08:59 Last Admin: 05/11/20 16:11 Dose: 10 mg Loperamide HCl (Imodium) 4 mg PO Q6HR PRN PRN Reason: Diarrhea Stop: 06/24/20 11:46 Multivitamins/Vitamin C (Theragran) 1 tab PO DAILY [facility] Stop: 06/22/20 08:59 Last Admin: 05/11/20 09:03 Dose: 1 tab Quetiapine Fumarate 200 mg/ (Quetiapine Fumarate 50 mg) 250 mg PO HS [facility] Stop: 07/05/20 20:59 Last Admin: 05/10/20 21:29 Dose: 250 mg Venlafaxine HCl (Effexor Xr) 225 mg PO DAILY [facility]; Protocol Stop: 07/01/20 08:59 Last Admin: 05/11/20 09:03 Dose: 225 mg Zolpidem Tartrate (Ambien) 10 mg PO HS PRN PRN Reason: Insomnia Stop: 06/22/20 07:22 Last Admin: 05/10/20 21:29 Dose: 10 mg General: No acute distress HEENT: PERRLA Neck: Supple, JVD Cardiovascular: Regular rate, Normal S1, Normal S2 Lungs: Clear to auscultation Abdomen: Bowel sounds, Soft Assessment/Plan - Assessment Assessment: 1.HTN. 2.HYPOTHYROIDISM. 3.DJD. 4.DEPRESSION 5.DIARRHEA - Plan Plan: continue current treatment Nutritional Asmnt/Malnutr-PDOC - Dietary Evaluation Malnutrition Findings (Please click <Entered> for more info): Nutritional Asmnt/Malnutrition Start: 04/24/20 14: 11 Text: Status: Complete Freq: Protocol: Document 04/24/20 14:11 KELSEY (Rec: 04/24/20 14:15 KELSEY [id number]) Nutritional Asmnt/Malnutrition Patient General Information Nutritional Screening Low Risk Diagnosis Psychosis Pertinent Medical Hx/Surgical Hx HTN, Hypothyroidism, Depression Subjective Information Pt is a 56-year-old female admitted on 04/22 d/t agitation . Pt is eating an estimated 100% of meals Per Meal/ Nutrition Activity Record. Dietary is currently providing an estimated 1965 kcals and 108 gm Pro, to meet 100+% kcal and 100+% Pro needs. Spoke with pt. in room today and gathered food preferences; she requested coffee with meals and stated she cannot eat salads due to not having dentures. Anthropometrics HT: 53 WT: 150 LB (68.18 kg) BMI: 26.57 (Overweight) GI/ Skin Integrity GI: WNL, Soft, Round BM: 04/23 x1 I/O: 1440/Not Noted Skin: WNL, Dryness Sam: 19 Diet Order: Cardiac Estimated Energy Needs: ( Geriatric, CBW) 2438-9878 kcals (25-30 kcals/ kg) 70-80g Pro (1.0-1.2 g/kg) 5302-1168 ml (25-30 ml/kg) Current Diet Order/ Nutrition Support Cardiac Patient / S.O Can Pertinent Medications Maalox (PRN), Norvasc, Tums, Colace, Lovenox, Synthroid, MOM (PRN), Theragran Pertinent Labs No pertinent labs at this time . Nutritional Hx/Data Height 1.6 m Height (Calculated Centimeters) 160.0 Current Weight (lbs) 68.039 kg Weight (Calculated Kilograms) 68.0 Weight (Calculated Grams) 14687.9 [place] Body Weight 115 LB (52.27 kg) % [place] Body Weight 130 Body Mass Index (BMI) 26.5 Weight Status Overweight GI Symptoms GI Symptoms None Last BM 7/1 x1 Difficult in: Chewing Cultural/Ethnic/Amish Belief No pork Skin Integrity/Comment: WNL, Dryness Sam: 19 Current %PO Good (75-100%) Estimated Nutritional Goals BEE in Kcals: Using Current wt Calories/Kcals/Kg 25-30 Kcals Calculated 7633-3179 Protein: Using Current wt Protein g/k.0-1.2 Protein Calculated 70-80 Fluid: ml 3615-7241 ml (25-30 ml/kg) Nutritional Problem 1. Problem Problem No nutrition diagnosis at this time. Etiology N/A Signs/Symptoms: N/A Malnutrition Related to Morbid Obesity Malnutrition related to morbid obesity No Intervention/Recommendation Comments Continue Cardiac diet as tolerated. Expected Outcomes/Goals Expected Outcomes/Goals 1. PO intake to continue to meet >75% of estimated nutritional needs. 2. Monitor PO intake, wt, nutrition related labs, and skin integrity. 3. F/U as low risk in 7-10 days, 05/01-05/04.
[2020-05-11] MEDS: Enoxaparin 40 mg/0.4 mL 0.4mL Syr SUBQ SCH (20:25)
[2020-05-12] MEDS: Levothyroxine 0.1 Mg Tab PO SCH (06:33)
[2020-05-12] MEDS: Hydrocodone/APAP 5mg/325mg Tab PO PRN ×3 (07:39→19:49)
[2020-05-12] MEDS: Multivitamin Tab PO SCH (08:56)
[2020-05-12] MEDS: buPROPion XL 150 mg T 24 H PO SCH (08:56)
--- NOTE | 2020-05-12 16:56 | Internal Medicine Prog Note ---
Internal Medicine Subjective - Subjective Patient is:: awake, verbal, in bed, talking Per staff patient has:: no adverse event Internal Medicine Objective - Results Recent Labs: Laboratory Last Values Triglycerides 192 mg/dL (30-150) H 04/25/20 11:20 Cholesterol 457 mg/dL (<200) H 04/25/20 11:20 LDL Cholesterol 297 mg/dL (0-129) H 04/25/20 11:20 HDL Cholesterol 67 mg/dL (>55) 04/25/20 11:20 Coronavirus (PCR) Negative (Negative) 05/01/20 15:20 - Physical Exam Vitals and I&O: Vital Signs Temp 97.3 F 05/12/20 06:16 Pulse 77 05/12/20 16:41 Resp 18 05/12/20 07:46 BP 118/63 05/12/20 16:41 Pulse Ox 92 05/12/20 06:16 Intake & Output 05/11/20 05/12/20 05/12/20 18:59 06:59 18:59 Intake Total 1200 660 Balance 1200 660 Intake: Oral 1200 660 Other: # Voids 4 2 # Bowel Movements 1 0 Stool Characteristics Soft Formed Brown Active Medications: Current Medications Acetaminophen (Tylenol) 650 mg PO Q4H PRN PRN Reason: Pain (Mild 1-3) Stop: 06/22/20 02:16 Last Admin: 05/08/20 08:58 Dose: 650 mg Hydrocodone Bitart/Acetaminophen ([place] 5mg/325mg) 1 tab PO Q6H PRN PRN Reason: Pain (Severe 7-10) Stop: 07/07/20 18:38 Last Admin: 05/12/20 13:32 Dose: 1 tab Al Hydrox/Mg Hydrox/Simethicone (Maalox) 30 ml PO Q4HR PRN PRN Reason: GI DISTRESS Stop: 06/22/20 02:16 Last Admin: 05/05/20 09:33 Dose: 30 ml Alprazolam (Xanax) 0.5 mg PO Q6HR PRN; Protocol PRN Reason: Anxiety Stop: 06/28/20 15:03 Last Admin: 05/11/20 17:18 Dose: 0.5 mg Amlodipine Besylate (Norvasc) 10 mg PO DAILY [facility] Stop: 06/23/20 08:59 Last Admin: 05/12/20 08:55 Dose: 10 mg Bupropion HCl (Wellbutrin Xl) 150 mg PO DAILY [facility]; Protocol Stop: 06/28/20 08:59 Last Admin: 05/12/20 08:56 Dose: 150 mg Calcium Carbonate (Tums) 1,000 mg PO Q6HR PRN PRN Reason: indigestion Stop: 06/22/20 07:27 Last Admin: 05/12/20 08:55 Dose: 1,000 mg Docusate Sodium (Colace) 100 mg PO BID [facility] Stop: 06/22/20 08:59 Last Admin: 05/12/20 16:41 Dose: 100 mg Enoxaparin Sodium (Lovenox) 40 mg SUBQ HS [facility] Stop: 06/22/20 20:59 Last Admin: 05/11/20 20:25 Dose: 40 mg Levothyroxine Sodium (Synthroid) 0.1 mg PO QDAC [facility] Stop: 06/22/20 07:29 Last Admin: 05/12/20 06:33 Dose: 0.1 mg Lisinopril (Zestril) 10 mg PO BID [facility] Stop: 06/23/20 08:59 Last Admin: 05/12/20 16:41 Dose: 10 mg Loperamide HCl (Imodium) 4 mg PO Q6HR PRN PRN Reason: Diarrhea Stop: 06/24/20 11:46 Multivitamins/Vitamin C (Theragran) 1 tab PO DAILY [facility] Stop: 06/22/20 08:59 Last Admin: 05/12/20 08:56 Dose: 1 tab Quetiapine Fumarate 200 mg/ (Quetiapine Fumarate 50 mg) 250 mg PO HS [facility] Stop: 07/05/20 20:59 Last Admin: 05/11/20 20:25 Dose: 250 mg Venlafaxine HCl (Effexor Xr) 225 mg PO DAILY [facility]; Protocol Stop: 07/01/20 08:59 Last Admin: 05/12/20 08:55 Dose: 225 mg Zolpidem Tartrate (Ambien) 10 mg PO HS PRN PRN Reason: Insomnia Stop: 06/22/20 07:22 Last Admin: 05/11/20 20:25 Dose: 10 mg General: alert HEENT: NC/AT, PERRLA, EOMI, anicteric sclerae, throat clear Neck: Supple, No JVD, No thyromegaly, +2 carotid pulse wo bruit, No LAD Lungs: CTAB Cardiovascular: RRR, Normal S1, Normal S2, without murmur Abdomen: soft, non-tender, non-distended Extremities: clear Neurological: no change, alert Internal Medicine Assmt/Plan - Assessment Assessment: 1.HTN. 2.HYPOTHYROIDISM. 3.DJD. 4.DEPRESSION 5.BACK PAIN - Plan Plan: CONTINUE ON CURRENT MEDICATION AND DIET. Nutritional Asmnt/Malnutr-PDOC - Dietary Evaluation Malnutrition Findings (Please click <Entered> for more info): Nutritional Asmnt/Malnutrition Start: 04/24/20 14: 11 Text: Status: Complete Freq: Protocol: Document 04/24/20 14:11 KELSEY (Rec: 04/24/20 14:15 KELSEY [email or web address] [id number]) Nutritional Asmnt/Malnutrition Patient General Information Nutritional Screening Low Risk Diagnosis Psychosis Pertinent Medical Hx/Surgical Hx HTN, Hypothyroidism, Depression Subjective Information Pt is a 56-year-old female admitted on 04/22 d/t agitation . Pt is eating an estimated 100% of meals Per Meal/ Nutrition Activity Record. Dietary is currently providing an estimated 1965 kcals and 108 gm Pro, to meet 100+% kcal and 100+% Pro needs. Spoke with pt. in room today and gathered food preferences; she requested coffee with meals and stated she cannot eat salads due to not having dentures. Anthropometrics HT: 53 WT: 150 LB (68.18 kg) BMI: 26.57 (Overweight) GI/ Skin Integrity GI: WNL, Soft, Round BM: 7/ x1 I/O: 1440/Not Noted Skin: WNL, Dryness Sam: 19 Diet Order: Cardiac Estimated Energy Needs: ( Geriatric, CBW) 6920-1231 kcals (25-30 kcals/ kg) 70-80g Pro (1.0-1.2 g/kg) 8111-4755 ml (25-30 ml/kg) Current Diet Order/ Nutrition Support Cardiac Patient / S.O Can Pertinent Medications Maalox (PRN), Norvasc, Tums, Colace, Lovenox, Synthroid, MOM (PRN), Theragran Pertinent Labs No pertinent labs at this time . Nutritional Hx/Data Height 1.6 m Height (Calculated Centimeters) 160.0 Current Weight (lbs) 68.039 kg Weight (Calculated Kilograms) 68.0 Weight (Calculated Grams) 97726.9 [place] [employer] Body Weight 115 LB (52.27 kg) % [employer] Body Weight 130 Body Mass Index (BMI) 26.5 Weight Status Overweight GI Symptoms GI Symptoms None Last BM 04/23 x1 Difficult in: Chewing Cultural/Ethnic/Holiness Belief No pork Skin Integrity/Comment: WNL, Dryness Sam: 19 Current %PO Good (75-100%) Estimated Nutritional Goals BEE in Kcals: Using Current wt Calories/Kcals/Kg 25-30 Kcals Calculated 4043-9931 Protein: Using Current wt Protein g/k.0-1.2 Protein Calculated 70-80 Fluid: ml 0526-4522 ml (25-30 ml/kg) Nutritional Problem 1. Problem Problem No nutrition diagnosis at this time. Etiology N/A Signs/Symptoms: N/A Malnutrition Related to Morbid Obesity Malnutrition related to morbid obesity No Intervention/Recommendation Comments Continue Cardiac diet as tolerated. Expected Outcomes/Goals Expected Outcomes/Goals 1. PO intake to continue to meet >75% of estimated nutritional needs. 2. Monitor PO intake, wt, nutrition related labs, and skin integrity. 3. F/U as low risk in 7-10 days, 05/01-05/04.
--- NOTE | 2020-05-12 18:12 | Progress Notes ---
DATE: 05/12/2020 SUBJECTIVE: A 69-year-old female, currently in the hospital, noted to be upset, still demanding, and irritable. We are working pretty hard on placement. Mood "okay." Some frustration is about being in the hospital, wanting to leave the hospital as soon as possible. Otherwise, sleeping okay, eating okay. Time was spent with the patient and she is still pretty anxious, labile, loud at times and intrusive. The patient is fearful about COVID-19, talking to me about social distancing people and trying to get other people to wear masks, fair sleep and appetite. Medications were reviewed. Labs reviewed. Vitals were reviewed. ASSESSMENT: A 69-year-old female with ongoing symptoms, depressive symptoms and anxious. PLAN: Otherwise, we are pending placement, some delays due to the pandemic difficulty with placement at the halfway. JOB# [id number]
[2020-05-12] MEDS: Enoxaparin 40 mg/0.4 mL 0.4mL Syr SUBQ SCH (20:22)
[2020-05-13] MEDS: Levothyroxine 0.1 Mg Tab PO SCH (06:46)
[2020-05-13] MEDS: buPROPion XL 150 mg T 24 H PO SCH (08:11)
[2020-05-13] MEDS: Hydrocodone/APAP 5mg/325mg Tab PO PRN ×3 (08:11→21:07)
[2020-05-13] MEDS: Multivitamin Tab PO SCH (08:13)
--- NOTE | 2020-05-13 13:44 | Progress Notes ---
DATE: 05/13/2020 SUBJECTIVE: This is a 69-year-old female in the hospital frustrated about her long length of stay, but pretty understanding. Slept about 7 hours, hoping to go back to the care home, but due to COVID, she is here. Well oriented, not confused, forgetful. Mood "okay." Sleeping well, eating well, pleasant on exam pleading for me to increase her Effexor back to 325 mg. After some discussion, I will increase her Effexor to 300 mg. The patient notes that she feels withdrawal feels uncomfortable. Fair sleep and appetite. ASSESSMENT: The patient is symptomatic, still depressed, withdrawn, and frustrated, but calm. I will be increasing dosing of medication. JOB# [id number]
--- NOTE | 2020-05-13 13:47 | Internal Medicine Prog Note ---
Internal Medicine Subjective - Subjective Service Date: 05/13/20 Patient seen and examined:: without staff (SHE FEELS WELL) Patient is:: awake, verbal, in bed, talking Per staff patient has:: no adverse event Internal Medicine Objective - Results Recent Labs: Laboratory Last Values Triglycerides 192 mg/dL (30-150) H 04/25/20 11:20 Cholesterol 457 mg/dL (<200) H 04/25/20 11:20 LDL Cholesterol 297 mg/dL (0-129) H 04/25/20 11:20 HDL Cholesterol 67 mg/dL (>55) 04/25/20 11:20 Coronavirus (PCR) Negative (Negative) 05/01/20 15:20 - Physical Exam Vitals and I&O: Vital Signs Temp 97.7 F 05/13/20 06:11 Pulse 77 05/13/20 08:12 Resp 18 05/13/20 08:00 BP 118/60 05/13/20 08:12 Pulse Ox 94 05/13/20 06:11 Intake & Output 05/12/20 05/13/20 05/13/20 18:59 06:59 18:59 Intake Total 1200 240 Balance 1200 240 Intake: Oral 1200 240 Other: # Voids 4 3 # Bowel Movements 1 0 Active Medications: Current Medications Acetaminophen (Tylenol) 650 mg PO Q4H PRN PRN Reason: Pain (Mild 1-3) Stop: 06/22/20 02:16 Last Admin: 05/08/20 08:58 Dose: 650 mg Hydrocodone Bitart/Acetaminophen ([place] 5mg/325mg) 1 tab PO Q6H PRN PRN Reason: Pain (Severe 7-10) Stop: 07/07/20 18:38 Last Admin: 05/13/20 08:11 Dose: 1 tab Al Hydrox/Mg Hydrox/Simethicone (Maalox) 30 ml PO Q4HR PRN PRN Reason: GI DISTRESS Stop: 06/22/20 02:16 Last Admin: 05/05/20 09:33 Dose: 30 ml Alprazolam (Xanax) 0.5 mg PO Q6HR PRN; Protocol PRN Reason: Anxiety Stop: 07/12/20 11:41 Amlodipine Besylate (Norvasc) 10 mg PO DAILY [facility] Stop: 06/23/20 08:59 Last Admin: 05/13/20 08:11 Dose: 10 mg Bupropion HCl (Wellbutrin Xl) 150 mg PO DAILY [facility]; Protocol Stop: 06/28/20 08:59 Last Admin: 05/13/20 08:11 Dose: 150 mg Calcium Carbonate (Tums) 1,000 mg PO Q6HR PRN PRN Reason: indigestion Stop: 06/22/20 07:27 Last Admin: 05/13/20 08:10 Dose: 1,000 mg Docusate Sodium (Colace) 100 mg PO BID [facility] Stop: 06/22/20 08:59 Last Admin: 05/13/20 08:12 Dose: 100 mg Enoxaparin Sodium (Lovenox) 40 mg SUBQ HS [facility] Stop: 06/22/20 20:59 Last Admin: 05/12/20 20:22 Dose: 40 mg Levothyroxine Sodium (Synthroid) 0.1 mg PO QDAC [facility] Stop: 06/22/20 07:29 Last Admin: 05/13/20 06:46 Dose: 0.1 mg Lisinopril (Zestril) 10 mg PO BID [facility] Stop: 06/23/20 08:59 Last Admin: 05/13/20 08:12 Dose: 10 mg Loperamide HCl (Imodium) 4 mg PO Q6HR PRN PRN Reason: Diarrhea Stop: 06/24/20 11:46 Multivitamins/Vitamin C (Theragran) 1 tab PO DAILY [facility] Stop: 06/22/20 08:59 Last Admin: 05/13/20 08:13 Dose: 1 tab Quetiapine Fumarate 200 mg/ (Quetiapine Fumarate 50 mg) 250 mg PO HS [facility] Stop: 07/05/20 20:59 Last Admin: 05/12/20 20:22 Dose: 250 mg Venlafaxine HCl (Effexor Xr) 300 mg PO DAILY [facility]; Protocol Stop: 07/13/20 08:59 Zolpidem Tartrate (Ambien) 10 mg PO HS PRN PRN Reason: Insomnia Stop: 07/12/20 11:43 General: alert HEENT: NC/AT, PERRLA, EOMI, anicteric sclerae, throat clear Neck: Supple, No JVD, No thyromegaly, +2 carotid pulse wo bruit, No LAD Lungs: CTAB Cardiovascular: RRR, Normal S1, Normal S2, without murmur Abdomen: soft, non-tender, non-distended Extremities: clear Neurological: no change, alert Internal Medicine Assmt/Plan - Assessment Assessment: 1.HTN. 2.HYPOTHYROIDISM. 3.DJD. 4.DEPRESSION 5.BACK PAIN - Plan Plan: CONTINUE ON CURRENT MEDICATION AND DIET. Nutritional Asmnt/Malnutr-PDOC - Dietary Evaluation Malnutrition Findings (Please click <Entered> for more info): Nutritional Asmnt/Malnutrition Start: 04/24/20 14: 11 Text: Status: Complete Freq: Protocol: Document 04/24/20 14:11 XAVIERSUSAN (Rec: 04/24/20 14:15 SEBASTIANESTHERSUSAN [id number] [id number]) Nutritional Asmnt/Malnutrition Patient General Information Nutritional Screening Low Risk Diagnosis Psychosis Pertinent Medical Hx/Surgical Hx HTN, Hypothyroidism, Depression Subjective Information Pt is a 56-year-old female admitted on 04/22 d/t agitation . Pt is eating an estimated 100% of meals Per Meal/ Nutrition Activity Record. Dietary is currently providing an estimated 1965 kcals and 108 gm Pro, to meet 100+% kcal and 100+% Pro needs. Spoke with pt. in room today and gathered food preferences; she requested coffee with meals and stated she cannot eat salads due to not having dentures. Anthropometrics HT: 53 WT: 150 LB (68.18 kg) BMI: 26.57 (Overweight) GI/ Skin Integrity GI: WNL, Soft, Round BM: 7/ x1 I/O: 1440/Not Noted Skin: WNL, Dryness Sam: 19 Diet Order: Cardiac Estimated Energy Needs: ( Geriatric, CBW) 2185-8217 kcals (25-30 kcals/ kg) 70-80g Pro (1.0-1.2 g/kg) 6604-1657 ml (25-30 ml/kg) Current Diet Order/ Nutrition Support Cardiac Patient / S.O Can Pertinent Medications Maalox (PRN), Norvasc, Tums, Colace, Lovenox, Synthroid, MOM (PRN), Theragran Pertinent Labs No pertinent labs at this time . Nutritional Hx/Data Height 1.6 m Height (Calculated Centimeters) 160.0 Current Weight (lbs) 68.039 kg Weight (Calculated Kilograms) 68.0 Weight (Calculated Grams) 55848.9 [place] Body Weight 115 LB (52.27 kg) % [place] Body Weight 130 Body Mass Index (BMI) 26.5 Weight Status Overweight GI Symptoms GI Symptoms None Last BM 04/23 x1 Difficult in: Chewing Cultural/Ethnic/Pentecostal Belief No pork Skin Integrity/Comment: WNL, Dryness Sam: 19 Current %PO Good (75-100%) Estimated Nutritional Goals BEE in Kcals: Using Current wt Calories/Kcals/Kg 25-30 Kcals Calculated 2813-0702 Protein: Using Current wt Protein g/k.0-1.2 Protein Calculated 70-80 Fluid: ml 4858-0053 ml (25-30 ml/kg) Nutritional Problem 1. Problem Problem No nutrition diagnosis at this time. Etiology N/A Signs/Symptoms: N/A Malnutrition Related to Morbid Obesity Malnutrition related to morbid obesity No Intervention/Recommendation Comments Continue Cardiac diet as tolerated. Expected Outcomes/Goals Expected Outcomes/Goals 1. PO intake to continue to meet >75% of estimated nutritional needs. 2. Monitor PO intake, wt, nutrition related labs, and skin integrity. 3. F/U as low risk in 7-10 days, 05/01-05/04.
[2020-05-13] MEDS: Enoxaparin 40 mg/0.4 mL 0.4mL Syr SUBQ SCH (20:06)
[2020-05-14] MEDS: Levothyroxine 0.1 Mg Tab PO SCH (06:34)
[2020-05-14] MEDS: Hydrocodone/APAP 5mg/325mg Tab PO PRN ×3 (06:50→20:58)
[2020-05-14] MEDS: buPROPion XL 150 mg T 24 H PO SCH (08:30)
[2020-05-14] MEDS: Multivitamin Tab PO SCH (08:30)
--- NOTE | 2020-05-14 17:01 | Progress Notes ---
DATE: 05/14/2020 SUBJECTIVE: This is a 69-year-old female, currently noted to be in the hospital. We are trying to get her to a group home. COVID is proving to be the main obstacle as the replaced by [facility] is not allowing the detention that she came from to accept any patients. I put an order in to increase her Effexor to 300, but the pharmacist says the max they can give here is 250. The patient upset about this, not much I can do about it. Well oriented, calm, just restless, wants to leave, sometimes forgetful and unpredictable. Medications were reviewed. Labs reviewed. Vitals were reviewed. ASSESSMENT: This is a 69-year-old female, currently on dosing of Effexor, Seroquel, seems to be generally calmer. Currently, we are pending placement. She has got nowhere to go. JOB# [id number]
--- NOTE | 2020-05-14 19:01 | Internal Medicine Prog Note ---
Internal Medicine Subjective - Subjective Service Date: 05/14/20 Patient seen and examined:: without staff (imtiaz feels well) Patient is:: awake, verbal, in bed, talking Per staff patient has:: no adverse event Internal Medicine Objective - Results Recent Labs: Laboratory Last Values Triglycerides 192 mg/dL (30-150) H 04/25/20 11:20 Cholesterol 457 mg/dL (<200) H 04/25/20 11:20 LDL Cholesterol 297 mg/dL (0-129) H 04/25/20 11:20 HDL Cholesterol 67 mg/dL (>55) 04/25/20 11:20 Coronavirus (PCR) Negative (Negative) 05/11/20 12:50 - Physical Exam Vitals and I&O: Vital Signs Temp 97.0 F 05/14/20 14:00 Pulse 73 05/14/20 16:30 Resp 20 05/14/20 14:00 BP 115/64 05/14/20 16:30 Pulse Ox 98 05/14/20 14:00 Intake & Output 05/13/20 05/14/20 05/14/20 18:59 06:59 18:59 Intake Total 1100 120 900 Balance 1100 120 900 Intake: Oral 1100 120 900 Other: # Voids 2 3 3 # Bowel Movements 0 0 1 Active Medications: Current Medications Acetaminophen (Tylenol) 650 mg PO Q4H PRN PRN Reason: Pain (Mild 1-3) Stop: 06/22/20 02:16 Last Admin: 05/08/20 08:58 Dose: 650 mg Hydrocodone Bitart/Acetaminophen ([place] 5mg/325mg) 1 tab PO Q6H PRN PRN Reason: Pain (Severe 7-10) Stop: 07/07/20 18:38 Last Admin: 05/14/20 13:03 Dose: 1 tab Al Hydrox/Mg Hydrox/Simethicone (Maalox) 30 ml PO Q4HR PRN PRN Reason: GI DISTRESS Stop: 06/22/20 02:16 Last Admin: 05/05/20 09:33 Dose: 30 ml Alprazolam (Xanax) 0.5 mg PO Q6HR PRN; Protocol PRN Reason: Anxiety Stop: 07/12/20 11:41 Last Admin: 05/14/20 17:11 Dose: 0.5 mg Amlodipine Besylate (Norvasc) 10 mg PO DAILY [facility] Stop: 06/23/20 08:59 Last Admin: 05/14/20 08:30 Dose: 10 mg Bupropion HCl (Wellbutrin Xl) 150 mg PO DAILY [facility]; Protocol Stop: 06/28/20 08:59 Last Admin: 05/14/20 08:30 Dose: 150 mg Calcium Carbonate (Tums) 1,000 mg PO Q6HR PRN PRN Reason: indigestion Stop: 06/22/20 07:27 Last Admin: 05/13/20 08:10 Dose: 1,000 mg Docusate Sodium (Colace) 100 mg PO BID [facility] Stop: 06/22/20 08:59 Last Admin: 05/14/20 16:30 Dose: 100 mg Enoxaparin Sodium (Lovenox) 40 mg SUBQ HS [facility] Stop: 06/22/20 20:59 Last Admin: 05/13/20 20:06 Dose: 40 mg Levothyroxine Sodium (Synthroid) 0.1 mg PO QDAC [facility] Stop: 06/22/20 07:29 Last Admin: 05/14/20 06:34 Dose: 0.1 mg Lisinopril (Zestril) 10 mg PO BID [facility] Stop: 06/23/20 08:59 Last Admin: 05/14/20 16:30 Dose: 10 mg Loperamide HCl (Imodium) 4 mg PO Q6HR PRN PRN Reason: Diarrhea Stop: 06/24/20 11:46 Multivitamins/Vitamin C (Theragran) 1 tab PO DAILY [facility] Stop: 06/22/20 08:59 Last Admin: 05/14/20 08:30 Dose: 1 tab Quetiapine Fumarate 200 mg/ (Quetiapine Fumarate 50 mg) 250 mg PO HS [facility] Stop: 07/05/20 20:59 Last Admin: 05/13/20 20:07 Dose: 250 mg Venlafaxine HCl (Effexor) 300 mg PO DAILY [facility]; Protocol Stop: 07/13/20 14:59 Last Admin: 05/14/20 16:26 Dose: 300 mg Zolpidem Tartrate (Ambien) 10 mg PO HS PRN PRN Reason: Insomnia Stop: 07/12/20 11:43 Last Admin: 05/14/20 00:04 Dose: 10 mg General: alert HEENT: NC/AT, PERRLA, EOMI, anicteric sclerae, throat clear Neck: Supple, No JVD, No thyromegaly, +2 carotid pulse wo bruit, No LAD Lungs: CTAB Cardiovascular: RRR, Normal S1, Normal S2, without murmur Abdomen: soft, non-tender, non-distended Extremities: clear Neurological: no change, alert Internal Medicine Assmt/Plan - Assessment Assessment: 1.HTN. 2.HYPOTHYROIDISM. 3.DJD. 4.DEPRESSION 5.BACK PAIN - Plan Plan: CONTINUE ON CURRENT MEDICATION AND DIET. Nutritional Asmnt/Malnutr-PDOC - Dietary Evaluation Malnutrition Findings (Please click <Entered> for more info): Nutritional Asmnt/Malnutrition Start: 04/24/20 14: 11 Text: Status: Complete Freq: Protocol: Document 04/24/20 14:11 KELSEY (Rec: 04/24/20 14:15 KELSEY [id number]) Nutritional Asmnt/Malnutrition Patient General Information Nutritional Screening Low Risk Diagnosis Psychosis Pertinent Medical Hx/Surgical Hx HTN, Hypothyroidism, Depression Subjective Information Pt is a 56-year-old female admitted on 04/22 d/t agitation . Pt is eating an estimated 100% of meals Per Meal/ Nutrition Activity Record. Dietary is currently providing an estimated 1965 kcals and 108 gm Pro, to meet 100+% kcal and 100+% Pro needs. Spoke with pt. in room today and gathered food preferences; she requested coffee with meals and stated she cannot eat salads due to not having dentures. Anthropometrics HT: 53 WT: 150 LB (68.18 kg) BMI: 26.57 (Overweight) GI/ Skin Integrity GI: WNL, Soft, Round BM: / x1 I/O: 1440/Not Noted Skin: WNL, Dryness Sam: 19 Diet Order: Cardiac Estimated Energy Needs: ( Geriatric, CBW) 6613-8957 kcals (25-30 kcals/ kg) 70-80g Pro (1.0-1.2 g/kg) 4854-9023 ml (25-30 ml/kg) Current Diet Order/ Nutrition Support Cardiac Patient / S.O Can Pertinent Medications Maalox (PRN), Norvasc, Tums, Colace, Lovenox, Synthroid, MOM (PRN), Theragran Pertinent Labs No pertinent labs at this time . Nutritional Hx/Data Height 1.6 m Height (Calculated Centimeters) 160.0 Current Weight (lbs) 68.039 kg Weight (Calculated Kilograms) 68.0 Weight (Calculated Grams) 05098.9 [place] Body Weight 115 LB (52.27 kg) % [place] Body Weight 130 Body Mass Index (BMI) 26.5 Weight Status Overweight GI Symptoms GI Symptoms None Last BM 04/23 x1 Difficult in: Chewing Cultural/Ethnic/[employer] Belief No pork Skin Integrity/Comment: WNL, Dryness Sam: 19 Current %PO Good (75-100%) Estimated Nutritional Goals BEE in Kcals: Using Current wt Calories/Kcals/Kg 25-30 Kcals Calculated 0184-5179 Protein: Using Current wt Protein g/k.0-1.2 Protein Calculated 70-80 Fluid: ml 4588-2384 ml (25-30 ml/kg) Nutritional Problem 1. Problem Problem No nutrition diagnosis at this time. Etiology N/A Signs/Symptoms: N/A Malnutrition Related to Morbid Obesity Malnutrition related to morbid obesity No Intervention/Recommendation Comments Continue Cardiac diet as tolerated. Expected Outcomes/Goals Expected Outcomes/Goals 1. PO intake to continue to meet >75% of estimated nutritional needs. 2. Monitor PO intake, wt, nutrition related labs, and skin integrity. 3. F/U as low risk in 7-10 days, 05/01-05/04.
[2020-05-14] MEDS: Enoxaparin 40 mg/0.4 mL 0.4mL Syr SUBQ SCH (20:18)
[2020-05-15] MEDS: Hydrocodone/APAP 5mg/325mg Tab PO PRN ×2 (06:23→13:20)
[2020-05-15] MEDS: Levothyroxine 0.1 Mg Tab PO SCH (06:32)
[2020-05-15] MEDS: buPROPion XL 150 mg T 24 H PO SCH (08:27)
[2020-05-15] MEDS: Multivitamin Tab PO SCH (08:28)
--- NOTE | 2020-05-15 16:40 | Internal Medicine Prog Note ---
Internal Medicine Subjective - Subjective Service Date: 05/15/20 Patient seen and examined:: without staff (SHE FEELS WELL) Patient is:: awake, verbal, in bed, talking Per staff patient has:: no adverse event Internal Medicine Objective - Results Recent Labs: Laboratory Last Values Triglycerides 192 mg/dL (30-150) H 04/25/20 11:20 Cholesterol 457 mg/dL (<200) H 04/25/20 11:20 LDL Cholesterol 297 mg/dL (0-129) H 04/25/20 11:20 HDL Cholesterol 67 mg/dL (>55) 04/25/20 11:20 Coronavirus (PCR) Negative (NOT DETECTD) 05/12/20 15:30 - Physical Exam Vitals and I&O: Vital Signs Temp 98.4 F 05/15/20 14:00 Pulse 91 05/15/20 16:14 Resp 20 05/15/20 14:00 BP 154/70 05/15/20 16:14 Pulse Ox 95 05/15/20 14:00 Intake & Output 05/14/20 05/15/20 05/15/20 18:59 06:59 18:59 Intake Total 900 120 Balance 900 120 Intake: Oral 900 120 Other: # Voids 3 3 # Bowel Movements 1 Active Medications: Current Medications Acetaminophen (Tylenol) 650 mg PO Q4H PRN PRN Reason: Pain (Mild 1-3) Stop: 06/22/20 02:16 Last Admin: 05/08/20 08:58 Dose: 650 mg Hydrocodone Bitart/Acetaminophen ([place] 5mg/325mg) 1 tab PO Q6H PRN PRN Reason: Pain (Severe 7-10) Stop: 07/07/20 18:38 Last Admin: 05/15/20 13:20 Dose: 1 tab Al Hydrox/Mg Hydrox/Simethicone (Maalox) 30 ml PO Q4HR PRN PRN Reason: GI DISTRESS Stop: 06/22/20 02:16 Last Admin: 05/05/20 09:33 Dose: 30 ml Alprazolam (Xanax) 0.5 mg PO Q6HR PRN; Protocol PRN Reason: Anxiety Stop: 07/12/20 11:41 Last Admin: 05/15/20 16:14 Dose: 0.5 mg Amlodipine Besylate (Norvasc) 10 mg PO DAILY [facility] Stop: 06/23/20 08:59 Last Admin: 05/15/20 08:28 Dose: Not Given Bupropion HCl (Wellbutrin Xl) 150 mg PO DAILY [facility]; Protocol Stop: 06/28/20 08:59 Last Admin: 05/15/20 08:27 Dose: 150 mg Calcium Carbonate (Tums) 1,000 mg PO Q6HR PRN PRN Reason: indigestion Stop: 06/22/20 07:27 Last Admin: 05/15/20 16:13 Dose: 1,000 mg Docusate Sodium (Colace) 100 mg PO BID [facility] Stop: 06/22/20 08:59 Last Admin: 05/15/20 16:14 Dose: 100 mg Enoxaparin Sodium (Lovenox) 40 mg SUBQ HS [facility] Stop: 06/22/20 20:59 Last Admin: 05/14/20 20:18 Dose: 40 mg Levothyroxine Sodium (Synthroid) 0.1 mg PO QDAC [facility] Stop: 06/22/20 07:29 Last Admin: 05/15/20 06:32 Dose: 0.1 mg Lisinopril (Zestril) 10 mg PO BID [facility] Stop: 06/23/20 08:59 Last Admin: 05/15/20 16:14 Dose: 10 mg Loperamide HCl (Imodium) 4 mg PO Q6HR PRN PRN Reason: Diarrhea Stop: 06/24/20 11:46 Multivitamins/Vitamin C (Theragran) 1 tab PO DAILY [facility] Stop: 06/22/20 08:59 Last Admin: 05/15/20 08:28 Dose: 1 tab Quetiapine Fumarate 200 mg/ (Quetiapine Fumarate 50 mg) 250 mg PO HS [facility] Stop: 07/05/20 20:59 Last Admin: 05/14/20 20:18 Dose: 250 mg Venlafaxine HCl (Effexor) 300 mg PO DAILY [facility]; Protocol Stop: 07/13/20 14:59 Last Admin: 05/15/20 08:33 Dose: 300 mg Zolpidem Tartrate (Ambien) 10 mg PO HS PRN PRN Reason: Insomnia Stop: 07/12/20 11:43 Last Admin: 05/14/20 22:32 Dose: 10 mg General: alert HEENT: NC/AT, PERRLA, EOMI, anicteric sclerae, throat clear Neck: Supple, No JVD, No thyromegaly, +2 carotid pulse wo bruit, No LAD Lungs: CTAB Cardiovascular: RRR, Normal S1, Normal S2, without murmur Abdomen: soft, non-tender, non-distended Extremities: clear Neurological: no change, alert Internal Medicine Assmt/Plan - Assessment Assessment: 1.HTN. 2.HYPOTHYROIDISM. 3.DJD. 4.DEPRESSION 5.BACK PAIN - Plan Plan: CONTINUE ON CURRENT MEDICATION AND DIET. Nutritional Asmnt/Malnutr-PDOC - Dietary Evaluation Malnutrition Findings (Please click <Entered> for more info): Nutritional Asmnt/Malnutrition Start: 04/24/20 14: 11 Text: Status: Complete Freq: Protocol: Document 04/24/20 14:11 KELSEY (Rec: 04/24/20 14:15 [place]SE[email or web address] [id number]) Nutritional Asmnt/Malnutrition Patient General Information Nutritional Screening Low Risk Diagnosis Psychosis Pertinent Medical Hx/Surgical Hx HTN, Hypothyroidism, Depression Subjective Information Pt is a 56-year-old female admitted on 04/22 d/t agitation . Pt is eating an estimated 100% of meals Per Meal/ Nutrition Activity Record. Dietary is currently providing an estimated 1965 kcals and 108 gm Pro, to meet 100+% kcal and 100+% Pro needs. Spoke with pt. in room today and gathered food preferences; she requested coffee with meals and stated she cannot eat salads due to not having dentures. Anthropometrics HT: 53 WT: 150 LB (68.18 kg) BMI: 26.57 (Overweight) GI/ Skin Integrity GI: WNL, Soft, Round BM: 7/ x1 I/O: 1440/Not Noted Skin: WNL, Dryness Sam: 19 Diet Order: Cardiac Estimated Energy Needs: ( Geriatric, CBW) 2202-6925 kcals (25-30 kcals/ kg) 70-80g Pro (1.0-1.2 g/kg) 7532-7766 ml (25-30 ml/kg) Current Diet Order/ Nutrition Support Cardiac Patient / S.O Can Pertinent Medications Maalox (PRN), Norvasc, Tums, Colace, Lovenox, Synthroid, MOM (PRN), Theragran Pertinent Labs No pertinent labs at this time . Nutritional Hx/Data Height 1.6 m Height (Calculated Centimeters) 160.0 Current Weight (lbs) 68.039 kg Weight (Calculated Kilograms) 68.0 Weight (Calculated Grams) 59415.9 [place] Body Weight 115 LB (52.27 kg) % [place] Body Weight 130 Body Mass Index (BMI) 26.5 Weight Status Overweight GI Symptoms GI Symptoms None Last BM 04/23 x1 Difficult in: Chewing Cultural/Ethnic/Restorationist Belief No pork Skin Integrity/Comment: WNL, Dryness Sam: 19 Current %PO Good (75-100%) Estimated Nutritional Goals BEE in Kcals: Using Current wt Calories/Kcals/Kg 25-30 Kcals Calculated 5398-2534 Protein: Using Current wt Protein g/k.0-1.2 Protein Calculated 70-80 Fluid: ml 6344-5160 ml (25-30 ml/kg) Nutritional Problem 1. Problem Problem No nutrition diagnosis at this time. Etiology N/A Signs/Symptoms: N/A Malnutrition Related to Morbid Obesity Malnutrition related to morbid obesity No Intervention/Recommendation Comments Continue Cardiac diet as tolerated. Expected Outcomes/Goals Expected Outcomes/Goals 1. PO intake to continue to meet >75% of estimated nutritional needs. 2. Monitor PO intake, wt, nutrition related labs, and skin integrity. 3. F/U as low risk in 7-10 days, 05/01-05/04.
--- NOTE | 2020-05-15 17:31 | Progress Notes ---
DATE: 05/15/2020 SUBJECTIVE: This is a 69-year-old female admitted on 04/22/2020. The patient was pretty restless yesterday, irritable, upset, some delays in her Effexor. It seems that she may have been withdrawing. She got to the Effexor and felt better. She is somewhat anxious today, restless, hard to interrupt, jumping from one topic to the next, but redirectable, not particularly agitated. Staff noting generally calmer, sometimes demanding. Fair sleep and appetite. The patient is doing much better on Effexor 300 mg. No overt agitation or escalation of behaviors. We really have nowhere to send her right now because the [facility] she [facility] from is stopping any admissions and readmissions due to COVID-19. We are waiting for them to accept her back. PLAN: We will continue inpatient monitoring for now. Listened emphatically, signed all forms and clarified all orders with nursing staff to make sure that she is on the correct dosing of her medications, most importantly the Effexor. The patient was thankful for the care and understanding of the delays in regard to placements. JOB# [id number]
[2020-05-15] MEDS: Enoxaparin 40 mg/0.4 mL 0.4mL Syr SUBQ SCH (20:12)
[2020-05-16] MEDS: Hydrocodone/APAP 5mg/325mg Tab PO PRN ×3 (06:12→18:19)
[2020-05-16] MEDS: Levothyroxine 0.1 Mg Tab PO SCH (06:34)
[2020-05-16] MEDS: Multivitamin Tab PO SCH (08:57)
[2020-05-16] MEDS: buPROPion XL 150 mg T 24 H PO SCH (08:57)
--- NOTE | 2020-05-16 19:01 | Internal Medicine Prog Note ---
Internal Medicine Subjective - Subjective Service Date: 05/16/20 Patient seen and examined:: without staff (HE IS GOING WELL) Patient is:: awake, verbal, in bed, talking Per staff patient has:: no adverse event Internal Medicine Objective - Results Recent Labs: Laboratory Last Values Triglycerides 192 mg/dL (30-150) H 04/25/20 11:20 Cholesterol 457 mg/dL (<200) H 04/25/20 11:20 LDL Cholesterol 297 mg/dL (0-129) H 04/25/20 11:20 HDL Cholesterol 67 mg/dL (>55) 04/25/20 11:20 Coronavirus (PCR) Negative (NOT DETECTD) 05/12/20 15:30 - Physical Exam Vitals and I&O: Vital Signs Temp 97.0 F 05/16/20 14:00 Pulse 77 05/16/20 16:51 Resp 20 05/16/20 14:00 BP 108/68 05/16/20 16:51 Pulse Ox 97 05/16/20 14:00 Intake & Output 05/16/20 05/16/20 05/17/20 06:59 18:59 06:59 Intake Total 120 1200 Balance 120 1200 Intake: Oral 120 1200 Other: # Voids 3 3 # Bowel Movements 0 Active Medications: Current Medications Acetaminophen (Tylenol) 650 mg PO Q4H PRN PRN Reason: Pain (Mild 1-3) Stop: 06/22/20 02:16 Last Admin: 05/08/20 08:58 Dose: 650 mg Hydrocodone Bitart/Acetaminophen ([place] 5mg/325mg) 1 tab PO Q6H PRN PRN Reason: Pain (Severe 7-10) Stop: 07/07/20 18:38 Last Admin: 05/16/20 18:19 Dose: 1 tab Al Hydrox/Mg Hydrox/Simethicone (Maalox) 30 ml PO Q4HR PRN PRN Reason: GI DISTRESS Stop: 06/22/20 02:16 Last Admin: 05/05/20 09:33 Dose: 30 ml Alprazolam (Xanax) 0.5 mg PO Q6HR PRN; Protocol PRN Reason: Anxiety Stop: 07/12/20 11:41 Last Admin: 05/16/20 15:52 Dose: 0.5 mg Amlodipine Besylate (Norvasc) 10 mg PO DAILY [facility] Stop: 06/23/20 08:59 Last Admin: 05/16/20 10:40 Dose: 10 mg Bupropion HCl (Wellbutrin Xl) 150 mg PO DAILY [facility]; Protocol Stop: 06/28/20 08:59 Last Admin: 05/16/20 08:57 Dose: 150 mg Calcium Carbonate (Tums) 1,000 mg PO Q6HR PRN PRN Reason: indigestion Stop: 06/22/20 07:27 Last Admin: 05/15/20 16:13 Dose: 1,000 mg Docusate Sodium (Colace) 100 mg PO BID [facility] Stop: 06/22/20 08:59 Last Admin: 05/16/20 16:51 Dose: 100 mg Enoxaparin Sodium (Lovenox) 40 mg SUBQ HS [facility] Stop: 06/22/20 20:59 Last Admin: 05/15/20 20:12 Dose: 40 mg Levothyroxine Sodium (Synthroid) 0.1 mg PO QDAC [facility] Stop: 06/22/20 07:29 Last Admin: 05/16/20 06:34 Dose: 0.1 mg Lisinopril (Zestril) 10 mg PO BID [facility] Stop: 06/23/20 08:59 Last Admin: 05/16/20 16:51 Dose: 10 mg Loperamide HCl (Imodium) 4 mg PO Q6HR PRN PRN Reason: Diarrhea Stop: 06/24/20 11:46 Multivitamins/Vitamin C (Theragran) 1 tab PO DAILY [facility] Stop: 06/22/20 08:59 Last Admin: 05/16/20 08:57 Dose: 1 tab Quetiapine Fumarate 200 mg/ (Quetiapine Fumarate 50 mg) 250 mg PO HS [facility] Stop: 07/05/20 20:59 Last Admin: 05/15/20 20:12 Dose: 250 mg Venlafaxine HCl (Effexor) 300 mg PO DAILY [facility]; Protocol Stop: 07/13/20 14:59 Last Admin: 05/16/20 09:12 Dose: 300 mg Zolpidem Tartrate (Ambien) 10 mg PO HS PRN PRN Reason: Insomnia Stop: 07/12/20 11:43 Last Admin: 05/15/20 22:35 Dose: 10 mg General: alert HEENT: NC/AT, PERRLA, EOMI, anicteric sclerae, throat clear Neck: Supple, No JVD, No thyromegaly, +2 carotid pulse wo bruit, No LAD Lungs: CTAB Cardiovascular: RRR, Normal S1, Normal S2, without murmur Abdomen: soft, non-tender, non-distended Extremities: clear Neurological: no change, alert Internal Medicine Assmt/Plan - Assessment Assessment: 1.HTN. 2.HYPOTHYROIDISM. 3.DJD. 4.DEPRESSION 5.BACK PAIN - Plan Plan: CONTINUE ON CURRENT MEDICATION AND DIET. Nutritional Asmnt/Malnutr-PDOC - Dietary Evaluation Malnutrition Findings (Please click <Entered> for more info): Nutritional Asmnt/Malnutrition Start: 04/24/20 14: 11 Text: Status: Complete Freq: Protocol: Document 04/24/20 14:11 KELSEY (Rec: 04/24/20 14:15 [email or web address] [id number]) Nutritional Asmnt/Malnutrition Patient General Information Nutritional Screening Low Risk Diagnosis Psychosis Pertinent Medical Hx/Surgical Hx HTN, Hypothyroidism, Depression Subjective Information Pt is a 56-year-old female admitted on 04/22 d/t agitation . Pt is eating an estimated 100% of meals Per Meal/ Nutrition Activity Record. Dietary is currently providing an estimated 1965 kcals and 108 gm Pro, to meet 100+% kcal and 100+% Pro needs. Spoke with pt. in room today and gathered food preferences; she requested coffee with meals and stated she cannot eat salads due to not having dentures. Anthropometrics HT: 53 WT: 150 LB (68.18 kg) BMI: 26.57 (Overweight) GI/ Skin Integrity GI: WNL, Soft, Round BM: 7/ x1 I/O: 1440/Not Noted Skin: WNL, Dryness Sam: 19 Diet Order: Cardiac Estimated Energy Needs: ( Geriatric, CBW) 4106-0167 kcals (25-30 kcals/ kg) 70-80g Pro (1.0-1.2 g/kg) 4074-1400 ml (25-30 ml/kg) Current Diet Order/ Nutrition Support Cardiac Patient / S.O Can Pertinent Medications Maalox (PRN), Norvasc, Tums, Colace, Lovenox, Synthroid, MOM (PRN), Theragran Pertinent Labs No pertinent labs at this time . Nutritional Hx/Data Height 1.6 m Height (Calculated Centimeters) 160.0 Current Weight (lbs) 68.039 kg Weight (Calculated Kilograms) 68.0 Weight (Calculated Grams) 67219.9 [place] Body Weight 115 LB (52.27 kg) % [place] Body Weight 130 Body Mass Index (BMI) 26.5 Weight Status Overweight GI Symptoms GI Symptoms None Last BM 04/23 x1 Difficult in: Chewing Cultural/Ethnic/[employer] Belief No pork Skin Integrity/Comment: WNL, Dryness Sam: 19 Current %PO Good (75-100%) Estimated Nutritional Goals BEE in Kcals: Using Current wt Calories/Kcals/Kg 25-30 Kcals Calculated 4796-8417 Protein: Using Current wt Protein g/k.0-1.2 Protein Calculated 70-80 Fluid: ml 6924-0068 ml (25-30 ml/kg) Nutritional Problem 1. Problem Problem No nutrition diagnosis at this time. Etiology N/A Signs/Symptoms: N/A Malnutrition Related to Morbid Obesity Malnutrition related to morbid obesity No Intervention/Recommendation Comments Continue Cardiac diet as tolerated. Expected Outcomes/Goals Expected Outcomes/Goals 1. PO intake to continue to meet >75% of estimated nutritional needs. 2. Monitor PO intake, wt, nutrition related labs, and skin integrity. 3. F/U as low risk in 7-10 days, 05/01-05/04.
[2020-05-16] MEDS: Enoxaparin 40 mg/0.4 mL 0.4mL Syr SUBQ SCH (20:24)
[2020-05-17] MEDS: Levothyroxine 0.1 Mg Tab PO SCH (06:49)
[2020-05-17] MEDS: Hydrocodone/APAP 5mg/325mg Tab PO PRN ×3 (06:58→18:34)
[2020-05-17] MEDS: buPROPion XL 150 mg T 24 H PO SCH (08:04)
[2020-05-17] MEDS: Multivitamin Tab PO SCH (08:04)
--- NOTE | 2020-05-17 19:58 | Internal Medicine Prog Note ---
Internal Medicine Subjective - Subjective Service Date: 05/17/20 Patient seen and examined:: without staff (SHE FEELS WELL) Patient is:: awake, verbal, in bed, talking Per staff patient has:: no adverse event Internal Medicine Objective - Results Recent Labs: Laboratory Last Values Triglycerides 192 mg/dL (30-150) H 04/25/20 11:20 Cholesterol 457 mg/dL (<200) H 04/25/20 11:20 LDL Cholesterol 297 mg/dL (0-129) H 04/25/20 11:20 HDL Cholesterol 67 mg/dL (>55) 04/25/20 11:20 Coronavirus (PCR) Negative (NOT DETECTD) 05/12/20 15:30 - Physical Exam Vitals and I&O: Vital Signs Temp 98.0 F 05/17/20 16:00 Pulse 78 05/17/20 16:30 Resp 20 05/17/20 16:00 BP 136/71 05/17/20 16:30 Pulse Ox 98 05/17/20 16:00 Intake & Output 05/17/20 05/17/20 05/18/20 06:59 18:59 06:59 Intake Total 240 900 Balance 240 900 Intake: Oral 240 900 Other: # Voids 2 3 # Bowel Movements 1 Active Medications: Current Medications Acetaminophen (Tylenol) 650 mg PO Q4H PRN PRN Reason: Pain (Mild 1-3) Stop: 06/22/20 02:16 Last Admin: 05/08/20 08:58 Dose: 650 mg Hydrocodone Bitart/Acetaminophen ([place] 5mg/325mg) 1 tab PO Q6H PRN PRN Reason: Pain (Severe 7-10) Stop: 07/07/20 18:38 Last Admin: 05/17/20 18:34 Dose: 1 tab Al Hydrox/Mg Hydrox/Simethicone (Maalox) 30 ml PO Q4HR PRN PRN Reason: GI DISTRESS Stop: 06/22/20 02:16 Last Admin: 05/05/20 09:33 Dose: 30 ml Alprazolam (Xanax) 0.5 mg PO Q6HR PRN; Protocol PRN Reason: Anxiety Stop: 07/12/20 11:41 Last Admin: 05/17/20 08:41 Dose: 0.5 mg Amlodipine Besylate (Norvasc) 10 mg PO DAILY [facility] Stop: 06/23/20 08:59 Last Admin: 05/17/20 08:03 Dose: 10 mg Bupropion HCl (Wellbutrin Xl) 150 mg PO DAILY [facility]; Protocol Stop: 06/28/20 08:59 Last Admin: 05/17/20 08:04 Dose: 150 mg Calcium Carbonate (Tums) 1,000 mg PO Q6HR PRN PRN Reason: indigestion Stop: 06/22/20 07:27 Last Admin: 05/15/20 16:13 Dose: 1,000 mg Docusate Sodium (Colace) 100 mg PO BID [facility] Stop: 06/22/20 08:59 Last Admin: 05/17/20 16:29 Dose: 100 mg Enoxaparin Sodium (Lovenox) 40 mg SUBQ HS [facility] Stop: 06/22/20 20:59 Last Admin: 05/16/20 20:24 Dose: 40 mg Levothyroxine Sodium (Synthroid) 0.1 mg PO QDAC [facility] Stop: 06/22/20 07:29 Last Admin: 05/17/20 06:49 Dose: 0.1 mg Lisinopril (Zestril) 10 mg PO BID [facility] Stop: 06/23/20 08:59 Last Admin: 05/17/20 16:30 Dose: 10 mg Loperamide HCl (Imodium) 4 mg PO Q6HR PRN PRN Reason: Diarrhea Stop: 06/24/20 11:46 Multivitamins/Vitamin C (Theragran) 1 tab PO DAILY [facility] Stop: 06/22/20 08:59 Last Admin: 05/17/20 08:04 Dose: 1 tab Quetiapine Fumarate 200 mg/ (Quetiapine Fumarate 50 mg) 250 mg PO HS [facility] Stop: 07/05/20 20:59 Last Admin: 05/16/20 20:23 Dose: 250 mg Venlafaxine HCl (Effexor) 300 mg PO DAILY [facility]; Protocol Stop: 07/13/20 14:59 Last Admin: 05/17/20 08:03 Dose: 300 mg Zolpidem Tartrate (Ambien) 10 mg PO HS PRN PRN Reason: Insomnia Stop: 07/12/20 11:43 Last Admin: 05/16/20 20:56 Dose: 10 mg General: alert HEENT: NC/AT, PERRLA, EOMI, anicteric sclerae, throat clear Neck: Supple, No JVD, No thyromegaly, +2 carotid pulse wo bruit, No LAD Lungs: CTAB Cardiovascular: RRR, Normal S1, Normal S2, without murmur Abdomen: soft, non-tender, non-distended Extremities: clear Neurological: no change, alert Internal Medicine Assmt/Plan - Assessment Assessment: 1.HTN. 2.HYPOTHYROIDISM. 3.DJD. 4.DEPRESSION 5.BACK PAIN - Plan Plan: CONTINUE ON CURRENT MEDICATION AND DIET. Nutritional Asmnt/Malnutr-PDOC - Dietary Evaluation Malnutrition Findings (Please click <Entered> for more info): Nutritional Asmnt/Malnutrition Start: 04/24/20 14: 11 Text: Status: Complete Freq: Protocol: Document 04/24/20 14:11 KELSEY (Rec: 04/24/20 14:15 [place] [id number]) Nutritional Asmnt/Malnutrition Patient General Information Nutritional Screening Low Risk Diagnosis Psychosis Pertinent Medical Hx/Surgical Hx HTN, Hypothyroidism, Depression Subjective Information Pt is a 56-year-old female admitted on 04/22 d/t agitation . Pt is eating an estimated 100% of meals Per Meal/ Nutrition Activity Record. Dietary is currently providing an estimated 1965 kcals and 108 gm Pro, to meet 100+% kcal and 100+% Pro needs. Spoke with pt. in room today and gathered food preferences; she requested coffee with meals and stated she cannot eat salads due to not having dentures. Anthropometrics HT: 53 WT: 150 LB (68.18 kg) BMI: 26.57 (Overweight) GI/ Skin Integrity GI: WNL, Soft, Round BM: 7/ x1 I/O: 1440/Not Noted Skin: WNL, Dryness Sam: 19 Diet Order: Cardiac Estimated Energy Needs: ( Geriatric, CBW) 2965-2811 kcals (25-30 kcals/ kg) 70-80g Pro (1.0-1.2 g/kg) 6201-8774 ml (25-30 ml/kg) Current Diet Order/ Nutrition Support Cardiac Patient / S.O Can Pertinent Medications Maalox (PRN), Norvasc, Tums, Colace, Lovenox, Synthroid, MOM (PRN), Theragran Pertinent Labs No pertinent labs at this time . Nutritional Hx/Data Height 1.6 m Height (Calculated Centimeters) 160.0 Current Weight (lbs) 68.039 kg Weight (Calculated Kilograms) 68.0 Weight (Calculated Grams) 14981.9 [place] Body Weight 115 LB (52.27 kg) % [place] Body Weight 130 Body Mass Index (BMI) 26.5 Weight Status Overweight GI Symptoms GI Symptoms None Last BM 04/23 x1 Difficult in: Chewing Cultural/Ethnic/Christian Belief No pork Skin Integrity/Comment: WNL, Dryness Sam: 19 Current %PO Good (75-100%) Estimated Nutritional Goals BEE in Kcals: Using Current wt Calories/Kcals/Kg 25-30 Kcals Calculated 0994-6173 Protein: Using Current wt Protein g/k.0-1.2 Protein Calculated 70-80 Fluid: ml 2751-6861 ml (25-30 ml/kg) Nutritional Problem 1. Problem Problem No nutrition diagnosis at this time. Etiology N/A Signs/Symptoms: N/A Malnutrition Related to Morbid Obesity Malnutrition related to morbid obesity No Intervention/Recommendation Comments Continue Cardiac diet as tolerated. Expected Outcomes/Goals Expected Outcomes/Goals 1. PO intake to continue to meet >75% of estimated nutritional needs. 2. Monitor PO intake, wt, nutrition related labs, and skin integrity. 3. F/U as low risk in 7-10 days, 05/01-05/04.
[2020-05-17] MEDS: Enoxaparin 40 mg/0.4 mL 0.4mL Syr SUBQ SCH (20:18)
[2020-05-18] MEDS: Hydrocodone/APAP 5mg/325mg Tab PO PRN ×3 (05:16→17:31)
--- NOTE | 2020-05-18 07:56 | Progress Notes ---
DATE: SUBJECTIVE: The patient was seen, chart reviewed, and discussed with staff. The patient continues to have very poor boundaries, continues to be very entitled and demanding, but generally redirectable. She has been compliant with her medications, denying any other side effects. Has reported good sleep and appetite. PLAN: The patient currently awaiting placement. Generally redirectable, so that she will require continued inpatient care center and treatment. We will monitor on a daily basis for response to medications and titrate medications as needed. [facility]# [id number]
--- NOTE | 2020-05-18 07:56 | Progress Notes ---
DATE: 05/16/2020 SUBJECTIVE: This is a 69-year-old female, currently here in the hospital, generally calmer, happy to be on higher dose of Effexor. The patient noting that she is really frustrated. I spent some time speaking with her, attending to validate her emotions. She states that she is frustrated about being in the hospital, wants to go back to the retirement. We are having a lot of difficulty getting her back to retirement due to COVID-19. Fair sleep and appetite and less anxious, less restless, less depressed. Medications reviewed. Labs reviewed. Vitals reviewed. ASSESSMENT: A 69-year-old female, currently in the hospital, likely at baseline. Doing better with dosing of Effexor. Still with some irritability __. We will continue to monitor, attempt to confirm a safe disposition to transition social worker. JOB# [id number]
[2020-05-18] MEDS: buPROPion XL 150 mg T 24 H PO SCH (09:50)
[2020-05-18] MEDS: Multivitamin Tab PO SCH (09:50)
[2020-05-18] MEDS: Levothyroxine 0.1 Mg Tab PO SCH (15:21)
--- NOTE | 2020-05-18 17:43 | Progress Notes ---
DATE: SUBJECTIVE: The patient was seen, chart reviewed, and discussed with staff. The patient continues to be very intrusive, often coming to a nursing station repeatedly asking numerous questions. She has, however, been compliant with medications, following unit rules, albeit with some redirections. PLAN: The patient is currently awaiting placement. We will follow up with immigration case manager regarding patient's placement on discharge. We will also follow up with the patient's medications and titrate as needed. JOB# [id number]
--- NOTE | 2020-05-18 20:26 | Internal Medicine Prog Note ---
Internal Medicine Subjective - Subjective Service Date: 05/18/20 Patient seen and examined:: without staff (SHE FELLS WELL) Patient is:: awake, verbal, in bed, talking Per staff patient has:: no adverse event Internal Medicine Objective - Results Recent Labs: Laboratory Last Values Triglycerides 192 mg/dL (30-150) H 04/25/20 11:20 Cholesterol 457 mg/dL (<200) H 04/25/20 11:20 LDL Cholesterol 297 mg/dL (0-129) H 04/25/20 11:20 HDL Cholesterol 67 mg/dL (>55) 04/25/20 11:20 Coronavirus (PCR) Negative (NOT DETECTD) 05/12/20 15:30 - Physical Exam Vitals and I&O: Vital Signs Temp 98.2 F 05/18/20 14:00 Pulse 75 05/18/20 18:46 Resp 20 05/18/20 14:00 BP 129/70 05/18/20 18:46 Pulse Ox 97 05/18/20 14:00 Intake & Output 05/18/20 05/18/20 05/19/20 06:59 18:59 06:59 Intake Total 660 1000 Balance 660 1000 Intake: Oral 660 1000 Other: # Voids 2 4 # Bowel Movements 0 1 Stool Characteristics Soft Soft Formed Formed Brown Brown Active Medications: Current Medications Acetaminophen (Tylenol) 650 mg PO Q4H PRN PRN Reason: Pain (Mild 1-3) Stop: 06/22/20 02:16 Last Admin: 05/08/20 08:58 Dose: 650 mg Hydrocodone Bitart/Acetaminophen ([place] 5mg/325mg) 1 tab PO Q6H PRN PRN Reason: Pain (Severe 7-10) Stop: 07/07/20 18:38 Last Admin: 05/18/20 17:31 Dose: 1 tab Al Hydrox/Mg Hydrox/Simethicone (Maalox) 30 ml PO Q4HR PRN PRN Reason: GI DISTRESS Stop: 06/22/20 02:16 Last Admin: 05/05/20 09:33 Dose: 30 ml Alprazolam (Xanax) 0.5 mg PO Q6HR PRN; Protocol PRN Reason: Anxiety Stop: 07/12/20 11:41 Last Admin: 05/18/20 05:16 Dose: 0.5 mg Amlodipine Besylate (Norvasc) 10 mg PO DAILY [facility] Stop: 06/23/20 08:59 Last Admin: 05/18/20 09:49 Dose: 10 mg Bupropion HCl (Wellbutrin Xl) 150 mg PO DAILY [facility]; Protocol Stop: 06/28/20 08:59 Last Admin: 05/18/20 09:50 Dose: 150 mg Calcium Carbonate (Tums) 1,000 mg PO Q6HR PRN PRN Reason: indigestion Stop: 06/22/20 07:27 Last Admin: 05/15/20 16:13 Dose: 1,000 mg Docusate Sodium (Colace) 100 mg PO BID [facility] Stop: 06/22/20 08:59 Last Admin: 05/18/20 17:31 Dose: 100 mg Enoxaparin Sodium (Lovenox) 40 mg SUBQ HS [facility] Stop: 06/22/20 20:59 Last Admin: 05/17/20 20:18 Dose: 40 mg Levothyroxine Sodium (Synthroid) 0.1 mg PO QDAC [facility] Stop: 06/22/20 07:29 Last Admin: 05/18/20 15:21 Dose: 0.1 mg Lisinopril (Zestril) 10 mg PO BID [facility] Stop: 06/23/20 08:59 Last Admin: 05/18/20 18:46 Dose: Not Given Loperamide HCl (Imodium) 4 mg PO Q6HR PRN PRN Reason: Diarrhea Stop: 06/24/20 11:46 Multivitamins/Vitamin C (Theragran) 1 tab PO DAILY [facility] Stop: 06/22/20 08:59 Last Admin: 05/18/20 09:50 Dose: 1 tab Quetiapine Fumarate 200 mg/ (Quetiapine Fumarate 50 mg) 250 mg PO HS [facility] Stop: 07/05/20 20:59 Last Admin: 05/17/20 20:18 Dose: 250 mg Venlafaxine HCl (Effexor) 300 mg PO DAILY [facility]; Protocol Stop: 07/13/20 14:59 Last Admin: 05/18/20 09:47 Dose: 300 mg Zolpidem Tartrate (Ambien) 10 mg PO HS PRN PRN Reason: Insomnia Stop: 07/12/20 11:43 Last Admin: 05/17/20 20:18 Dose: 10 mg General: alert HEENT: NC/AT, PERRLA, EOMI, anicteric sclerae, throat clear Neck: Supple, No JVD, No thyromegaly, +2 carotid pulse wo bruit, No LAD Lungs: CTAB Cardiovascular: RRR, Normal S1, Normal S2, without murmur Abdomen: soft, non-tender, non-distended Extremities: clear Neurological: no change, alert Internal Medicine Assmt/Plan - Assessment Assessment: 1.HTN. 2.HYPOTHYROIDISM. 3.DJD. 4.DEPRESSION 5.BACK PAIN - Plan Plan: CONTINUE ON CURRENT MEDICATION AND DIET. Nutritional Asmnt/Malnutr-PDOC - Dietary Evaluation Malnutrition Findings (Please click <Entered> for more info): Nutritional Asmnt/Malnutrition Start: 04/24/20 14: 11 Text: Status: Complete Freq: Protocol: Document 04/24/20 14:11 KELSEY (Rec: 04/24/20 14:15 [place] [email or web address] [id number]) Nutritional Asmnt/Malnutrition Patient General Information Nutritional Screening Low Risk Diagnosis Psychosis Pertinent Medical Hx/Surgical Hx HTN, Hypothyroidism, Depression Subjective Information Pt is a 56-year-old female admitted on 04/22 d/t agitation . Pt is eating an estimated 100% of meals Per Meal/ Nutrition Activity Record. Dietary is currently providing an estimated 1965 kcals and 108 gm Pro, to meet 100+% kcal and 100+% Pro needs. Spoke with pt. in room today and gathered food preferences; she requested coffee with meals and stated she cannot eat salads due to not having dentures. Anthropometrics HT: 53 WT: 150 LB (68.18 kg) BMI: 26.57 (Overweight) GI/ Skin Integrity GI: WNL, Soft, Round BM: 7/ x1 I/O: 1440/Not Noted Skin: WNL, Dryness Sam: 19 Diet Order: Cardiac Estimated Energy Needs: ( Geriatric, CBW) 8006-3608 kcals (25-30 kcals/ kg) 70-80g Pro (1.0-1.2 g/kg) 5649-6007 ml (25-30 ml/kg) Current Diet Order/ Nutrition Support Cardiac Patient / S.O Can Pertinent Medications Maalox (PRN), Norvasc, Tums, Colace, Lovenox, Synthroid, MOM (PRN), Theragran Pertinent Labs No pertinent labs at this time . Nutritional Hx/Data Height 1.6 m Height (Calculated Centimeters) 160.0 Current Weight (lbs) 68.039 kg Weight (Calculated Kilograms) 68.0 Weight (Calculated Grams) 42979.9 [place] Body Weight 115 LB (52.27 kg) % [place] Body Weight 130 Body Mass Index (BMI) 26.5 Weight Status Overweight GI Symptoms GI Symptoms None Last BM 04/23 x1 Difficult in: Chewing Cultural/Ethnic/Cheondoism Belief No pork Skin Integrity/Comment: WNL, Dryness Sam: 19 Current %PO Good (75-100%) Estimated Nutritional Goals BEE in Kcals: Using Current wt Calories/Kcals/Kg 25-30 Kcals Calculated 7582-8787 Protein: Using Current wt Protein g/k.0-1.2 Protein Calculated 70-80 Fluid: ml 2354-2115 ml (25-30 ml/kg) Nutritional Problem 1. Problem Problem No nutrition diagnosis at this time. Etiology N/A Signs/Symptoms: N/A Malnutrition Related to Morbid Obesity Malnutrition related to morbid obesity No Intervention/Recommendation Comments Continue Cardiac diet as tolerated. Expected Outcomes/Goals Expected Outcomes/Goals 1. PO intake to continue to meet >75% of estimated nutritional needs. 2. Monitor PO intake, wt, nutrition related labs, and skin integrity. 3. F/U as low risk in 7-10 days, 05/01-05/04.
[2020-05-18] MEDS: Enoxaparin 40 mg/0.4 mL 0.4mL Syr SUBQ SCH (21:03)
[2020-05-19] MEDS: Hydrocodone/APAP 5mg/325mg Tab PO PRN ×3 (06:14→18:49)
[2020-05-19] MEDS: Levothyroxine 0.1 Mg Tab PO SCH (06:48)
[2020-05-19] MEDS: buPROPion XL 150 mg T 24 H PO SCH (09:21)
[2020-05-19] MEDS: Multivitamin Tab PO SCH (09:22)
--- NOTE | 2020-05-19 16:09 | Internal Medicine Prog Note ---
Internal Medicine Subjective - Subjective Service Date: 05/19/20 Patient seen and examined:: without staff (SHE FEELS WELL) Patient is:: awake, verbal, in bed, talking Per staff patient has:: no adverse event Internal Medicine Objective - Results Recent Labs: Laboratory Last Values Triglycerides 192 mg/dL (30-150) H 04/25/20 11:20 Cholesterol 457 mg/dL (<200) H 04/25/20 11:20 LDL Cholesterol 297 mg/dL (0-129) H 04/25/20 11:20 HDL Cholesterol 67 mg/dL (>55) 04/25/20 11:20 Coronavirus (PCR) Negative (NOT DETECTD) 05/12/20 15:30 - Physical Exam Vitals and I&O: Vital Signs Temp 97.9 F 05/18/20 20:26 Pulse 78 05/19/20 09:30 Resp 18 05/19/20 07:58 BP 131/55 05/19/20 09:30 Pulse Ox 95 05/18/20 20:26 Intake & Output 05/18/20 05/19/20 05/19/20 18:59 06:59 18:59 Intake Total 1000 480 Balance 1000 480 Intake: Oral 1000 480 Other: # Voids 4 2 # Bowel Movements 1 0 Stool Characteristics Soft Formed Brown Active Medications: Current Medications Acetaminophen (Tylenol) 650 mg PO Q4H PRN PRN Reason: Pain (Mild 1-3) Stop: 06/22/20 02:16 Last Admin: 05/08/20 08:58 Dose: 650 mg Hydrocodone Bitart/Acetaminophen ([place] 5mg/325mg) 1 tab PO Q6H PRN PRN Reason: Pain (Severe 7-10) Stop: 07/07/20 18:38 Last Admin: 05/19/20 12:59 Dose: 1 tab Al Hydrox/Mg Hydrox/Simethicone (Maalox) 30 ml PO Q4HR PRN PRN Reason: GI DISTRESS Stop: 06/22/20 02:16 Last Admin: 05/05/20 09:33 Dose: 30 ml Alprazolam (Xanax) 0.5 mg PO Q6HR PRN; Protocol PRN Reason: Anxiety Stop: 07/12/20 11:41 Last Admin: 05/19/20 09:25 Dose: 0.5 mg Amlodipine Besylate (Norvasc) 10 mg PO DAILY [facility] Stop: 06/23/20 08:59 Last Admin: 05/19/20 09:29 Dose: 10 mg Bupropion HCl (Wellbutrin Xl) 150 mg PO DAILY [facility]; Protocol Stop: 06/28/20 08:59 Last Admin: 05/19/20 09:21 Dose: 150 mg Calcium Carbonate (Tums) 1,000 mg PO Q6HR PRN PRN Reason: indigestion Stop: 06/22/20 07:27 Last Admin: 05/15/20 16:13 Dose: 1,000 mg Docusate Sodium (Colace) 100 mg PO BID [facility] Stop: 06/22/20 08:59 Last Admin: 05/19/20 09:21 Dose: 100 mg Enoxaparin Sodium (Lovenox) 40 mg SUBQ HS [facility] Stop: 06/22/20 20:59 Last Admin: 05/18/20 21:03 Dose: Not Given Levothyroxine Sodium (Synthroid) 0.1 mg PO QDAC [facility] Stop: 06/22/20 07:29 Last Admin: 05/19/20 06:48 Dose: 0.1 mg Lisinopril (Zestril) 10 mg PO BID [facility] Stop: 06/23/20 08:59 Last Admin: 05/19/20 09:30 Dose: 10 mg Loperamide HCl (Imodium) 4 mg PO Q6HR PRN PRN Reason: Diarrhea Stop: 06/24/20 11:46 Multivitamins/Vitamin C (Theragran) 1 tab PO DAILY [facility] Stop: 06/22/20 08:59 Last Admin: 05/19/20 09:22 Dose: 1 tab Quetiapine Fumarate 200 mg/ (Quetiapine Fumarate 50 mg) 250 mg PO HS [facility] Stop: 07/05/20 20:59 Last Admin: 05/18/20 21:03 Dose: 250 mg Venlafaxine HCl (Effexor) 300 mg PO DAILY [facility]; Protocol Stop: 07/13/20 14:59 Last Admin: 05/19/20 09:21 Dose: 300 mg Zolpidem Tartrate (Ambien) 10 mg PO HS PRN PRN Reason: Insomnia Stop: 07/12/20 11:43 Last Admin: 05/18/20 21:03 Dose: 10 mg General: alert HEENT: NC/AT, PERRLA, EOMI, anicteric sclerae, throat clear Neck: Supple, No JVD, No thyromegaly, +2 carotid pulse wo bruit, No LAD Lungs: CTAB Cardiovascular: RRR, Normal S1, Normal S2, without murmur Abdomen: soft, non-tender, non-distended Extremities: clear Neurological: no change, alert Internal Medicine Assmt/Plan - Assessment Assessment: 1.HTN. 2.HYPOTHYROIDISM. 3.DJD. 4.DEPRESSION 5.BACK PAIN - Plan Plan: CONTINUE ON CURRENT MEDICATION AND DIET. Nutritional Asmnt/Malnutr-PDOC - Dietary Evaluation Malnutrition Findings (Please click <Entered> for more info): Nutritional Asmnt/Malnutrition Start: 04/24/20 14: 11 Text: Status: Complete Freq: Protocol: Document 04/24/20 14:11 KELSEY (Rec: 04/24/20 14:15 [facility] [email or web address] [id number]) Nutritional Asmnt/Malnutrition Patient General Information Nutritional Screening Low Risk Diagnosis Psychosis Pertinent Medical Hx/Surgical Hx HTN, Hypothyroidism, Depression Subjective Information Pt is a 56-year-old female admitted on 04/22 d/t agitation . Pt is eating an estimated 100% of meals Per Meal/ Nutrition Activity Record. Dietary is currently providing an estimated 1965 kcals and 108 gm Pro, to meet 100+% kcal and 100+% Pro needs. Spoke with pt. in room today and gathered food preferences; she requested coffee with meals and stated she cannot eat salads due to not having dentures. Anthropometrics HT: 53 WT: 150 LB (68.18 kg) BMI: 26.57 (Overweight) GI/ Skin Integrity GI: WNL, Soft, Round BM: / x1 I/O: 1440/Not Noted Skin: WNL, Dryness Sam: 19 Diet Order: Cardiac Estimated Energy Needs: ( Geriatric, CBW) 1097-8049 kcals (25-30 kcals/ kg) 70-80g Pro (1.0-1.2 g/kg) 1650-6659 ml (25-30 ml/kg) Current Diet Order/ Nutrition Support Cardiac Patient / S.O Can Pertinent Medications Maalox (PRN), Norvasc, Tums, Colace, Lovenox, Synthroid, MOM (PRN), Theragran Pertinent Labs No pertinent labs at this time . Nutritional Hx/Data Height 1.6 m Height (Calculated Centimeters) 160.0 Current Weight (lbs) 68.039 kg Weight (Calculated Kilograms) 68.0 Weight (Calculated Grams) 08642.9 [place] Body Weight 115 LB (52.27 kg) % [place] Body Weight 130 Body Mass Index (BMI) 26.5 Weight Status Overweight GI Symptoms GI Symptoms None Last BM 04/23 x1 Difficult in: Chewing Cultural/Ethnic/Adventism Belief No pork Skin Integrity/Comment: WNL, Dryness Sam: 19 Current %PO Good (75-100%) Estimated Nutritional Goals BEE in Kcals: Using Current wt Calories/Kcals/Kg 25-30 Kcals Calculated 9541-9517 Protein: Using Current wt Protein g/k.0-1.2 Protein Calculated 70-80 Fluid: ml 9339-1450 ml (25-30 ml/kg) Nutritional Problem 1. Problem Problem No nutrition diagnosis at this time. Etiology N/A Signs/Symptoms: N/A Malnutrition Related to Morbid Obesity Malnutrition related to morbid obesity No Intervention/Recommendation Comments Continue Cardiac diet as tolerated. Expected Outcomes/Goals Expected Outcomes/Goals 1. PO intake to continue to meet >75% of estimated nutritional needs. 2. Monitor PO intake, wt, nutrition related labs, and skin integrity. 3. F/U as low risk in 7-10 days, 05/01-05/04.
--- NOTE | 2020-05-19 18:40 | Progress Notes ---
DATE: 05/19/2020 SUBJECTIVE: A 69-year-old female, currently pending placement at [facility]. She has really got nowhere else to go. Concerns about grave disability. Otherwise, calm, generally cooperative. No agitation or escalation of behaviors. Resting comfortably. No SI. No HI JOB# [id number]
[2020-05-19] MEDS: Enoxaparin 40 mg/0.4 mL 0.4mL Syr SUBQ SCH (20:23)
[2020-05-20] MEDS: Hydrocodone/APAP 5mg/325mg Tab PO PRN ×3 (03:46→15:59)
[2020-05-20] MEDS: Levothyroxine 0.1 Mg Tab PO SCH (06:42)
[2020-05-20] MEDS: Multivitamin Tab PO SCH (08:04)
[2020-05-20] MEDS: buPROPion XL 150 mg T 24 H PO SCH (08:04)
--- NOTE | 2020-05-20 14:56 | Progress Notes ---
DATE: 05/20/2020 A 69-year-old female, currently pending placement at a detention facility, nowhere else to go, delays due to COVID-19, calm, generally cooperative. No agitation. Socializing well. No SI, no HI, no overt psychotic symptoms. Unable to attend to her basic needs, multiple medical problems. We are pending placement at the detention facility. [facility]# [id number]
--- NOTE | 2020-05-20 19:45 | Internal Medicine Prog Note ---
Internal Medicine Subjective - Subjective Service Date: 05/20/20 Patient seen and examined:: without staff (SHE FEELS WELL) Patient is:: awake, verbal, in bed, talking Per staff patient has:: no adverse event Internal Medicine Objective - Results Recent Labs: Laboratory Last Values Triglycerides 192 mg/dL (30-150) H 04/25/20 11:20 Cholesterol 457 mg/dL (<200) H 04/25/20 11:20 LDL Cholesterol 297 mg/dL (0-129) H 04/25/20 11:20 HDL Cholesterol 67 mg/dL (>55) 04/25/20 11:20 Coronavirus (PCR) Negative (NOT DETECTD) 05/12/20 15:30 - Physical Exam Vitals and I&O: Vital Signs Temp 96.9 F 05/20/20 14:00 Pulse 62 05/20/20 16:30 Resp 18 05/20/20 14:00 BP 118/64 05/20/20 16:30 Pulse Ox 96 05/20/20 14:00 Intake & Output 05/20/20 05/20/20 05/21/20 06:59 18:59 06:59 Intake Total 240 1200 Balance 240 1200 Intake: Oral 240 1200 Other: # Voids 3 4 # Bowel Movements 0 0 Active Medications: Current Medications Acetaminophen (Tylenol) 650 mg PO Q4H PRN PRN Reason: Pain (Mild 1-3) Stop: 06/22/20 02:16 Last Admin: 05/08/20 08:58 Dose: 650 mg Hydrocodone Bitart/Acetaminophen ([place] 5mg/325mg) 1 tab PO Q6H PRN PRN Reason: Pain (Severe 7-10) Stop: 07/07/20 18:38 Last Admin: 05/20/20 15:59 Dose: 1 tab Al Hydrox/Mg Hydrox/Simethicone (Maalox) 30 ml PO Q4HR PRN PRN Reason: GI DISTRESS Stop: 06/22/20 02:16 Last Admin: 05/05/20 09:33 Dose: 30 ml Alprazolam (Xanax) 0.5 mg PO Q6HR PRN; Protocol PRN Reason: Anxiety Stop: 07/12/20 11:41 Last Admin: 05/20/20 08:04 Dose: 0.5 mg Amlodipine Besylate (Norvasc) 10 mg PO DAILY [facility] Stop: 06/23/20 08:59 Last Admin: 05/20/20 08:03 Dose: Not Given Bupropion HCl (Wellbutrin Xl) 150 mg PO DAILY [facility]; Protocol Stop: 06/28/20 08:59 Last Admin: 05/20/20 08:04 Dose: 150 mg Calcium Carbonate (Tums) 1,000 mg PO Q6HR PRN PRN Reason: indigestion Stop: 06/22/20 07:27 Last Admin: 05/15/20 16:13 Dose: 1,000 mg Docusate Sodium (Colace) 100 mg PO BID [facility] Stop: 06/22/20 08:59 Last Admin: 05/20/20 16:30 Dose: 100 mg Enoxaparin Sodium (Lovenox) 40 mg SUBQ HS [facility] Stop: 06/22/20 20:59 Last Admin: 05/19/20 20:23 Dose: 40 mg Levothyroxine Sodium (Synthroid) 0.1 mg PO QDAC [facility] Stop: 06/22/20 07:29 Last Admin: 05/20/20 06:42 Dose: 0.1 mg Lisinopril (Zestril) 10 mg PO BID [facility] Stop: 06/23/20 08:59 Last Admin: 05/20/20 16:30 Dose: 10 mg Loperamide HCl (Imodium) 4 mg PO Q6HR PRN PRN Reason: Diarrhea Stop: 06/24/20 11:46 Multivitamins/Vitamin C (Theragran) 1 tab PO DAILY [facility] Stop: 06/22/20 08:59 Last Admin: 05/20/20 08:04 Dose: 1 tab Quetiapine Fumarate 200 mg/ (Quetiapine Fumarate 50 mg) 250 mg PO HS [facility] Stop: 07/05/20 20:59 Last Admin: 05/19/20 20:23 Dose: 250 mg Venlafaxine HCl (Effexor) 300 mg PO DAILY [facility]; Protocol Stop: 07/13/20 14:59 Last Admin: 05/20/20 09:35 Dose: 300 mg Zolpidem Tartrate (Ambien) 10 mg PO HS PRN PRN Reason: Insomnia Stop: 07/12/20 11:43 Last Admin: 05/19/20 20:23 Dose: 10 mg General: alert HEENT: NC/AT, PERRLA, EOMI, anicteric sclerae, throat clear Neck: Supple, No JVD, No thyromegaly, +2 carotid pulse wo bruit, No LAD Lungs: CTAB Cardiovascular: RRR, Normal S1, Normal S2, without murmur Abdomen: soft, non-tender, non-distended Extremities: clear Neurological: no change, alert Internal Medicine Assmt/Plan - Assessment Assessment: 1.HTN. 2.HYPOTHYROIDISM. 3.DJD. 4.DEPRESSION 5.BACK PAIN - Plan Plan: CONTINUE ON CURRENT MEDICATION AND DIET. Nutritional Asmnt/Malnutr-PDOC - Dietary Evaluation Malnutrition Findings (Please click <Entered> for more info): Nutritional Asmnt/Malnutrition Start: 04/24/20 14: 11 Text: Status: Complete Freq: Protocol: Document 04/24/20 14:11 KELSEY (Rec: 04/24/20 14:15 KELSEY [id number]) Nutritional Asmnt/Malnutrition Patient General Information Nutritional Screening Low Risk Diagnosis Psychosis Pertinent Medical Hx/Surgical Hx HTN, Hypothyroidism, Depression Subjective Information Pt is a 56-year-old female admitted on 04/22 d/t agitation . Pt is eating an estimated 100% of meals Per Meal/ Nutrition Activity Record. Dietary is currently providing an estimated 1965 kcals and 108 gm Pro, to meet 100+% kcal and 100+% Pro needs. Spoke with pt. in room today and gathered food preferences; she requested coffee with meals and stated she cannot eat salads due to not having dentures. Anthropometrics HT: 53 WT: 150 LB (68.18 kg) BMI: 26.57 (Overweight) GI/ Skin Integrity GI: WNL, Soft, Round BM: 7/ x1 I/O: 1440/Not Noted Skin: WNL, Dryness Sam: 19 Diet Order: Cardiac Estimated Energy Needs: ( Geriatric, CBW) 8339-5399 kcals (25-30 kcals/ kg) 70-80g Pro (1.0-1.2 g/kg) 3832-0540 ml (25-30 ml/kg) Current Diet Order/ Nutrition Support Cardiac Patient / S.O Can Pertinent Medications Maalox (PRN), Norvasc, Tums, Colace, Lovenox, Synthroid, MOM (PRN), Theragran Pertinent Labs No pertinent labs at this time . Nutritional Hx/Data Height 1.6 m Height (Calculated Centimeters) 160.0 Current Weight (lbs) 68.039 kg Weight (Calculated Kilograms) 68.0 Weight (Calculated Grams) 40866.9 [place] Body Weight 115 LB (52.27 kg) % [place] Body Weight 130 Body Mass Index (BMI) 26.5 Weight Status Overweight GI Symptoms GI Symptoms None Last BM 04/23 x1 Difficult in: Chewing Cultural/Ethnic/Amish Belief No pork Skin Integrity/Comment: WNL, Dryness Sam: 19 Current %PO Good (75-100%) Estimated Nutritional Goals BEE in Kcals: Using Current wt Calories/Kcals/Kg 25-30 Kcals Calculated 3200-7913 Protein: Using Current wt Protein g/k.0-1.2 Protein Calculated 70-80 Fluid: ml 3765-0022 ml (25-30 ml/kg) Nutritional Problem 1. Problem Problem No nutrition diagnosis at this time. Etiology N/A Signs/Symptoms: N/A Malnutrition Related to Morbid Obesity Malnutrition related to morbid obesity No Intervention/Recommendation Comments Continue Cardiac diet as tolerated. Expected Outcomes/Goals Expected Outcomes/Goals 1. PO intake to continue to meet >75% of estimated nutritional needs. 2. Monitor PO intake, wt, nutrition related labs, and skin integrity. 3. F/U as low risk in 7-10 days, 05/01-05/04.
[2020-05-20] MEDS: Enoxaparin 40 mg/0.4 mL 0.4mL Syr SUBQ SCH (20:49)
[2020-05-21] MEDS: Levothyroxine 0.1 Mg Tab PO SCH (06:32)
[2020-05-21] MEDS: buPROPion XL 150 mg T 24 H PO SCH (08:19)
[2020-05-21] MEDS: Multivitamin Tab PO SCH (08:19)
[2020-05-21] MEDS: Hydrocodone/APAP 5mg/325mg Tab PO PRN ×2 (08:51→15:01)
--- NOTE | 2020-05-21 13:40 | Internal Medicine Prog Note ---
Internal Medicine Subjective - Subjective Service Date: 05/21/20 Patient seen and examined:: without staff (SHE FEELS BETTER) Patient is:: awake, verbal, in bed, talking Per staff patient has:: no adverse event Internal Medicine Objective - Results Recent Labs: Laboratory Last Values Triglycerides 192 mg/dL (30-150) H 04/25/20 11:20 Cholesterol 457 mg/dL (<200) H 04/25/20 11:20 LDL Cholesterol 297 mg/dL (0-129) H 04/25/20 11:20 HDL Cholesterol 67 mg/dL (>55) 04/25/20 11:20 Coronavirus (PCR) Negative (NOT DETECTD) 05/12/20 15:30 - Physical Exam Vitals and I&O: Vital Signs Temp 97.5 F 05/21/20 05:56 Pulse 65 05/21/20 08:20 Resp 17 05/21/20 08:00 BP 107/64 05/21/20 08:20 Pulse Ox 93 05/21/20 05:56 Intake & Output 05/20/20 05/21/20 05/21/20 18:59 06:59 18:59 Intake Total 1200 240 Balance 1200 240 Intake: Oral 1200 240 Other: # Voids 4 3 # Bowel Movements 0 0 Active Medications: Current Medications Acetaminophen (Tylenol) 650 mg PO Q4H PRN PRN Reason: Pain (Mild 1-3) Stop: 06/22/20 02:16 Last Admin: 05/08/20 08:58 Dose: 650 mg Hydrocodone Bitart/Acetaminophen ([place] 5mg/325mg) 1 tab PO Q6H PRN PRN Reason: Pain (Severe 7-10) Stop: 07/07/20 18:38 Last Admin: 05/21/20 08:51 Dose: 1 tab Al Hydrox/Mg Hydrox/Simethicone (Maalox) 30 ml PO Q4HR PRN PRN Reason: GI DISTRESS Stop: 06/22/20 02:16 Last Admin: 05/05/20 09:33 Dose: 30 ml Alprazolam (Xanax) 0.5 mg PO Q6HR PRN; Protocol PRN Reason: Anxiety Stop: 07/12/20 11:41 Last Admin: 05/20/20 21:23 Dose: 0.5 mg Amlodipine Besylate (Norvasc) 10 mg PO DAILY [facility] Stop: 06/23/20 08:59 Last Admin: 05/21/20 08:20 Dose: Not Given Bupropion HCl (Wellbutrin Xl) 150 mg PO DAILY [facility]; Protocol Stop: 06/28/20 08:59 Last Admin: 05/21/20 08:19 Dose: 150 mg Calcium Carbonate (Tums) 1,000 mg PO Q6HR PRN PRN Reason: indigestion Stop: 06/22/20 07:27 Last Admin: 05/15/20 16:13 Dose: 1,000 mg Docusate Sodium (Colace) 100 mg PO BID [facility] Stop: 06/22/20 08:59 Last Admin: 05/21/20 08:19 Dose: 100 mg Enoxaparin Sodium (Lovenox) 40 mg SUBQ HS [facility] Stop: 06/22/20 20:59 Last Admin: 05/20/20 20:49 Dose: 40 mg Levothyroxine Sodium (Synthroid) 0.1 mg PO QDAC [facility] Stop: 06/22/20 07:29 Last Admin: 05/21/20 06:32 Dose: 0.1 mg Lisinopril (Zestril) 10 mg PO BID [facility] Stop: 06/23/20 08:59 Last Admin: 05/21/20 08:19 Dose: Not Given Loperamide HCl (Imodium) 4 mg PO Q6HR PRN PRN Reason: Diarrhea Stop: 06/24/20 11:46 Multivitamins/Vitamin C (Theragran) 1 tab PO DAILY [facility] Stop: 06/22/20 08:59 Last Admin: 05/21/20 08:19 Dose: 1 tab Quetiapine Fumarate 200 mg/ (Quetiapine Fumarate 50 mg) 250 mg PO HS [facility] Stop: 07/05/20 20:59 Last Admin: 05/20/20 20:49 Dose: 250 mg Venlafaxine HCl (Effexor) 300 mg PO DAILY [facility]; Protocol Stop: 07/13/20 14:59 Last Admin: 05/21/20 08:30 Dose: 300 mg Zolpidem Tartrate (Ambien) 10 mg PO HS PRN PRN Reason: Insomnia Stop: 07/12/20 11:43 Last Admin: 05/20/20 20:56 Dose: 10 mg General: alert HEENT: NC/AT, PERRLA, EOMI, anicteric sclerae, throat clear Neck: Supple, No JVD, No thyromegaly, +2 carotid pulse wo bruit, No LAD Lungs: CTAB Cardiovascular: RRR, Normal S1, Normal S2, without murmur Abdomen: soft, non-tender, non-distended Extremities: clear Neurological: no change, alert Internal Medicine Assmt/Plan - Assessment Assessment: 1.HTN. 2.HYPOTHYROIDISM. 3.DJD. 4.DEPRESSION 5.BACK PAIN - Plan Plan: CONTINUE ON CURRENT MEDICATION AND DIET. Nutritional Asmnt/Malnutr-PDOC - Dietary Evaluation Malnutrition Findings (Please click <Entered> for more info): Nutritional Asmnt/Malnutrition Start: 04/24/20 14: 11 Text: Status: Complete Freq: Protocol: Document 04/24/20 14:11 KELSEY (Rec: 04/24/20 14:15 KELSEY [email or web address] [id number]) Nutritional Asmnt/Malnutrition Patient General Information Nutritional Screening Low Risk Diagnosis Psychosis Pertinent Medical Hx/Surgical Hx HTN, Hypothyroidism, Depression Subjective Information Pt is a 56-year-old female admitted on 04/22 d/t agitation . Pt is eating an estimated 100% of meals Per Meal/ Nutrition Activity Record. Dietary is currently providing an estimated 1965 kcals and 108 gm Pro, to meet 100+% kcal and 100+% Pro needs. Spoke with pt. in room today and gathered food preferences; she requested coffee with meals and stated she cannot eat salads due to not having dentures. Anthropometrics HT: 53 WT: 150 LB (68.18 kg) BMI: 26.57 (Overweight) GI/ Skin Integrity GI: WNL, Soft, Round BM: 7/ x1 I/O: 1440/Not Noted Skin: WNL, Dryness Sam: 19 Diet Order: Cardiac Estimated Energy Needs: ( Geriatric, CBW) 8427-7608 kcals (25-30 kcals/ kg) 70-80g Pro (1.0-1.2 g/kg) 4638-7789 ml (25-30 ml/kg) Current Diet Order/ Nutrition Support Cardiac Patient / S.O Can Pertinent Medications Maalox (PRN), Norvasc, Tums, Colace, Lovenox, Synthroid, MOM (PRN), Theragran Pertinent Labs No pertinent labs at this time . Nutritional Hx/Data Height 1.6 m Height (Calculated Centimeters) 160.0 Current Weight (lbs) 68.039 kg Weight (Calculated Kilograms) 68.0 Weight (Calculated Grams) 16120.9 [place] Body Weight 115 LB (52.27 kg) % [place] Body Weight 130 Body Mass Index (BMI) 26.5 Weight Status Overweight GI Symptoms GI Symptoms None Last BM 04/23 x1 Difficult in: Chewing Cultural/Ethnic/Jainism Belief No pork Skin Integrity/Comment: WNL, Dryness Sam: 19 Current %PO Good (75-100%) Estimated Nutritional Goals BEE in Kcals: Using Current wt Calories/Kcals/Kg 25-30 Kcals Calculated 4594-8388 Protein: Using Current wt Protein g/k.0-1.2 Protein Calculated 70-80 Fluid: ml 7146-0283 ml (25-30 ml/kg) Nutritional Problem 1. Problem Problem No nutrition diagnosis at this time. Etiology N/A Signs/Symptoms: N/A Malnutrition Related to Morbid Obesity Malnutrition related to morbid obesity No Intervention/Recommendation Comments Continue Cardiac diet as tolerated. Expected Outcomes/Goals Expected Outcomes/Goals 1. PO intake to continue to meet >75% of estimated nutritional needs. 2. Monitor PO intake, wt, nutrition related labs, and skin integrity. 3. F/U as low risk in 7-10 days, 05/01-05/04.
--- NOTE | 2020-05-21 20:01 | Progress Notes ---
DATE: 05/21/2020 SUBJECTIVE: A 69-year-old female, somewhat frustrated about long length of stay, hoping to go possibly back to the residential and then maybe go to an assisted living, noting that she is surrounded by a lot of old people with dementia and has not been able to connect with anybody. I remind her that she was staying at a residential and it seems that she is walking pretty well, so perhaps she can stay there for a short stint and then go to an assisted living or possibly her own space. She just wants to be around Dr. Robin minor. Fair sleep and appetite at baseline. Calm, generally cooperative, doing well with current dosing of Seroquel. No overt psychotic symptoms. Still pending a safe disposition plan. JOB# [id number]
[2020-05-21] MEDS: Enoxaparin 40 mg/0.4 mL 0.4mL Syr SUBQ SCH (20:34)
[2020-05-22] MEDS: Hydrocodone/APAP 5mg/325mg Tab PO PRN ×3 (04:58→16:37)
[2020-05-22] MEDS: Levothyroxine 0.1 Mg Tab PO SCH (06:38)
[2020-05-22] MEDS: buPROPion XL 150 mg T 24 H PO SCH (08:26)
[2020-05-22] MEDS: Multivitamin Tab PO SCH (08:26)
--- NOTE | 2020-05-22 17:54 | Internal Medicine Prog Note ---
Internal Medicine Subjective - Subjective Service Date: 05/22/20 Patient seen and examined:: without staff (SHE FEELS WELL) Patient is:: awake, verbal, in bed, talking Per staff patient has:: no adverse event Internal Medicine Objective - Results Recent Labs: Laboratory Last Values Triglycerides 192 mg/dL (30-150) H 04/25/20 11:20 Cholesterol 457 mg/dL (<200) H 04/25/20 11:20 LDL Cholesterol 297 mg/dL (0-129) H 04/25/20 11:20 HDL Cholesterol 67 mg/dL (>55) 04/25/20 11:20 Coronavirus (PCR) Negative (NOT DETECTD) 05/12/20 15:30 - Physical Exam Vitals and I&O: Vital Signs Temp 97.8 F 05/22/20 14:00 Pulse 74 05/22/20 16:37 Resp 20 05/22/20 14:00 BP 104/60 05/22/20 16:37 Pulse Ox 97 05/22/20 14:00 Intake & Output 05/21/20 05/22/20 05/22/20 18:59 06:59 18:59 Intake Total 1400 120 Balance 1400 120 Intake: Oral 1400 120 Other: # Voids 4 3 # Bowel Movements 0 Active Medications: Current Medications Acetaminophen (Tylenol) 650 mg PO Q4H PRN PRN Reason: Pain (Mild 1-3) Stop: 06/22/20 02:16 Last Admin: 05/08/20 08:58 Dose: 650 mg Hydrocodone Bitart/Acetaminophen ([place] 5mg/325mg) 1 tab PO Q6H PRN PRN Reason: Pain (Severe 7-10) Stop: 07/07/20 18:38 Last Admin: 05/22/20 16:37 Dose: 1 tab Al Hydrox/Mg Hydrox/Simethicone (Maalox) 30 ml PO Q4HR PRN PRN Reason: GI DISTRESS Stop: 06/22/20 02:16 Last Admin: 05/05/20 09:33 Dose: 30 ml Alprazolam (Xanax) 0.5 mg PO Q6HR PRN; Protocol PRN Reason: Anxiety Stop: 07/12/20 11:41 Last Admin: 05/22/20 13:35 Dose: 0.5 mg Amlodipine Besylate (Norvasc) 10 mg PO DAILY [facility] Stop: 06/23/20 08:59 Last Admin: 05/22/20 08:27 Dose: 10 mg Bupropion HCl (Wellbutrin Xl) 150 mg PO DAILY [facility]; Protocol Stop: 06/28/20 08:59 Last Admin: 05/22/20 08:26 Dose: 150 mg Calcium Carbonate (Tums) 1,000 mg PO Q6HR PRN PRN Reason: indigestion Stop: 06/22/20 07:27 Last Admin: 05/22/20 13:35 Dose: 1,000 mg Docusate Sodium (Colace) 100 mg PO BID [facility] Stop: 06/22/20 08:59 Last Admin: 05/22/20 16:38 Dose: 100 mg Levothyroxine Sodium (Synthroid) 0.1 mg PO QDAC [facility] Stop: 06/22/20 07:29 Last Admin: 05/22/20 06:38 Dose: 0.1 mg Lisinopril (Zestril) 10 mg PO BID [facility] Stop: 06/23/20 08:59 Last Admin: 05/22/20 16:37 Dose: 10 mg Loperamide HCl (Imodium) 4 mg PO Q6HR PRN PRN Reason: Diarrhea Stop: 06/24/20 11:46 Multivitamins/Vitamin C (Theragran) 1 tab PO DAILY [facility] Stop: 06/22/20 08:59 Last Admin: 05/22/20 08:26 Dose: 1 tab Quetiapine Fumarate 200 mg/ (Quetiapine Fumarate 50 mg) 250 mg PO HS [facility] Stop: 07/05/20 20:59 Last Admin: 05/21/20 20:33 Dose: 250 mg Venlafaxine HCl (Effexor) 300 mg PO DAILY [facility]; Protocol Stop: 07/13/20 14:59 Last Admin: 05/22/20 08:28 Dose: 300 mg Zolpidem Tartrate (Ambien) 10 mg PO HS PRN PRN Reason: Insomnia Stop: 07/12/20 11:43 Last Admin: 05/21/20 21:03 Dose: 10 mg General: alert HEENT: NC/AT, PERRLA, EOMI, anicteric sclerae, throat clear Neck: Supple, No JVD, No thyromegaly, +2 carotid pulse wo bruit, No LAD Lungs: CTAB Cardiovascular: RRR, Normal S1, Normal S2, without murmur Abdomen: soft, non-tender, non-distended Extremities: clear Neurological: no change, alert Internal Medicine Assmt/Plan - Assessment Assessment: 1.HTN. 2.HYPOTHYROIDISM. 3.DJD. 4.DEPRESSION 5.BACK PAIN - Plan Plan: CONTINUE ON CURRENT MEDICATION AND DIET. Nutritional Asmnt/Malnutr-PDOC - Dietary Evaluation Malnutrition Findings (Please click <Entered> for more info): Nutritional Asmnt/Malnutrition Start: 04/24/20 14: 11 Text: Status: Complete Freq: Protocol: Document 04/24/20 14:11 XAVIERSUSAN (Rec: 04/24/20 14:15 XAVIERSUSAN [id number] [id number]) Nutritional Asmnt/Malnutrition Patient General Information Nutritional Screening Low Risk Diagnosis Psychosis Pertinent Medical Hx/Surgical Hx HTN, Hypothyroidism, Depression Subjective Information Pt is a 56-year-old female admitted on 04/22 d/t agitation . Pt is eating an estimated 100% of meals Per Meal/ Nutrition Activity Record. Dietary is currently providing an estimated 1965 kcals and 108 gm Pro, to meet 100+% kcal and 100+% Pro needs. Spoke with pt. in room today and gathered food preferences; she requested coffee with meals and stated she cannot eat salads due to not having dentures. Anthropometrics HT: 53 WT: 150 LB (68.18 kg) BMI: 26.57 (Overweight) GI/ Skin Integrity GI: WNL, Soft, Round BM: 7/ x1 I/O: 1440/Not Noted Skin: WNL, Dryness Sam: 19 Diet Order: Cardiac Estimated Energy Needs: ( Geriatric, CBW) 3318-9765 kcals (25-30 kcals/ kg) 70-80g Pro (1.0-1.2 g/kg) 4621-5550 ml (25-30 ml/kg) Current Diet Order/ Nutrition Support Cardiac Patient / S.O Can Pertinent Medications Maalox (PRN), Norvasc, Tums, Colace, Lovenox, Synthroid, MOM (PRN), Theragran Pertinent Labs No pertinent labs at this time . Nutritional Hx/Data Height 1.6 m Height (Calculated Centimeters) 160.0 Current Weight (lbs) 68.039 kg Weight (Calculated Kilograms) 68.0 Weight (Calculated Grams) 28143.9 [place] Body Weight 115 LB (52.27 kg) % [place] Body Weight 130 Body Mass Index (BMI) 26.5 Weight Status Overweight GI Symptoms GI Symptoms None Last BM 04/23 x1 Difficult in: Chewing Cultural/Ethnic/Sikh Belief No pork Skin Integrity/Comment: WNL, Dryness Sam: 19 Current %PO Good (75-100%) Estimated Nutritional Goals BEE in Kcals: Using Current wt Calories/Kcals/Kg 25-30 Kcals Calculated 0957-7986 Protein: Using Current wt Protein g/k.0-1.2 Protein Calculated 70-80 Fluid: ml 0321-5280 ml (25-30 ml/kg) Nutritional Problem 1. Problem Problem No nutrition diagnosis at this time. Etiology N/A Signs/Symptoms: N/A Malnutrition Related to Morbid Obesity Malnutrition related to morbid obesity No Intervention/Recommendation Comments Continue Cardiac diet as tolerated. Expected Outcomes/Goals Expected Outcomes/Goals 1. PO intake to continue to meet >75% of estimated nutritional needs. 2. Monitor PO intake, wt, nutrition related labs, and skin integrity. 3. F/U as low risk in 7-10 days, 05/01-05/04.
--- NOTE | 2020-05-23 03:11 | Progress Notes ---
DATE: 05/22/2020 A 69-year-old female, pending placement to a [facility] facility. Is unable to tend to her basic needs and would like to go back to the [facility] facility, but due to COVID-19, there are delays. Fair sleep and appetite. Frustrated about long length of stay. Linear, engaged. No SI, no HI, no intent, no plan. No overt psychotic symptoms. Resting comfortably, in no distress. JOB# [id number]
[2020-05-23] MEDS: Hydrocodone/APAP 5mg/325mg Tab PO PRN ×3 (06:04→18:49)
[2020-05-23] MEDS: Levothyroxine 0.1 Mg Tab PO SCH (06:30)
[2020-05-23] MEDS: Multivitamin Tab PO SCH (08:20)
[2020-05-23] MEDS: buPROPion XL 150 mg T 24 H PO SCH (08:20)
--- NOTE | 2020-05-23 18:16 | Progress Notes ---
DATE: 05/23/2020 SUBJECTIVE: A 69-year-old female, currently in the hospital, still pending placement. She is frustrated with her long length of stay, wanting to go to an independent living or an assisted living. I asked the social service manager about this yesterday. Unfortunately the patient simply does not have enough funding to do this. I speak with her at length today and she believes that there are places out there that she can afford although we do not have any information about what these places are called or the phone numbers and the patient unfortunately cannot help us with any phone numbers either. Restless, at times demanding. Fair sleep and appetite. Time was spent answering the patient's questions. Otherwise, she is linear and engaged. No SI, no HI, no psychotic symptoms, redirectable, happy with the increased dose of Effexor. We are trying to get her to a [facility] facility in [place] due to COVID-19. JOB# [id number]
--- NOTE | 2020-05-23 19:33 | Internal Medicine Prog Note ---
Internal Medicine Subjective - Subjective Service Date: 05/23/20 Patient seen and examined:: without staff (SHE FEELS WELL) Patient is:: awake, verbal, in bed, talking Per staff patient has:: no adverse event Internal Medicine Objective - Results Recent Labs: Laboratory Last Values Triglycerides 192 mg/dL (30-150) H 04/25/20 11:20 Cholesterol 457 mg/dL (<200) H 04/25/20 11:20 LDL Cholesterol 297 mg/dL (0-129) H 04/25/20 11:20 HDL Cholesterol 67 mg/dL (>55) 04/25/20 11:20 Coronavirus (PCR) Negative (NOT DETECTD) 05/12/20 15:30 - Physical Exam Vitals and I&O: Vital Signs Temp 98.6 F 05/23/20 14:00 Pulse 76 05/23/20 16:11 Resp 20 05/23/20 14:00 BP 139/77 05/23/20 16:11 Pulse Ox 95 05/23/20 14:00 Intake & Output 05/23/20 05/23/20 05/24/20 06:59 18:59 06:59 Intake Total 1000 Balance 1000 Intake: Oral 1000 Other: # Voids 4 # Bowel Movements 1 Active Medications: Current Medications Acetaminophen (Tylenol) 650 mg PO Q4H PRN PRN Reason: Pain (Mild 1-3) Stop: 06/22/20 02:16 Last Admin: 05/08/20 08:58 Dose: 650 mg Hydrocodone Bitart/Acetaminophen ([place] 5mg/325mg) 1 tab PO Q6H PRN PRN Reason: Pain (Severe 7-10) Stop: 07/07/20 18:38 Last Admin: 05/23/20 18:49 Dose: 1 tab Al Hydrox/Mg Hydrox/Simethicone (Maalox) 30 ml PO Q4HR PRN PRN Reason: GI DISTRESS Stop: 06/22/20 02:16 Last Admin: 05/05/20 09:33 Dose: 30 ml Alprazolam (Xanax) 0.5 mg PO Q6HR PRN; Protocol PRN Reason: Anxiety Stop: 07/12/20 11:41 Last Admin: 05/23/20 09:32 Dose: 0.5 mg Amlodipine Besylate (Norvasc) 10 mg PO DAILY [facility] Stop: 06/23/20 08:59 Last Admin: 05/23/20 08:20 Dose: Not Given Bupropion HCl (Wellbutrin Xl) 150 mg PO DAILY [facility]; Protocol Stop: 06/28/20 08:59 Last Admin: 05/23/20 08:20 Dose: 150 mg Calcium Carbonate (Tums) 1,000 mg PO Q6HR PRN PRN Reason: indigestion Stop: 06/22/20 07:27 Last Admin: 05/22/20 13:35 Dose: 1,000 mg Docusate Sodium (Colace) 100 mg PO BID [facility] Stop: 06/22/20 08:59 Last Admin: 05/23/20 16:11 Dose: 100 mg Levothyroxine Sodium (Synthroid) 0.1 mg PO QDAC [facility] Stop: 06/22/20 07:29 Last Admin: 05/23/20 06:30 Dose: 0.1 mg Lisinopril (Zestril) 10 mg PO BID [facility] Stop: 06/23/20 08:59 Last Admin: 05/23/20 16:11 Dose: 10 mg Loperamide HCl (Imodium) 4 mg PO Q6HR PRN PRN Reason: Diarrhea Stop: 06/24/20 11:46 Multivitamins/Vitamin C (Theragran) 1 tab PO DAILY [facility] Stop: 06/22/20 08:59 Last Admin: 05/23/20 08:20 Dose: 1 tab Quetiapine Fumarate 200 mg/ (Quetiapine Fumarate 50 mg) 250 mg PO HS [facility] Stop: 07/05/20 20:59 Last Admin: 05/22/20 20:31 Dose: 250 mg Venlafaxine HCl (Effexor) 300 mg PO DAILY [facility]; Protocol Stop: 07/13/20 14:59 Last Admin: 05/23/20 08:21 Dose: 300 mg Zolpidem Tartrate (Ambien) 10 mg PO HS PRN PRN Reason: Insomnia Stop: 07/12/20 11:43 Last Admin: 05/22/20 21:31 Dose: 10 mg General: alert HEENT: NC/AT, PERRLA, EOMI, anicteric sclerae, throat clear Neck: Supple, No JVD, No thyromegaly, +2 carotid pulse wo bruit, No LAD Lungs: CTAB Cardiovascular: RRR, Normal S1, Normal S2, without murmur Abdomen: soft, non-tender, non-distended Extremities: clear Neurological: no change, alert Internal Medicine Assmt/Plan - Assessment Assessment: 1.HTN. 2.HYPOTHYROIDISM. 3.DJD. 4.DEPRESSION 5.BACK PAIN - Plan Plan: CONTINUE ON CURRENT MEDICATION AND DIET. Nutritional Asmnt/Malnutr-PDOC - Dietary Evaluation Malnutrition Findings (Please click <Entered> for more info): Nutritional Asmnt/Malnutrition Start: 04/24/20 14: 11 Text: Status: Complete Freq: Protocol: Document 04/24/20 14:11 XAVIERSUSAN (Rec: 04/24/20 14:15 [email or web address] [id number]) Nutritional Asmnt/Malnutrition Patient General Information Nutritional Screening Low Risk Diagnosis Psychosis Pertinent Medical Hx/Surgical Hx HTN, Hypothyroidism, Depression Subjective Information Pt is a 56-year-old female admitted on 04/22 d/t agitation . Pt is eating an estimated 100% of meals Per Meal/ Nutrition Activity Record. Dietary is currently providing an estimated 1965 kcals and 108 gm Pro, to meet 100+% kcal and 100+% Pro needs. Spoke with pt. in room today and gathered food preferences; she requested coffee with meals and stated she cannot eat salads due to not having dentures. Anthropometrics HT: 53 WT: 150 LB (68.18 kg) BMI: 26.57 (Overweight) GI/ Skin Integrity GI: WNL, Soft, Round BM: 7/ x1 I/O: 1440/Not Noted Skin: WNL, Dryness Sam: 19 Diet Order: Cardiac Estimated Energy Needs: ( Geriatric, CBW) 9735-1809 kcals (25-30 kcals/ kg) 70-80g Pro (1.0-1.2 g/kg) 5014-1055 ml (25-30 ml/kg) Current Diet Order/ Nutrition Support Cardiac Patient / S.O Can Pertinent Medications Maalox (PRN), Norvasc, Tums, Colace, Lovenox, Synthroid, MOM (PRN), Theragran Pertinent Labs No pertinent labs at this time . Nutritional Hx/Data Height 1.6 m Height (Calculated Centimeters) 160.0 Current Weight (lbs) 68.039 kg Weight (Calculated Kilograms) 68.0 Weight (Calculated Grams) 67784.9 [place] Body Weight 115 LB (52.27 kg) % [place] Body Weight 130 Body Mass Index (BMI) 26.5 Weight Status Overweight GI Symptoms GI Symptoms None Last BM 04/23 x1 Difficult in: Chewing Cultural/Ethnic/Mormon Belief No pork Skin Integrity/Comment: WNL, Dryness Sam: 19 Current %PO Good (75-100%) Estimated Nutritional Goals BEE in Kcals: Using Current wt Calories/Kcals/Kg 25-30 Kcals Calculated 0631-0159 Protein: Using Current wt Protein g/k.0-1.2 Protein Calculated 70-80 Fluid: ml 4100-0691 ml (25-30 ml/kg) Nutritional Problem 1. Problem Problem No nutrition diagnosis at this time. Etiology N/A Signs/Symptoms: N/A Malnutrition Related to Morbid Obesity Malnutrition related to morbid obesity No Intervention/Recommendation Comments Continue Cardiac diet as tolerated. Expected Outcomes/Goals Expected Outcomes/Goals 1. PO intake to continue to meet >75% of estimated nutritional needs. 2. Monitor PO intake, wt, nutrition related labs, and skin integrity. 3. F/U as low risk in 7-10 days, 05/01-05/04.
[2020-05-24] MEDS: Hydrocodone/APAP 5mg/325mg Tab PO PRN ×3 (01:55→15:13)
[2020-05-24] MEDS: Levothyroxine 0.1 Mg Tab PO SCH (06:32)
--- NOTE | 2020-05-24 07:48 | Progress Notes ---
DATE: 05/24/2020 SUBJECTIVE: The patient in the hospital, pending a safe discharge plan. We are pending for her to go back to the longterm facility due to COVID-19 has some delays. Fair sleep and appetite, getting along well with others. Generally calm and cooperative. JOB# [id number]
[2020-05-24] MEDS: buPROPion XL 150 mg T 24 H PO SCH (09:19)
[2020-05-24] MEDS: Multivitamin Tab PO SCH (09:19)
--- NOTE | 2020-05-24 16:57 | General Progress Note ---
Subjective - Review of Systems Service Date: 05/24/20 Subjective: resting comfortably no distress Objective - Results Recent Labs: Laboratory Last Values Triglycerides 192 mg/dL (30-150) H 04/25/20 11:20 Cholesterol 457 mg/dL (<200) H 04/25/20 11:20 LDL Cholesterol 297 mg/dL (0-129) H 04/25/20 11:20 HDL Cholesterol 67 mg/dL (>55) 04/25/20 11:20 Coronavirus (PCR) Negative (NOT DETECTD) 05/12/20 15:30 - Physical Exam Vitals and I&O: Vital Signs Temp 98.0 F 05/24/20 06:02 Pulse 74 05/24/20 16:10 Resp 18 05/24/20 08:00 BP 130/69 05/24/20 16:10 Pulse Ox 94 05/24/20 06:02 Intake & Output 05/23/20 05/24/20 05/24/20 18:59 06:59 18:59 Intake Total 1000 240 Balance 1000 240 Intake: Oral 1000 240 Other: # Voids 4 2 # Bowel Movements 1 Active Medications: Current Medications Acetaminophen (Tylenol) 650 mg PO Q4H PRN PRN Reason: Pain (Mild 1-3) Stop: 06/22/20 02:16 Last Admin: 05/08/20 08:58 Dose: 650 mg Hydrocodone Bitart/Acetaminophen ([place] 5mg/325mg) 1 tab PO Q6H PRN PRN Reason: Pain (Severe 7-10) Stop: 07/07/20 18:38 Last Admin: 05/24/20 15:13 Dose: 1 tab Al Hydrox/Mg Hydrox/Simethicone (Maalox) 30 ml PO Q4HR PRN PRN Reason: GI DISTRESS Stop: 06/22/20 02:16 Last Admin: 05/05/20 09:33 Dose: 30 ml Alprazolam (Xanax) 0.5 mg PO Q6HR PRN; Protocol PRN Reason: Anxiety Stop: 07/12/20 11:41 Last Admin: 05/24/20 04:26 Dose: 0.5 mg Amlodipine Besylate (Norvasc) 10 mg PO DAILY [facility] Stop: 06/23/20 08:59 Last Admin: 05/24/20 09:20 Dose: 10 mg Bupropion HCl (Wellbutrin Xl) 150 mg PO DAILY [facility]; Protocol Stop: 06/28/20 08:59 Last Admin: 05/24/20 09:19 Dose: 150 mg Calcium Carbonate (Tums) 1,000 mg PO Q6HR PRN PRN Reason: indigestion Stop: 06/22/20 07:27 Last Admin: 05/22/20 13:35 Dose: 1,000 mg Docusate Sodium (Colace) 100 mg PO BID [facility] Stop: 06/22/20 08:59 Last Admin: 05/24/20 16:10 Dose: 100 mg Levothyroxine Sodium (Synthroid) 0.1 mg PO QDAC [facility] Stop: 06/22/20 07:29 Last Admin: 05/24/20 06:32 Dose: 0.1 mg Lisinopril (Zestril) 10 mg PO BID [facility] Stop: 06/23/20 08:59 Last Admin: 05/24/20 16:10 Dose: 10 mg Loperamide HCl (Imodium) 4 mg PO Q6HR PRN PRN Reason: Diarrhea Stop: 06/24/20 11:46 Multivitamins/Vitamin C (Theragran) 1 tab PO DAILY [facility] Stop: 06/22/20 08:59 Last Admin: 05/24/20 09:19 Dose: 1 tab Quetiapine Fumarate 200 mg/ (Quetiapine Fumarate 50 mg) 250 mg PO HS [facility] Stop: 07/05/20 20:59 Last Admin: 05/23/20 20:13 Dose: 250 mg Venlafaxine HCl (Effexor) 300 mg PO DAILY [facility]; Protocol Stop: 07/13/20 14:59 Last Admin: 05/24/20 09:19 Dose: 300 mg Zolpidem Tartrate (Ambien) 10 mg PO HS PRN PRN Reason: Insomnia Stop: 07/12/20 11:43 Last Admin: 05/23/20 21:18 Dose: 10 mg General: No acute distress HEENT: PERRLA Neck: Supple, JVD Cardiovascular: Regular rate, Normal S1, Normal S2 Lungs: Clear to auscultation Abdomen: Bowel sounds, Soft Assessment/Plan - Assessment Assessment: 1.HTN. 2.HYPOTHYROIDISM. 3.DJD. 4.DEPRESSION 5.DIARRHEA - Plan Plan: continue current treatment Nutritional Asmnt/Malnutr-PDOC - Dietary Evaluation Malnutrition Findings (Please click <Entered> for more info): Nutritional Asmnt/Malnutrition Start: 04/24/20 14: 11 Text: Status: Complete Freq: Protocol: Document 04/24/20 14:11 KELSEY (Rec: 04/24/20 14:15 KELSEY [id number]) Nutritional Asmnt/Malnutrition Patient General Information Nutritional Screening Low Risk Diagnosis Psychosis Pertinent Medical Hx/Surgical Hx HTN, Hypothyroidism, Depression Subjective Information Pt is a 56-year-old female admitted on 04/22 d/t agitation . Pt is eating an estimated 100% of meals Per Meal/ Nutrition Activity Record. Dietary is currently providing an estimated 1965 kcals and 108 gm Pro, to meet 100+% kcal and 100+% Pro needs. Spoke with pt. in room today and gathered food preferences; she requested coffee with meals and stated she cannot eat salads due to not having dentures. Anthropometrics HT: 53 WT: 150 LB (68.18 kg) BMI: 26.57 (Overweight) GI/ Skin Integrity GI: WNL, Soft, Round BM: 04/23 x1 I/O: 1440/Not Noted Skin: WNL, Dryness Sam: 19 Diet Order: Cardiac Estimated Energy Needs: ( Geriatric, CBW) 1560-2367 kcals (25-30 kcals/ kg) 70-80g Pro (1.0-1.2 g/kg) 7668-8802 ml (25-30 ml/kg) Current Diet Order/ Nutrition Support Cardiac Patient / S.O Can Pertinent Medications Maalox (PRN), Norvasc, Tums, Colace, Lovenox, Synthroid, MOM (PRN), Theragran Pertinent Labs No pertinent labs at this time . Nutritional Hx/Data Height 1.6 m Height (Calculated Centimeters) 160.0 Current Weight (lbs) 68.039 kg Weight (Calculated Kilograms) 68.0 Weight (Calculated Grams) 27020.9 [place] Body Weight 115 LB (52.27 kg) % [place] Body Weight 130 Body Mass Index (BMI) 26.5 Weight Status Overweight GI Symptoms GI Symptoms None Last BM 04/23 x1 Difficult in: Chewing Cultural/Ethnic/Lutheran Belief No pork Skin Integrity/Comment: WNL, Dryness Sam: 19 Current %PO Good (75-100%) Estimated Nutritional Goals BEE in Kcals: Using Current wt Calories/Kcals/Kg 25-30 Kcals Calculated 6559-5994 Protein: Using Current wt Protein g/k.0-1.2 Protein Calculated 70-80 Fluid: ml 4800-5512 ml (25-30 ml/kg) Nutritional Problem 1. Problem Problem No nutrition diagnosis at this time. Etiology N/A Signs/Symptoms: N/A Malnutrition Related to Morbid Obesity Malnutrition related to morbid obesity No Intervention/Recommendation Comments Continue Cardiac diet as tolerated. Expected Outcomes/Goals Expected Outcomes/Goals 1. PO intake to continue to meet >75% of estimated nutritional needs. 2. Monitor PO intake, wt, nutrition related labs, and skin integrity. 3. F/U as low risk in 7-10 days, 05/01-05/04.
[2020-05-25] MEDS: Levothyroxine 0.1 Mg Tab PO SCH (06:39)
--- NOTE | 2020-05-25 06:44 | Progress Notes ---
DATE: 05/25/2020 SUBJECTIVE: This is a 69-year-old female pending return to the snf facility, sleeping well at night, calm, generally cooperative and no overt agitation or escalation of behaviors. COVID-19 is causing significant delays in her placement back to the snf. Medications reviewed. Labs reviewed. Vitals were reviewed. No SI, no HI, no overt psychotic symptoms. No overt medication side effects. [facility]# [id number]
[2020-05-25] MEDS: Hydrocodone/APAP 5mg/325mg Tab PO PRN ×3 (07:18→18:10)
[2020-05-25] MEDS: Multivitamin Tab PO SCH (08:43)
[2020-05-25] MEDS: buPROPion XL 150 mg T 24 H PO SCH (08:44)
--- NOTE | 2020-05-25 17:54 | General Progress Note ---
Subjective - Review of Systems Service Date: 05/25/20 Subjective: resting comfortably no distress Objective - Results Recent Labs: Laboratory Last Values Triglycerides 192 mg/dL (30-150) H 04/25/20 11:20 Cholesterol 457 mg/dL (<200) H 04/25/20 11:20 LDL Cholesterol 297 mg/dL (0-129) H 04/25/20 11:20 HDL Cholesterol 67 mg/dL (>55) 04/25/20 11:20 Coronavirus (PCR) Negative (NOT DETECTD) 05/12/20 15:30 - Physical Exam Vitals and I&O: Vital Signs Temp 97.8 F 05/25/20 14:43 Pulse 72 05/25/20 16:13 Resp 20 05/25/20 14:43 BP 135/75 05/25/20 16:13 Pulse Ox 94 05/25/20 14:43 Intake & Output 05/24/20 05/25/20 05/25/20 18:59 06:59 18:59 Intake Total 280 Balance 280 Intake: Oral 280 Other: # Voids 2 Stool Characteristics Soft Active Medications: Current Medications Acetaminophen (Tylenol) 650 mg PO Q4H PRN PRN Reason: Pain (Mild 1-3) Stop: 06/22/20 02:16 Last Admin: 05/08/20 08:58 Dose: 650 mg Hydrocodone Bitart/Acetaminophen ([place] 5mg/325mg) 1 tab PO Q6H PRN PRN Reason: Pain (Severe 7-10) Stop: 07/07/20 18:38 Last Admin: 05/25/20 13:03 Dose: 1 tab Al Hydrox/Mg Hydrox/Simethicone (Maalox) 30 ml PO Q4HR PRN PRN Reason: GI DISTRESS Stop: 06/22/20 02:16 Last Admin: 05/05/20 09:33 Dose: 30 ml Alprazolam (Xanax) 0.5 mg PO Q6HR PRN; Protocol PRN Reason: Anxiety Stop: 07/12/20 11:41 Last Admin: 05/25/20 15:30 Dose: 0.5 mg Amlodipine Besylate (Norvasc) 10 mg PO DAILY [facility] Stop: 06/23/20 08:59 Last Admin: 05/25/20 08:45 Dose: Not Given Bupropion HCl (Wellbutrin Xl) 150 mg PO DAILY [facility]; Protocol Stop: 06/28/20 08:59 Last Admin: 05/25/20 08:44 Dose: 150 mg Calcium Carbonate (Tums) 1,000 mg PO Q6HR PRN PRN Reason: indigestion Stop: 06/22/20 07:27 Last Admin: 05/25/20 09:53 Dose: 1,000 mg Docusate Sodium (Colace) 100 mg PO BID [facility] Stop: 06/22/20 08:59 Last Admin: 05/25/20 16:13 Dose: 100 mg Levothyroxine Sodium (Synthroid) 0.1 mg PO QDAC [facility] Stop: 06/22/20 07:29 Last Admin: 05/25/20 06:39 Dose: 0.1 mg Lisinopril (Zestril) 10 mg PO BID [facility] Stop: 06/23/20 08:59 Last Admin: 05/25/20 16:13 Dose: 10 mg Loperamide HCl (Imodium) 4 mg PO Q6HR PRN PRN Reason: Diarrhea Stop: 06/24/20 11:46 Multivitamins/Vitamin C (Theragran) 1 tab PO DAILY [facility] Stop: 06/22/20 08:59 Last Admin: 05/25/20 08:43 Dose: 1 tab Quetiapine Fumarate 200 mg/ (Quetiapine Fumarate 50 mg) 250 mg PO HS [facility] Stop: 07/05/20 20:59 Last Admin: 05/24/20 20:21 Dose: 250 mg Venlafaxine HCl (Effexor) 300 mg PO DAILY [facility]; Protocol Stop: 07/13/20 14:59 Last Admin: 05/25/20 08:52 Dose: 300 mg Zolpidem Tartrate (Ambien) 10 mg PO HS PRN PRN Reason: Insomnia Stop: 07/12/20 11:43 Last Admin: 05/24/20 20:22 Dose: 10 mg General: No acute distress HEENT: PERRLA Neck: Supple, JVD Cardiovascular: Regular rate, Normal S1, Normal S2 Lungs: Clear to auscultation Abdomen: Bowel sounds, Soft Assessment/Plan - Assessment Assessment: 1.HTN. 2.HYPOTHYROIDISM. 3.DJD. 4.DEPRESSION 5.DIARRHEA - Plan Plan: continue current treatment Nutritional Asmnt/Malnutr-PDOC - Dietary Evaluation Malnutrition Findings (Please click <Entered> for more info): Nutritional Asmnt/Malnutrition Start: 04/24/20 14: 11 Text: Status: Complete Freq: Protocol: Document 04/24/20 14:11 KELSEY (Rec: 04/24/20 14:15 KELSEY [id number]) Nutritional Asmnt/Malnutrition Patient General Information Nutritional Screening Low Risk Diagnosis Psychosis Pertinent Medical Hx/Surgical Hx HTN, Hypothyroidism, Depression Subjective Information Pt is a 56-year-old female admitted on 04/22 d/t agitation . Pt is eating an estimated 100% of meals Per Meal/ Nutrition Activity Record. Dietary is currently providing an estimated 1965 kcals and 108 gm Pro, to meet 100+% kcal and 100+% Pro needs. Spoke with pt. in room today and gathered food preferences; she requested coffee with meals and stated she cannot eat salads due to not having dentures. Anthropometrics HT: 53 WT: 150 LB (68.18 kg) BMI: 26.57 (Overweight) GI/ Skin Integrity GI: WNL, Soft, Round BM: 04/23 x1 I/O: 1440/Not Noted Skin: WNL, Dryness Sam: 19 Diet Order: Cardiac Estimated Energy Needs: ( Geriatric, CBW) 3946-8614 kcals (25-30 kcals/ kg) 70-80g Pro (1.0-1.2 g/kg) 1279-2434 ml (25-30 ml/kg) Current Diet Order/ Nutrition Support Cardiac Patient / S.O Can Pertinent Medications Maalox (PRN), Norvasc, Tums, Colace, Lovenox, Synthroid, MOM (PRN), Theragran Pertinent Labs No pertinent labs at this time . Nutritional Hx/Data Height 1.6 m Height (Calculated Centimeters) 160.0 Current Weight (lbs) 68.039 kg Weight (Calculated Kilograms) 68.0 Weight (Calculated Grams) 42281.9 [place] Body Weight 115 LB (52.27 kg) % [place] Body Weight 130 Body Mass Index (BMI) 26.5 Weight Status Overweight GI Symptoms GI Symptoms None Last BM 04/23 x1 Difficult in: Chewing Cultural/Ethnic/Mormon Belief No pork Skin Integrity/Comment: WNL, Dryness Sam: 19 Current %PO Good (75-100%) Estimated Nutritional Goals BEE in Kcals: Using Current wt Calories/Kcals/Kg 25-30 Kcals Calculated 8077-5927 Protein: Using Current wt Protein g/k.0-1.2 Protein Calculated 70-80 Fluid: ml 6148-4843 ml (25-30 ml/kg) Nutritional Problem 1. Problem Problem No nutrition diagnosis at this time. Etiology N/A Signs/Symptoms: N/A Malnutrition Related to Morbid Obesity Malnutrition related to morbid obesity No Intervention/Recommendation Comments Continue Cardiac diet as tolerated. Expected Outcomes/Goals Expected Outcomes/Goals 1. PO intake to continue to meet >75% of estimated nutritional needs. 2. Monitor PO intake, wt, nutrition related labs, and skin integrity. 3. F/U as low risk in 7-10 days, 05/01-05/04.
[2020-05-26] MEDS: Levothyroxine 0.1 Mg Tab PO SCH (06:42)
[2020-05-26] MEDS: Hydrocodone/APAP 5mg/325mg Tab PO PRN ×3 (07:12→20:26)
[2020-05-26] MEDS: Multivitamin Tab PO SCH (08:18)
[2020-05-26] MEDS: buPROPion XL 150 mg T 24 H PO SCH (08:19)
--- NOTE | 2020-05-26 17:45 | Progress Notes ---
DATE: 05/26/2020 SUBJECTIVE: This is a 69-year-old female likely at her baseline would like to go to possibly a room for rent. We are trying to get her back to a prison facility, but is taking a very long time. COVID delays. Social Service is looking into some sort of alternative placement, but does not have lot of options because of her money. She does __. No savings and just gets some SSDI per month. Fair sleep and appetite, noting that she is very nearly frustrated here, more depressed, otherwise linear and engaged, no SI, no HI. Time was spent with the patient, answering her questions. Medications were noted. No changes. We will continue to be in touch with professor of social work. JOB# [id number]
--- NOTE | 2020-05-26 19:37 | Internal Medicine Prog Note ---
Internal Medicine Subjective - Subjective Service Date: 05/26/20 Patient seen and examined:: without staff (SHE FEELS WELL) Patient is:: awake, verbal, in bed, talking Per staff patient has:: no adverse event Internal Medicine Objective - Results Recent Labs: Laboratory Last Values Triglycerides 192 mg/dL (30-150) H 04/25/20 11:20 Cholesterol 457 mg/dL (<200) H 04/25/20 11:20 LDL Cholesterol 297 mg/dL (0-129) H 04/25/20 11:20 HDL Cholesterol 67 mg/dL (>55) 04/25/20 11:20 Coronavirus (PCR) Negative (NOT DETECTD) 05/12/20 15:30 - Physical Exam Vitals and I&O: Vital Signs Temp 99 F 05/26/20 14:08 Pulse 68 05/26/20 16:19 Resp 20 05/26/20 14:08 BP 149/78 05/26/20 16:19 Pulse Ox 96 05/26/20 14:08 Intake & Output 05/26/20 05/26/20 05/27/20 06:59 18:59 06:59 Intake Total 240 Balance 240 Intake: Oral 240 Other: # Voids 3 # Bowel Movements 0 Active Medications: Current Medications Acetaminophen (Tylenol) 650 mg PO Q4H PRN PRN Reason: Pain (Mild 1-3) Stop: 06/22/20 02:16 Last Admin: 05/08/20 08:58 Dose: 650 mg Hydrocodone Bitart/Acetaminophen ([place] 5mg/325mg) 1 tab PO Q6H PRN PRN Reason: Pain (Severe 7-10) Stop: 07/07/20 18:38 Last Admin: 05/26/20 13:09 Dose: 1 tab Al Hydrox/Mg Hydrox/Simethicone (Maalox) 30 ml PO Q4HR PRN PRN Reason: GI DISTRESS Stop: 06/22/20 02:16 Last Admin: 05/05/20 09:33 Dose: 30 ml Alprazolam (Xanax) 0.5 mg PO Q6HR PRN; Protocol PRN Reason: Anxiety Stop: 07/12/20 11:41 Last Admin: 05/26/20 07:59 Dose: 0.5 mg Amlodipine Besylate (Norvasc) 10 mg PO DAILY [facility] Stop: 06/23/20 08:59 Last Admin: 05/26/20 08:18 Dose: Not Given Bupropion HCl (Wellbutrin Xl) 150 mg PO DAILY [facility]; Protocol Stop: 06/28/20 08:59 Last Admin: 05/26/20 08:19 Dose: 150 mg Calcium Carbonate (Tums) 1,000 mg PO Q6HR PRN PRN Reason: indigestion Stop: 06/22/20 07:27 Last Admin: 05/26/20 16:19 Dose: 1,000 mg Docusate Sodium (Colace) 100 mg PO BID [facility] Stop: 06/22/20 08:59 Last Admin: 05/26/20 16:19 Dose: 100 mg Levothyroxine Sodium (Synthroid) 0.1 mg PO QDAC [facility] Stop: 06/22/20 07:29 Last Admin: 05/26/20 06:42 Dose: 0.1 mg Lisinopril (Zestril) 10 mg PO BID [facility] Stop: 06/23/20 08:59 Last Admin: 05/26/20 16:19 Dose: 10 mg Loperamide HCl (Imodium) 4 mg PO Q6HR PRN PRN Reason: Diarrhea Stop: 06/24/20 11:46 Multivitamins/Vitamin C (Theragran) 1 tab PO DAILY [facility] Stop: 06/22/20 08:59 Last Admin: 05/26/20 08:18 Dose: 1 tab Quetiapine Fumarate 200 mg/ (Quetiapine Fumarate 50 mg) 250 mg PO HS [facility] Stop: 07/05/20 20:59 Last Admin: 05/25/20 21:06 Dose: 250 mg Venlafaxine HCl (Effexor) 300 mg PO DAILY [facility]; Protocol Stop: 07/13/20 14:59 Last Admin: 05/26/20 08:23 Dose: 300 mg Zolpidem Tartrate (Ambien) 10 mg PO HS PRN PRN Reason: Insomnia Stop: 07/12/20 11:43 Last Admin: 05/25/20 21:06 Dose: 10 mg General: alert HEENT: NC/AT, PERRLA, EOMI, anicteric sclerae, throat clear Neck: Supple, No JVD, No thyromegaly, +2 carotid pulse wo bruit, No LAD Lungs: CTAB Cardiovascular: RRR, Normal S1, Normal S2, without murmur Abdomen: soft, non-tender, non-distended Extremities: clear Neurological: no change, alert Internal Medicine Assmt/Plan - Assessment Assessment: 1.HTN. 2.HYPOTHYROIDISM. 3.DJD. 4.DEPRESSION 5.BACK PAIN - Plan Plan: CONTINUE ON CURRENT MEDICATION AND DIET. Nutritional Asmnt/Malnutr-PDOC - Dietary Evaluation Malnutrition Findings (Please click <Entered> for more info): Nutritional Asmnt/Malnutrition Start: 04/24/20 14: 11 Text: Status: Complete Freq: Protocol: Document 04/24/20 14:11 XAVIERSUSAN (Rec: 04/24/20 14:15 SEBASTIANESTHERSUSAN [id number] [id number]) Nutritional Asmnt/Malnutrition Patient General Information Nutritional Screening Low Risk Diagnosis Psychosis Pertinent Medical Hx/Surgical Hx HTN, Hypothyroidism, Depression Subjective Information Pt is a 56-year-old female admitted on 04/22 d/t agitation . Pt is eating an estimated 100% of meals Per Meal/ Nutrition Activity Record. Dietary is currently providing an estimated 1965 kcals and 108 gm Pro, to meet 100+% kcal and 100+% Pro needs. Spoke with pt. in room today and gathered food preferences; she requested coffee with meals and stated she cannot eat salads due to not having dentures. Anthropometrics HT: 53 WT: 150 LB (68.18 kg) BMI: 26.57 (Overweight) GI/ Skin Integrity GI: WNL, Soft, Round BM: 7/ x1 I/O: 1440/Not Noted Skin: WNL, Dryness Sam: 19 Diet Order: Cardiac Estimated Energy Needs: ( Geriatric, CBW) 2583-5195 kcals (25-30 kcals/ kg) 70-80g Pro (1.0-1.2 g/kg) 7255-5065 ml (25-30 ml/kg) Current Diet Order/ Nutrition Support Cardiac Patient / S.O Can Pertinent Medications Maalox (PRN), Norvasc, Tums, Colace, Lovenox, Synthroid, MOM (PRN), Theragran Pertinent Labs No pertinent labs at this time . Nutritional Hx/Data Height 1.6 m Height (Calculated Centimeters) 160.0 Current Weight (lbs) 68.039 kg Weight (Calculated Kilograms) 68.0 Weight (Calculated Grams) 80578.9 [place] Body Weight 115 LB (52.27 kg) % [place] Body Weight 130 Body Mass Index (BMI) 26.5 Weight Status Overweight GI Symptoms GI Symptoms None Last BM 04/23 x1 Difficult in: Chewing Cultural/Ethnic/Denominational Belief No pork Skin Integrity/Comment: WNL, Dryness Sam: 19 Current %PO Good (75-100%) Estimated Nutritional Goals BEE in Kcals: Using Current wt Calories/Kcals/Kg 25-30 Kcals Calculated 9815-5740 Protein: Using Current wt Protein g/k.0-1.2 Protein Calculated 70-80 Fluid: ml 2776-7358 ml (25-30 ml/kg) Nutritional Problem 1. Problem Problem No nutrition diagnosis at this time. Etiology N/A Signs/Symptoms: N/A Malnutrition Related to Morbid Obesity Malnutrition related to morbid obesity No Intervention/Recommendation Comments Continue Cardiac diet as tolerated. Expected Outcomes/Goals Expected Outcomes/Goals 1. PO intake to continue to meet >75% of estimated nutritional needs. 2. Monitor PO intake, wt, nutrition related labs, and skin integrity. 3. F/U as low risk in 7-10 days, 05/01-05/04.
[2020-05-27] MEDS: Levothyroxine 0.1 Mg Tab PO SCH (06:53)
[2020-05-27] MEDS: buPROPion XL 150 mg T 24 H PO SCH (08:40)
[2020-05-27] MEDS: Hydrocodone/APAP 5mg/325mg Tab PO PRN ×3 (08:41→20:09)
[2020-05-27] MEDS: Multivitamin Tab PO SCH (08:41)
--- NOTE | 2020-05-27 20:13 | Internal Medicine Prog Note ---
Internal Medicine Subjective - Subjective Service Date: 05/27/20 Patient seen and examined:: without staff (SHE FEELS WELL) Patient is:: awake, verbal, in bed, talking Per staff patient has:: no adverse event Internal Medicine Objective - Results Recent Labs: Laboratory Last Values Triglycerides 192 mg/dL (30-150) H 04/25/20 11:20 Cholesterol 457 mg/dL (<200) H 04/25/20 11:20 LDL Cholesterol 297 mg/dL (0-129) H 04/25/20 11:20 HDL Cholesterol 67 mg/dL (>55) 04/25/20 11:20 Coronavirus (PCR) Negative (NOT DETECTD) 05/12/20 15:30 - Physical Exam Vitals and I&O: Vital Signs Temp 97.8 F 05/27/20 14:00 Pulse 72 05/27/20 14:00 Resp 18 05/27/20 14:00 BP 140/71 05/27/20 14:00 Pulse Ox 96 05/27/20 14:00 Intake & Output 05/27/20 05/27/20 05/28/20 06:59 18:59 06:59 Intake Total 900 Balance 900 Intake: Oral 900 Other: # Voids 3 # Bowel Movements 1 Active Medications: Current Medications Acetaminophen (Tylenol) 650 mg PO Q4H PRN PRN Reason: Pain (Mild 1-3) Stop: 06/22/20 02:16 Last Admin: 05/08/20 08:58 Dose: 650 mg Hydrocodone Bitart/Acetaminophen ([place] 5mg/325mg) 1 tab PO Q6H PRN PRN Reason: Pain (Severe 7-10) Stop: 07/07/20 18:38 Last Admin: 05/27/20 20:09 Dose: 1 tab Al Hydrox/Mg Hydrox/Simethicone (Maalox) 30 ml PO Q4HR PRN PRN Reason: GI DISTRESS Stop: 06/22/20 02:16 Last Admin: 05/05/20 09:33 Dose: 30 ml Alprazolam (Xanax) 0.5 mg PO Q6HR PRN; Protocol PRN Reason: Anxiety Stop: 07/12/20 11:41 Last Admin: 05/27/20 16:59 Dose: 0.5 mg Amlodipine Besylate (Norvasc) 10 mg PO DAILY [facility] Stop: 06/23/20 08:59 Last Admin: 05/27/20 08:41 Dose: Not Given Bupropion HCl (Wellbutrin Xl) 150 mg PO DAILY [facility]; Protocol Stop: 06/28/20 08:59 Last Admin: 05/27/20 08:40 Dose: 150 mg Calcium Carbonate (Tums) 1,000 mg PO Q6HR PRN PRN Reason: indigestion Stop: 06/22/20 07:27 Last Admin: 05/27/20 16:59 Dose: 1,000 mg Docusate Sodium (Colace) 100 mg PO BID [facility] Stop: 06/22/20 08:59 Last Admin: 05/27/20 16:59 Dose: 100 mg Levothyroxine Sodium (Synthroid) 0.1 mg PO QDAC [facility] Stop: 06/22/20 07:29 Last Admin: 05/27/20 06:53 Dose: 0.1 mg Lisinopril (Zestril) 10 mg PO BID [facility] Stop: 06/23/20 08:59 Last Admin: 05/27/20 16:52 Dose: Not Given Loperamide HCl (Imodium) 4 mg PO Q6HR PRN PRN Reason: Diarrhea Stop: 06/24/20 11:46 Multivitamins/Vitamin C (Theragran) 1 tab PO DAILY [facility] Stop: 06/22/20 08:59 Last Admin: 05/27/20 08:41 Dose: 1 tab Quetiapine Fumarate 200 mg/ (Quetiapine Fumarate 50 mg) 250 mg PO HS [facility] Stop: 07/05/20 20:59 Last Admin: 05/26/20 20:26 Dose: 250 mg Venlafaxine HCl (Effexor) 300 mg PO DAILY [facility]; Protocol Stop: 07/13/20 14:59 Last Admin: 05/27/20 08:49 Dose: 300 mg Zolpidem Tartrate (Ambien) 10 mg PO HS PRN PRN Reason: Insomnia Stop: 07/12/20 11:43 Last Admin: 05/25/20 21:06 Dose: 10 mg General: alert HEENT: NC/AT, PERRLA, EOMI, anicteric sclerae, throat clear Neck: Supple, No JVD, No thyromegaly, +2 carotid pulse wo bruit, No LAD Lungs: CTAB Cardiovascular: RRR, Normal S1, Normal S2, without murmur Abdomen: soft, non-tender, non-distended Extremities: clear Neurological: no change, alert Internal Medicine Assmt/Plan - Assessment Assessment: 1.HTN. 2.HYPOTHYROIDISM. 3.DJD. 4.DEPRESSION 5.BACK PAIN - Plan Plan: CONTINUE ON CURRENT MEDICATION AND DIET. Nutritional Asmnt/Malnutr-PDOC - Dietary Evaluation Malnutrition Findings (Please click <Entered> for more info): Nutritional Asmnt/Malnutrition Start: 04/24/20 14: 11 Text: Status: Complete Freq: Protocol: Document 04/24/20 14:11 XAVIERSUSAN (Rec: 04/24/20 14:15 XAVIERSUSAN [email or web address] [id number]) Nutritional Asmnt/Malnutrition Patient General Information Nutritional Screening Low Risk Diagnosis Psychosis Pertinent Medical Hx/Surgical Hx HTN, Hypothyroidism, Depression Subjective Information Pt is a 56-year-old female admitted on 04/22 d/t agitation . Pt is eating an estimated 100% of meals Per Meal/ Nutrition Activity Record. Dietary is currently providing an estimated 1965 kcals and 108 gm Pro, to meet 100+% kcal and 100+% Pro needs. Spoke with pt. in room today and gathered food preferences; she requested coffee with meals and stated she cannot eat salads due to not having dentures. Anthropometrics HT: 53 WT: 150 LB (68.18 kg) BMI: 26.57 (Overweight) GI/ Skin Integrity GI: WNL, Soft, Round BM: 7/ x1 I/O: 1440/Not Noted Skin: WNL, Dryness Sam: 19 Diet Order: Cardiac Estimated Energy Needs: ( Geriatric, CBW) 8682-7776 kcals (25-30 kcals/ kg) 70-80g Pro (1.0-1.2 g/kg) 1119-2113 ml (25-30 ml/kg) Current Diet Order/ Nutrition Support Cardiac Patient / S.O Can Pertinent Medications Maalox (PRN), Norvasc, Tums, Colace, Lovenox, Synthroid, MOM (PRN), Theragran Pertinent Labs No pertinent labs at this time . Nutritional Hx/Data Height 1.6 m Height (Calculated Centimeters) 160.0 Current Weight (lbs) 68.039 kg Weight (Calculated Kilograms) 68.0 Weight (Calculated Grams) 94737.9 [place] Body Weight 115 LB (52.27 kg) % [place] Body Weight 130 Body Mass Index (BMI) 26.5 Weight Status Overweight GI Symptoms GI Symptoms None Last BM 04/23 x1 Difficult in: Chewing Cultural/Ethnic/Oriental Orthodox Belief No pork Skin Integrity/Comment: WNL, Dryness Sam: 19 Current %PO Good (75-100%) Estimated Nutritional Goals BEE in Kcals: Using Current wt Calories/Kcals/Kg 25-30 Kcals Calculated 7142-2657 Protein: Using Current wt Protein g/k.0-1.2 Protein Calculated 70-80 Fluid: ml 0469-2942 ml (25-30 ml/kg) Nutritional Problem 1. Problem Problem No nutrition diagnosis at this time. Etiology N/A Signs/Symptoms: N/A Malnutrition Related to Morbid Obesity Malnutrition related to morbid obesity No Intervention/Recommendation Comments Continue Cardiac diet as tolerated. Expected Outcomes/Goals Expected Outcomes/Goals 1. PO intake to continue to meet >75% of estimated nutritional needs. 2. Monitor PO intake, wt, nutrition related labs, and skin integrity. 3. F/U as low risk in 7-10 days, 05/01-05/04.
[2020-05-28] MEDS: Hydrocodone/APAP 5mg/325mg Tab PO PRN ×3 (07:00→18:57)
[2020-05-28] MEDS: Levothyroxine 0.1 Mg Tab PO SCH (07:01)
[2020-05-28] MEDS: buPROPion XL 150 mg T 24 H PO SCH (08:52)
[2020-05-28] MEDS: Multivitamin Tab PO SCH (08:52)
--- NOTE | 2020-05-28 17:42 | Progress Notes ---
DATE: 05/28/2020 SUBJECTIVE: A 69-year-old female, currently in the hospital. Extensive time spent with the patient, speaking with her. She has some questions about her living arrangements. Still wanting to go to an assisted living. I spoke with her about this at length, social security benefits interviewer have spoken with her about this topic at length that well. The patient really unfortunately cannot afford this type of set up. She only gets about $800 per month and assisted living will cost more than that in the lower thousands possibly 1500 at the very lowest. The patient unfortunately does not have this income as she does not want to really accept this answer noting that she believes that her place was out there that are less expensive. I think the only option right now is to send her back to the senior care facility where she came from, but she is pretty persistent and perseverative about going to some sort of an assisted living facility. Mood "okay" just very frustrated about the long length of stay, frustrated about delays in her placement due to COVID-19. Fair sleep, fair appetite, resting comfortably, reading. No SI, no HI. No overt psychotic symptoms. MEDICATIONS: Reviewed. PLAN: We will continue to monitor pending placement at the senior care. JOB# [id number]
--- NOTE | 2020-05-28 20:28 | Internal Medicine Prog Note ---
Internal Medicine Subjective - Subjective Service Date: 05/28/20 Patient seen and examined:: without staff (she feels well) Patient is:: awake, verbal, in bed, talking Per staff patient has:: no adverse event Internal Medicine Objective - Results Recent Labs: Laboratory Last Values Triglycerides 192 mg/dL (30-150) H 04/25/20 11:20 Cholesterol 457 mg/dL (<200) H 04/25/20 11:20 LDL Cholesterol 297 mg/dL (0-129) H 04/25/20 11:20 HDL Cholesterol 67 mg/dL (>55) 04/25/20 11:20 Coronavirus (PCR) Negative (NOT DETECTD) 05/12/20 15:30 - Physical Exam Vitals and I&O: Vital Signs Temp 97 F 05/28/20 14:00 Pulse 74 05/28/20 16:21 Resp 20 05/28/20 19:41 BP 143/93 05/28/20 16:21 Pulse Ox 97 05/28/20 14:00 Intake & Output 05/28/20 05/28/20 05/29/20 06:59 18:59 06:59 Intake Total 120 1200 Output Total 1 Balance 120 1199 Intake: Oral 120 1200 Output: Stool 1 Other: # Voids 3 Active Medications: Current Medications Acetaminophen (Tylenol) 650 mg PO Q4H PRN PRN Reason: Pain (Mild 1-3) Stop: 06/22/20 02:16 Last Admin: 05/08/20 08:58 Dose: 650 mg Hydrocodone Bitart/Acetaminophen ([place] 5mg/325mg) 1 tab PO Q6H PRN PRN Reason: Pain (Severe 7-10) Stop: 07/07/20 18:38 Last Admin: 05/28/20 18:57 Dose: 1 tab Al Hydrox/Mg Hydrox/Simethicone (Maalox) 30 ml PO Q4HR PRN PRN Reason: GI DISTRESS Stop: 06/22/20 02:16 Last Admin: 05/05/20 09:33 Dose: 30 ml Alprazolam (Xanax) 0.5 mg PO Q6HR PRN; Protocol PRN Reason: Anxiety Stop: 07/12/20 11:41 Last Admin: 05/28/20 16:20 Dose: 0.5 mg Amlodipine Besylate (Norvasc) 10 mg PO DAILY [facility] Stop: 06/23/20 08:59 Last Admin: 05/28/20 08:52 Dose: Not Given Bupropion HCl (Wellbutrin Xl) 150 mg PO DAILY [facility]; Protocol Stop: 06/28/20 08:59 Last Admin: 05/28/20 08:52 Dose: 150 mg Calcium Carbonate (Tums) 1,000 mg PO Q6HR PRN PRN Reason: indigestion Stop: 06/22/20 07:27 Last Admin: 05/28/20 08:52 Dose: 1,000 mg Docusate Sodium (Colace) 100 mg PO BID [facility] Stop: 06/22/20 08:59 Last Admin: 05/28/20 16:20 Dose: 100 mg Levothyroxine Sodium (Synthroid) 0.1 mg PO QDAC [facility] Stop: 06/22/20 07:29 Last Admin: 05/28/20 07:01 Dose: 0.1 mg Lisinopril (Zestril) 10 mg PO BID [facility] Stop: 06/23/20 08:59 Last Admin: 05/28/20 16:21 Dose: 10 mg Loperamide HCl (Imodium) 4 mg PO Q6HR PRN PRN Reason: Diarrhea Stop: 06/24/20 11:46 Multivitamins/Vitamin C (Theragran) 1 tab PO DAILY [facility] Stop: 06/22/20 08:59 Last Admin: 05/28/20 08:52 Dose: 1 tab Quetiapine Fumarate 200 mg/ (Quetiapine Fumarate 50 mg) 250 mg PO HS [facility] Stop: 07/05/20 20:59 Last Admin: 05/27/20 20:30 Dose: 250 mg Venlafaxine HCl (Effexor) 300 mg PO DAILY [facility]; Protocol Stop: 07/13/20 14:59 Last Admin: 05/28/20 08:51 Dose: 300 mg Zolpidem Tartrate (Ambien) 10 mg PO HS PRN PRN Reason: Insomnia Stop: 07/12/20 11:43 Last Admin: 05/27/20 21:25 Dose: 10 mg General: alert HEENT: NC/AT, PERRLA, EOMI, anicteric sclerae, throat clear Neck: Supple, No JVD, No thyromegaly, +2 carotid pulse wo bruit, No LAD Lungs: CTAB Cardiovascular: RRR, Normal S1, Normal S2, without murmur Abdomen: soft, non-tender, non-distended Extremities: clear Neurological: no change, alert Internal Medicine Assmt/Plan - Assessment Assessment: 1.HTN. 2.HYPOTHYROIDISM. 3.DJD. 4.DEPRESSION 5.BACK PAIN - Plan Plan: CONTINUE ON CURRENT MEDICATION AND DIET. Nutritional Asmnt/Malnutr-PDOC - Dietary Evaluation Malnutrition Findings (Please click <Entered> for more info): Nutritional Asmnt/Malnutrition Start: 04/24/20 14: 11 Text: Status: Complete Freq: Protocol: Document 04/24/20 14:11 XAVIERSUSAN (Rec: 04/24/20 14:15 XAVIERSUSAN [email or web address] [id number]) Nutritional Asmnt/Malnutrition Patient General Information Nutritional Screening Low Risk Diagnosis Psychosis Pertinent Medical Hx/Surgical Hx HTN, Hypothyroidism, Depression Subjective Information Pt is a 56-year-old female admitted on 04/22 d/t agitation . Pt is eating an estimated 100% of meals Per Meal/ Nutrition Activity Record. Dietary is currently providing an estimated 1965 kcals and 108 gm Pro, to meet 100+% kcal and 100+% Pro needs. Spoke with pt. in room today and gathered food preferences; she requested coffee with meals and stated she cannot eat salads due to not having dentures. Anthropometrics HT: 53 WT: 150 LB (68.18 kg) BMI: 26.57 (Overweight) GI/ Skin Integrity GI: WNL, Soft, Round BM: 7/ x1 I/O: 1440/Not Noted Skin: WNL, Dryness Sam: 19 Diet Order: Cardiac Estimated Energy Needs: ( Geriatric, CBW) 1472-0731 kcals (25-30 kcals/ kg) 70-80g Pro (1.0-1.2 g/kg) 9413-5363 ml (25-30 ml/kg) Current Diet Order/ Nutrition Support Cardiac Patient / S.O Can Pertinent Medications Maalox (PRN), Norvasc, Tums, Colace, Lovenox, Synthroid, MOM (PRN), Theragran Pertinent Labs No pertinent labs at this time . Nutritional Hx/Data Height 1.6 m Height (Calculated Centimeters) 160.0 Current Weight (lbs) 68.039 kg Weight (Calculated Kilograms) 68.0 Weight (Calculated Grams) 12010.9 [place] Body Weight 115 LB (52.27 kg) % [place] Body Weight 130 Body Mass Index (BMI) 26.5 Weight Status Overweight GI Symptoms GI Symptoms None Last BM 04/23 x1 Difficult in: Chewing Cultural/Ethnic/Anabaptism Belief No pork Skin Integrity/Comment: WNL, Dryness Sam: 19 Current %PO Good (75-100%) Estimated Nutritional Goals BEE in Kcals: Using Current wt Calories/Kcals/Kg 25-30 Kcals Calculated 9812-4633 Protein: Using Current wt Protein g/k.0-1.2 Protein Calculated 70-80 Fluid: ml 1765-3812 ml (25-30 ml/kg) Nutritional Problem 1. Problem Problem No nutrition diagnosis at this time. Etiology N/A Signs/Symptoms: N/A Malnutrition Related to Morbid Obesity Malnutrition related to morbid obesity No Intervention/Recommendation Comments Continue Cardiac diet as tolerated. Expected Outcomes/Goals Expected Outcomes/Goals 1. PO intake to continue to meet >75% of estimated nutritional needs. 2. Monitor PO intake, wt, nutrition related labs, and skin integrity. 3. F/U as low risk in 7-10 days, 05/01-05/04.
[2020-05-29] MEDS: Hydrocodone/APAP 5mg/325mg Tab PO PRN ×3 (04:29→17:00)
[2020-05-29] MEDS: Levothyroxine 0.1 Mg Tab PO SCH (06:40)
[2020-05-29] MEDS: buPROPion XL 150 mg T 24 H PO SCH (08:46)
[2020-05-29] MEDS: Multivitamin Tab PO SCH (08:47)
--- NOTE | 2020-05-29 17:01 | Internal Medicine Prog Note ---
Internal Medicine Subjective - Subjective Service Date: 05/29/20 Patient seen and examined:: without staff (SHE FEELS GOOD) Patient is:: awake, verbal, in bed, talking Per staff patient has:: no adverse event Internal Medicine Objective - Results Recent Labs: Laboratory Last Values Triglycerides 192 mg/dL (30-150) H 04/25/20 11:20 Cholesterol 457 mg/dL (<200) H 04/25/20 11:20 LDL Cholesterol 297 mg/dL (0-129) H 04/25/20 11:20 HDL Cholesterol 67 mg/dL (>55) 04/25/20 11:20 Coronavirus (PCR) Negative (NOT DETECTD) 05/12/20 15:30 - Physical Exam Vitals and I&O: Vital Signs Temp 97 F 05/29/20 14:00 Pulse 80 05/29/20 16:09 Resp 20 05/29/20 14:00 BP 121/79 05/29/20 16:09 Pulse Ox 96 05/29/20 14:00 Intake & Output 05/28/20 05/29/20 05/29/20 18:59 06:59 18:59 Intake Total 1200 120 Output Total 1 Balance 1199 120 Intake: Oral 1200 120 Output: Stool 1 Other: # Voids 3 Active Medications: Current Medications Acetaminophen (Tylenol) 650 mg PO Q4H PRN PRN Reason: Pain (Mild 1-3) Stop: 06/22/20 02:16 Last Admin: 05/08/20 08:58 Dose: 650 mg Hydrocodone Bitart/Acetaminophen ([place] 5mg/325mg) 1 tab PO Q6H PRN PRN Reason: Pain (Severe 7-10) Stop: 07/07/20 18:38 Last Admin: 05/29/20 11:09 Dose: 1 tab Al Hydrox/Mg Hydrox/Simethicone (Maalox) 30 ml PO Q4HR PRN PRN Reason: GI DISTRESS Stop: 06/22/20 02:16 Last Admin: 05/05/20 09:33 Dose: 30 ml Alprazolam (Xanax) 0.5 mg PO Q6HR PRN; Protocol PRN Reason: Anxiety Stop: 07/12/20 11:41 Last Admin: 05/29/20 16:09 Dose: 0.5 mg Amlodipine Besylate (Norvasc) 10 mg PO DAILY [facility] Stop: 06/23/20 08:59 Last Admin: 05/29/20 09:02 Dose: Not Given Bupropion HCl (Wellbutrin Xl) 150 mg PO DAILY [facility]; Protocol Stop: 07/29/20 08:59 Calcium Carbonate (Tums) 1,000 mg PO Q6HR PRN PRN Reason: indigestion Stop: 06/22/20 07:27 Last Admin: 05/29/20 08:46 Dose: 1,000 mg Docusate Sodium (Colace) 100 mg PO BID [facility] Stop: 06/22/20 08:59 Last Admin: 05/29/20 16:09 Dose: 100 mg Levothyroxine Sodium (Synthroid) 0.1 mg PO QDAC [facility] Stop: 06/22/20 07:29 Last Admin: 05/29/20 06:40 Dose: 0.1 mg Lisinopril (Zestril) 10 mg PO BID [facility] Stop: 06/23/20 08:59 Last Admin: 05/29/20 16:09 Dose: 10 mg Loperamide HCl (Imodium) 4 mg PO Q6HR PRN PRN Reason: Diarrhea Stop: 06/24/20 11:46 Multivitamins/Vitamin C (Theragran) 1 tab PO DAILY [facility] Stop: 06/22/20 08:59 Last Admin: 05/29/20 08:47 Dose: 1 tab Quetiapine Fumarate 200 mg/ (Quetiapine Fumarate 50 mg) 250 mg PO HS [facility] Stop: 07/05/20 20:59 Last Admin: 05/28/20 20:53 Dose: 250 mg Venlafaxine HCl (Effexor) 300 mg PO DAILY [facility]; Protocol Stop: 07/13/20 14:59 Last Admin: 05/29/20 08:46 Dose: 300 mg Zolpidem Tartrate (Ambien) 10 mg PO HS PRN PRN Reason: Insomnia Stop: 07/12/20 11:43 Last Admin: 05/28/20 20:53 Dose: 10 mg General: alert HEENT: NC/AT, PERRLA, EOMI, anicteric sclerae, throat clear Neck: Supple, No JVD, No thyromegaly, +2 carotid pulse wo bruit, No LAD Lungs: CTAB Cardiovascular: RRR, Normal S1, Normal S2, without murmur Abdomen: soft, non-tender, non-distended Extremities: clear Neurological: no change, alert Internal Medicine Assmt/Plan - Assessment Assessment: 1.HTN. 2.HYPOTHYROIDISM. 3.DJD. 4.DEPRESSION 5.BACK PAIN - Plan Plan: CONTINUE ON CURRENT MEDICATION AND DIET. Nutritional Asmnt/Malnutr-PDOC - Dietary Evaluation Malnutrition Findings (Please click <Entered> for more info): Nutritional Asmnt/Malnutrition Start: 04/24/20 14: 11 Text: Status: Complete Freq: Protocol: Document 04/24/20 14:11 KELSEY (Rec: 04/24/20 14:15 KELSEY [id number]) Nutritional Asmnt/Malnutrition Patient General Information Nutritional Screening Low Risk Diagnosis Psychosis Pertinent Medical Hx/Surgical Hx HTN, Hypothyroidism, Depression Subjective Information Pt is a 56-year-old female admitted on 04/22 d/t agitation . Pt is eating an estimated 100% of meals Per Meal/ Nutrition Activity Record. Dietary is currently providing an estimated 1965 kcals and 108 gm Pro, to meet 100+% kcal and 100+% Pro needs. Spoke with pt. in room today and gathered food preferences; she requested coffee with meals and stated she cannot eat salads due to not having dentures. Anthropometrics HT: 53 WT: 150 LB (68.18 kg) BMI: 26.57 (Overweight) GI/ Skin Integrity GI: WNL, Soft, Round BM: 7/1 x1 I/O: 1440/Not Noted Skin: WNL, Dryness Sam: 19 Diet Order: Cardiac Estimated Energy Needs: ( Geriatric, CBW) 5023-6889 kcals (25-30 kcals/ kg) 70-80g Pro (1.0-1.2 g/kg) 4550-0322 ml (25-30 ml/kg) Current Diet Order/ Nutrition Support Cardiac Patient / S.O Can Pertinent Medications Maalox (PRN), Norvasc, Tums, Colace, Lovenox, Synthroid, MOM (PRN), Theragran Pertinent Labs No pertinent labs at this time . Nutritional Hx/Data Height 1.6 m Height (Calculated Centimeters) 160.0 Current Weight (lbs) 68.039 kg Weight (Calculated Kilograms) 68.0 Weight (Calculated Grams) 08547.9 [place] Body Weight 115 LB (52.27 kg) % [place] Body Weight 130 Body Mass Index (BMI) 26.5 Weight Status Overweight GI Symptoms GI Symptoms None Last BM 04/23 x1 Difficult in: Chewing Cultural/Ethnic/Catholic Belief No pork Skin Integrity/Comment: WNL, Dryness Sam: 19 Current %PO Good (75-100%) Estimated Nutritional Goals BEE in Kcals: Using Current wt Calories/Kcals/Kg 25-30 Kcals Calculated 4731-5080 Protein: Using Current wt Protein g/k.0-1.2 Protein Calculated 70-80 Fluid: ml 6786-5364 ml (25-30 ml/kg) Nutritional Problem 1. Problem Problem No nutrition diagnosis at this time. Etiology N/A Signs/Symptoms: N/A Malnutrition Related to Morbid Obesity Malnutrition related to morbid obesity No Intervention/Recommendation Comments Continue Cardiac diet as tolerated. Expected Outcomes/Goals Expected Outcomes/Goals 1. PO intake to continue to meet >75% of estimated nutritional needs. 2. Monitor PO intake, wt, nutrition related labs, and skin integrity. 3. F/U as low risk in 7-10 days, 05/01-05/04.
--- NOTE | 2020-05-29 21:55 | Progress Notes ---
DATE: 05/29/2020 SUBJECTIVE: The patient in the hospital, patiently awaiting placement. Concerns are really for ability to tend to her basic needs, calm, generally cooperative, still demanding at times. No overt agitation, no escalation of behaviors, likely at her baseline. We were trying to get her back to [facility], but it seems that she may not have a skilled needs so we are possibly looking into either a different fpc or a post-acute facility or a room for rent. PLAN: We will continue to monitor. JOB# [id number]
[2020-05-30] MEDS: Levothyroxine 0.1 Mg Tab PO SCH (06:33)
[2020-05-30] MEDS: Hydrocodone/APAP 5mg/325mg Tab PO PRN ×3 (07:40→20:05)
[2020-05-30] MEDS: Multivitamin Tab PO SCH (09:03)
[2020-05-30] MEDS: buPROPion XL 150 mg T 24 H PO SCH (09:03)
--- NOTE | 2020-05-30 15:07 | Internal Medicine Prog Note ---
Internal Medicine Subjective - Subjective Service Date: 05/30/20 Patient seen and examined:: without staff (she feels well) Patient is:: awake, verbal, in bed, talking Per staff patient has:: no adverse event Internal Medicine Objective - Results Recent Labs: Laboratory Last Values Triglycerides 192 mg/dL (30-150) H 04/25/20 11:20 Cholesterol 457 mg/dL (<200) H 04/25/20 11:20 LDL Cholesterol 297 mg/dL (0-129) H 04/25/20 11:20 HDL Cholesterol 67 mg/dL (>55) 04/25/20 11:20 Coronavirus (PCR) Negative (NOT DETECTD) 05/12/20 15:30 - Physical Exam Vitals and I&O: Vital Signs Temp 97.2 F 05/30/20 14:00 Pulse 72 05/30/20 14:00 Resp 18 05/30/20 14:00 BP 129/75 05/30/20 14:00 Pulse Ox 97 05/30/20 14:00 Intake & Output 05/29/20 05/30/20 05/30/20 18:59 06:59 18:59 Intake Total 1200 240 Balance 1200 240 Intake: Oral 1200 240 Other: # Voids 2 # Bowel Movements 1 Active Medications: Current Medications Acetaminophen (Tylenol) 650 mg PO Q4H PRN PRN Reason: Pain (Mild 1-3) Stop: 06/22/20 02:16 Last Admin: 05/08/20 08:58 Dose: 650 mg Hydrocodone Bitart/Acetaminophen ([place] 5mg/325mg) 1 tab PO Q6H PRN PRN Reason: Pain (Severe 7-10) Stop: 07/07/20 18:38 Last Admin: 05/30/20 13:44 Dose: 1 tab Al Hydrox/Mg Hydrox/Simethicone (Maalox) 30 ml PO Q4HR PRN PRN Reason: GI DISTRESS Stop: 06/22/20 02:16 Last Admin: 05/05/20 09:33 Dose: 30 ml Alprazolam (Xanax) 0.5 mg PO Q6HR PRN; Protocol PRN Reason: Anxiety Stop: 07/12/20 11:41 Last Admin: 05/30/20 15:01 Dose: 0.5 mg Amlodipine Besylate (Norvasc) 10 mg PO DAILY [facility] Stop: 06/23/20 08:59 Last Admin: 05/30/20 09:13 Dose: 10 mg Bupropion HCl (Wellbutrin Xl) 150 mg PO DAILY [facility]; Protocol Stop: 07/29/20 08:59 Last Admin: 05/30/20 09:03 Dose: 150 mg Calcium Carbonate (Tums) 1,000 mg PO Q6HR PRN PRN Reason: indigestion Stop: 06/22/20 07:27 Last Admin: 05/29/20 17:00 Dose: 1,000 mg Docusate Sodium (Colace) 100 mg PO BID [facility] Stop: 06/22/20 08:59 Last Admin: 05/30/20 09:03 Dose: 100 mg Levothyroxine Sodium (Synthroid) 0.1 mg PO QDAC [facility] Stop: 06/22/20 07:29 Last Admin: 05/30/20 06:33 Dose: 0.1 mg Lisinopril (Zestril) 10 mg PO BID [facility] Stop: 06/23/20 08:59 Last Admin: 05/30/20 09:03 Dose: 10 mg Loperamide HCl (Imodium) 4 mg PO Q6HR PRN PRN Reason: Diarrhea Stop: 06/24/20 11:46 Multivitamins/Vitamin C (Theragran) 1 tab PO DAILY [facility] Stop: 06/22/20 08:59 Last Admin: 05/30/20 09:03 Dose: 1 tab Quetiapine Fumarate 200 mg/ (Quetiapine Fumarate 50 mg) 250 mg PO HS [facility] Stop: 07/05/20 20:59 Last Admin: 05/29/20 20:31 Dose: 250 mg Venlafaxine HCl (Effexor) 300 mg PO DAILY [facility]; Protocol Stop: 07/13/20 14:59 Last Admin: 05/30/20 09:12 Dose: 300 mg Zolpidem Tartrate (Ambien) 10 mg PO HS PRN PRN Reason: Insomnia Stop: 07/12/20 11:43 Last Admin: 05/29/20 20:31 Dose: 10 mg General: alert HEENT: NC/AT, PERRLA, EOMI, anicteric sclerae, throat clear Neck: Supple, No JVD, No thyromegaly, +2 carotid pulse wo bruit, No LAD Lungs: CTAB Cardiovascular: RRR, Normal S1, Normal S2, without murmur Abdomen: soft, non-tender, non-distended Extremities: clear Neurological: no change, alert Internal Medicine Assmt/Plan - Assessment Assessment: 1.HTN. 2.HYPOTHYROIDISM. 3.DJD. 4.DEPRESSION 5.BACK PAIN - Plan Plan: CONTINUE ON CURRENT MEDICATION AND DIET. Nutritional Asmnt/Malnutr-PDOC - Dietary Evaluation Malnutrition Findings (Please click <Entered> for more info): Nutritional Asmnt/Malnutrition Start: 04/24/20 14: 11 Text: Status: Complete Freq: Protocol: Document 04/24/20 14:11 XAVIERSUSAN (Rec: 04/24/20 14:15 XAVIERSUSAN [id number]) Nutritional Asmnt/Malnutrition Patient General Information Nutritional Screening Low Risk Diagnosis Psychosis Pertinent Medical Hx/Surgical Hx HTN, Hypothyroidism, Depression Subjective Information Pt is a 56-year-old female admitted on 04/22 d/t agitation . Pt is eating an estimated 100% of meals Per Meal/ Nutrition Activity Record. Dietary is currently providing an estimated 1965 kcals and 108 gm Pro, to meet 100+% kcal and 100+% Pro needs. Spoke with pt. in room today and gathered food preferences; she requested coffee with meals and stated she cannot eat salads due to not having dentures. Anthropometrics HT: 53 WT: 150 LB (68.18 kg) BMI: 26.57 (Overweight) GI/ Skin Integrity GI: WNL, Soft, Round BM: 7/ x1 I/O: 1440/Not Noted Skin: WNL, Dryness Sam: 19 Diet Order: Cardiac Estimated Energy Needs: ( Geriatric, CBW) 6740-8172 kcals (25-30 kcals/ kg) 70-80g Pro (1.0-1.2 g/kg) 5849-8354 ml (25-30 ml/kg) Current Diet Order/ Nutrition Support Cardiac Patient / S.O Can Pertinent Medications Maalox (PRN), Norvasc, Tums, Colace, Lovenox, Synthroid, MOM (PRN), Theragran Pertinent Labs No pertinent labs at this time . Nutritional Hx/Data Height 1.6 m Height (Calculated Centimeters) 160.0 Current Weight (lbs) 68.039 kg Weight (Calculated Kilograms) 68.0 Weight (Calculated Grams) 40766.9 [place] Body Weight 115 LB (52.27 kg) % [place] Body Weight 130 Body Mass Index (BMI) 26.5 Weight Status Overweight GI Symptoms GI Symptoms None Last BM 04/23 x1 Difficult in: Chewing Cultural/Ethnic/Sikh Belief No pork Skin Integrity/Comment: WNL, Dryness Sam: 19 Current %PO Good (75-100%) Estimated Nutritional Goals BEE in Kcals: Using Current wt Calories/Kcals/Kg 25-30 Kcals Calculated 2856-6704 Protein: Using Current wt Protein g/k.0-1.2 Protein Calculated 70-80 Fluid: ml 5555-6170 ml (25-30 ml/kg) Nutritional Problem 1. Problem Problem No nutrition diagnosis at this time. Etiology N/A Signs/Symptoms: N/A Malnutrition Related to Morbid Obesity Malnutrition related to morbid obesity No Intervention/Recommendation Comments Continue Cardiac diet as tolerated. Expected Outcomes/Goals Expected Outcomes/Goals 1. PO intake to continue to meet >75% of estimated nutritional needs. 2. Monitor PO intake, wt, nutrition related labs, and skin integrity. 3. F/U as low risk in 7-10 days, 05/01-05/04.
[2020-05-30 15:48] LABS: URINE CLARITY CLEAR (CLEAR); URINE COLOR YELLOW (YELLOW)
[2020-05-30 15:49] LABS: BLOOD, URINE 2+ (NEGATIVE); GLUCOSE,URINE 0 (NEGATIVE); PROTEIN URINE NEGATIVE (NEGATIVE); URINE BILIRUBIN NEGATIVE (NEGATIVE); URINE KETONE NEGATIVE (NEGATIVE); URINE PH 6.5 (5.0-8.0)
[2020-05-30 15:50] LABS: LEUKOCYTE ESTERASE ,URINE NEGATIVE (NEGATIVE); URINE NITRATE NEGATIVE (NEGATIVE); UROBILINOGEN,URINE 0.2 (0.2-1.0)
--- NOTE | 2020-05-30 20:02 | Progress Notes ---
DATE: 05/30/2020 Case was discussed with staff of the patient, reviewed records. This is a well-known case. I have seen her before covering for Dr. Olivarez. The patient is being able to take care of her basic needs. She is calm. She is cooperative, demanding at times. No overt agitation, no escalation of behavior. She is waiting for placement. No side effects with the medication, no sedation, no nausea, and no extrapyramidal symptoms. We will continue outpatient group therapy, milieu therapy, adjust medication as needed. JOB# [id number]
--- NOTE | 2020-05-31 03:31 | Progress Notes ---
DATE: 05/27/2020 SUBJECTIVE: The patient is in the hospital, awaiting placement, calm, generally cooperative. Noting that she is hoping to go for room for rent, but finances are huge issues, so she is just waiting patiently to go back to the alf facility. The patient is calm, generally cooperative, sleeping well, eating well, linear and engaged; no SI, no HI. No intent, no plan, no overt psychotic symptoms. MEDICATIONS: Reviewed. PLAN: We will coordinate care with nursing services manager to see if the alf will be able to take her back pending the COVID issue with the [facility]. DICTATION ENDS HERE. JOB# [id number]
[2020-05-31] MEDS: Levothyroxine 0.1 Mg Tab PO SCH (06:41)
[2020-05-31] MEDS: Multivitamin Tab PO SCH (09:07)
[2020-05-31] MEDS: buPROPion XL 150 mg T 24 H PO SCH (09:07)
[2020-05-31] MEDS: Hydrocodone/APAP 5mg/325mg Tab PO PRN ×3 (09:13→22:30)
--- NOTE | 2020-05-31 18:24 | Internal Medicine Prog Note ---
Internal Medicine Subjective - Subjective Service Date: 05/31/20 Patient seen and examined:: without staff (SHE FEELS WELL) Patient is:: awake, verbal, in bed, talking Per staff patient has:: no adverse event Internal Medicine Objective - Results Recent Labs: Laboratory Last Values Triglycerides 192 mg/dL (30-150) H 04/25/20 11:20 Cholesterol 457 mg/dL (<200) H 04/25/20 11:20 LDL Cholesterol 297 mg/dL (0-129) H 04/25/20 11:20 HDL Cholesterol 67 mg/dL (>55) 04/25/20 11:20 Urine Color YELLOW (YELLOW) 05/30/20 13:05 Urine Clarity CLEAR (CLEAR) 05/30/20 13:05 Urine pH 6.5 (5.0-8.0) 05/30/20 13:05 Ur Specific [place] 1.010 (1.005-1.030) 05/30/20 13:05 Urine Protein NEGATIVE (NEGATIVE) 05/30/20 13:05 Urine Ketones NEGATIVE (NEGATIVE) 05/30/20 13:05 Urine Blood 2+ (NEGATIVE) H 05/30/20 13:05 Urine Nitrate NEGATIVE (NEGATIVE) 05/30/20 13:05 Urine Bilirubin NEGATIVE (NEGATIVE) 05/30/20 13:05 Urine Urobilinogen 0.2 (0.2-1.0) 05/30/20 13:05 Ur Leukocyte Esterase NEGATIVE (NEGATIVE) 05/30/20 13:05 Urine Glucose 0 (NEGATIVE) 05/30/20 13:05 Coronavirus (PCR) Negative (NOT DETECTD) 05/12/20 15:30 - Physical Exam Vitals and I&O: Vital Signs Temp 97.6 F 05/31/20 14:00 Pulse 80 05/31/20 17:22 Resp 20 05/31/20 14:00 BP 149/88 05/31/20 17:22 Pulse Ox 96 05/31/20 14:00 Intake & Output 05/30/20 05/31/20 05/31/20 18:59 06:59 18:59 Intake Total 7868 610 8059 Balance 4169 827 9077 Intake: Oral 6889 438 1334 Other: # Voids 3 2 4 # Bowel Movements 0 1 Active Medications: Current Medications Acetaminophen (Tylenol) 650 mg PO Q4H PRN PRN Reason: Pain (Mild 1-3) Stop: 06/22/20 02:16 Last Admin: 05/08/20 08:58 Dose: 650 mg Hydrocodone Bitart/Acetaminophen ([place] 5mg/325mg) 1 tab PO Q6H PRN PRN Reason: Pain (Severe 7-10) Stop: 07/07/20 18:38 Last Admin: 05/31/20 15:29 Dose: 1 tab Al Hydrox/Mg Hydrox/Simethicone (Maalox) 30 ml PO Q4HR PRN PRN Reason: GI DISTRESS Stop: 06/22/20 02:16 Last Admin: 05/05/20 09:33 Dose: 30 ml Alprazolam (Xanax) 0.5 mg PO Q6HR PRN; Protocol PRN Reason: Anxiety Stop: 07/12/20 11:41 Last Admin: 05/30/20 15:01 Dose: 0.5 mg Amlodipine Besylate (Norvasc) 10 mg PO DAILY [facility] Stop: 06/23/20 08:59 Last Admin: 05/31/20 09:16 Dose: Not Given Bupropion HCl (Wellbutrin Xl) 150 mg PO DAILY [facility]; Protocol Stop: 07/29/20 08:59 Last Admin: 05/31/20 09:07 Dose: 150 mg Calcium Carbonate (Tums) 1,000 mg PO Q6HR PRN PRN Reason: indigestion Stop: 06/22/20 07:27 Last Admin: 05/29/20 17:00 Dose: 1,000 mg Docusate Sodium (Colace) 100 mg PO BID [facility] Stop: 06/22/20 08:59 Last Admin: 05/31/20 17:22 Dose: 100 mg Levothyroxine Sodium (Synthroid) 0.1 mg PO QDAC [facility] Stop: 06/22/20 07:29 Last Admin: 05/31/20 06:41 Dose: 0.1 mg Lisinopril (Zestril) 10 mg PO BID [facility] Stop: 06/23/20 08:59 Last Admin: 05/31/20 17:22 Dose: 10 mg Loperamide HCl (Imodium) 4 mg PO Q6HR PRN PRN Reason: Diarrhea Stop: 06/24/20 11:46 Multivitamins/Vitamin C (Theragran) 1 tab PO DAILY [facility] Stop: 06/22/20 08:59 Last Admin: 05/31/20 09:07 Dose: 1 tab Quetiapine Fumarate 200 mg/ (Quetiapine Fumarate 50 mg) 250 mg PO HS [facility] Stop: 07/05/20 20:59 Last Admin: 05/30/20 21:31 Dose: 250 mg Venlafaxine HCl (Effexor) 300 mg PO DAILY [facility]; Protocol Stop: 07/13/20 14:59 Last Admin: 05/31/20 09:10 Dose: 300 mg Zolpidem Tartrate (Ambien) 10 mg PO HS PRN PRN Reason: Insomnia Stop: 07/12/20 11:43 Last Admin: 05/30/20 22:09 Dose: 10 mg General: alert HEENT: NC/AT, PERRLA, EOMI, anicteric sclerae, throat clear Neck: Supple, No JVD, No thyromegaly, +2 carotid pulse wo bruit, No LAD Lungs: CTAB Cardiovascular: RRR, Normal S1, Normal S2, without murmur Abdomen: soft, non-tender, non-distended Extremities: clear Neurological: no change, alert Internal Medicine Assmt/Plan - Assessment Assessment: 1.HTN. 2.HYPOTHYROIDISM. 3.DJD. 4.DEPRESSION 5.BACK PAIN - Plan Plan: CONTINUE ON CURRENT MEDICATION AND DIET. Nutritional Asmnt/Malnutr-PDOC - Dietary Evaluation Malnutrition Findings (Please click <Entered> for more info): Nutritional Asmnt/Malnutrition Start: 04/24/20 14: 11 Text: Status: Complete Freq: Protocol: Document 04/24/20 14:11 KELSEY (Rec: 04/24/20 14:15 KELSEY [id number]) Nutritional Asmnt/Malnutrition Patient General Information Nutritional Screening Low Risk Diagnosis Psychosis Pertinent Medical Hx/Surgical Hx HTN, Hypothyroidism, Depression Subjective Information Pt is a 56-year-old female admitted on 04/22 d/t agitation . Pt is eating an estimated 100% of meals Per Meal/ Nutrition Activity Record. Dietary is currently providing an estimated 1965 kcals and 108 gm Pro, to meet 100+% kcal and 100+% Pro needs. Spoke with pt. in room today and gathered food preferences; she requested coffee with meals and stated she cannot eat salads due to not having dentures. Anthropometrics HT: 53 WT: 150 LB (68.18 kg) BMI: 26.57 (Overweight) GI/ Skin Integrity GI: WNL, Soft, Round BM: 04/23 x1 I/O: 1440/Not Noted Skin: WNL, Dryness Sam: 19 Diet Order: Cardiac Estimated Energy Needs: ( Geriatric, CBW) 5115-8217 kcals (25-30 kcals/ kg) 70-80g Pro (1.0-1.2 g/kg) 7737-4507 ml (25-30 ml/kg) Current Diet Order/ Nutrition Support Cardiac Patient / S.O Can Pertinent Medications Maalox (PRN), Norvasc, Tums, Colace, Lovenox, Synthroid, MOM (PRN), Theragran Pertinent Labs No pertinent labs at this time . Nutritional Hx/Data Height 1.6 m Height (Calculated Centimeters) 160.0 Current Weight (lbs) 68.039 kg Weight (Calculated Kilograms) 68.0 Weight (Calculated Grams) 48203.9 [place] Body Weight 115 LB (52.27 kg) % [place] Body Weight 130 Body Mass Index (BMI) 26.5 Weight Status Overweight GI Symptoms GI Symptoms None Last BM 04/23 x1 Difficult in: Chewing Cultural/Ethnic/Tenriism Belief No pork Skin Integrity/Comment: WNL, Dryness Sam: 19 Current %PO Good (75-100%) Estimated Nutritional Goals BEE in Kcals: Using Current wt Calories/Kcals/Kg 25-30 Kcals Calculated 1756-2401 Protein: Using Current wt Protein g/k.0-1.2 Protein Calculated 70-80 Fluid: ml 9523-2399 ml (25-30 ml/kg) Nutritional Problem 1. Problem Problem No nutrition diagnosis at this time. Etiology N/A Signs/Symptoms: N/A Malnutrition Related to Morbid Obesity Malnutrition related to morbid obesity No Intervention/Recommendation Comments Continue Cardiac diet as tolerated. Expected Outcomes/Goals Expected Outcomes/Goals 1. PO intake to continue to meet >75% of estimated nutritional needs. 2. Monitor PO intake, wt, nutrition related labs, and skin integrity. 3. F/U as low risk in 7-10 days, 05/01-05/04.
--- NOTE | 2020-05-31 21:32 | Progress Notes ---
DATE: 05/31/2020 SUBJECTIVE: The patient was seen and evaluated. The patient's chart was reviewed. This is psychiatric followup note. Covering for Dr. Monroy. IDENTIFYING DATA: A 69-year-old female. Today on [id number] evaluation, the patient denies any complication. No side effects to medication. The patient reports her mood continues to improve. EXAMINATION: More calmer, mild irritability. No complications. ASSESSMENT AND PLAN: Stabilizing with the current medication regimen. No overt agitation, stabilization. We will continue monitoring and evaluating and continue with primary psychiatrist's treatment plan and goals. JOB# [id number]
[2020-06-01] MEDS: Levothyroxine 0.1 Mg Tab PO SCH ×2 (07:01→07:07)
[2020-06-01] MEDS: Hydrocodone/APAP 5mg/325mg Tab PO PRN ×3 (08:03→20:25)
[2020-06-01] MEDS: buPROPion XL 150 mg T 24 H PO SCH (08:27)
[2020-06-01] MEDS: Multivitamin Tab PO SCH (08:28)
--- NOTE | 2020-06-01 09:59 | Progress Notes ---
DATE: 06/01/[address] Olivarez. SUBJECTIVE: The patient was seen and evaluated. The patient's chart was reviewed. The patient denies any side effects of medications. The patient reports that he ____. ASSESSMENT AND PLAN: Stabilizing with the current medication regimen. We will continue working very closely with chief medical officer for safe disposition when bed available. JOB# [id number]
--- NOTE | 2020-06-01 19:10 | Internal Medicine Prog Note ---
Internal Medicine Subjective - Subjective Service Date: 06/01/20 Patient seen and examined:: without staff (SHE FEELS WELL) Patient is:: awake, verbal, in bed, talking Per staff patient has:: no adverse event Internal Medicine Objective - Results Recent Labs: Laboratory Last Values Triglycerides 192 mg/dL (30-150) H 04/25/20 11:20 Cholesterol 457 mg/dL (<200) H 04/25/20 11:20 LDL Cholesterol 297 mg/dL (0-129) H 04/25/20 11:20 HDL Cholesterol 67 mg/dL (>55) 04/25/20 11:20 Urine Color YELLOW (YELLOW) 05/30/20 13:05 Urine Clarity CLEAR (CLEAR) 05/30/20 13:05 Urine pH 6.5 (5.0-8.0) 05/30/20 13:05 Ur Specific [place] 1.010 (1.005-1.030) 05/30/20 13:05 Urine Protein NEGATIVE (NEGATIVE) 05/30/20 13:05 Urine Ketones NEGATIVE (NEGATIVE) 05/30/20 13:05 Urine Blood 2+ (NEGATIVE) H 05/30/20 13:05 Urine Nitrate NEGATIVE (NEGATIVE) 05/30/20 13:05 Urine Bilirubin NEGATIVE (NEGATIVE) 05/30/20 13:05 Urine Urobilinogen 0.2 (0.2-1.0) 05/30/20 13:05 Ur Leukocyte Esterase NEGATIVE (NEGATIVE) 05/30/20 13:05 Urine Glucose 0 (NEGATIVE) 05/30/20 13:05 Coronavirus (PCR) Negative (NOT DETECTD) 05/12/20 15:30 - Physical Exam Vitals and I&O: Vital Signs Temp 97.4 F 06/01/20 14:19 Pulse 82 06/01/20 17:05 Resp 18 06/01/20 14:19 BP 150/70 06/01/20 17:05 Pulse Ox 98 06/01/20 14:19 Intake & Output 06/01/20 06/01/20 06/02/20 06:59 18:59 06:59 Intake Total 180 Balance 180 Intake: Oral 180 Other: # Voids 1 # Bowel Movements 0 Active Medications: Current Medications Acetaminophen (Tylenol) 650 mg PO Q4H PRN PRN Reason: Pain (Mild 1-3) Stop: 06/22/20 02:16 Last Admin: 06/01/20 02:43 Dose: 650 mg Hydrocodone Bitart/Acetaminophen ([place] 5mg/325mg) 1 tab PO Q6H PRN PRN Reason: Pain (Severe 7-10) Stop: 07/07/20 18:38 Last Admin: 06/01/20 14:14 Dose: 1 tab Al Hydrox/Mg Hydrox/Simethicone (Maalox) 30 ml PO Q4HR PRN PRN Reason: GI DISTRESS Stop: 06/22/20 02:16 Last Admin: 05/05/20 09:33 Dose: 30 ml Alprazolam (Xanax) 0.5 mg PO Q6HR PRN; Protocol PRN Reason: Anxiety Stop: 07/12/20 11:41 Last Admin: 06/01/20 03:47 Dose: 0.5 mg Amlodipine Besylate (Norvasc) 10 mg PO DAILY [facility] Stop: 06/23/20 08:59 Last Admin: 06/01/20 08:26 Dose: 10 mg Bupropion HCl (Wellbutrin Xl) 150 mg PO DAILY [facility]; Protocol Stop: 07/29/20 08:59 Last Admin: 06/01/20 08:27 Dose: 150 mg Calcium Carbonate (Tums) 1,000 mg PO Q6HR PRN PRN Reason: indigestion Stop: 06/22/20 07:27 Last Admin: 05/29/20 17:00 Dose: 1,000 mg Docusate Sodium (Colace) 100 mg PO BID [facility] Stop: 06/22/20 08:59 Last Admin: 06/01/20 17:06 Dose: 100 mg Levothyroxine Sodium (Synthroid) 0.1 mg PO QDAC [facility] Stop: 06/22/20 07:29 Last Admin: 06/01/20 07:07 Dose: 0.1 mg Lisinopril (Zestril) 10 mg PO BID [facility] Stop: 06/23/20 08:59 Last Admin: 06/01/20 17:05 Dose: 10 mg Loperamide HCl (Imodium) 4 mg PO Q6HR PRN PRN Reason: Diarrhea Stop: 06/24/20 11:46 Multivitamins/Vitamin C (Theragran) 1 tab PO DAILY [facility] Stop: 06/22/20 08:59 Last Admin: 06/01/20 08:28 Dose: 1 tab Quetiapine Fumarate 200 mg/ (Quetiapine Fumarate 50 mg) 250 mg PO HS [facility] Stop: 07/05/20 20:59 Last Admin: 05/31/20 21:35 Dose: Not Given Venlafaxine HCl (Effexor) 300 mg PO DAILY [facility]; Protocol Stop: 07/13/20 14:59 Last Admin: 06/01/20 08:29 Dose: 300 mg Zolpidem Tartrate (Ambien) 10 mg PO HS PRN PRN Reason: Insomnia Stop: 07/12/20 11:43 Last Admin: 05/31/20 21:00 Dose: 10 mg General: alert HEENT: NC/AT, PERRLA, EOMI, anicteric sclerae, throat clear Neck: Supple, No JVD, No thyromegaly, +2 carotid pulse wo bruit, No LAD Lungs: CTAB Cardiovascular: RRR, Normal S1, Normal S2, without murmur Abdomen: soft, non-tender, non-distended Extremities: clear Neurological: no change, alert Internal Medicine Assmt/Plan - Assessment Assessment: 1.HTN. 2.HYPOTHYROIDISM. 3.DJD. 4.DEPRESSION 5.BACK PAIN - Plan Plan: CONTINUE ON CURRENT MEDICATION AND DIET. Nutritional Asmnt/Malnutr-PDOC - Dietary Evaluation Malnutrition Findings (Please click <Entered> for more info): Nutritional Asmnt/Malnutrition Start: 04/24/20 14: 11 Text: Status: Complete Freq: Protocol: Document 04/24/20 14:11 KELSEY (Rec: 04/24/20 14:15 KELSEY [id number]) Nutritional Asmnt/Malnutrition Patient General Information Nutritional Screening Low Risk Diagnosis Psychosis Pertinent Medical Hx/Surgical Hx HTN, Hypothyroidism, Depression Subjective Information Pt is a 56-year-old female admitted on 04/22 d/t agitation . Pt is eating an estimated 100% of meals Per Meal/ Nutrition Activity Record. Dietary is currently providing an estimated 1965 kcals and 108 gm Pro, to meet 100+% kcal and 100+% Pro needs. Spoke with pt. in room today and gathered food preferences; she requested coffee with meals and stated she cannot eat salads due to not having dentures. Anthropometrics HT: 53 WT: 150 LB (68.18 kg) BMI: 26.57 (Overweight) GI/ Skin Integrity GI: WNL, Soft, Round BM: 04/23 x1 I/O: 1440/Not Noted Skin: WNL, Dryness Sam: 19 Diet Order: Cardiac Estimated Energy Needs: ( Geriatric, CBW) 3163-8420 kcals (25-30 kcals/ kg) 70-80g Pro (1.0-1.2 g/kg) 8381-9301 ml (25-30 ml/kg) Current Diet Order/ Nutrition Support Cardiac Patient / S.O Can Pertinent Medications Maalox (PRN), Norvasc, Tums, Colace, Lovenox, Synthroid, MOM (PRN), Theragran Pertinent Labs No pertinent labs at this time . Nutritional Hx/Data Height 1.6 m Height (Calculated Centimeters) 160.0 Current Weight (lbs) 68.039 kg Weight (Calculated Kilograms) 68.0 Weight (Calculated Grams) 56718.9 [place] Body Weight 115 LB (52.27 kg) % [place] Body Weight 130 Body Mass Index (BMI) 26.5 Weight Status Overweight GI Symptoms GI Symptoms None Last BM 04/23 x1 Difficult in: Chewing Cultural/Ethnic/Christian Belief No pork Skin Integrity/Comment: WNL, Dryness Sam: 19 Current %PO Good (75-100%) Estimated Nutritional Goals BEE in Kcals: Using Current wt Calories/Kcals/Kg 25-30 Kcals Calculated 6849-0439 Protein: Using Current wt Protein g/k.0-1.2 Protein Calculated 70-80 Fluid: ml 6030-5509 ml (25-30 ml/kg) Nutritional Problem 1. Problem Problem No nutrition diagnosis at this time. Etiology N/A Signs/Symptoms: N/A Malnutrition Related to Morbid Obesity Malnutrition related to morbid obesity No Intervention/Recommendation Comments Continue Cardiac diet as tolerated. Expected Outcomes/Goals Expected Outcomes/Goals 1. PO intake to continue to meet >75% of estimated nutritional needs. 2. Monitor PO intake, wt, nutrition related labs, and skin integrity. 3. F/U as low risk in 7-10 days, 05/01-05/04.
[2020-06-02] MEDS: Hydrocodone/APAP 5mg/325mg Tab PO PRN ×3 (06:28→19:53)
[2020-06-02] MEDS: Levothyroxine 0.1 Mg Tab PO SCH (06:30)
[2020-06-02] MEDS: buPROPion XL 150 mg T 24 H PO SCH (08:35)
[2020-06-02] MEDS: Multivitamin Tab PO SCH (08:35)
--- NOTE | 2020-06-02 15:34 | Progress Notes ---
DATE: 06/02/2020 Case was discussed with staff of the patient, reviewed records. The patient is still awaiting placement. She is sleeping well, eating well. She is calm, cooperative. No side effects with the medication, no sedation, no nausea, no extrapyramidal symptoms. Working on safe disposition and we will continue outpatient group therapy, milieu therapy, and adjust medications as needed. JOB# [id number]
--- NOTE | 2020-06-02 20:52 | Internal Medicine Prog Note ---
Internal Medicine Subjective - Subjective Service Date: 06/02/20 Patient seen and examined:: without staff (SHE FEELS WELL) Patient is:: awake, verbal, in bed, talking Per staff patient has:: no adverse event Internal Medicine Objective - Results Recent Labs: Laboratory Last Values Triglycerides 192 mg/dL (30-150) H 04/25/20 11:20 Cholesterol 457 mg/dL (<200) H 04/25/20 11:20 LDL Cholesterol 297 mg/dL (0-129) H 04/25/20 11:20 HDL Cholesterol 67 mg/dL (>55) 04/25/20 11:20 Urine Color YELLOW (YELLOW) 05/30/20 13:05 Urine Clarity CLEAR (CLEAR) 05/30/20 13:05 Urine pH 6.5 (5.0-8.0) 05/30/20 13:05 Ur Specific [place] 1.010 (1.005-1.030) 05/30/20 13:05 Urine Protein NEGATIVE (NEGATIVE) 05/30/20 13:05 Urine Ketones NEGATIVE (NEGATIVE) 05/30/20 13:05 Urine Blood 2+ (NEGATIVE) H 05/30/20 13:05 Urine Nitrate NEGATIVE (NEGATIVE) 05/30/20 13:05 Urine Bilirubin NEGATIVE (NEGATIVE) 05/30/20 13:05 Urine Urobilinogen 0.2 (0.2-1.0) 05/30/20 13:05 Ur Leukocyte Esterase NEGATIVE (NEGATIVE) 05/30/20 13:05 Urine Glucose 0 (NEGATIVE) 05/30/20 13:05 Coronavirus (PCR) Negative (NOT DETECTD) 05/12/20 15:30 - Physical Exam Vitals and I&O: Vital Signs Temp 97.7 F 06/02/20 14:00 Pulse 69 06/02/20 16:33 Resp 20 06/02/20 14:00 BP 124/73 06/02/20 16:33 Pulse Ox 98 06/02/20 14:00 Intake & Output 06/02/20 06/02/20 06/03/20 06:59 18:59 06:59 Intake Total 180 1000 Balance 180 1000 Intake: Oral 180 1000 Other: # Voids 2 4 # Bowel Movements 0 1 Active Medications: Current Medications Acetaminophen (Tylenol) 650 mg PO Q4H PRN PRN Reason: Pain (Mild 1-3) Stop: 06/22/20 02:16 Last Admin: 06/01/20 02:43 Dose: 650 mg Hydrocodone Bitart/Acetaminophen ([place] 5mg/325mg) 1 tab PO Q6H PRN PRN Reason: Pain (Severe 7-10) Stop: 07/07/20 18:38 Last Admin: 06/02/20 19:53 Dose: 1 tab Al Hydrox/Mg Hydrox/Simethicone (Maalox) 30 ml PO Q4HR PRN PRN Reason: GI DISTRESS Stop: 06/22/20 02:16 Last Admin: 05/05/20 09:33 Dose: 30 ml Alprazolam (Xanax) 0.5 mg PO Q6HR PRN; Protocol PRN Reason: Anxiety Stop: 07/12/20 11:41 Last Admin: 06/02/20 15:24 Dose: 0.5 mg Amlodipine Besylate (Norvasc) 10 mg PO DAILY [facility] Stop: 06/23/20 08:59 Last Admin: 06/02/20 08:35 Dose: Not Given Bupropion HCl (Wellbutrin Xl) 150 mg PO DAILY [facility]; Protocol Stop: 07/29/20 08:59 Last Admin: 06/02/20 08:35 Dose: 150 mg Calcium Carbonate (Tums) 1,000 mg PO Q6HR PRN PRN Reason: indigestion Stop: 06/22/20 07:27 Last Admin: 06/02/20 08:35 Dose: 1,000 mg Docusate Sodium (Colace) 100 mg PO BID [facility] Stop: 06/22/20 08:59 Last Admin: 06/02/20 16:33 Dose: 100 mg Levothyroxine Sodium (Synthroid) 0.1 mg PO QDAC [facility] Stop: 06/22/20 07:29 Last Admin: 06/02/20 06:30 Dose: 0.1 mg Lisinopril (Zestril) 10 mg PO BID [facility] Stop: 06/23/20 08:59 Last Admin: 06/02/20 16:33 Dose: 10 mg Loperamide HCl (Imodium) 4 mg PO Q6HR PRN PRN Reason: Diarrhea Stop: 06/24/20 11:46 Multivitamins/Vitamin C (Theragran) 1 tab PO DAILY [facility] Stop: 06/22/20 08:59 Last Admin: 06/02/20 08:35 Dose: 1 tab Quetiapine Fumarate 200 mg/ (Quetiapine Fumarate 50 mg) 250 mg PO HS [facility] Stop: 07/05/20 20:59 Last Admin: 06/01/20 20:46 Dose: 250 mg Venlafaxine HCl (Effexor) 300 mg PO DAILY [facility]; Protocol Stop: 07/13/20 14:59 Last Admin: 06/02/20 08:35 Dose: 300 mg Zolpidem Tartrate (Ambien) 10 mg PO HS PRN PRN Reason: Insomnia Stop: 07/12/20 11:43 Last Admin: 06/01/20 21:32 Dose: 10 mg General: alert HEENT: NC/AT, PERRLA, EOMI, anicteric sclerae, throat clear Neck: Supple, No JVD, No thyromegaly, +2 carotid pulse wo bruit, No LAD Lungs: CTAB Cardiovascular: RRR, Normal S1, Normal S2, without murmur Abdomen: soft, non-tender, non-distended Extremities: clear Neurological: no change, alert Internal Medicine Assmt/Plan - Assessment Assessment: 1.HTN. 2.HYPOTHYROIDISM. 3.DJD. 4.DEPRESSION 5.BACK PAIN - Plan Plan: CONTINUE ON CURRENT MEDICATION AND DIET. Nutritional Asmnt/Malnutr-PDOC - Dietary Evaluation Malnutrition Findings (Please click <Entered> for more info): Nutritional Asmnt/Malnutrition Start: 04/24/20 14: 11 Text: Status: Complete Freq: Protocol: Document 04/24/20 14:11 KELSEY (Rec: 04/24/20 14:15 KELSEY [id number]) Nutritional Asmnt/Malnutrition Patient General Information Nutritional Screening Low Risk Diagnosis Psychosis Pertinent Medical Hx/Surgical Hx HTN, Hypothyroidism, Depression Subjective Information Pt is a 56-year-old female admitted on 04/22 d/t agitation . Pt is eating an estimated 100% of meals Per Meal/ Nutrition Activity Record. Dietary is currently providing an estimated 1965 kcals and 108 gm Pro, to meet 100+% kcal and 100+% Pro needs. Spoke with pt. in room today and gathered food preferences; she requested coffee with meals and stated she cannot eat salads due to not having dentures. Anthropometrics HT: 53 WT: 150 LB (68.18 kg) BMI: 26.57 (Overweight) GI/ Skin Integrity GI: WNL, Soft, Round BM: 04/23 x1 I/O: 1440/Not Noted Skin: WNL, Dryness Sam: 19 Diet Order: Cardiac Estimated Energy Needs: ( Geriatric, CBW) 4460-3118 kcals (25-30 kcals/ kg) 70-80g Pro (1.0-1.2 g/kg) 7745-7881 ml (25-30 ml/kg) Current Diet Order/ Nutrition Support Cardiac Patient / S.O Can Pertinent Medications Maalox (PRN), Norvasc, Tums, Colace, Lovenox, Synthroid, MOM (PRN), Theragran Pertinent Labs No pertinent labs at this time . Nutritional Hx/Data Height 1.6 m Height (Calculated Centimeters) 160.0 Current Weight (lbs) 68.039 kg Weight (Calculated Kilograms) 68.0 Weight (Calculated Grams) 54336.9 [place] Body Weight 115 LB (52.27 kg) % [place] Body Weight 130 Body Mass Index (BMI) 26.5 Weight Status Overweight GI Symptoms GI Symptoms None Last BM 04/23 x1 Difficult in: Chewing Cultural/Ethnic/Christianity Belief No pork Skin Integrity/Comment: WNL, Dryness Sam: 19 Current %PO Good (75-100%) Estimated Nutritional Goals BEE in Kcals: Using Current wt Calories/Kcals/Kg 25-30 Kcals Calculated 6149-1381 Protein: Using Current wt Protein g/k.0-1.2 Protein Calculated 70-80 Fluid: ml 0569-5811 ml (25-30 ml/kg) Nutritional Problem 1. Problem Problem No nutrition diagnosis at this time. Etiology N/A Signs/Symptoms: N/A Malnutrition Related to Morbid Obesity Malnutrition related to morbid obesity No Intervention/Recommendation Comments Continue Cardiac diet as tolerated. Expected Outcomes/Goals Expected Outcomes/Goals 1. PO intake to continue to meet >75% of estimated nutritional needs. 2. Monitor PO intake, wt, nutrition related labs, and skin integrity. 3. F/U as low risk in 7-10 days, 05/01-05/04.
[2020-06-03] MEDS: Hydrocodone/APAP 5mg/325mg Tab PO PRN ×3 (04:57→16:54)
[2020-06-03] MEDS: Levothyroxine 0.1 Mg Tab PO SCH (06:39)
[2020-06-03] MEDS: buPROPion XL 150 mg T 24 H PO SCH (08:52)
[2020-06-03] MEDS: Multivitamin Tab PO SCH (08:52)
[2020-06-04] MEDS: Hydrocodone/APAP 5mg/325mg Tab PO PRN ×3 (04:32→16:33)
[2020-06-04] MEDS: Levothyroxine 0.1 Mg Tab PO SCH (07:00)
[2020-06-04] MEDS: buPROPion XL 150 mg T 24 H PO SCH (08:21)
[2020-06-04] MEDS: Multivitamin Tab PO SCH (08:21)
--- NOTE | 2020-06-04 14:17 | Progress Notes ---
DATE: 06/04/2020 Case was discussed with staff of the patient, reviewed records. The patient is awaiting placement. Sleeping well, eating well. No suicidal ideation, no homicidal ideation, no paranoia. She is so far stable to go, but working on placement on this patient and no side effects of medication, no sedation, no nausea. We will continue outpatient group therapy, milieu therapy, and adjust medications as needed. JOB# [id number]
--- NOTE | 2020-06-04 20:01 | Internal Medicine Prog Note ---
Internal Medicine Subjective - Subjective Service Date: 06/03/20 Patient seen and examined:: without staff (SHE FEELS WELL) Patient is:: awake, verbal, in bed, talking Per staff patient has:: no adverse event Internal Medicine Objective - Results Recent Labs: Laboratory Last Values Triglycerides 192 mg/dL (30-150) H 04/25/20 11:20 Cholesterol 457 mg/dL (<200) H 04/25/20 11:20 LDL Cholesterol 297 mg/dL (0-129) H 04/25/20 11:20 HDL Cholesterol 67 mg/dL (>55) 04/25/20 11:20 Urine Color YELLOW (YELLOW) 05/30/20 13:05 Urine Clarity CLEAR (CLEAR) 05/30/20 13:05 Urine pH 6.5 (5.0-8.0) 05/30/20 13:05 Ur Specific [place] 1.010 (1.005-1.030) 05/30/20 13:05 Urine Protein NEGATIVE (NEGATIVE) 05/30/20 13:05 Urine Ketones NEGATIVE (NEGATIVE) 05/30/20 13:05 Urine Blood 2+ (NEGATIVE) H 05/30/20 13:05 Urine Nitrate NEGATIVE (NEGATIVE) 05/30/20 13:05 Urine Bilirubin NEGATIVE (NEGATIVE) 05/30/20 13:05 Urine Urobilinogen 0.2 (0.2-1.0) 05/30/20 13:05 Ur Leukocyte Esterase NEGATIVE (NEGATIVE) 05/30/20 13:05 Urine Glucose 0 (NEGATIVE) 05/30/20 13:05 Coronavirus (PCR) Negative (NOT DETECTD) 05/12/20 15:30 - Physical Exam Vitals and I&O: Vital Signs Temp 97.6 F 06/04/20 14:00 Pulse 79 06/04/20 16:13 Resp 18 06/04/20 14:00 BP 141/87 06/04/20 16:13 Pulse Ox 95 06/04/20 14:00 Intake & Output 06/04/20 06/04/20 06/05/20 06:59 18:59 06:59 Intake Total 360 1200 Balance 360 1200 Intake: Oral 360 1200 Other: # Voids 2 4 # Bowel Movements 0 0 Active Medications: Current Medications Acetaminophen (Tylenol) 650 mg PO Q4H PRN PRN Reason: Pain (Mild 1-3) Stop: 06/22/20 02:16 Last Admin: 06/01/20 02:43 Dose: 650 mg Hydrocodone Bitart/Acetaminophen ([place] 5mg/325mg) 1 tab PO Q6H PRN PRN Reason: Pain (Severe 7-10) Stop: 08/03/20 04:17 Last Admin: 06/04/20 16:33 Dose: 1 tab Al Hydrox/Mg Hydrox/Simethicone (Maalox) 30 ml PO Q4HR PRN PRN Reason: GI DISTRESS Stop: 06/22/20 02:16 Last Admin: 05/05/20 09:33 Dose: 30 ml Amlodipine Besylate (Norvasc) 10 mg PO DAILY [facility] Stop: 06/23/20 08:59 Last Admin: 06/04/20 08:22 Dose: Not Given Bupropion HCl (Wellbutrin Xl) 150 mg PO DAILY [facility]; Protocol Stop: 07/29/20 08:59 Last Admin: 06/04/20 08:21 Dose: 150 mg Calcium Carbonate (Tums) 1,000 mg PO Q6HR PRN PRN Reason: indigestion Stop: 06/22/20 07:27 Last Admin: 06/04/20 08:21 Dose: 1,000 mg Docusate Sodium (Colace) 100 mg PO BID [facility] Stop: 06/22/20 08:59 Last Admin: 06/04/20 16:14 Dose: 100 mg Levothyroxine Sodium (Synthroid) 0.1 mg PO QDAC [facility] Stop: 06/22/20 07:29 Last Admin: 06/04/20 07:00 Dose: 0.1 mg Lisinopril (Zestril) 10 mg PO BID [facility] Stop: 06/23/20 08:59 Last Admin: 06/04/20 16:13 Dose: 10 mg Loperamide HCl (Imodium) 4 mg PO Q6HR PRN PRN Reason: Diarrhea Stop: 06/24/20 11:46 Multivitamins/Vitamin C (Theragran) 1 tab PO DAILY [facility] Stop: 06/22/20 08:59 Last Admin: 06/04/20 08:21 Dose: 1 tab Quetiapine Fumarate 200 mg/ (Quetiapine Fumarate 50 mg) 250 mg PO HS [facility] Stop: 07/05/20 20:59 Last Admin: 06/03/20 20:23 Dose: 250 mg Venlafaxine HCl (Effexor) 300 mg PO DAILY [facility]; Protocol Stop: 07/13/20 14:59 Last Admin: 06/04/20 08:20 Dose: 300 mg General: alert HEENT: NC/AT, PERRLA, EOMI, anicteric sclerae, throat clear Neck: Supple, No JVD, No thyromegaly, +2 carotid pulse wo bruit, No LAD Lungs: CTAB Cardiovascular: RRR, Normal S1, Normal S2, without murmur Abdomen: soft, non-tender, non-distended Extremities: clear Neurological: no change, alert Internal Medicine Assmt/Plan - Assessment Assessment: 1.HTN. 2.HYPOTHYROIDISM. 3.DJD. 4.DEPRESSION 5.BACK PAIN - Plan Plan: CONTINUE ON CURRENT MEDICATION AND DIET. Nutritional Asmnt/Malnutr-PDOC - Dietary Evaluation Malnutrition Findings (Please click <Entered> for more info): Nutritional Asmnt/Malnutrition Start: 04/24/20 14: 11 Text: Status: Complete Freq: Protocol: Document 04/24/20 14:11 KELSEY (Rec: 04/24/20 14:15 KELSEY [id number]) Nutritional Asmnt/Malnutrition Patient General Information Nutritional Screening Low Risk Diagnosis Psychosis Pertinent Medical Hx/Surgical Hx HTN, Hypothyroidism, Depression Subjective Information Pt is a 56-year-old female admitted on 04/22 d/t agitation . Pt is eating an estimated 100% of meals Per Meal/ Nutrition Activity Record. Dietary is currently providing an estimated 1965 kcals and 108 gm Pro, to meet 100+% kcal and 100+% Pro needs. Spoke with pt. in room today and gathered food preferences; she requested coffee with meals and stated she cannot eat salads due to not having dentures. Anthropometrics HT: 53 WT: 150 LB (68.18 kg) BMI: 26.57 (Overweight) GI/ Skin Integrity GI: WNL, Soft, Round BM: 7/ x1 I/O: 1440/Not Noted Skin: WNL, Dryness Sam: 19 Diet Order: Cardiac Estimated Energy Needs: ( Geriatric, CBW) 6485-4774 kcals (25-30 kcals/ kg) 70-80g Pro (1.0-1.2 g/kg) 6496-7285 ml (25-30 ml/kg) Current Diet Order/ Nutrition Support Cardiac Patient / S.O Can Pertinent Medications Maalox (PRN), Norvasc, Tums, Colace, Lovenox, Synthroid, MOM (PRN), Theragran Pertinent Labs No pertinent labs at this time . Nutritional Hx/Data Height 1.6 m Height (Calculated Centimeters) 160.0 Current Weight (lbs) 68.039 kg Weight (Calculated Kilograms) 68.0 Weight (Calculated Grams) 61551.9 [place] Body Weight 115 LB (52.27 kg) % [place] Body Weight 130 Body Mass Index (BMI) 26.5 Weight Status Overweight GI Symptoms GI Symptoms None Last BM 04/23 x1 Difficult in: Chewing Cultural/Ethnic/Denominational Belief No pork Skin Integrity/Comment: WNL, Dryness Sam: 19 Current %PO Good (75-100%) Estimated Nutritional Goals BEE in Kcals: Using Current wt Calories/Kcals/Kg 25-30 Kcals Calculated 4075-8622 Protein: Using Current wt Protein g/k.0-1.2 Protein Calculated 70-80 Fluid: ml 1167-5425 ml (25-30 ml/kg) Nutritional Problem 1. Problem Problem No nutrition diagnosis at this time. Etiology N/A Signs/Symptoms: N/A Malnutrition Related to Morbid Obesity Malnutrition related to morbid obesity No Intervention/Recommendation Comments Continue Cardiac diet as tolerated. Expected Outcomes/Goals Expected Outcomes/Goals 1. PO intake to continue to meet >75% of estimated nutritional needs. 2. Monitor PO intake, wt, nutrition related labs, and skin integrity. 3. F/U as low risk in 7-10 days, 05/01-05/04.
--- NOTE | 2020-06-04 20:02 | Internal Medicine Prog Note ---
Internal Medicine Subjective - Subjective Service Date: 06/04/20 Patient seen and examined:: without staff (SHE IS DOING GOOD) Patient is:: awake, verbal, in bed, talking Per staff patient has:: no adverse event Internal Medicine Objective - Results Recent Labs: Laboratory Last Values Triglycerides 192 mg/dL (30-150) H 04/25/20 11:20 Cholesterol 457 mg/dL (<200) H 04/25/20 11:20 LDL Cholesterol 297 mg/dL (0-129) H 04/25/20 11:20 HDL Cholesterol 67 mg/dL (>55) 04/25/20 11:20 Urine Color YELLOW (YELLOW) 05/30/20 13:05 Urine Clarity CLEAR (CLEAR) 05/30/20 13:05 Urine pH 6.5 (5.0-8.0) 05/30/20 13:05 Ur Specific [place] 1.010 (1.005-1.030) 05/30/20 13:05 Urine Protein NEGATIVE (NEGATIVE) 05/30/20 13:05 Urine Ketones NEGATIVE (NEGATIVE) 05/30/20 13:05 Urine Blood 2+ (NEGATIVE) H 05/30/20 13:05 Urine Nitrate NEGATIVE (NEGATIVE) 05/30/20 13:05 Urine Bilirubin NEGATIVE (NEGATIVE) 05/30/20 13:05 Urine Urobilinogen 0.2 (0.2-1.0) 05/30/20 13:05 Ur Leukocyte Esterase NEGATIVE (NEGATIVE) 05/30/20 13:05 Urine Glucose 0 (NEGATIVE) 05/30/20 13:05 Coronavirus (PCR) Negative (NOT DETECTD) 05/12/20 15:30 - Physical Exam Vitals and I&O: Vital Signs Temp 97.6 F 06/04/20 14:00 Pulse 79 06/04/20 16:13 Resp 18 06/04/20 14:00 BP 141/87 06/04/20 16:13 Pulse Ox 95 06/04/20 14:00 Intake & Output 06/04/20 06/04/20 06/05/20 06:59 18:59 06:59 Intake Total 360 1200 Balance 360 1200 Intake: Oral 360 1200 Other: # Voids 2 4 # Bowel Movements 0 0 Active Medications: Current Medications Acetaminophen (Tylenol) 650 mg PO Q4H PRN PRN Reason: Pain (Mild 1-3) Stop: 06/22/20 02:16 Last Admin: 06/01/20 02:43 Dose: 650 mg Hydrocodone Bitart/Acetaminophen ([place] 5mg/325mg) 1 tab PO Q6H PRN PRN Reason: Pain (Severe 7-10) Stop: 08/03/20 04:17 Last Admin: 06/04/20 16:33 Dose: 1 tab Al Hydrox/Mg Hydrox/Simethicone (Maalox) 30 ml PO Q4HR PRN PRN Reason: GI DISTRESS Stop: 06/22/20 02:16 Last Admin: 05/05/20 09:33 Dose: 30 ml Amlodipine Besylate (Norvasc) 10 mg PO DAILY [facility] Stop: 06/23/20 08:59 Last Admin: 06/04/20 08:22 Dose: Not Given Bupropion HCl (Wellbutrin Xl) 150 mg PO DAILY [facility]; Protocol Stop: 07/29/20 08:59 Last Admin: 06/04/20 08:21 Dose: 150 mg Calcium Carbonate (Tums) 1,000 mg PO Q6HR PRN PRN Reason: indigestion Stop: 06/22/20 07:27 Last Admin: 06/04/20 08:21 Dose: 1,000 mg Docusate Sodium (Colace) 100 mg PO BID [facility] Stop: 06/22/20 08:59 Last Admin: 06/04/20 16:14 Dose: 100 mg Levothyroxine Sodium (Synthroid) 0.1 mg PO QDAC [facility] Stop: 06/22/20 07:29 Last Admin: 06/04/20 07:00 Dose: 0.1 mg Lisinopril (Zestril) 10 mg PO BID [facility] Stop: 06/23/20 08:59 Last Admin: 06/04/20 16:13 Dose: 10 mg Loperamide HCl (Imodium) 4 mg PO Q6HR PRN PRN Reason: Diarrhea Stop: 06/24/20 11:46 Multivitamins/Vitamin C (Theragran) 1 tab PO DAILY [facility] Stop: 06/22/20 08:59 Last Admin: 06/04/20 08:21 Dose: 1 tab Quetiapine Fumarate 200 mg/ (Quetiapine Fumarate 50 mg) 250 mg PO HS [facility] Stop: 07/05/20 20:59 Last Admin: 06/03/20 20:23 Dose: 250 mg Venlafaxine HCl (Effexor) 300 mg PO DAILY [facility]; Protocol Stop: 07/13/20 14:59 Last Admin: 06/04/20 08:20 Dose: 300 mg General: alert HEENT: NC/AT, PERRLA, EOMI, anicteric sclerae, throat clear Neck: Supple, No JVD, No thyromegaly, +2 carotid pulse wo bruit, No LAD Lungs: CTAB Cardiovascular: RRR, Normal S1, Normal S2, without murmur Abdomen: soft, non-tender, non-distended Extremities: clear Neurological: no change, alert Internal Medicine Assmt/Plan - Assessment Assessment: 1.HTN. 2.HYPOTHYROIDISM. 3.DJD. 4.DEPRESSION 5.BACK PAIN - Plan Plan: CONTINUE ON CURRENT MEDICATION AND DIET. Nutritional Asmnt/Malnutr-PDOC - Dietary Evaluation Malnutrition Findings (Please click <Entered> for more info): Nutritional Asmnt/Malnutrition Start: 04/24/20 14: 11 Text: Status: Complete Freq: Protocol: Document 04/24/20 14:11 KELSEY (Rec: 04/24/20 14:15 KELSEY [id number]) Nutritional Asmnt/Malnutrition Patient General Information Nutritional Screening Low Risk Diagnosis Psychosis Pertinent Medical Hx/Surgical Hx HTN, Hypothyroidism, Depression Subjective Information Pt is a 56-year-old female admitted on 04/22 d/t agitation . Pt is eating an estimated 100% of meals Per Meal/ Nutrition Activity Record. Dietary is currently providing an estimated 1965 kcals and 108 gm Pro, to meet 100+% kcal and 100+% Pro needs. Spoke with pt. in room today and gathered food preferences; she requested coffee with meals and stated she cannot eat salads due to not having dentures. Anthropometrics HT: 53 WT: 150 LB (68.18 kg) BMI: 26.57 (Overweight) GI/ Skin Integrity GI: WNL, Soft, Round BM: 7/ x1 I/O: 1440/Not Noted Skin: WNL, Dryness Sam: 19 Diet Order: Cardiac Estimated Energy Needs: ( Geriatric, CBW) 5692-9971 kcals (25-30 kcals/ kg) 70-80g Pro (1.0-1.2 g/kg) 3176-6517 ml (25-30 ml/kg) Current Diet Order/ Nutrition Support Cardiac Patient / S.O Can Pertinent Medications Maalox (PRN), Norvasc, Tums, Colace, Lovenox, Synthroid, MOM (PRN), Theragran Pertinent Labs No pertinent labs at this time . Nutritional Hx/Data Height 1.6 m Height (Calculated Centimeters) 160.0 Current Weight (lbs) 68.039 kg Weight (Calculated Kilograms) 68.0 Weight (Calculated Grams) 66683.9 [place] Body Weight 115 LB (52.27 kg) % [place] Body Weight 130 Body Mass Index (BMI) 26.5 Weight Status Overweight GI Symptoms GI Symptoms None Last BM 04/23 x1 Difficult in: Chewing Cultural/Ethnic/[employer] Belief No pork Skin Integrity/Comment: WNL, Dryness Sam: 19 Current %PO Good (75-100%) Estimated Nutritional Goals BEE in Kcals: Using Current wt Calories/Kcals/Kg 25-30 Kcals Calculated 6923-1169 Protein: Using Current wt Protein g/k.0-1.2 Protein Calculated 70-80 Fluid: ml 4980-3872 ml (25-30 ml/kg) Nutritional Problem 1. Problem Problem No nutrition diagnosis at this time. Etiology N/A Signs/Symptoms: N/A Malnutrition Related to Morbid Obesity Malnutrition related to morbid obesity No Intervention/Recommendation Comments Continue Cardiac diet as tolerated. Expected Outcomes/Goals Expected Outcomes/Goals 1. PO intake to continue to meet >75% of estimated nutritional needs. 2. Monitor PO intake, wt, nutrition related labs, and skin integrity. 3. F/U as low risk in 7-10 days, 05/01-05/04.
[2020-06-05] MEDS: Hydrocodone/APAP 5mg/325mg Tab PO PRN ×3 (03:10→16:30)
[2020-06-05] MEDS: Levothyroxine 0.1 Mg Tab PO SCH (06:36)
[2020-06-05] MEDS: Multivitamin Tab PO SCH (08:31)
[2020-06-05] MEDS: buPROPion XL 150 mg T 24 H PO SCH (08:31)
--- NOTE | 2020-06-05 18:09 | Internal Medicine Prog Note ---
Internal Medicine Subjective - Subjective Service Date: 06/05/20 Patient seen and examined:: without staff (SHE FEELS BETTER) Patient is:: awake, verbal, in bed, talking Per staff patient has:: no adverse event Internal Medicine Objective - Results Recent Labs: Laboratory Last Values Triglycerides 192 mg/dL (30-150) H 04/25/20 11:20 Cholesterol 457 mg/dL (<200) H 04/25/20 11:20 LDL Cholesterol 297 mg/dL (0-129) H 04/25/20 11:20 HDL Cholesterol 67 mg/dL (>55) 04/25/20 11:20 Urine Color YELLOW (YELLOW) 05/30/20 13:05 Urine Clarity CLEAR (CLEAR) 05/30/20 13:05 Urine pH 6.5 (5.0-8.0) 05/30/20 13:05 Ur Specific [place] 1.010 (1.005-1.030) 05/30/20 13:05 Urine Protein NEGATIVE (NEGATIVE) 05/30/20 13:05 Urine Ketones NEGATIVE (NEGATIVE) 05/30/20 13:05 Urine Blood 2+ (NEGATIVE) H 05/30/20 13:05 Urine Nitrate NEGATIVE (NEGATIVE) 05/30/20 13:05 Urine Bilirubin NEGATIVE (NEGATIVE) 05/30/20 13:05 Urine Urobilinogen 0.2 (0.2-1.0) 05/30/20 13:05 Ur Leukocyte Esterase NEGATIVE (NEGATIVE) 05/30/20 13:05 Urine Glucose 0 (NEGATIVE) 05/30/20 13:05 Coronavirus (PCR) Negative (NOT DETECTD) 05/12/20 15:30 - Physical Exam Vitals and I&O: Vital Signs Temp 98.8 F 06/05/20 14:00 Pulse 74 06/05/20 16:29 Resp 20 06/05/20 14:00 BP 134/77 06/05/20 16:29 Pulse Ox 98 06/05/20 14:00 Intake & Output 06/04/20 06/05/20 06/05/20 18:59 06:59 18:59 Intake Total 1200 120 Balance 1200 120 Intake: Oral 1200 120 Other: # Voids 4 3 # Bowel Movements 0 Active Medications: Current Medications Acetaminophen (Tylenol) 650 mg PO Q4H PRN PRN Reason: Pain (Mild 1-3) Stop: 06/22/20 02:16 Last Admin: 06/05/20 06:49 Dose: 650 mg Hydrocodone Bitart/Acetaminophen ([place] 5mg/325mg) 1 tab PO Q6H PRN PRN Reason: Pain (Severe 7-10) Stop: 08/03/20 04:17 Last Admin: 06/05/20 16:30 Dose: 1 tab Al Hydrox/Mg Hydrox/Simethicone (Maalox) 30 ml PO Q4HR PRN PRN Reason: GI DISTRESS Stop: 06/22/20 02:16 Last Admin: 05/05/20 09:33 Dose: 30 ml Amlodipine Besylate (Norvasc) 10 mg PO DAILY [facility] Stop: 06/23/20 08:59 Last Admin: 06/05/20 08:31 Dose: 10 mg Bupropion HCl (Wellbutrin Xl) 150 mg PO DAILY [facility]; Protocol Stop: 07/29/20 08:59 Last Admin: 06/05/20 08:31 Dose: 150 mg Calcium Carbonate (Tums) 1,000 mg PO Q6HR PRN PRN Reason: indigestion Stop: 06/22/20 07:27 Last Admin: 06/04/20 08:21 Dose: 1,000 mg Docusate Sodium (Colace) 100 mg PO BID [facility] Stop: 06/22/20 08:59 Last Admin: 06/05/20 16:29 Dose: 100 mg Levothyroxine Sodium (Synthroid) 0.1 mg PO QDAC [facility] Stop: 06/22/20 07:29 Last Admin: 06/05/20 06:36 Dose: 0.1 mg Lisinopril (Zestril) 10 mg PO BID [facility] Stop: 06/23/20 08:59 Last Admin: 06/05/20 16:29 Dose: 10 mg Loperamide HCl (Imodium) 4 mg PO Q6HR PRN PRN Reason: Diarrhea Stop: 06/24/20 11:46 Multivitamins/Vitamin C (Theragran) 1 tab PO DAILY [facility] Stop: 06/22/20 08:59 Last Admin: 06/05/20 08:31 Dose: 1 tab Quetiapine Fumarate 200 mg/ (Quetiapine Fumarate 50 mg) 250 mg PO HS [facility] Stop: 07/05/20 20:59 Last Admin: 06/04/20 20:10 Dose: 250 mg Venlafaxine HCl (Effexor) 300 mg PO DAILY [facility]; Protocol Stop: 07/13/20 14:59 Last Admin: 06/05/20 08:46 Dose: 300 mg Zolpidem Tartrate (Ambien) 10 mg PO HS PRN PRN Reason: Insomnia Stop: 08/03/20 20:16 Last Admin: 06/04/20 20:32 Dose: 10 mg General: alert HEENT: NC/AT, PERRLA, EOMI, anicteric sclerae, throat clear Neck: Supple, No JVD, No thyromegaly, +2 carotid pulse wo bruit, No LAD Lungs: CTAB Cardiovascular: RRR, Normal S1, Normal S2, without murmur Abdomen: soft, non-tender, non-distended Extremities: clear Neurological: no change, alert Internal Medicine Assmt/Plan - Assessment Assessment: 1.HTN. 2.HYPOTHYROIDISM. 3.DJD. 4.DEPRESSION 5.BACK PAIN - Plan Plan: CONTINUE ON CURRENT MEDICATION AND DIET. Nutritional Asmnt/Malnutr-PDOC - Dietary Evaluation Malnutrition Findings (Please click <Entered> for more info): Nutritional Asmnt/Malnutrition Start: 04/24/20 14: 11 Text: Status: Complete Freq: Protocol: Document 04/24/20 14:11 KELSEY (Rec: 04/24/20 14:15 KELSEY [id number]) Nutritional Asmnt/Malnutrition Patient General Information Nutritional Screening Low Risk Diagnosis Psychosis Pertinent Medical Hx/Surgical Hx HTN, Hypothyroidism, Depression Subjective Information Pt is a 56-year-old female admitted on 04/22 d/t agitation . Pt is eating an estimated 100% of meals Per Meal/ Nutrition Activity Record. Dietary is currently providing an estimated 1965 kcals and 108 gm Pro, to meet 100+% kcal and 100+% Pro needs. Spoke with pt. in room today and gathered food preferences; she requested coffee with meals and stated she cannot eat salads due to not having dentures. Anthropometrics HT: 53 WT: 150 LB (68.18 kg) BMI: 26.57 (Overweight) GI/ Skin Integrity GI: WNL, Soft, Round BM: 7/ x1 I/O: 1440/Not Noted Skin: WNL, Dryness Sam: 19 Diet Order: Cardiac Estimated Energy Needs: ( Geriatric, CBW) 9196-5178 kcals (25-30 kcals/ kg) 70-80g Pro (1.0-1.2 g/kg) 0517-6100 ml (25-30 ml/kg) Current Diet Order/ Nutrition Support Cardiac Patient / S.O Can Pertinent Medications Maalox (PRN), Norvasc, Tums, Colace, Lovenox, Synthroid, MOM (PRN), Theragran Pertinent Labs No pertinent labs at this time . Nutritional Hx/Data Height 1.6 m Height (Calculated Centimeters) 160.0 Current Weight (lbs) 68.039 kg Weight (Calculated Kilograms) 68.0 Weight (Calculated Grams) 54552.9 [place] Body Weight 115 LB (52.27 kg) % [place] Body Weight 130 Body Mass Index (BMI) 26.5 Weight Status Overweight GI Symptoms GI Symptoms None Last BM 04/23 x1 Difficult in: Chewing Cultural/Ethnic/Orthodoxy Belief No pork Skin Integrity/Comment: WNL, Dryness Sam: 19 Current %PO Good (75-100%) Estimated Nutritional Goals BEE in Kcals: Using Current wt Calories/Kcals/Kg 25-30 Kcals Calculated 6400-6880 Protein: Using Current wt Protein g/k.0-1.2 Protein Calculated 70-80 Fluid: ml 3892-3261 ml (25-30 ml/kg) Nutritional Problem 1. Problem Problem No nutrition diagnosis at this time. Etiology N/A Signs/Symptoms: N/A Malnutrition Related to Morbid Obesity Malnutrition related to morbid obesity No Intervention/Recommendation Comments Continue Cardiac diet as tolerated. Expected Outcomes/Goals Expected Outcomes/Goals 1. PO intake to continue to meet >75% of estimated nutritional needs. 2. Monitor PO intake, wt, nutrition related labs, and skin integrity. 3. F/U as low risk in 7-10 days, 05/01-05/04.
--- NOTE | 2020-06-05 22:06 | Progress Notes ---
DATE: 06/05/2020 Case was discussed with staff of the patient, reviewed records. The patient is claiming that her Xanax dose was decreased "I need my Xanax." I discussed that with the staff, they report there had been no change in Xanax. She is on 0.5 mg every 6 hours as needed. The patient is reported by the staff to be demanding and feeling entitled. We are working on placement. No suicidal ideation, homicidal ideation, or no paranoia. I will continue outpatient group therapy, milieu therapy, and adjust medications as needed. JOB# [id number]
[2020-06-06] MEDS: Hydrocodone/APAP 5mg/325mg Tab PO PRN ×3 (04:33→15:36)
[2020-06-06] MEDS: Levothyroxine 0.1 Mg Tab PO SCH (06:47)
[2020-06-06] MEDS: Multivitamin Tab PO SCH (08:15)
[2020-06-06] MEDS: buPROPion XL 150 mg T 24 H PO SCH (08:15)
--- NOTE | 2020-06-06 19:17 | Internal Medicine Prog Note ---
Internal Medicine Subjective - Subjective Service Date: 06/06/20 Patient seen and examined:: without staff (SHE FEELS WELL) Patient is:: awake, verbal, in bed, talking Per staff patient has:: no adverse event Internal Medicine Objective - Results Recent Labs: Laboratory Last Values Triglycerides 192 mg/dL (30-150) H 04/25/20 11:20 Cholesterol 457 mg/dL (<200) H 04/25/20 11:20 LDL Cholesterol 297 mg/dL (0-129) H 04/25/20 11:20 HDL Cholesterol 67 mg/dL (>55) 04/25/20 11:20 Urine Color YELLOW (YELLOW) 05/30/20 13:05 Urine Clarity CLEAR (CLEAR) 05/30/20 13:05 Urine pH 6.5 (5.0-8.0) 05/30/20 13:05 Ur Specific [place] 1.010 (1.005-1.030) 05/30/20 13:05 Urine Protein NEGATIVE (NEGATIVE) 05/30/20 13:05 Urine Ketones NEGATIVE (NEGATIVE) 05/30/20 13:05 Urine Blood 2+ (NEGATIVE) H 05/30/20 13:05 Urine Nitrate NEGATIVE (NEGATIVE) 05/30/20 13:05 Urine Bilirubin NEGATIVE (NEGATIVE) 05/30/20 13:05 Urine Urobilinogen 0.2 (0.2-1.0) 05/30/20 13:05 Ur Leukocyte Esterase NEGATIVE (NEGATIVE) 05/30/20 13:05 Urine Glucose 0 (NEGATIVE) 05/30/20 13:05 Coronavirus (PCR) Negative (NOT DETECTD) 05/12/20 15:30 - Physical Exam Vitals and I&O: Vital Signs Temp 97.0 F 06/06/20 14:00 Pulse 73 06/06/20 16:43 Resp 20 06/06/20 14:00 BP 129/76 06/06/20 16:43 Pulse Ox 96 06/06/20 14:00 Intake & Output 06/06/20 06/06/20 06/07/20 06:59 18:59 06:59 Intake Total 120 1200 Balance 120 1200 Intake: Oral 120 1200 Other: # Voids 3 4 # Bowel Movements 1 Active Medications: Current Medications Acetaminophen (Tylenol) 650 mg PO Q4H PRN PRN Reason: Pain (Mild 1-3) Stop: 06/22/20 02:16 Last Admin: 06/05/20 06:49 Dose: 650 mg Hydrocodone Bitart/Acetaminophen ([place] 5mg/325mg) 1 tab PO Q6H PRN PRN Reason: Pain (Severe 7-10) Stop: 08/03/20 04:17 Last Admin: 06/06/20 15:36 Dose: 1 tab Al Hydrox/Mg Hydrox/Simethicone (Maalox) 30 ml PO Q4HR PRN PRN Reason: GI DISTRESS Stop: 06/22/20 02:16 Last Admin: 05/05/20 09:33 Dose: 30 ml Amlodipine Besylate (Norvasc) 10 mg PO DAILY [facility] Stop: 06/23/20 08:59 Last Admin: 06/06/20 08:15 Dose: 10 mg Bupropion HCl (Wellbutrin Xl) 150 mg PO DAILY [facility]; Protocol Stop: 07/29/20 08:59 Last Admin: 06/06/20 08:15 Dose: 150 mg Calcium Carbonate (Tums) 1,000 mg PO Q6HR PRN PRN Reason: indigestion Stop: 06/22/20 07:27 Last Admin: 06/04/20 08:21 Dose: 1,000 mg Docusate Sodium (Colace) 100 mg PO BID [facility] Stop: 06/22/20 08:59 Last Admin: 06/06/20 16:43 Dose: 100 mg Levothyroxine Sodium (Synthroid) 0.1 mg PO QDAC [facility] Stop: 06/22/20 07:29 Last Admin: 06/06/20 06:47 Dose: 0.1 mg Lisinopril (Zestril) 10 mg PO BID [facility] Stop: 06/23/20 08:59 Last Admin: 06/06/20 16:43 Dose: 10 mg Loperamide HCl (Imodium) 4 mg PO Q6HR PRN PRN Reason: Diarrhea Stop: 06/24/20 11:46 Multivitamins/Vitamin C (Theragran) 1 tab PO DAILY [facility] Stop: 06/22/20 08:59 Last Admin: 06/06/20 08:15 Dose: 1 tab Quetiapine Fumarate 200 mg/ (Quetiapine Fumarate 50 mg) 250 mg PO HS [facility] Stop: 07/05/20 20:59 Last Admin: 06/05/20 20:09 Dose: 250 mg Venlafaxine HCl (Effexor) 300 mg PO DAILY [facility]; Protocol Stop: 07/13/20 14:59 Last Admin: 06/06/20 08:18 Dose: 300 mg Zolpidem Tartrate (Ambien) 10 mg PO HS PRN PRN Reason: Insomnia Stop: 08/03/20 20:16 Last Admin: 06/05/20 21:01 Dose: 10 mg General: alert HEENT: NC/AT, PERRLA, EOMI, anicteric sclerae, throat clear Neck: Supple, No JVD, No thyromegaly, +2 carotid pulse wo bruit, No LAD Lungs: CTAB Cardiovascular: RRR, Normal S1, Normal S2, without murmur Abdomen: soft, non-tender, non-distended Extremities: clear Neurological: no change, alert Internal Medicine Assmt/Plan - Assessment Assessment: 1.HTN. 2.HYPOTHYROIDISM. 3.DJD. 4.DEPRESSION 5.BACK PAIN - Plan Plan: CONTINUE ON CURRENT MEDICATION AND DIET. Nutritional Asmnt/Malnutr-PDOC - Dietary Evaluation Malnutrition Findings (Please click <Entered> for more info): Nutritional Asmnt/Malnutrition Start: 04/24/20 14: 11 Text: Status: Complete Freq: Protocol: Document 04/24/20 14:11 KELSEY (Rec: 04/24/20 14:15 KELSEY [id number]) Nutritional Asmnt/Malnutrition Patient General Information Nutritional Screening Low Risk Diagnosis Psychosis Pertinent Medical Hx/Surgical Hx HTN, Hypothyroidism, Depression Subjective Information Pt is a 56-year-old female admitted on 04/22 d/t agitation . Pt is eating an estimated 100% of meals Per Meal/ Nutrition Activity Record. Dietary is currently providing an estimated 1965 kcals and 108 gm Pro, to meet 100+% kcal and 100+% Pro needs. Spoke with pt. in room today and gathered food preferences; she requested coffee with meals and stated she cannot eat salads due to not having dentures. Anthropometrics HT: 53 WT: 150 LB (68.18 kg) BMI: 26.57 (Overweight) GI/ Skin Integrity GI: WNL, Soft, Round BM: 7/ x1 I/O: 1440/Not Noted Skin: WNL, Dryness Sam: 19 Diet Order: Cardiac Estimated Energy Needs: ( Geriatric, CBW) 7118-5114 kcals (25-30 kcals/ kg) 70-80g Pro (1.0-1.2 g/kg) 1210-9458 ml (25-30 ml/kg) Current Diet Order/ Nutrition Support Cardiac Patient / S.O Can Pertinent Medications Maalox (PRN), Norvasc, Tums, Colace, Lovenox, Synthroid, MOM (PRN), Theragran Pertinent Labs No pertinent labs at this time . Nutritional Hx/Data Height 1.6 m Height (Calculated Centimeters) 160.0 Current Weight (lbs) 68.039 kg Weight (Calculated Kilograms) 68.0 Weight (Calculated Grams) 26623.9 [place] Body Weight 115 LB (52.27 kg) % [place] Body Weight 130 Body Mass Index (BMI) 26.5 Weight Status Overweight GI Symptoms GI Symptoms None Last BM 04/23 x1 Difficult in: Chewing Cultural/Ethnic/Orthodoxy Belief No pork Skin Integrity/Comment: WNL, Dryness Sam: 19 Current %PO Good (75-100%) Estimated Nutritional Goals BEE in Kcals: Using Current wt Calories/Kcals/Kg 25-30 Kcals Calculated 2791-0004 Protein: Using Current wt Protein g/k.0-1.2 Protein Calculated 70-80 Fluid: ml 1498-6577 ml (25-30 ml/kg) Nutritional Problem 1. Problem Problem No nutrition diagnosis at this time. Etiology N/A Signs/Symptoms: N/A Malnutrition Related to Morbid Obesity Malnutrition related to morbid obesity No Intervention/Recommendation Comments Continue Cardiac diet as tolerated. Expected Outcomes/Goals Expected Outcomes/Goals 1. PO intake to continue to meet >75% of estimated nutritional needs. 2. Monitor PO intake, wt, nutrition related labs, and skin integrity. 3. F/U as low risk in 7-10 days, 05/01-05/04.
--- NOTE | 2020-06-06 19:34 | Progress Notes ---
DATE: 06/06/2020 Case was discussed with staff of the patient, reviewed records. The patient has been very irritable because she wants to be on the Xanax and currently, the order got dropped off and need to be renewed. Very demanding, agitated. Sleeping well, eating well. No suicidal ideation, no homicidal ideation, no paranoia. Awaiting placement. No side effects with the medication. We will continue outpatient group therapy, milieu therapy, and adjust medications as needed. JOB# [id number]
[2020-06-07] MEDS: Hydrocodone/APAP 5mg/325mg Tab PO PRN ×3 (01:36→13:28)
[2020-06-07] MEDS: Levothyroxine 0.1 Mg Tab PO SCH (06:30)
[2020-06-07] MEDS: Multivitamin Tab PO SCH (08:21)
[2020-06-07] MEDS: buPROPion XL 150 mg T 24 H PO SCH (08:21)
--- NOTE | 2020-06-07 17:04 | Progress Notes ---
DATE: 06/07/2020 SUBJECTIVE: The patient is resting comfortably in bed. She is awake and alert, in no distress. OBJECTIVE: VITAL SIGNS: Temperature 98.6, pulse 67, respirations 20, blood pressure 109/66. Lungs: CTA Heart: S1S2 RRR Abdo: soft, NT, +BS Ext: no edema DIAGNOSES: 1. Psychiatric disorder. 2. Chronic pain. PLAN: Continue current treatment. JOB# [id number] [facility]
--- NOTE | 2020-06-07 17:54 | Progress Notes ---
DATE: 06/07/2020 SUBJECTIVE: Case was discussed with staff of the patient, reviewed records. The patient continues to be demanding. Apparently, the staff did not put the order for the Xanax yet, so she is demanding to be on Xanax that apparently fell of her list, sleeping well, eating well. No suicidal ideation, no homicidal ideation, no paranoia, no side effects. Awaiting placement. We will continue outpatient group therapy, milieu therapy, and adjust medications as needed. JOB# [id number]
[2020-06-08] MEDS: Hydrocodone/APAP 5mg/325mg Tab PO PRN ×3 (00:24→14:19)
[2020-06-08] MEDS: Levothyroxine 0.1 Mg Tab PO SCH (06:38)
[2020-06-08] MEDS: buPROPion XL 150 mg T 24 H PO SCH (08:18)
[2020-06-08] MEDS: Multivitamin Tab PO SCH (08:18)
--- NOTE | 2020-06-08 14:16 | General Progress Note ---
Subjective - Review of Systems Service Date: 06/08/20 Subjective: resting comfortably no distress Objective - Results Recent Labs: Laboratory Last Values Triglycerides 192 mg/dL (30-150) H 04/25/20 11:20 Cholesterol 457 mg/dL (<200) H 04/25/20 11:20 LDL Cholesterol 297 mg/dL (0-129) H 04/25/20 11:20 HDL Cholesterol 67 mg/dL (>55) 04/25/20 11:20 Urine Color YELLOW (YELLOW) 05/30/20 13:05 Urine Clarity CLEAR (CLEAR) 05/30/20 13:05 Urine pH 6.5 (5.0-8.0) 05/30/20 13:05 Ur Specific [place] 1.010 (1.005-1.030) 05/30/20 13:05 Urine Protein NEGATIVE (NEGATIVE) 05/30/20 13:05 Urine Ketones NEGATIVE (NEGATIVE) 05/30/20 13:05 Urine Blood 2+ (NEGATIVE) H 05/30/20 13:05 Urine Nitrate NEGATIVE (NEGATIVE) 05/30/20 13:05 Urine Bilirubin NEGATIVE (NEGATIVE) 05/30/20 13:05 Urine Urobilinogen 0.2 (0.2-1.0) 05/30/20 13:05 Ur Leukocyte Esterase NEGATIVE (NEGATIVE) 05/30/20 13:05 Urine Glucose 0 (NEGATIVE) 05/30/20 13:05 Coronavirus (PCR) Negative (NOT DETECTD) 05/12/20 15:30 - Physical Exam Vitals and I&O: Vital Signs Temp 97.3 F 06/08/20 06:01 Pulse 68 06/08/20 08:19 Resp 18 06/08/20 08:00 BP 116/59 06/08/20 08:19 Pulse Ox 96 06/08/20 06:01 Intake & Output 06/07/20 06/08/20 06/08/20 18:59 06:59 18:59 Intake Total 1200 240 Balance 1200 240 Intake: Oral 1200 240 Other: # Voids 4 2 # Bowel Movements 1 Active Medications: Current Medications Acetaminophen (Tylenol) 650 mg PO Q4H PRN PRN Reason: Pain (Mild 1-3) Stop: 06/22/20 02:16 Last Admin: 06/05/20 06:49 Dose: 650 mg Hydrocodone Bitart/Acetaminophen ([place] 5mg/325mg) 1 tab PO Q6H PRN PRN Reason: Pain (Severe 7-10) Stop: 08/03/20 04:17 Last Admin: 06/08/20 08:17 Dose: 1 tab Al Hydrox/Mg Hydrox/Simethicone (Maalox) 30 ml PO Q4HR PRN PRN Reason: GI DISTRESS Stop: 06/22/20 02:16 Last Admin: 05/05/20 09:33 Dose: 30 ml Alprazolam (Xanax) 0.5 mg PO TID PRN; Protocol PRN Reason: anxiety Stop: 08/06/20 12:09 Last Admin: 06/08/20 02:51 Dose: 0.5 mg Amlodipine Besylate (Norvasc) 10 mg PO DAILY [facility] Stop: 06/23/20 08:59 Last Admin: 06/08/20 08:18 Dose: 10 mg Bupropion HCl (Wellbutrin Xl) 150 mg PO DAILY [facility]; Protocol Stop: 07/29/20 08:59 Last Admin: 06/08/20 08:18 Dose: 150 mg Calcium Carbonate (Tums) 1,000 mg PO Q6HR PRN PRN Reason: indigestion Stop: 06/22/20 07:27 Last Admin: 06/04/20 08:21 Dose: 1,000 mg Docusate Sodium (Colace) 100 mg PO BID [facility] Stop: 06/22/20 08:59 Last Admin: 06/08/20 08:18 Dose: 100 mg Levothyroxine Sodium (Synthroid) 0.1 mg PO QDAC [facility] Stop: 06/22/20 07:29 Last Admin: 06/08/20 06:38 Dose: 0.1 mg Lisinopril (Zestril) 10 mg PO BID [facility] Stop: 06/23/20 08:59 Last Admin: 06/08/20 08:19 Dose: 10 mg Loperamide HCl (Imodium) 4 mg PO Q6HR PRN PRN Reason: Diarrhea Stop: 06/24/20 11:46 Multivitamins/Vitamin C (Theragran) 1 tab PO DAILY [facility] Stop: 06/22/20 08:59 Last Admin: 06/08/20 08:18 Dose: 1 tab Quetiapine Fumarate 200 mg/ (Quetiapine Fumarate 50 mg) 250 mg PO HS [facility] Stop: 07/05/20 20:59 Last Admin: 06/07/20 21:31 Dose: 250 mg Venlafaxine HCl (Effexor) 300 mg PO DAILY [facility]; Protocol Stop: 07/13/20 14:59 Last Admin: 06/08/20 08:18 Dose: 300 mg Zolpidem Tartrate (Ambien) 10 mg PO HS PRN PRN Reason: Insomnia Stop: 08/03/20 20:16 Last Admin: 06/07/20 21:31 Dose: 10 mg General: No acute distress HEENT: PERRLA Neck: Supple, JVD Cardiovascular: Regular rate, Normal S1, Normal S2 Lungs: Clear to auscultation Abdomen: Bowel sounds, Soft Assessment/Plan - Assessment Assessment: 1.HTN. 2.HYPOTHYROIDISM. 3.DJD. 4.DEPRESSION 5.DIARRHEA - Plan Plan: continue current treatment Nutritional Asmnt/Malnutr-PDOC - Dietary Evaluation Malnutrition Findings (Please click <Entered> for more info): Nutritional Asmnt/Malnutrition Start: 04/24/20 14: 11 Text: Status: Complete Freq: Protocol: Document 04/24/20 14:11 KESLEY (Rec: 04/24/20 14:15 [place]ELSE[id number]) Nutritional Asmnt/Malnutrition Patient General Information Nutritional Screening Low Risk Diagnosis Psychosis Pertinent Medical Hx/Surgical Hx HTN, Hypothyroidism, Depression Subjective Information Pt is a 56-year-old female admitted on 04/22 d/t agitation . Pt is eating an estimated 100% of meals Per Meal/ Nutrition Activity Record. Dietary is currently providing an estimated 1965 kcals and 108 gm Pro, to meet 100+% kcal and 100+% Pro needs. Spoke with pt. in room today and gathered food preferences; she requested coffee with meals and stated she cannot eat salads due to not having dentures. Anthropometrics HT: 53 WT: 150 LB (68.18 kg) BMI: 26.57 (Overweight) GI/ Skin Integrity GI: WNL, Soft, Round BM: 7/ x1 I/O: 1440/Not Noted Skin: WNL, Dryness Sam: 19 Diet Order: Cardiac Estimated Energy Needs: ( Geriatric, CBW) 4528-7402 kcals (25-30 kcals/ kg) 70-80g Pro (1.0-1.2 g/kg) 9051-7803 ml (25-30 ml/kg) Current Diet Order/ Nutrition Support Cardiac Patient / S.O Can Pertinent Medications Maalox (PRN), Norvasc, Tums, Colace, Lovenox, Synthroid, MOM (PRN), Theragran Pertinent Labs No pertinent labs at this time . Nutritional Hx/Data Height 1.6 m Height (Calculated Centimeters) 160.0 Current Weight (lbs) 68.039 kg Weight (Calculated Kilograms) 68.0 Weight (Calculated Grams) 45563.9 [place] Body Weight 115 LB (52.27 kg) % [place] Body Weight 130 Body Mass Index (BMI) 26.5 Weight Status Overweight GI Symptoms GI Symptoms None Last BM 04/23 x1 Difficult in: Chewing Cultural/Ethnic/Confucianist Belief No pork Skin Integrity/Comment: WNL, Dryness Sam: 19 Current %PO Good (75-100%) Estimated Nutritional Goals BEE in Kcals: Using Current wt Calories/Kcals/Kg 25-30 Kcals Calculated 3481-1637 Protein: Using Current wt Protein g/k.0-1.2 Protein Calculated 70-80 Fluid: ml 9753-4197 ml (25-30 ml/kg) Nutritional Problem 1. Problem Problem No nutrition diagnosis at this time. Etiology N/A Signs/Symptoms: N/A Malnutrition Related to Morbid Obesity Malnutrition related to morbid obesity No Intervention/Recommendation Comments Continue Cardiac diet as tolerated. Expected Outcomes/Goals Expected Outcomes/Goals 1. PO intake to continue to meet >75% of estimated nutritional needs. 2. Monitor PO intake, wt, nutrition related labs, and skin integrity. 3. F/U as low risk in 7-10 days, 05/01-05/04.
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
[2020-06-09] MEDS: Levothyroxine 0.1 Mg Tab PO SCH (06:32)
[2020-06-09] MEDS: Hydrocodone/APAP 5mg/325mg Tab PO PRN ×2 (07:56→14:11)
[2020-06-09] MEDS: Multivitamin Tab PO SCH (08:43)
[2020-06-09] MEDS: buPROPion XL 150 mg T 24 H PO SCH (08:44)
--- NOTE | 2020-06-09 18:10 | Internal Medicine Prog Note ---
Internal Medicine Subjective - Subjective Service Date: 06/09/20 Patient seen and examined:: without staff (SHE FEELS WELL) Patient is:: awake, verbal, in bed, talking Per staff patient has:: no adverse event Internal Medicine Objective - Results Recent Labs: Laboratory Last Values Triglycerides 192 mg/dL (30-150) H 04/25/20 11:20 Cholesterol 457 mg/dL (<200) H 04/25/20 11:20 LDL Cholesterol 297 mg/dL (0-129) H 04/25/20 11:20 HDL Cholesterol 67 mg/dL (>55) 04/25/20 11:20 Urine Color YELLOW (YELLOW) 05/30/20 13:05 Urine Clarity CLEAR (CLEAR) 05/30/20 13:05 Urine pH 6.5 (5.0-8.0) 05/30/20 13:05 Ur Specific [place] 1.010 (1.005-1.030) 05/30/20 13:05 Urine Protein NEGATIVE (NEGATIVE) 05/30/20 13:05 Urine Ketones NEGATIVE (NEGATIVE) 05/30/20 13:05 Urine Blood 2+ (NEGATIVE) H 05/30/20 13:05 Urine Nitrate NEGATIVE (NEGATIVE) 05/30/20 13:05 Urine Bilirubin NEGATIVE (NEGATIVE) 05/30/20 13:05 Urine Urobilinogen 0.2 (0.2-1.0) 05/30/20 13:05 Ur Leukocyte Esterase NEGATIVE (NEGATIVE) 05/30/20 13:05 Urine Glucose 0 (NEGATIVE) 05/30/20 13:05 Coronavirus (PCR) Negative (NOT DETECTD) 05/12/20 15:30 - Physical Exam Vitals and I&O: Vital Signs Temp 98.2 F 06/09/20 15:53 Pulse 68 06/09/20 16:55 Resp 18 06/09/20 15:53 BP 129/72 06/09/20 16:55 Pulse Ox 95 06/09/20 15:53 Intake & Output 06/08/20 06/09/20 06/09/20 18:59 06:59 18:59 Intake Total 120 Balance 120 Intake: Oral 120 Other: # Voids 3 # Bowel Movements 0 Active Medications: Current Medications Acetaminophen (Tylenol) 650 mg PO Q4H PRN PRN Reason: Pain (Mild 1-3) Stop: 06/22/20 02:16 Last Admin: 06/05/20 06:49 Dose: 650 mg Hydrocodone Bitart/Acetaminophen ([place] 5mg/325mg) 1 tab PO Q6H PRN PRN Reason: Pain (Severe 7-10) Stop: 08/03/20 04:17 Last Admin: 06/09/20 14:11 Dose: 1 tab Al Hydrox/Mg Hydrox/Simethicone (Maalox) 30 ml PO Q4HR PRN PRN Reason: GI DISTRESS Stop: 06/22/20 02:16 Last Admin: 05/05/20 09:33 Dose: 30 ml Alprazolam (Xanax) 0.5 mg PO TID PRN; Protocol PRN Reason: anxiety Stop: 08/06/20 12:09 Last Admin: 06/08/20 02:51 Dose: 0.5 mg Amlodipine Besylate (Norvasc) 10 mg PO DAILY [facility] Stop: 06/23/20 08:59 Last Admin: 06/09/20 15:51 Dose: Not Given Bupropion HCl (Wellbutrin Xl) 150 mg PO DAILY [facility]; Protocol Stop: 07/29/20 08:59 Last Admin: 06/09/20 08:44 Dose: 150 mg Calcium Carbonate (Tums) 1,000 mg PO Q6HR PRN PRN Reason: indigestion Stop: 06/22/20 07:27 Last Admin: 06/04/20 08:21 Dose: 1,000 mg Docusate Sodium (Colace) 100 mg PO BID [facility] Stop: 06/22/20 08:59 Last Admin: 06/09/20 16:56 Dose: 100 mg Levothyroxine Sodium (Synthroid) 0.1 mg PO QDAC [facility] Stop: 06/22/20 07:29 Last Admin: 06/09/20 06:32 Dose: 0.1 mg Lisinopril (Zestril) 10 mg PO BID [facility] Stop: 06/23/20 08:59 Last Admin: 06/09/20 16:55 Dose: 10 mg Loperamide HCl (Imodium) 4 mg PO Q6HR PRN PRN Reason: Diarrhea Stop: 06/24/20 11:46 Multivitamins/Vitamin C (Theragran) 1 tab PO DAILY [facility] Stop: 06/22/20 08:59 Last Admin: 06/09/20 08:43 Dose: 1 tab Quetiapine Fumarate 200 mg/ (Quetiapine Fumarate 50 mg) 250 mg PO HS [facility] Stop: 07/05/20 20:59 Last Admin: 06/08/20 20:55 Dose: 250 mg Venlafaxine HCl (Effexor) 300 mg PO DAILY [facility]; Protocol Stop: 07/13/20 14:59 Last Admin: 06/09/20 08:42 Dose: 300 mg Zolpidem Tartrate (Ambien) 10 mg PO HS PRN PRN Reason: Insomnia Stop: 08/03/20 20:16 Last Admin: 06/08/20 20:55 Dose: 10 mg General: alert HEENT: NC/AT, PERRLA, EOMI, anicteric sclerae, throat clear Neck: Supple, No JVD, No thyromegaly, +2 carotid pulse wo bruit, No LAD Lungs: CTAB Cardiovascular: RRR, Normal S1, Normal S2, without murmur Abdomen: soft, non-tender, non-distended Extremities: clear Neurological: no change, alert Internal Medicine Assmt/Plan - Assessment Assessment: 1.HTN. 2.HYPOTHYROIDISM. 3.DJD. 4.DEPRESSION 5.BACK PAIN - Plan Plan: CONTINUE ON CURRENT MEDICATION AND DIET. Nutritional Asmnt/Malnutr-PDOC - Dietary Evaluation Malnutrition Findings (Please click <Entered> for more info): Nutritional Asmnt/Malnutrition Start: 04/24/20 14: 11 Text: Status: Complete Freq: Protocol: Document 04/24/20 14:11 KELSE[facility] (Rec: 04/24/20 14:15 [id number]) Nutritional Asmnt/Malnutrition Patient General Information Nutritional Screening Low Risk Diagnosis Psychosis Pertinent Medical Hx/Surgical Hx HTN, Hypothyroidism, Depression Subjective Information Pt is a 56-year-old female admitted on 04/22 d/t agitation . Pt is eating an estimated 100% of meals Per Meal/ Nutrition Activity Record. Dietary is currently providing an estimated 1965 kcals and 108 gm Pro, to meet 100+% kcal and 100+% Pro needs. Spoke with pt. in room today and gathered food preferences; she requested coffee with meals and stated she cannot eat salads due to not having dentures. Anthropometrics HT: 53 WT: 150 LB (68.18 kg) BMI: 26.57 (Overweight) GI/ Skin Integrity GI: WNL, Soft, Round BM: 04/23 x1 I/O: 1440/Not Noted Skin: WNL, Dryness Sam: 19 Diet Order: Cardiac Estimated Energy Needs: ( Geriatric, CBW) 7919-3212 kcals (25-30 kcals/ kg) 70-80g Pro (1.0-1.2 g/kg) 5273-7441 ml (25-30 ml/kg) Current Diet Order/ Nutrition Support Cardiac Patient / S.O Can Pertinent Medications Maalox (PRN), Norvasc, Tums, Colace, Lovenox, Synthroid, MOM (PRN), Theragran Pertinent Labs No pertinent labs at this time . Nutritional Hx/Data Height 1.6 m Height (Calculated Centimeters) 160.0 Current Weight (lbs) 68.039 kg Weight (Calculated Kilograms) 68.0 Weight (Calculated Grams) 41568.9 [place] Body Weight 115 LB (52.27 kg) % [place] Body Weight 130 Body Mass Index (BMI) 26.5 Weight Status Overweight GI Symptoms GI Symptoms None Last BM 04/23 x1 Difficult in: Chewing Cultural/Ethnic/Adventist Belief No pork Skin Integrity/Comment: WNL, Dryness Sam: 19 Current %PO Good (75-100%) Estimated Nutritional Goals BEE in Kcals: Using Current wt Calories/Kcals/Kg 25-30 Kcals Calculated 7497-3409 Protein: Using Current wt Protein g/k.0-1.2 Protein Calculated 70-80 Fluid: ml 7899-2958 ml (25-30 ml/kg) Nutritional Problem 1. Problem Problem No nutrition diagnosis at this time. Etiology N/A Signs/Symptoms: N/A Malnutrition Related to Morbid Obesity Malnutrition related to morbid obesity No Intervention/Recommendation Comments Continue Cardiac diet as tolerated. Expected Outcomes/Goals Expected Outcomes/Goals 1. PO intake to continue to meet >75% of estimated nutritional needs. 2. Monitor PO intake, wt, nutrition related labs, and skin integrity. 3. F/U as low risk in 7-10 days, 05/01-05/04.
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
[2020-06-10] MEDS: Hydrocodone/APAP 5mg/325mg Tab PO PRN ×2 (05:43→11:46)
[2020-06-10] MEDS: Levothyroxine 0.1 Mg Tab PO SCH (06:41)
[2020-06-10] MEDS: Multivitamin Tab PO SCH (08:26)
[2020-06-10] MEDS: buPROPion XL 150 mg T 24 H PO SCH (08:27)
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
== END 2020-06-10 14:30 | DRG 885 ==
LOC: GERO 04-22 22:19
PROVIDERS: ADMIT Psychiatry & Neurology Psychiatry; ATTEND Psychiatry & Neurology Psychiatry
DX: F31.30 Bipolar disorder, current episode depressed, mild or moderate severity, unspecified (principal); N39.0 Urinary tract infection, site not specified; F41.9 Anxiety disorder, unspecified; I10 Essential (primary) hypertension; E03.9 Hypothyroidism, unspecified; M19.90 Unspecified osteoarthritis, unspecified site; J44.9 Chronic obstructive pulmonary disease, unspecified; M62.50 Muscle wasting and atrophy, not elsewhere classified, unspecified site; Z91.018 Allergy to other foods; Z87.891 Personal history of nicotine dependence; E86.0 Dehydration; R19.7 Diarrhea, unspecified; M54.9 Dorsalgia, unspecified; G89.29 Other chronic pain; Z20.828 Contact with and (suspected) exposure to other viral communicable diseases
CPT/HCPCS: 36415-UA; 80061-TC; 81003-TC; 83036-90; 90899; G0410; J1650; U0003-CS; Z7610